=== PATIENT | female | born 1970 | race Hispanic/Latino ===

== ENCOUNTER 2017-11-18 16:20 | Emergency (ER) | payer MEDICAID ==
[2017-11-18 16:51] LABS: APPEARANCE,URINE Cloudy (CLEAR); BILIRUBIN,URINE Negative (NEGATIVE); COLOR,URINE Yellow (YELLOW); GLUCOSE, URINE (UA) Negative (NEGATIVE); HCG,QUAL RESULT NEGATIVE (NEGATIVE); KETONES,URINE Negative (NEGATIVE); LEUKOCYTE ESTERASE ,URINE Negative (NEGATIVE); NITRATE,URINE Negative (NEGATIVE); OCCULT BLOOD,URINE Negative (NEGATIVE); PH,URINE 6.5 (5.0-8.0); PROTEIN,URINE Negative (NEGATIVE)
[2017-11-18] MEDS ORDERED: METOCLOPRAMIDE 10 MG TABLET ONE (16:51)
[2017-11-18] MEDS ORDERED: SODIUM CHLORIDE 0.9% 1000ML 1,000 ML IV ONE (16:51)
[2017-11-18] MEDS ORDERED: KETOROLAC TROMETHAMINE 30MG/ML ONE (16:52)
[2017-11-18 17:02] LABS: BACTERIA,URINE Few /HPF (None Seen); RBC,URINE None Seen /HPF (0-1); SQUAMOUS EPITHELIAL CELL,UR 50-100 /HPF (0-2); WBC,URINE None Seen /HPF (0-1)
== END 2017-11-18 18:59 | disposition home or self-care (01) ==
LOC: EDH 16:20
DX: G43.909 Migraine, unspecified, not intractable, without status migrainosus (principal); J45.909 Unspecified asthma, uncomplicated; K21.9 Gastro-esophageal reflux disease without esophagitis; Z88.0 Allergy status to penicillin; Z88.6 Allergy status to analgesic agent; Z86.73 Personal history of transient ischemic attack (TIA), and cerebral infarction without residual deficits
CPT/HCPCS: 81001; 81025; 96361; 96374; 99284; J1885; J7030

== ENCOUNTER 2021-05-02 15:24 | Emergency (ER) | payer MEDICAID ==
[~2021-05-02] VITALS: Ht 170.2 cm; Wt 97.1 kg
[2021-05-02 15:45] VITALS: BP 133/83
[2021-05-02] MEDS ORDERED: GUAIFENESIN/DEXTROMETHORPHAN 1 EACH TAB.SR.12H PO ONE ×2 (16:00→18:00)
[2021-05-02 16:21] LABS: EOSINOPHILS % (AUTO) 2.7 % (0.0-8.0); LYMPHOCYTES % (AUTO) 33.1 % (21.0-51.0); MEAN CORPUSCULAR HEMOGLOBIN 29.7 pg (27.0-33.0); MEAN CORPUSCULAR HGB CONC 34.4 g/dL (32.0-36.0); MEAN CORPUSCULAR VOLUME 86.3 fL (79-99); MONOCYTES % (AUTO) 7.5 % (3.0-13.0); NEUTROPHILS % (AUTO) 55.4 % (40.0-77.0); PLATELET COUNT (AUTO) 150 K/uL (130-400); RED BLOOD CELL COUNT(AUTO) 4.75 MIL/uL (4.00-5.50); RED CELL DISTRIBUTION WIDTH 12.4 % (11.0-15.5); WHITE BLOOD COUNT (AUTO) 5.9 K/uL (4.8-10.8)
[2021-05-02] MEDS ORDERED: DEXAMETHASONE SOD PHOSPHATE 4 MG/ML 1ML VIAL IM SCH (18:00)
[2021-05-02] MEDS ORDERED: AZIT500T PO (18:51)
== END 2021-05-02 19:06 | disposition home or self-care (01) ==
LOC: EDH 15:24
DX: J45.901 Unspecified asthma with (acute) exacerbation (principal); J32.9 Chronic sinusitis, unspecified; Z20.822 Contact with and (suspected) exposure to COVID-19; I10 Essential (primary) hypertension; K21.9 Gastro-esophageal reflux disease without esophagitis; Z79.52 Long term (current) use of systemic steroids; Z88.0 Allergy status to penicillin; Z88.1 Allergy status to other antibiotic agents; Z88.2 Allergy status to sulfonamides; Z88.5 Allergy status to narcotic agent
CPT/HCPCS: 36415; 71045; 85025; 87635; 87804 ×2; 87880; 99284; C9803; J1100

== ENCOUNTER → 2022-12-29 | Outpatient (CLI) | payer MEDICAID ==
[~2022-12-29] MED LIST: AZIT500T PO
[2022-12-29 12:10] LABS: HEMOGLOBIN A1C 5.1 % (4.0-6.0)
[2022-12-29 12:15] LABS: ALBUMIN 3.5 g/dL (3.5-5.0); CREATININE 0.9 mg/dL (0.5-1.5); POTASSIUM 3.9 mmol/L (3.5-5.1); TOTAL PROTEIN, SERUM 7.1 g/dL (6.0-8.3)
== END | disposition home or self-care (01) ==
LOC: LAB 08:28
PROVIDERS: ATTEND Student in an Organized Health Care Education/Training Program
DX: I10 Essential (primary) hypertension (principal); E78.5 Hyperlipidemia, unspecified; K76.0 Fatty (change of) liver, not elsewhere classified; J45.909 Unspecified asthma, uncomplicated; Z79.899 Other long term (current) drug therapy
CPT/HCPCS: 36415; 80053; 80061; 83036

== ENCOUNTER → 2023-01-12 | Outpatient (CLI) | payer MEDICAID ==
[~2023-01-12] MED LIST changes: +IOHEXOL 350 MG/ML 100ML INFUS..BTL IV ONE; +METOPROLOL TARTRATE 1 MG/ML 5ML VIAL IV ONE; +NITROGLYCERIN 4.1 GM SPRAY TL ONE
== END | disposition home or self-care (01) ==
LOC: RAH 08:24
PROVIDERS: ATTEND Student in an Organized Health Care Education/Training Program
DX: R07.89 Other chest pain (principal)
CPT/HCPCS: 75574; J3490; Q9967

== ENCOUNTER → 2023-02-03 | Outpatient (CLI) | payer MEDICAID ==
[~2023-02-03] MED LIST changes: -IOHEXOL 350 MG/ML 100ML INFUS..BTL IV ONE; -METOPROLOL TARTRATE 1 MG/ML 5ML VIAL IV ONE; -NITROGLYCERIN 4.1 GM SPRAY TL ONE
== END | disposition home or self-care (01) ==
LOC: SHCH 07:55
PROVIDERS: ATTEND Student in an Organized Health Care Education/Training Program
DX: I11.9 Hypertensive heart disease without heart failure (principal); R07.9 Chest pain, unspecified; E78.5 Hyperlipidemia, unspecified
CPT/HCPCS: 93306

== ENCOUNTER 2025-01-10 18:32 | Observation (INO) | payer MEDICAID ==
[~2025-01-10] VITALS: Ht 172.7 cm; Wt 95.7 kg
[~2025-01-10 18:32] MED LIST changes: +ACET-66 PO; +ASPI-1197 PO; -AZIT500T PO; +ERGO500093 PO; +FAMO40TA7 PO; +ONDA-104 PO; +PANT40TA54 PO
--- NOTE | 2025-01-10 18:41 | ERN ---
General Chief Complaint: Abdominal Pain Stated Complaint: ABDOMINAL PAIN Time Seen by MD: 18:33 Source: patient History of Present Illness Initial Comments Patient is a 54-year-old female coming in to be evaluated for abdominal pain. Patient states that on the Dr. David performed a gastric bypass. She states he was discharged two days after. She states shortly after that she started having increased abdominal pain with the gassiness and states that she has not been able to defecate correctly. No fever no chills. Allergies: Coded Allergies: Penicillins (Unverified Allergy, Unknown, 05/02/21) Ifdiyzpr-0-IC2 Antimigraine Agents (Unverified Allergy, Unknown, 12/31/24) ciprofloxacin (Unverified Allergy, Unknown, 05/02/21) codeine (Unverified Allergy, Unknown, 05/02/21) metoclopramide (Unverified Allergy, Unknown, 12/31/24) nitrofurantoin (Unverified Allergy, Unknown, 12/31/24) sulfamethoxazole (Unverified Allergy, Unknown, 05/02/21) trimethoprim (Unverified Allergy, Unknown, 05/02/21) Home Meds Reported Medications Acetaminophen (Tylenol) 500 Mg Tab, 500 MG PO AD PRN for PAIN, TAB 12/31/24 Famotidine (Famotidine) 40 Mg Tablet, 40 MG PO HS, TAB 12/31/24 Ondansetron HCl (Ondansetron HCl) 4 Mg Tablet, 1 TAB PO Q6HPRN PRN for nausea/vomiting, #10 TAB 0 Refills 12/31/24 Aspirin (Aspirin) 81 Mg Tab.chew, 81 MG PO DAILY, TAB.CHEW 12/31/24 Ergocalciferol (Vitamin D2) (Vitamin D2) 1,250 Mcg (52398 Unit) Capsule, 1250 MCG PO QWEEK, CAP 12/31/24 Pantoprazole Sodium (Pantoprazole Sodium) 40 Mg Tablet.dr, 40 MG PO DAILY, TAB 12/31/24 Past Medical History Past Medical History: GERD, Hypertension, Other Medical History Other: IBS,TIA Past Surgical History: None Family History Family History: Negative Social History Social History: Negative ROS Dictation CONSTITUTIONAL: No chills, no fever, no weakness, no diaphoresis, no malaise. HEAD/FACE: No signs of trauma. EENT: No eye pain, no blurred vision, no tearing, no double vision, no ear pain, no ear discharge, no nose pain, no nasal congestion, no throat pain, no throat swelling, no mouth pain. RESPIRATORY: No cough, no orthopnea, no SOB, no stridor, no wheezing. CARDIOVASCULAR: No chest pain, no edema, no palpitations, no syncope. GASTROINTESTINAL/ABDOMINAL: abdominal pain, constipation, no diarrhea, no nausea, no vomiting. GENITOURINARY: No abnormal discharge, no dysuria, no frequent urination, no hematuria. No complaints of pain in the genitals. MUSCULOSKELETAL: No back pain, no gout, no joint pain, no joint swelling, no muscle pain, no muscle stiffness, no neck pain. INTEGUMENTARY: No change in color, no change in hair/nails, no dryness, no lesion, no lumps, no rash. NEUROLOGICAL/PSYCH: No anxiety, not depressed, no emotional problem, no headache, no numbness, no pre-existing deficit, no history of seizures, no tremors, no weakness. HEMATOLOGIC/LYMPHATIC: Not anemic, no history of blood clots, no apparent bleeding, no bruising, glands not swollen. All Systems Negative, Except as Noted. Physical Exam Physical Exam Dictation VITAL SIGNS: Reviewed. GENERAL APPEARANCE: Alert, oriented x3, no acute distress, obese. HEAD AND FACE: Non-traumatic. EYES: PERRL, pink conjunctivas, eyelid no trauma, anterior chamber clear. EARS: Pinnas intact and no signs of trauma or erythema. Ear canals clear and no discharge. TMs no erythema. NOSE: No discharge, no bleeding. OROPHARYNX: Mouth normal, teeth no caries, tongue pink. Pharynx clear, no erythema. Tonsils no exudates, no abscesses noted. Mucous membrane moist. NECK: Supple, non-tender, no thyromegaly, no masses, no JVD, no bruits. BREAST: Deferred. CHEST: No tenderness, no crepitus, no paradoxical movement, no retractions. LUNGS: Clear, well-ventilated, symmetric, no rales, no wheezing, no rhonchi, no stridor, good breath sounds bilaterally. HEART: Regular rate, regular rhythm, no murmur, no gallops. VASCULAR: No peripheral edema. ABDOMEN: Soft, positive bowel sounds, distended, no guarding, generalized abdominal tender, no rebound, no masses no hepatomegaly, no splenomegaly, no Griffin's sign, no hernias. RECTAL: Deferred. GENITAL: Deferred. NEUROLOGICAL: Normal speech, gross motor function intact, gross sensory function intact. MUSCULOSKELETAL: Neck nontender, full range of motion, back nontender, full range of motion. EXTREMITIES: Nontender, full range of motion. SKIN: Color pink, dry, no turgor, no rash, no lacerations, no abrasions, no contusions. LYMPHATICS: Deferred. Results Laboratory and Microbiology Lab and Micro Result Laboratory Tests Test 01/10/25 19:17 01/10/25 20:12 White Blood Count 5.9 K/uL (4.8-10.8) Red Blood Count 4.68 MIL/uL (4.00-5.50) Hemoglobin 13.9 g/dL (12.0-16.0) Hematocrit 39.2 % (36-48) Mean Corpuscular Volume 83.8 fL (79-99) Mean Corpuscular Hemoglobin 29.7 pg (27.0-33.0) Mean Corpuscular Hemoglobin Concent 35.5 g/dL (32.0-36.0) Red Cell Distribution Width 13.6 % (11.0-15.5) Platelet Count 205 K/uL (130-400) Mean Platelet Volume 9.4 fL (7.5-10.5) Immature Granulocyte % (Auto) 0.3 % (0-1) Neutrophils (%) (Auto) 59.9 % (40.0-77.0) Lymphocytes (%) (Auto) 27.3 % (21.0-51.0) Monocytes (%) (Auto) 8.3 % (3.0-13.0) Eosinophils (%) (Auto) 3.7 % (0.0-8.0) Basophils (%) (Auto) 0.5 % (0.0-5.0) Neutrophils # (Auto) 3.5 K/uL (1.8-7.7) Lymphocytes # (Auto) 1.6 K/uL (1.0-4.8) Monocytes # (Auto) 0.5 K/uL (0.1-1.0) Eosinophils # (Auto) 0.22 K/uL (0.00-0.70) Basophils # (Auto) 0.03 K/uL (0.00-0.20) Absolute Immature Granulocyte (auto 0.02 K/uL (0-1) Nucleated Red Blood Cells 0.0 % (0.0-0.19) Sodium Level 142 mmol/L (136-145) Potassium Level 3.4 mmol/L (3.5-5.1) L Chloride Level 102 mmol/L (101-111) Carbon Dioxide Level 25 mmol/L (21-32) Blood Urea Nitrogen 15 mg/dL (7-18) Creatinine 0.8 mg/dL (0.5-1.0) Glomerular Filtration Rate Calc 89 mL/min (>90) Random Glucose 85 mg/dL (70-105) Total Calcium 9.5 mg/dL (8.5-10.1) Total Bilirubin 0.9 mg/dL (0.2-1.0) Aspartate Amino Transf (AST/SGOT) 21 U/L (10-37) Alanine Aminotransferase (ALT/SGPT) 26 U/L (12-78) Alkaline Phosphatase 88 U/L (50-136) Total Creatine Kinase 44 U/L (21-232) Troponin I High Sensitivity 6 ng/L (4-50) Total Protein 7.7 g/dL (6.0-8.3) Albumin 3.9 g/dL (3.5-5.0) Lipase 42 U/L (16-77) Urine Color YELLOW (YELLOW) Urine Appearance CLOUDY (CLEAR) H Urine pH 6.0 (5.0-8.0) Urine Specific [place] 1.025 (1.001-1.031) Urine Protein 30 mg/dL (NEGATIVE) H Urine Glucose (UA) NEGATIVE mg/dL (NEGATIVE) Urine Ketones 150 mg/dL (NEGATIVE) H Urine Occult Blood +- (TRACE) (NEGATIVE) H Urine Nitrate 2+ (NEGATIVE) H Urine Bilirubin NEGATIVE mg/dL (NEGATIVE) Urine Urobilinogen 3 mg/dL (0.2-1.0) H Urine Leukocyte Esterase 500 Clay/uL (NEGATIVE) H Urine RBC 6-10 /HPF (0-1) H Urine WBC TNTC /HPF (0-1) H Urine WBC Clumps (Auto) FEW /HPF (0-1) Urine Squamous Epithelial Cells MOD /HPF (0-2) Urine Other Crystals (Auto) 1 /HPF (None Seen) Urine Bacteria RARE /HPF (None Seen) Labs Reviewed?: Yes MDM MDM: Differential diagnosis: Abdominal pain, constipation, bowel obstruction, Rationale: Tests considered and ordered secondary to shared decision making include: labs, ECG and radiology Previous outside records reviewed: Old ER visits. Risk of complication and/or morbidity or mortality of patient management: None Medications-Per medication reconciliation Need for hospitalization: Patient does meet criteria for hospitalization. Need for emergency major/minor surgery: No There are no social concerns with this patient. Prescription drug management Prescriptions will include symptomatic care Patient's prior external medical records from other ER visits were reviewed by me as indicated. Prior testing and results from previous visits were reviewed. Prior tests were taken into account with medical decision making and resource utilization, independent historian/historians were used to obtain complete medical history. I independently interpreted the test that were performed, results were reviewed by me and considered findings on radiology if ordered. Medical management and examination interpretation discussions were had by me with other qualified healthcare professionals as indicated for the patient's care. Discussed patient's pain and current symptoms. She says the pain comes in waves every 30 minutes. She is having trouble drinking water. She is having trouble burping gas out and she says she is only able to pass small amounts of flatus. She does feel she is dehydrated. I described to her the plan for a CT scan. Patient's CBC is normal. Patient's chemistry panel is normal. Patient's UA is strongly positive for a urinary tract infection with a cloudy appearance positive nitrite and positive esterase activity. Most likely patient got it from a Garrett catheter at some point during hospitalization although we will never know for sure. I will give the patient a dose of Rocephin. Patient's CT scan does show possible ileus with small bowel loops fecalized and dilated prior to the gastric bypass small bowel anastomosis. There are normal appearing loops of small bowel distal to the anastomosis. The radiologist thinks there maybe some dilated loops of small bowel distal to the anastomosis as well. So I do not know if the patient has a small bowel obstruction associated with the distal anastomosis or an ileus from her urinary tract infection. In either case I think she needs to be admitted to the hospital as she can not stay hydrated. I have called Dr. David to discuss the patient with him and then I will admit her to the hospitalist service. I have called the hospitalist service to admit the patient. ED Course Orders Procedure Category Date Status Time Cbc With Differential LAB 01/10/25 Complete 18:38 Comprehensive LAB 01/10/25 Complete Metabolic Panel 18:38 Troponin I High LAB 01/10/25 Complete Sensitivity 18:38 Urinalysis Profile LAB 01/10/25 Complete 18:38 12 Lead Ekg Tracing- EKG 01/10/25 Complete Technical 18:38 Lactated Ringers PHA 01/10/25 Complete 1000ml (Lactated 19:00 Ondansetron 4mg Inj PHA 01/10/25 Complete (Zofran 4mg Inj) 19:00 Pantoprazole 40mg Inj PHA 01/10/25 Complete (Protonix 40mg Inj 19:00 Creatine Kinase, Total LAB 01/10/25 Complete 18:38 Lipase LAB 01/10/25 Complete 18:38 Fentanyl Citrate Pf PHA 01/10/25 Complete 0.05 Mg/Ml (Fentanyl 19:30 Ketorolac PHA 01/10/25 Complete Tromethamine 30mg/Ml 20:00 Ketorolac PHA 01/10/25 Complete Tromethamine 30mg/Ml 20:05 Culture Urine HYUN 01/10/25 In Process 20:32 Ct Abdomen/Pelvis CT 01/10/25 Resulted W/Contrast 20:45 Iohexol (Omnipaque) PHA 01/10/25 Complete 20:59 Current Medications Medications (Trade) Dose Ordered Sig/Silvia Route PRN Reason Start Time Stop Time Status Last Admin Dose Admin Fentanyl Citrate (FENTanyl CITRate PF 50 MCG/ 1 ML 2ML VIAL) 50 mcg ONCE ONCE IVP 01/10/25 19:30 01/10/25 19:37 DC Iohexol (Omnipaque) 35,000 mg STK-MED ONCE IV 01/10/25 20:59 01/10/25 20:59 DC Ketorolac Tromethamine (toRADol) 30 mg ONCE ONCE IVP 01/10/25 20:00 01/10/25 20:05 DC 01/10/25 20:07 Ketorolac Tromethamine (toRADol) 30 mg STK-MED ONCE .ROUTE 01/10/25 20:05 01/10/25 20:05 DC Lactated Ringer's 1,000 ml @ 0 mls/hr ONCE ONCE IV 01/10/25 19:00 01/10/25 19:01 DC 01/10/25 19:28 Ondansetron HCl (zoFRAN 4MG INJ) 4 mg ONCE ONCE IVP 01/10/25 19:00 01/10/25 19:01 DC 01/10/25 19:28 Pantoprazole Sodium (PROTonix 40MG INJ) 40 mg ONCE ONCE IVP 01/10/25 19:00 01/10/25 19:01 DC 01/10/25 19:28 Vital Signs Date Time Temp Pulse Resp B/P (MAP) Pulse Ox O2 Delivery O2 Flow Rate FiO2 01/10/25 20:07 99.3 89 18 114/65 99 Room Air* 0 21 01/10/25 18:33 98.1 80 16 126/91 97 Room Air DX & DISP Disposition: Other(Comment) (Patient care transitioned to Dr. Sánchez) Departure Impression: Primary Impression: Abdominal pain Condition: Stable Referrals: PETRONA MORALES M.D. (PCP) JENNIFER KEARNEY MD January 10, 2025 18:41 NASIR SÁNCHEZ MD January 10, 2025 19:30
--- NOTE | 2025-01-10 19:09 | EKG ---
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
[2025-01-10 19:24] LABS: BASOPHILS # (AUTO) 0.03 K/uL (0.00-0.20); BASOPHILS % (AUTO) 0.5 % (0.0-5.0); EOSINOPHILS # (AUTO) 0.22 K/uL (0.00-0.70); EOSINOPHILS % (AUTO) 3.7 % (0.0-8.0); HEMATOCRIT 39.2 % (36-48); IMMATURE GRANULOCYTE ABSOLUTE 0.02 K/uL (0-1); LYMPHOCYTES # (AUTO) 1.6 K/uL (1.0-4.8); LYMPHOCYTES % (AUTO) 27.3 % (21.0-51.0); MEAN CORPUSCULAR HEMOGLOBIN 29.7 pg (27.0-33.0); MEAN CORPUSCULAR HGB CONC 35.5 g/dL (32.0-36.0); MEAN CORPUSCULAR VOLUME 83.8 fL (79-99); MONOCYTES # (AUTO) 0.5 K/uL (0.1-1.0); MONOCYTES % (AUTO) 8.3 % (3.0-13.0); NEUTROPHILS # (AUTO) 3.5 K/uL (1.8-7.7); NEUTROPHILS % (AUTO) 59.9 % (40.0-77.0); PLATELET COUNT (AUTO) 205 K/uL (130-400); RED BLOOD CELL COUNT(AUTO) 4.68 MIL/uL (4.00-5.50); RED CELL DISTRIBUTION WIDTH 13.6 % (11.0-15.5); WHITE BLOOD COUNT (AUTO) 5.9 K/uL (4.8-10.8)
[2025-01-10] MEDS: PANTOPrazole 40 MG/VIAL IVP ONE (19:28)
[2025-01-10] MEDS: ondanSETRON 4MG INJ IVP ONE (19:28)
[2025-01-10] MEDS: LACTATED RINGERS 1000ML 1,000 ML IV ONE (19:28)
[2025-01-10] MEDS: FENTanyl CITRate PF 50 MCG/1 ML 2ML VIAL IVP ONE (19:45)
[2025-01-10 19:59] LABS: CREATININE 0.8 mg/dL (0.5-1.0); POTASSIUM 3.4 mmol/L (3.5-5.1)
[2025-01-10 20:03] LABS: ALBUMIN 3.9 g/dL (3.5-5.0); BILIRUBIN,TOTAL 0.9 mg/dL (0.2-1.0); TOTAL PROTEIN, SERUM 7.7 g/dL (6.0-8.3)
[2025-01-10] MEDS: ketOROlac 30MG VIAL (30MG/ML) ONE (20:06)
[2025-01-10] MEDS: ketOROlac 30MG VIAL (30MG/ML) IVP ONE (20:07)
[2025-01-10 20:30] LABS: APPEARANCE,URINE CLOUDY (CLEAR); BILIRUBIN,URINE NEGATIVE (NEGATIVE); COLOR,URINE YELLOW (YELLOW); GLUCOSE, URINE (UA) NEGATIVE (NEGATIVE); KETONES,URINE 150 mg/dL (NEGATIVE); LEUKOCYTE ESTERASE ,URINE 500 Leu/uL (NEGATIVE); NITRATE,URINE 2+ (NEGATIVE); PROTEIN,URINE 30 mg/dL (NEGATIVE); UROBILINOGEN,URINE 3 mg/dL (0.2-1.0)
[2025-01-10 20:31] LABS: ADD UA MICROSCOPIC YES
[2025-01-10 20:33] LABS: BACTERIA,URINE RARE /HPF (None Seen); MUCUS,URINE MOD LPF (None Seen); SQUAMOUS EPITHELIAL CELL,UR MOD /HPF (0-2); UNCLASSIFIED CRYSTAL 1 /HPF (None Seen); WBC CLUMP FEW /HPF (0-1); WBC,URINE TNTC /HPF (0-1)
[2025-01-10] MEDS ORDERED: IOHEXOL 350 MG/ML 100ML INFUS..BTL IV ONE (20:59)
--- NOTE | 2025-01-10 21:16 | HMCIMG ---
CT ABDOMEN WITH CONTRAST. CT PELVIS WITH CONTRAST INDICATION: postop gastric bypass pain TECHNIQUE: Routine transaxial images using 5 mm slice thickness were obtained after the intravenous infusion of 100 mL of Omnipaque 350 without adverse effects. Oral contrast was not administered. Rectal contrast was not administered. Coronal and sagittal reformatted images acquired for interpretation. CT was performed with one or more of the following dose reduction techniques: Automated exposure control, adjustment of the mA and/or kV according to patient size, or use of iterative reconstruction technique. COMPARISON: None FINDINGS: ABDOMEN: Heart size is normal. Linear scarring at the left lung base. Gastric bypass surgery changes. The liver is normal in size and smooth in contour without lesions or biliary duct dilation. The spleen is normal in size without lesions. The gallbladder is absent. The pancreas appears normal without pancreatic duct dilation. The adrenal glands appear normal. Both kidneys appear unremarkable. Cortical nephrograms are symmetric and normal in appearance bilaterally. No evidence for intra-abdominal free air or organized fluid collection. No retrocrural, intraabdominal, or retroperitoneal lymphadenopathy identified. No aortic aneurysmal dilation or dissection identified. Residual subcutaneous periumbilical air densities perhaps related to laparoscopic entrance sites, without any evidence for hernia. PELVIS: No evidence for free air or organized pelvic fluid collection. No significant pelvic adenopathy detected. On coronal image 13 of series 4, fluid-filled dilated jejunum noted within the central upper abdomen upstream from the small bowel anastomosis, and fecalization of the small bowel contents at the same level suggests slow transit time. Nondilated, but otherwise, similar-appearing, small bowel loop on the other side of the anastomosis. Terminal ileum appears normal. The appendix appears normal. The urinary bladder appears unremarkable. Uterus is absent. Visible osseous structures are intact. IMPRESSION: Findings suggesting upper abdominal ileus as described, specifically, on both sides of the small bowel anastomosis. Follow-up CT imaging with oral contrast may be necessary in order to confirm normal transit.
[2025-01-10] MEDS ORDERED: acetaMINOPHEN 650 MG SUPPOSITORY RC PRN (23:00)
[2025-01-10] MEDS ORDERED: TEMAZepam 15 MG CAPSULE PO PRN (23:00)
[2025-01-10] MEDS ORDERED: acetaMINOPHEN 325 MG TAB PO PRN (23:00)
[2025-01-10] MEDS ORDERED: LACTULOSE 20 GM/30 ML UDCUP PO PRN (23:00)
[2025-01-10] MEDS ORDERED: ondanSETRON 4MG INJ IVP PRN (23:00)
[2025-01-10] MEDS ORDERED: LAbetaLOL 20MG SYG IV PRN (23:00)
[2025-01-10] MEDS ORDERED: doCUSate SODIUM 100 MG CAP PO PRN (23:00)
[2025-01-10] MEDS: LACTATED RINGERS 1000ML 1,000 ML IV SCH (23:01)
--- NOTE | 2025-01-10 23:03 | HP ---
[facility] H[facility] PHYS[facility] Date of Service: January 10, 2025 Time of Service: 23:01 PETRONA MORALES M.D. (PCP) Attending/supervising physicians: Dr. Jonas and Dr. Saucedo HISTORY OF PRESENT ILLNESS: Ms Valdez is a 54-year-old female coming in to be evaluated for abdominal pain. Patient stated that on the Dr. Domingo David performed a gastric bypass and was discharged two days after. She stated shortly after that she started having increased abdominal pain with the gassiness and stated that she has not been able to defecate correctly. The patient stated that her last bowel movement was on Tuesday. She states that it was watery due to the suppository that was given. The patient denied any fevers, chills, chest pain, shortness of breath, any other pain, problem or concern. CBC WNL. Remarkable labs: K3.4, GFR 89. UA: Cloudy, positive protein, ketones, occult blood, nitrites, leukocyte esterase, urobilinogen. CT abdomen and pelvis with contrast: Findings suggesting upper abdominal ileus, specifically, on both sides of the small bowel anastomosis. In ED the patient received LR 1 L bolus, Zofran 4 mg IV, Protonix 40 mg IV, fentanyl 50 mcg IV, and Toradol 30 mg IV. ED provider request patient be admitted with the diagnosis of abdominal pain. I assessed the patient in hallway B1. family member was at bedside. The patient appeared comfortable, breathing was even, unlabored, in no distress. I informed them of labs, diagnostics, and plan of care. I answered their multiple questions. They verbalized understanding and are in agreement with the plan. Plan and assessment are listed below. REVIEW OF SYSTEMS 12-point ROS reviewed with the patient. All pertinent positives mentioned above. Otherwise negative, noncontributory, non-pertinent. PAST MEDICAL HISTORY: As mentioned above PAST SURGICAL HISTORY: Gastric bypass on 01/03/2025 Cholecystectomy Hysterectomy PAST SOCIAL HISTORY: Denied alcohol, tobacco, illicit drug use FAMILY HISTORY: Noncontributory Coded Allergies: Penicillins (Unverified Allergy, Unknown, 05/02/21) [id number] Antimigraine Agents (Unverified Allergy, Unknown, 12/31/24) ciprofloxacin (Unverified Allergy, Unknown, 05/02/21) codeine (Unverified Allergy, Unknown, 05/02/21) metoclopramide (Unverified Allergy, Unknown, 12/31/24) nitrofurantoin (Unverified Allergy, Unknown, 12/31/24) sulfamethoxazole (Unverified Allergy, Unknown, 05/02/21) trimethoprim (Unverified Allergy, Unknown, 05/02/21) PHYSICAL EXAM GENERAL APPEARANCE: The patient is awake, alert, and oriented, in no acute cardiopulmonary distress. NEUROLOGICAL: Cranial nerves II-XII grossly intact. Motor is 5/5 in bilateral upper and lower extremities proximal to distal. No sensory deficits. HEENT: Face is symmetric. Pupils are equal and reactive. Extraocular movements are intact. NECK: Supple. No JVD. No thyromegaly. No submental, submandibular, pre- /postauricular, occipital or supraclavicular lymphadenopathy. CHEST: Normal chest expansion. No Telemetry. LUNGS: Absence of any rales, rhonchi or any wheezing. CARDIOVASCULAR: Regular. S1 and S2 normal. No appreciable rubs, murmurs or gallops. ABDOMEN: Obese. Soft, nontender, and nondistended. There is no rebound, volu ntary guarding, or rigidity. Bowel sounds present in all four quadrants. : Deferred. No Garrett. EXTREMITIES: Non-edematous and not cyanotic. No clubbing. Good capillary refill. SKIN: No skin breakdown. Vital Sign (Last 24 Hours) 01/10/25 22:34 Temp 99.1 Pulse 85 Resp 18 B/P (MAP) 121/60 Pulse Ox 98 O2 Delivery Room Air* O2 Flow Rate 0 FiO2 21 LABS: Laboratory: Test 01/10/25 20:12 01/10/25 19:17 Range/Units Urine Color YELLOW YELLOW Urine Appearance CLOUDY H CLEAR Urine pH 6.0 5.0-8.0 Urine Specific [place] 1.025 1.001-1.031 Urine Protein 30 H NEGATIVE mg/dL Urine Glucose (UA) NEGATIVE NEGATIVE mg/dL Urine Ketones 150 H NEGATIVE mg/dL Urine Occult Blood +- (TRACE) H NEGATIVE Urine Nitrate 2+ H NEGATIVE Urine Bilirubin NEGATIVE NEGATIVE mg/dL Urine Urobilinogen 3 H 0.2-1.0 mg/dL Urine Leukocyte Esterase 500 H NEGATIVE Clay/uL Urine RBC 6-10 H 0-1 /HPF Urine WBC TNTC H 0-1 /HPF Urine WBC Clumps (Auto) FEW 0-1 /HPF Urine Squamous Epithelial Cells MOD 0-2 /HPF Urine Other Crystals (Auto) 1 None Seen /HPF Urine Bacteria RARE None Seen /HPF White Blood Count 5.9 4.8-10.8 K/uL Red Blood Count 4.68 4.00-5.50 MIL/uL Hemoglobin 13.9 12.0-16.0 g/dL Hematocrit 39.2 36-48 % Mean Corpuscular Volume 83.8 79-99 fL Mean Corpuscular Hemoglobin 29.7 27.0-33.0 pg Mean Corpuscular Hemoglobin Concent 35.5 32.0-36.0 g/dL Red Cell Distribution Width 13.6 11.0-15.5 % Platelet Count 205 130-400 K/uL Mean Platelet Volume 9.4 7.5-10.5 fL Immature Granulocyte % (Auto) 0.3 0-1 % Neutrophils (%) (Auto) 59.9 40.0-77.0 % Lymphocytes (%) (Auto) 27.3 21.0-51.0 % Monocytes (%) (Auto) 8.3 3.0-13.0 % Eosinophils (%) (Auto) 3.7 0.0-8.0 % Basophils (%) (Auto) 0.5 0.0-5.0 % Neutrophils # (Auto) 3.5 1.8-7.7 K/uL Lymphocytes # (Auto) 1.6 1.0-4.8 K/uL Monocytes # (Auto) 0.5 0.1-1.0 K/uL Eosinophils # (Auto) 0.22 0.00-0.70 K/uL Basophils # (Auto) 0.03 0.00-0.20 K/uL Absolute Immature Granulocyte (auto 0.02 0-1 K/uL Nucleated Red Blood Cells 0.0 0.0-0.19 % Sodium Level 142 136-145 mmol/L Potassium Level 3.4 L 3.5-5.1 mmol/L Chloride Level 102 101-111 mmol/L Carbon Dioxide Level 25 21-32 mmol/L Blood Urea Nitrogen 15 7-18 mg/dL Creatinine 0.8 0.5-1.0 mg/dL Glomerular Filtration Rate Calc 89 >90 mL/min Random Glucose 85 70-105 mg/dL Total Calcium 9.5 8.5-10.1 mg/dL Total Bilirubin 0.9 0.2-1.0 mg/dL Aspartate Amino Transf (AST/SGOT) 21 10-37 U/L Alanine Aminotransferase (ALT/SGPT) 26 12-78 U/L Alkaline Phosphatase 88 50-136 U/L Total Creatine Kinase 44 21-232 U/L Troponin I High Sensitivity 6 4-50 ng/L Total Protein 7.7 6.0-8.3 g/dL Albumin 3.9 3.5-5.0 g/dL Lipase 42 16-77 U/L Current Medications Medications (Trade) Dose Ordered Sig/Silvia Route PRN Reason Start Time Stop Time Status Last Admin Dose Admin Acetaminophen (TYLenol 325MG TAB) 650 mg Q6H PRN PO FEVER/MILD PAIN LEVEL 1-3 01/10/25 23:00 02/09/25 22:59 Acetaminophen (TYLenol 650MG SUPPOSITORY) 650 mg Q6H PRN RC FEVER / MILD PAIN 1-3 IF NPO 01/10/25 23:00 02/09/25 22:59 Docusate Sodium (COLace 100MG CAP) 100 mg BID PRN PO CONSTIPATION 01/10/25 23:00 02/09/25 22:59 Labetalol HCl (TRANdate 20MG SYG) 10 mg Q2H PRN IV SBP GREATER THAN 160 01/10/25 23:00 02/09/25 22:59 Lactated Ringer's 1,000 ml @ 100 mls/hr Q10H IV 01/10/25 23:00 02/09/25 22:59 Lactulose (Constulose 20gm/ 30ml Udcup) 20 gm Q6H PRN PO CONSTIPATION 01/10/25 23:00 02/09/25 22:59 Ondansetron HCl (zoFRAN 4MG INJ) 4 mg Q6H PRN IVP NAUSEA/VOMITING 01/10/25 23:00 02/09/25 22:59 Temazepam (restORIL 15 MG CAP) 15 mg HS PRN PO INSOMNIA/SLEEP 01/10/25 23:00 02/09/25 22:59 DIAGNOSTICS / RADIOLOGY: [ ] ASSESSMENT: Acute abdominal pain, suspected upper abdominal ileus specifically on both sides of the small bowel anastomosis, per CT on 01/10/2025 Residual subcutaneous periumbilical air densities, perhaps r/t laparoscopic entrance site per CT on 01/10/2025 Acute complicated cystitis, POA Linear scarring of the left lung base, per CT on 01/10/2025 Hypokalemia Acute kidney injury, POA Acute dehydration, POA Acute on chronic kidney disease, (GFR 78 on 12/29/2022, GFR 89 on 01/03/2025) Proteinuria, ketonuria, hematuria per UA on 01/10/2025 Multiple drug allergies PLAN: Admit patient to medical floor. NPO for now. Consult Dr. Domingo David, surgeon in am for evaluation of abd pain, ileus vs obstruction s/p surgery. Follow urine cultures. Gentle IV hydration. LR IV at 100 mL an hour. Antibiotic therapy: Rocephin 2 g IV daily. (Pt has penicillin allergy, but has taken Rocephin in past w/o problems.) P.r.n. medications for: Pain management, fever, nausea, vomiting, hypertension Glucometer checks AC & HS needed with insulin regular sliding scale coverage as needed. Blood pressure checks every 4 hours and as needed. Reconcile home medications once available. Monitor renal and liver function. Monitor electrolytes and treat accordingly. GI and DVT prophylaxis: Protonix and SCDs AM labs ADVANCED CARE PLANNING 1. Which of the following were discussed? Hospice Care - No Therapeutic options - Yes Advance Directives - Yes Other discussions - 2. Discussed with who? Patient 3. Voluntary nature of this service was explained to the patient? Yes 4. Amount of time spent - __ over 35 minutes 5. Reviewed by Physician? (if this service was performed by [facility]) Yes ATTESTATION BY PHYSICIAN I have seen and examined the patient. I reviewed the documentation, medical decision making, and treatment plan as noted by the mid-level provider above. I agree with the findings and plan of care. KHRIS FRANCIS January 10, 2025 23:02
[2025-01-11] VITALS (9 sets, daily range): BP systolic 104–146; BP diastolic 61–90; PULSE 60–98; RESP 17–18; TEMP 97.5–98.2; O2SAT 98
[2025-01-11] MEDS: levoFLOXacin 750 MG/D5W 150 ML 150 ML IV SCH (00:30)
--- NOTE | 2025-01-11 00:38 | NUR ---
PATIENT REFUSED LEVOFLOXACIN IV. SHE SAID SHE PREFERS HER 'USUAL' ANITIBIOTICS THAT HAS BEEN GIVEN TO HER IN THE PAST.
--- NOTE | 2025-01-11 00:42 | NUR ---
INFORM NIKKI ORDERED CEFTRI INSTEAD
[2025-01-11] MEDS: cefTRIAXone 2GM VIAL IVPB SCH (00:50)
[2025-01-11] MEDS: cefTRIAXone 2GM VIAL ONE (00:51)
[2025-01-11] MEDS ORDERED: PoTASSium chloRIDE 20MEQ/100ML 100 ML IV PRN (01:00)
[2025-01-11] MEDS ORDERED: GLUCAGON 1MG KIT 1 MG ML IM PRN (01:00)
[2025-01-11] MEDS ORDERED: DEXTROSE 50%-WATER 50 ML DISP.SYRIN IV PRN (01:00)
[2025-01-11] MEDS ORDERED: ketOROlac 30MG VIAL (30MG/ML) IVP PRN (01:30)
[2025-01-11 04:03] LABS: HEMATOCRIT 34.5 % (36-48); MEAN CORPUSCULAR HEMOGLOBIN 29.6 pg (27.0-33.0); MEAN CORPUSCULAR HGB CONC 34.8 g/dL (32.0-36.0); MEAN CORPUSCULAR VOLUME 85.2 fL (79-99); RED BLOOD CELL COUNT(AUTO) 4.05 MIL/uL (4.00-5.50); RED CELL DISTRIBUTION WIDTH 13.5 % (11.0-15.5); WHITE BLOOD COUNT (AUTO) 5.1 K/uL (4.8-10.8)
[2025-01-11 04:29] LABS: CREATININE 0.7 mg/dL (0.5-1.0); MAGNESIUM 1.9 mg/dL (1.80-2.40); PHOSPHORUS 4.2 mg/dL (2.5-4.9); POTASSIUM 3.8 mmol/L (3.5-5.1); THYROID STIMULATING HORMONE 1.18 uIU/mL (0.36-3.74)
--- NOTE | 2025-01-11 09:07 | CONS ---
GENERAL SURGERY CONSULTATION NOTE Date/Time Patient Seen: [01/11/2025, 8:30 a.m. ] Requesting Physician: [ ] Reason for Consultation: [ Abdominal pain, possible areas] History of Present Illness: [ Patient is a 54-year-old female who was admitted from emergency department due to abdominal pain, UTI. Patient with history of robotic assisted gastric bypass one week ago. Past medical history of gastroparesis, GERD, chronic constipation. Patient states that while at home her abdominal discomfort increased. Mostly to the pelvis area and epigastrium. Patient describes feeling bloated. Also states that her p.o. intake has been diminishing. Patient worried that she is getting dehydrated not getting enough nutrition. Last bowel movement about one week ago, passing flatus. Patient denies nausea, vomiting, diarrhea. No shortness of breath, chest pain. Denies fevers or chills.] Past Medical History: [Gastroparesis, GERD, morbid obesity the associated comorbidities, chronic constipation ] Past Surgical History: [Gastric bypass when we can go home cholecystectomy ] Family History: [ Noncontributory] Social History: [ Noncontributory] Habits: [Never] smoker. [Denies] alcohol consumption. [Denies] illicit drug use Current Medications Medications (Trade) Dose Ordered Sig/Silvia Route Start Time Stop Time Status Last Admin Dose Admin Ceftriaxone Sodium (Rocephin 2gm Inj) 2 gm Q24H IVPB 01/11/25 01:00 01/21/25 00:59 01/11/25 00:50 2 GM Lactated Ringer's 1,000 ml @ 100 mls/hr Q10H IV 01/10/25 23:00 02/09/25 22:59 01/10/25 23:01 100 MLS/HR Levofloxacin/ Dextrose 150 ml @ 100 mls/hr Q24H IV 01/11/25 00:30 01/11/25 01:30 DC Review of Systems: CONST: [No fever, fatigue, or weight changes.] EYES: [No recent vision problems.] ENT: [No congestion, ear pain, or sore throat.] C/V: [No chest pain, palpitations, or edema.] RESP: [No cough, congestion, wheezing or shortness of breath.] GI: [Mild abdominal pain, no nausea, vomiting, endorses constipation, no diarrhea.] : [No incontinence or dysuria.] SKIN: [No rash.] NEURO: [No headache, focal numbness or weakness, dizziness, or seizures.] PSYCH: [No depression or anxiety.] HEME: [No abnormal bruising or bleeding.] LYMPH: [No swollen glands.] Physical Examination: GENERAL: [No acute distress.] HEAD: [Normal with no signs of head trauma.] EYES: [PERRLA, EOMI, conjunctiva and sclera normal.] ENT: [Hearing grossly intact, normal oropharynx.] NECK: [Supple without JVD. There is no tenderness, lymphadenopathy, or masses. No thyromegaly. Normal carotid upstrokes without bruits.] LUNGS: [Clear breath sounds bilaterally. There are right basilar rales one third of the way up the chest. No wheezes, or rhonchi.] HEART: [Normal rate and rhythm. Normal S1 and S2 without mumurs, gallop or rub.] VASC: [Peripheral pulses +2 bilaterally.] ABD: [Bowel sounds normal, soft, mild tenderness to palpation, however no rebound or guarding. Tenderness he is appropriate to a post of the seven laparoscopic surgery. Incisions are healing well.] : [Not examined] LYMPH: [No lymphadenopathy noted.] EXT: [No clubbing, cyanosis or edema.] SKIN: [No rashes or lesions noted.] NEURO: [Awake, alert, and oriented x3. No focal sensory or strength deficits noted.] Vital Signs (last 8hr) Date Time Temp Pulse Resp B/P (MAP) Pulse Ox O2 Delivery O2 Flow Rate FiO2 01/11/25 04:00 97.5 60 18 104/68 99 Room Air 01/11/25 02:00 98 Room Air* 0 21 01/11/25 01:50 97.7 74 18 131/81 99 Room Air Laboratory: [ ] Hematology Labs: Test 01/11/25 03:57 01/10/25 19:17 Range/Units White Blood Count 5.1 4.8-10.8 K/uL Red Blood Count 4.05 4.00-5.50 MIL/uL Hemoglobin 12.0 12.0-16.0 g/dL Hematocrit 34.5 L 36-48 % Mean Corpuscular Volume 85.2 79-99 fL Mean Corpuscular Hemoglobin 29.6 27.0-33.0 pg Mean Corpuscular Hemoglobin Concent 34.8 32.0-36.0 g/dL Red Cell Distribution Width 13.5 11.0-15.5 % Platelet Count 160 130-400 K/uL Mean Platelet Volume 9.0 7.5-10.5 fL Nucleated Red Blood Cells 0.0 0.0-0.19 % Immature Granulocyte % (Auto) 0.3 0-1 % Neutrophils (%) (Auto) 59.9 40.0-77.0 % Lymphocytes (%) (Auto) 27.3 21.0-51.0 % Monocytes (%) (Auto) 8.3 3.0-13.0 % Eosinophils (%) (Auto) 3.7 0.0-8.0 % Basophils (%) (Auto) 0.5 0.0-5.0 % Neutrophils # (Auto) 3.5 1.8-7.7 K/uL Lymphocytes # (Auto) 1.6 1.0-4.8 K/uL Monocytes # (Auto) 0.5 0.1-1.0 K/uL Eosinophils # (Auto) 0.22 0.00-0.70 K/uL Basophils # (Auto) 0.03 0.00-0.20 K/uL Absolute Immature Granulocyte (auto 0.02 0-1 K/uL Chemistry Labs: Test 01/11/25 03:57 01/10/25 19:17 Range/Units Sodium Level 144 136-145 mmol/L Potassium Level 3.8 3.5-5.1 mmol/L Chloride Level 106 101-111 mmol/L Carbon Dioxide Level 29 21-32 mmol/L Blood Urea Nitrogen 14 7-18 mg/dL Creatinine 0.7 0.5-1.0 mg/dL Glomerular Filtration Rate Calc 104 >90 mL/min Random Glucose 80 70-105 mg/dL Total Calcium 8.5 8.5-10.1 mg/dL Phosphorus Level 4.2 2.5-4.9 mg/dL Magnesium Level 1.90 1.80-2.40 mg/dL Thyroid Stimulating Hormone (TSH) 1.18 0.36-3.74 uIU/mL Total Bilirubin 0.9 0.2-1.0 mg/dL Aspartate Amino Transf (AST/SGOT) 21 10-37 U/L Alanine Aminotransferase (ALT/SGPT) 26 12-78 U/L Alkaline Phosphatase 88 50-136 U/L Total Creatine Kinase 44 21-232 U/L Troponin I High Sensitivity 6 4-50 ng/L Total Protein 7.7 6.0-8.3 g/dL Albumin 3.9 3.5-5.0 g/dL Lipase 42 16-77 U/L Diagnostics / Radiology: [CT imaging was reviewed, per my interpretation, there is no pneumoperitoneum or fluid collections in the peritoneal cavity. Changes of gastric bypass, there is mild dilation in the nichol limb. No true evidence of obstruction, Ileus possible. Fecal burden observed in the large colon.] Assessment: [ 54-year-old female with abdominal pain and UTI. Recent gastric bypass seven days ago with no concerns of ileus versus partial small-bowel obstruction. Patient with no nausea or vomiting, tolerated p.o. but not meeting hydration requirements. Hemodynamically stable, afebrile abdomen appears benign. Labs unremarkable, some hypokalemia. CT with changes concerning for ileus versus partial small- bowel obstruction.] Plan: [We will obtain upper GI with small-bowel follow-through and noted to assess bowel continuity Keep NPO for now, okay to advance to bariatric clear liquid diet after upper GI with small-bowel follow-through has been completed We will start a constipation regimen with daily Dulcolax suppository, mag citrate t.i.d. No surgical intervention planned at this time We will continue to follow] TEOFILO TORRES MD January 11, 2025 09:07
[2025-01-11] MEDS: BisaCODYL 10 MG SUPP.RECT RC SCH (09:17)
[2025-01-11] MEDS: MAGNESIUM CITRATE 296 ML SOLUTION PO SCH (09:18)
[2025-01-11] MEDS ORDERED: DIATR MEGLU/DIATRIZOATE SODIUM 30 ML BOTTLE ONE (10:42)
--- NOTE | 2025-01-11 12:03 | NUR ---
DCP: HOME Pt was previously inpatient 01/02 and DC 01/04. Pt stated that since dc she was feeling in pain and then decided to come back to hospital due to not feeling well and feeling weak. Pt currently lives with Fritz Valdez [phone]. Pt has a cane that she uses to get around at home. Pt does not have a provider or home health services. Pt is able to complete ADLs independently. PCP is Ilsa Herr and uses [facility] or [facility] for RX needs. At DC pt will return home and will assist with transportation. Addendum: 01/11/25 at 1246 by MARY CANELA SS Amended: Links added.
--- NOTE | 2025-01-11 12:25 | HMCIMG ---
UPPER GI W/SMALL BOWEL REASON: abdominal pain, gastric bypass 7 days ago, concern about obstruction at [facility]. COMPARISON: None TECHNIQUE: Gastrografin upper GI with small bowel follow-through study was performed. FINDINGS: There is no obstruction to the antegrade passage of Gastrografin from mild through colon. Contrast reached the colon in 1 hour. Normal esophageal stripping wave is seen. No evidence of hiatal hernia is seen. No evidence of gastroesophageal reflux is seen. Post gastric bypass surgical changes are seen. Stomach is poorly seen. Mucosal fold pattern of jejunum and ileum are grossly unremarkable otherwise. No leakage is seen. IMPRESSION: No leakage or obstruction is seen. No evidence of hiatal hernia or gastroesophageal reflux is seen.
--- NOTE | 2025-01-11 14:00 | PN ---
[facility] PROGRESS NOTE Date of Service: January 11, 2025 Time of Service: 13:58 SUBJECTIVE: [Patient was evaluated this morning in her room. She was getting suppository as she has not had bowel movement. Patient feels very uncomfortable initially refusing milk of magnesia. I educated the patient that she needs to try as constipation we will increase her pain. ] REVIEW OF SYSTEMS 12-point ROS reviewed with the patient. All pertinent positives mentioned above. Otherwise negative, noncontributory, non-pertinent. PHYSICAL EXAM GENERAL APPEARANCE: The patient is awake, alert, and oriented, in no acute cardiopulmonary distress. NEUROLOGICAL: Cranial nerves II-XII grossly intact. Motor is 5/5 in bilateral upper and lower extremities proximal to distal. No sensory deficits. HEENT: Face is symmetric. Pupils are equal and reactive. Extraocular movements are intact. NECK: Supple. No JVD. No thyromegaly. No submental, submandibular, pre-/postauricular, occipital or supraclavicular lymphadenopathy. CHEST: Normal chest expansion. No Telemetry. LUNGS: Absence of any rales, rhonchi or any wheezing. CARDIOVASCULAR: Regular. S1 and S2 normal. No appreciable rubs, murmurs or gallops. ABDOMEN: Obese. Soft, nontender, and nondistended. There is no rebound, voluntary guarding, or rigidity. Bowel sounds present in all four quadrants. : Deferred. No Garrett. EXTREMITIES: Non-edematous and not cyanotic. No clubbing. Good capillary refill. SKIN: No skin breakdown. Vital Signs (last 8hr) Date Time Temp Pulse Resp B/P (MAP) Pulse Ox O2 Delivery O2 Flow Rate FiO2 01/11/25 12:00 97.5 98 18 146/90 98 Room Air 01/11/25 08:00 97.5 61 17 106/70 99 Room Air LABS: Laboratory: Test 01/11/25 03:57 01/10/25 20:12 01/10/25 19:17 Range/Units White Blood Count 5.1 4.8-10.8 K/uL Red Blood Count 4.05 4.00-5.50 MIL/uL Hemoglobin 12.0 12.0-16.0 g/dL Hematocrit 34.5 L 36-48 % Mean Corpuscular Volume 85.2 79-99 fL Mean Corpuscular Hemoglobin 29.6 27.0-33.0 pg Mean Corpuscular Hemoglobin Concent 34.8 32.0-36.0 g/dL Red Cell Distribution Width 13.5 11.0-15.5 % Platelet Count 160 130-400 K/uL Mean Platelet Volume 9.0 7.5-10.5 fL Nucleated Red Blood Cells 0.0 0.0-0.19 % Sodium Level 144 136-145 mmol/L Potassium Level 3.8 3.5-5.1 mmol/L Chloride Level 106 101-111 mmol/L Carbon Dioxide Level 29 21-32 mmol/L Blood Urea Nitrogen 14 7-18 mg/dL Creatinine 0.7 0.5-1.0 mg/dL Glomerular Filtration Rate Calc 104 >90 mL/min Random Glucose 80 70-105 mg/dL Total Calcium 8.5 8.5-10.1 mg/dL Phosphorus Level 4.2 2.5-4.9 mg/dL Magnesium Level 1.90 1.80-2.40 mg/dL Thyroid Stimulating Hormone (TSH) 1.18 0.36-3.74 uIU/mL Urine Color YELLOW YELLOW Urine Appearance CLOUDY H CLEAR Urine pH 6.0 5.0-8.0 Urine Specific [place] 1.025 1.001-1.031 Urine Protein 30 H NEGATIVE mg/dL Urine Glucose (UA) NEGATIVE NEGATIVE mg/dL Urine Ketones 150 H NEGATIVE mg/dL Urine Occult Blood +- (TRACE) H NEGATIVE Urine Nitrate 2+ H NEGATIVE Urine Bilirubin NEGATIVE NEGATIVE mg/dL Urine Urobilinogen 3 H 0.2-1.0 mg/dL Urine Leukocyte Esterase 500 H NEGATIVE [place]/uL Urine RBC 6-10 H 0-1 /HPF Urine WBC TNTC H 0-1 /HPF Urine WBC Clumps (Auto) FEW 0-1 /HPF Urine Squamous Epithelial Cells MOD 0-2 /HPF Urine Other Crystals (Auto) 1 None Seen /HPF Urine Bacteria RARE None Seen /HPF Immature Granulocyte % (Auto) 0.3 0-1 % Neutrophils (%) (Auto) 59.9 40.0-77.0 % Lymphocytes (%) (Auto) 27.3 21.0-51.0 % Monocytes (%) (Auto) 8.3 3.0-13.0 % Eosinophils (%) (Auto) 3.7 0.0-8.0 % Basophils (%) (Auto) 0.5 0.0-5.0 % Neutrophils # (Auto) 3.5 1.8-7.7 K/uL Lymphocytes # (Auto) 1.6 1.0-4.8 K/uL Monocytes # (Auto) 0.5 0.1-1.0 K/uL Eosinophils # (Auto) 0.22 0.00-0.70 K/uL Basophils # (Auto) 0.03 0.00-0.20 K/uL Absolute Immature Granulocyte (auto 0.02 0-1 K/uL Total Bilirubin 0.9 0.2-1.0 mg/dL Aspartate Amino Transf (AST/SGOT) 21 10-37 U/L Alanine Aminotransferase (ALT/SGPT) 26 12-78 U/L Alkaline Phosphatase 88 50-136 U/L Total Creatine Kinase 44 21-232 U/L Troponin I High Sensitivity 6 4-50 ng/L Total Protein 7.7 6.0-8.3 g/dL Albumin 3.9 3.5-5.0 g/dL Lipase 42 16-77 U/L Current Medications Medications (Trade) Dose Ordered Sig/Silvia Route PRN Reason Start Time Stop Time Status Last Admin Dose Admin Acetaminophen (TYLenol 325MG TAB) 650 mg Q6H PRN PO FEVER/MILD PAIN LEVEL 1-3 01/10/25 23:00 02/09/25 22:59 Acetaminophen (TYLenol 650MG SUPPOSITORY) 650 mg Q6H PRN RC FEVER / MILD PAIN 1-3 IF NPO 01/10/25 23:00 02/09/25 22:59 Bisacodyl (DulcoLAX) 10 mg DAILY RC 01/11/25 09:00 02/10/25 08:59 01/11/25 09:17 10 MG Ceftriaxone Sodium (Rocephin 2gm Inj) 2 gm Q24H IVPB 01/11/25 01:00 01/21/25 00:59 01/11/25 00:50 2 GM Dextrose (D50w) 50 ml AD PRN IV HYPOGLYCEMIA PROTOCOL 01/11/25 01:00 02/10/25 00:59 Docusate Sodium (COLace 100MG CAP) 100 mg BID PRN PO CONSTIPATION 01/10/25 23:00 02/09/25 22:59 Glucagon (Glucagon 1mg Kit) 1 mg AD PRN IM HYPOGLYCEMIA PROTOCOL 01/11/25 01:00 02/10/25 00:59 Ketorolac Tromethamine (toRADol) 30 mg Q6H PRN IVP SEVERE PAIN (7-10) 01/11/25 01:30 01/16/25 01:29 Labetalol HCl (TRANdate 20MG SYG) 10 mg Q2H PRN IV SBP GREATER THAN 160 01/10/25 23:00 02/09/25 22:59 Lactated Ringer's 1,000 ml @ 100 mls/hr Q10H IV 01/10/25 23:00 02/09/25 22:59 01/11/25 09:18 100 MLS/HR Lactulose (Constulose 20gm/ 30ml Udcup) 20 gm Q6H PRN PO CONSTIPATION 01/10/25 23:00 02/09/25 22:59 Levofloxacin/ Dextrose 150 ml @ 100 mls/hr Q24H IV 01/11/25 00:30 01/11/25 01:30 DC Magnesium Citrate (Magnesium Citrate) 50 ml TID PO 01/11/25 09:00 02/10/25 08:59 01/11/25 09:18 50 ML Magnesium Sulfate 50 ml @ 0 mls/hr PROTOCOL PRN IV MAGNESIUM PROTOCOL 01/11/25 01:00 02/10/25 00:59 Ondansetron HCl (zoFRAN 4MG INJ) 4 mg Q6H PRN IVP NAUSEA/VOMITING 01/10/25 23:00 02/09/25 22:59 Potassium Chloride 100 ml @ 50 mls/hr AD PRN IV POTASSIUM PROTOCOL 01/11/25 01:00 02/10/25 00:59 Temazepam (restORIL 15 MG CAP) 15 mg HS PRN PO INSOMNIA/SLEEP 01/10/25 23:00 02/09/25 22:59 DIAGNOSTICS / RADIOLOGY: [ ] ASSESSMENT: Acute abdominal pain, suspected upper abdominal ileus specifically on both sides of the small bowel anastomosis, per CT on 01/10/2025 Residual subcutaneous periumbilical air densities, perhaps r/t laparoscopic entrance site per CT on 01/10/2025 Acute complicated cystitis, POA Linear scarring of the left lung base, per CT on 01/10/2025 Hypokalemia Acute kidney injury, POA Acute dehydration, POA Acute on chronic kidney disease, (GFR 78 on 12/29/2022, GFR 89 on 01/03/2025) Proteinuria, ketonuria, hematuria per UA on 01/10/2025 Multiple drug allergies PLAN: Admit patient to medical floor. NPO for now. Consult Dr. Domingo David, surgeon in am for evaluation of abd pain, ileus vs obstruction s/p surgery. Follow urine cultures. Gentle IV hydration. LR IV at 100 mL an hour. Antibiotic therapy: Rocephin 2 g IV daily. (Pt has penicillin allergy, but has taken Rocephin in past w/o problems.) P.r.n. medications for: Pain management, fever, nausea, vomiting, hypertension Glucometer checks AC & HS needed with insulin regular sliding scale coverage as needed. Blood pressure checks every 4 hours and as needed. Reconcile home medications once available. Monitor renal and liver function. Monitor electrolytes and treat accordingly. GI and DVT prophylaxis: Protonix and SCDs AM labs Case was discussed with Dr. Herrera, above plan was formulated ATTESTATION BY PHYSICIAN I have seen and examined the patient. I reviewed the documentation, medical decision making, and treatment plan as noted by the mid-level provider above. I agree with the findings and plan of care. DELMY HERRERA MD, [facility] January 11, 2025 14:00
[2025-01-12 04:13] LABS: HEMATOCRIT 34.7 % (36-48); MEAN CORPUSCULAR HEMOGLOBIN 29.4 pg (27.0-33.0); MEAN CORPUSCULAR VOLUME 86.5 fL (79-99); RED BLOOD CELL COUNT(AUTO) 4.01 MIL/uL (4.00-5.50); RED CELL DISTRIBUTION WIDTH 13.7 % (11.0-15.5); WHITE BLOOD COUNT (AUTO) 4.6 K/uL (4.8-10.8)
[2025-01-12 04:20] VITALS: BP 98/61; PULSE 57; RESP 18; TEMP 97.7
[2025-01-12 04:21] LABS: CREATININE 0.8 mg/dL (0.5-1.0); POTASSIUM 3.2 mmol/L (3.5-5.1)
[2025-01-12] MEDS ORDERED: PoTASSium chloRIDE 20MEQ ER 20 MEQ ERTAB PO PRN (05:30)
[2025-01-12] MEDS: MAGNESIUM 2GM PREMIX 50ML 50 ML IV PRN (06:10)
[2025-01-12] MEDS: PoTASSium chl 10% ELIXIR 20MEQ 20 MEQ/15 ML UDCUP PO PRN (06:35)
[2025-01-12 08:00] VITALS: BP 110/68; PULSE 66; RESP 17; TEMP 97.6
[2025-01-12 08:43] VITALS: O2SAT 99
--- NOTE | 2025-01-12 09:56 | PN ---
GENERAL SURGERY PROGRESS NOTE Date/Time Patient Seen: [01/12/2025 9:00 a.m. ] Problem List: [ UTI, constipation, poor p.o. intake, hypokalemia] Interval History: [ Patient with upper GI and small-bowel follow-through performed yesterday, contrast reached the colon within an hour. No obstruction, no leak. Patient with bowel movements at this time.] Current Medications Medications (Trade) Dose Ordered Sig/Silvia Route Start Time Stop Time Status Last Admin Dose Admin Bisacodyl (DulcoLAX) 10 mg DAILY RC 01/11/25 09:00 02/10/25 08:59 01/11/25 09:17 10 MG Ceftriaxone Sodium (Rocephin 2gm Inj) 2 gm Q24H IVPB 01/11/25 01:00 01/21/25 00:59 01/11/25 23:39 2 GM Lactated Ringer's 1,000 ml @ 100 mls/hr Q10H IV 01/10/25 23:00 02/09/25 22:59 01/12/25 05:36 100 MLS/HR Levofloxacin/ Dextrose 150 ml @ 100 mls/hr Q24H IV 01/11/25 00:30 01/11/25 01:30 DC Magnesium Citrate (Magnesium Citrate) 50 ml TID PO 01/11/25 09:00 02/10/25 08:59 01/11/25 09:18 50 ML Physical Examination: GENERAL: [No acute distress.] HEAD: [Normal with no signs of head trauma.] EYES: [PERRLA, EOMI, conjunctiva and sclera normal.] ENT: [Hearing grossly intact, normal oropharynx.] NECK: [Supple without JVD. There is no tenderness, lymphadenopathy, or masses. No thyromegaly. Normal carotid upstrokes without bruits.] LUNGS: [Clear breath sounds bilaterally. There are right basilar rales one third of the way up the chest. No wheezes, or rhonchi.] HEART: [Normal rate and rhythm. Normal S1 and S2 without mumurs, gallop or rub.] VASC: [Peripheral pulses +2 bilaterally.] ABD: [Bowel sounds normal, soft, nontender, no masses, no organomegaly. Incisions are healing well.] : [Not examined] LYMPH: [No lymphadenopathy noted.] EXT: [No clubbing, cyanosis or edema.] SKIN: [No rashes or lesions noted.] NEURO: [Awake, alert, and oriented x3. No focal sensory or strength deficits noted.] Vital Signs (last 8hr) Date Time Temp Pulse Resp B/P (MAP) Pulse Ox O2 Delivery O2 Flow Rate FiO2 01/12/25 08:43 99 Room Air* 0 21 01/12/25 08:00 97.5 66 17 110/68 99 Room Air 01/12/25 04:20 97.7 57 18 98/61 95 Room Air Laboratory: [ ] Hematology Labs: Test 01/12/25 03:44 01/10/25 19:17 Range/Units White Blood Count 4.6 L 4.8-10.8 K/uL Red Blood Count 4.01 4.00-5.50 MIL/uL Hemoglobin 11.8 L 12.0-16.0 g/dL Hematocrit 34.7 L 36-48 % Mean Corpuscular Volume 86.5 79-99 fL Mean Corpuscular Hemoglobin 29.4 27.0-33.0 pg Mean Corpuscular Hemoglobin Concent 34.0 32.0-36.0 g/dL Red Cell Distribution Width 13.7 11.0-15.5 % Platelet Count 173 130-400 K/uL Mean Platelet Volume 9.8 7.5-10.5 fL Nucleated Red Blood Cells 0.0 0.0-0.19 % Immature Granulocyte % (Auto) 0.3 0-1 % Neutrophils (%) (Auto) 59.9 40.0-77.0 % Lymphocytes (%) (Auto) 27.3 21.0-51.0 % Monocytes (%) (Auto) 8.3 3.0-13.0 % Eosinophils (%) (Auto) 3.7 0.0-8.0 % Basophils (%) (Auto) 0.5 0.0-5.0 % Neutrophils # (Auto) 3.5 1.8-7.7 K/uL Lymphocytes # (Auto) 1.6 1.0-4.8 K/uL Monocytes # (Auto) 0.5 0.1-1.0 K/uL Eosinophils # (Auto) 0.22 0.00-0.70 K/uL Basophils # (Auto) 0.03 0.00-0.20 K/uL Absolute Immature Granulocyte (auto 0.02 0-1 K/uL Chemistry Labs: Test 01/12/25 03:44 01/11/25 03:57 01/10/25 19:17 Range/Units Sodium Level 147 H 136-145 mmol/L Potassium Level 3.2 L 3.5-5.1 mmol/L Chloride Level 107 101-111 mmol/L Carbon Dioxide Level 28 21-32 mmol/L Blood Urea Nitrogen 13 7-18 mg/dL Creatinine 0.8 0.5-1.0 mg/dL Glomerular Filtration Rate Calc 89 >90 mL/min Random Glucose 79 70-105 mg/dL Total Calcium 8.6 8.5-10.1 mg/dL Phosphorus Level 4.2 2.5-4.9 mg/dL Magnesium Level 1.90 1.80-2.40 mg/dL Thyroid Stimulating Hormone (TSH) 1.18 0.36-3.74 uIU/mL Total Bilirubin 0.9 0.2-1.0 mg/dL Aspartate Amino Transf (AST/SGOT) 21 10-37 U/L Alanine Aminotransferase (ALT/SGPT) 26 12-78 U/L Alkaline Phosphatase 88 50-136 U/L Total Creatine Kinase 44 21-232 U/L Troponin I High Sensitivity 6 4-50 ng/L Total Protein 7.7 6.0-8.3 g/dL Albumin 3.9 3.5-5.0 g/dL Lipase 42 16-77 U/L Diagnostics / Radiology: [Upper GI with small-bowel follow-through performed yesterday, per my interpretation contrast reaching the colon within 1 hour, no obstructions or evidence of leakage.] Impression and Plan: [ The patient is a 54-year-old female who was admitted with UTI abdominal discomfort, found to have constipation. History of gastric bypass about eight days ago. Patient had a few bowel movements overnight. Tolerating clear liquid diet. No nausea or vomiting. Remains hemodynamically stable, afebrile. Abdomen is benign incisions healing well. Hypokalemia and labs. Upper GI with no concerning findings contrast reaching the colon within an hour, no obstruction or leakage. Plan Keep patient on bariatric full liquid diet until discharge, until she is evaluated in clinic a week after her discharge Continue bowel regimen with daily Dulcolax suppository and milk of magnesia Rest of care per primary team No further surgical recommendations at this time. Okay to discharge from the surgical standpoint] TEOFILO TORRES MD January 12, 2025 09:56
[2025-01-12] MEDS ORDERED: BISA10SU11 PR (09:58)
[2025-01-12] MEDS ORDERED: MAGN-157 PO (09:59)
[2025-01-12 12:00] VITALS: BP 107/68; PULSE 67; RESP 18; TEMP 97.8
[2025-01-12] MEDS ORDERED: CEFD300C3 PO (14:05)
--- NOTE | 2025-01-12 14:21 | DS ---
Discharge Summary Hospital Course Summary: Patient Name: Olaf Romero Date of : 1970 Admission Date: 01/10/2025 Discharge Date: 01/12/2025 Olaf Romero is a 54-year-old female who presented to the emergency department with complaints of abdominal pain. The patient underwent a robotic-assisted gastric bypass performed by Dr. Teofilo David on January 03, 2025, and was discharged two days post-operatively. Shortly after discharge, she began experiencing increased abdominal pain accompanied by gassiness and difficulty with bowel movements. Her last bowel movement was watery, induced by a suppository, and occurred on the Tuesday prior to admission. The patient denied experiencing fevers, chills, chest pain, shortness of breath, or any other significant pain or concerns. Her past medical history includes gastroparesis, gastroesophageal reflux disease (GERD), and chronic constipation. She reported increased abdominal discomfort, particularly in the pelvic and epigastric regions, and described a sensation of bloating. Her oral intake had diminished, raising concerns about dehydration and inadequate nutrition. Despite passing flatus, she had not had a substantial bowel movement in approximately one week. She denied nausea, vomiting, and diarrhea. Laboratory evaluations in the emergency department revealed a potassium level of 3.4 and a glomerular filtration rate (GFR) of 89. Urinalysis was notable for cloudy urine with positive protein, ketones, occult blood, nitrites, leukocyte esterase, and urobilinogen, indicating a urinary tract infection (UTI). A CT scan of the abdomen and pelvis with contrast suggested an upper abdominal ileus, particularly around the small bowel anastomosis, but no pneumoperitoneum or fluid collection was observed. Mild dilatation of the Alicia limb was noted, with no definitive evidence of obstruction, although ileus was considered possible. A fecal burden was observed in the large colon. In the emergency department, Ms. Romero received a 1-liter bolus of lactated Ringer's solution, Zofran 4 mg IV, Protonix 40 mg IV, fentanyl 50 mcg IV, and Toradol 30 mg IV. She was admitted with a diagnosis of abdominal pain and UTI. Dr. David, her general surgeon, assessed that there were no concerns for ileus versus partial small-bowel obstruction. The plan included advancing to a bariatric clear liquid diet following an upper GI series with small-bowel follow-through, which showed no leakage or obstruction. No surgical intervention was deemed necessary. During her hospital stay, Ms. Romero's potassium level was repleted per protocol, and her magnesium level, initially at 1.9, was monitored and supplemented as needed. She was hemodynamically stable and cleared from a surgical standpoint. Her UTI, caused by Gram-positive cocci, will be treated with cefdinir 300 mg orally twice daily for five days, considering her multiple medication allergies. Ms. Romero was advised to follow up with her primary care physician in 2-3 days and with her general surgeon in one week. She was discharged once electrolyte replacement was completed and she was stable. Parts Department Supervisor(s): Dr. Teofilo David- General Surgeon Procedure(s): [facility] [address] [place] [id number] IMAGING REPORT Signed PATIENT: OLAF ROMERO MR#: [id number] : 1970 SEX: F AGE: 54 LOCATION: [facility] ORDER 0849 STATUS: ADM IN REPORT#: [id number] SERVICE 0848 REASON: abdominal pain, gastric bypass 7 days ago, concern about obstruction at JJ ORDERING PHYSICIAN: TEOFILO DAVID MD PROCEDURE: UGISBFT - UPPER GI W/SMALL BOWEL UPPER GI W/SMALL BOWEL REASON: abdominal pain, gastric bypass 7 days ago, concern about obstruction at [facility]. COMPARISON: None TECHNIQUE: Gastrografin upper GI with small bowel follow-through study was performed. FINDINGS: There is no obstruction to the antegrade passage of Gastrografin from mild through colon. Contrast reached the colon in 1 hour. Normal esophageal stripping wave is seen. No evidence of hiatal hernia is seen. No evidence of gastroesophageal reflux is seen. Post gastric bypass surgical changes are seen. Stomach is poorly seen. Mucosal fold pattern of jejunum and ileum are grossly unremarkable otherwise. No leakage is seen. IMPRESSION: No leakage or obstruction is seen. No evidence of hiatal hernia or gastroesophageal reflux is seen. DICTATED BY: CAROL FLORES MD DATE: 01/11/251219 ELECTRONICALLY SIGNED BY: CAROL FLORES MD DATE: 01/11/[address] [address] IMAGING REPORT Signed PATIENT: OLAF ROMERO MR#: [id number] : 1970 SEX: F AGE: 54 LOCATION: [facility] ORDER 45 STATUS: [facility] REPORT#: [id number] SERVICE 44 REASON: post-op pain ORDERING PHYSICIAN: NASIR SÁNCHEZ MD PROCEDURE: ABD PEL W - CT ABDOMEN/PELVIS W/CONTRAST CT ABDOMEN WITH CONTRAST. CT PELVIS WITH CONTRAST INDICATION: postop gastric bypass pain TECHNIQUE: Routine transaxial images using 5 mm slice thickness were obtained after the intravenous infusion of 100 mL of Omnipaque 350 without adverse effects. Oral contrast was not administered. Rectal contrast was not administered. Coronal and sagittal reformatted images acquired for interpretation. CT was performed with one or more of the following dose reduction techniques: Automated exposure control, adjustment of the mA and/or kV according to patient size, or use of iterative reconstruction technique. COMPARISON: None FINDINGS: ABDOMEN: Heart size is normal. Linear scarring at the left lung base. Gastric bypass surgery changes. The liver is normal in size and smooth in contour without lesions or biliary duct dilation. The spleen is normal in size without lesions. The gallbladder is absent. The pancreas appears normal without pancreatic duct dilation. The adrenal glands appear normal. Both kidneys appear unremarkable. Cortical nephrograms are symmetric and normal in appearance bilaterally. No evidence for intra-abdominal free air or organized fluid collection. No retrocrural, intraabdominal, or retroperitoneal lymphadenopathy identified. No aortic aneurysmal dilation or dissection identified. Residual subcutaneous periumbilical air densities perhaps related to laparoscopic entrance sites, without any evidence for hernia. PELVIS: No evidence for free air or organized pelvic fluid collection. No significant pelvic adenopathy detected. On coronal image 13 of series 4, fluid-filled dilated jejunum noted within the central upper abdomen upstream from the small bowel anastomosis, and fecalization of the small bowel contents at the same level suggests slow transit time. Nondilated, but otherwise, similar-appearing, small bowel loop on the other side of the anastomosis. Terminal ileum appears normal. The appendix appears normal. The urinary bladder appears unremarkable. Uterus is absent. Visible osseous structures are intact. IMPRESSION: Findings suggesting upper abdominal ileus as described, specifically, on both sides of the small bowel anastomosis. Follow-up CT imaging with oral contrast may be necessary in order to confirm normal transit. DICTATED BY: YUAN GRANADO MD DATE: 01/10/252106 ELECTRONICALLY SIGNED BY: YUAN GRANADO MD DATE: 01/10/252115 Assessment/Plan: Admitting diagnosis Acute abdominal pain, suspected upper abdominal ileus specifically on both sides of the small bowel anastomosis, per CT on 01/10/2025 Residual subcutaneous periumbilical air densities, perhaps r/t laparoscopic entrance site per CT on 01/10/2025 Acute complicated cystitis, POA Linear scarring of the left lung base, per CT on 01/10/2025 Hypokalemia Acute kidney injury, POA Acute dehydration, POA Acute on chronic kidney disease, (GFR 78 on 12/29/2022, GFR 89 on 01/03/2025) Proteinuria, ketonuria, hematuria per UA on 01/10/2025 Multiple drug allergies Discharge diagnosis Acute abdominal pain, suspected upper abdominal ileus specifically on both sides of the small bowel anastomosis, per CT on 01/10/2025 Residual subcutaneous periumbilical air densities, perhaps r/t laparoscopic entrance site per CT on 01/10/2025 Acute complicated cystitis, POA, Gram-positive cocci on susceptibility, patient will be discharged with cefdinir 300 mg p.o. b.i.d. x5 days Linear scarring of the left lung base, per CT on 01/10/2025 Hypokalemia-covered per protocol Hypomagnesemia-covered per protocol Acute kidney injury, POA Acute dehydration, POA Acute on chronic kidney disease, (GFR 78 on 12/29/2022, GFR 89 on 01/03/2025) Proteinuria, ketonuria, hematuria per UA on 01/10/2025 Multiple drug allergies Discharge Instructions: Discharged home with instructions to continue with post bariatric/bypass surgery orders from surgeon Follow up with surgery in one week Follow up with your PCP in 2-3 days Please see medication recommendations/new prescriptions Home Medications: Reported Medications Acetaminophen (Tylenol) 500 Mg Tab, 500 MG PO AD PRN for PAIN, TAB 12/31/24 Famotidine (Famotidine) 40 Mg Tablet, 40 MG PO HS, TAB 12/31/24 Ondansetron HCl (Ondansetron HCl) 4 Mg Tablet, 1 TAB PO Q6HPRN PRN for nausea/vomiting, #10 TAB 0 Refills 12/31/24 Aspirin (Aspirin) 81 Mg Tab.chew, 81 MG PO DAILY, TAB.CHEW 12/31/24 Ergocalciferol (Vitamin D2) (Vitamin D2) 1,250 Mcg (11358 Unit) Capsule, 1250 MCG PO QWEEK, CAP 12/31/24 Pantoprazole Sodium (Pantoprazole Sodium) 40 Mg Tablet.dr, 40 MG PO DAILY, TAB 12/31/24 New Medications: Bisacodyl (Bisacodyl) 10 Mg Supp.rect 1 SUPP LA DAILY for constipation for 10 Days, #10 SUPP 0 Refills Cefdinir (Cefdinir) 300 Mg Capsule 1 CAP PO BID for 5 Days, #10 CAP 0 Refills Magnesium Hydroxide (Milk of Magnesia) 400 Mg/5 Ml Oral.susp 5 ML PO BID for constipation for 30 Days, #300 ML 0 Refills Continued Medications: Acetaminophen (Tylenol) 500 Mg Tab 500 MG PO AD PRN for PAIN, TAB Aspirin (Aspirin) 81 Mg Tab.chew 81 MG PO DAILY, TAB.CHEW Ergocalciferol (Vitamin D2) (Vitamin D2) 1,250 Mcg (69069 Unit) Capsule 1250 MCG PO QWEEK, CAP Famotidine (Famotidine) 40 Mg Tablet 40 MG PO HS, TAB Ondansetron HCl (Ondansetron HCl) 4 Mg Tablet 1 TAB PO Q6HPRN PRN for nausea/vomiting, #10 TAB 0 Refills Pantoprazole Sodium (Pantoprazole Sodium) 40 Mg Tablet.dr 40 MG PO DAILY, TAB Time spent arranging discharge: 31-60 minutes ATTESTATION BY PHYSICIAN I have seen and examined the patient. I reviewed the documentation, medical decision making, and treatment plan as noted by the mid-level provider above. I agree with the findings and plan of care. DELMY HERRERA MD, [facility] January 12, 2025 14:21
[2025-01-12] MEDS ORDERED: MAGNESIUM 2GM PREMIX 50ML 50 ML IV SCH (14:30)
[2025-01-12 14:53] LABS: MAGNESIUM 2.2 mg/dL (1.80-2.40); POTASSIUM 3.3 mmol/L (3.5-5.1)
[2025-01-12 16:00] VITALS: BP 102/64; PULSE 67; RESP 17; TEMP 97.7
--- NOTE | 2025-01-12 18:05 | NUR ---
DISCHARGE Pt was educated on discharge instructions & medication compliance. Pt verbalized understanding & denied needing further assistance. IV was removed & pt was transported to the front entrance via W/C by BUSINESS BANKING SALES ASSISTANT. no s/s of distress noted.
== END 2025-01-12 18:05 | disposition home or self-care (01) ==
LOC: EDH 18:32 → EDHIP 18:33 → INTOOBSV 18:33 → 4BH 01-11 00:16
PROVIDERS: ADMIT Internal Medicine; ATTEND Internal Medicine
DX: N30.00 Acute cystitis without hematuria (principal); J98.4 Other disorders of lung; N17.9 Acute kidney failure, unspecified; E86.0 Dehydration; J18.9 Pneumonia, unspecified organism; E87.6 Hypokalemia; I12.9 Hypertensive chronic kidney disease with stage 1 through stage 4 chronic kidney disease, or unspecified chronic kidney disease; N18.9 Chronic kidney disease, unspecified; K21.9 Gastro-esophageal reflux disease without esophagitis; K31.84 Gastroparesis; F19.90 Other psychoactive substance use, unspecified, uncomplicated; R31.9 Hematuria, unspecified; R80.9 Proteinuria, unspecified; Z98.84 Bariatric surgery status; Z88.0 Allergy status to penicillin; Z90.710 Acquired absence of both cervix and uterus; Z86.73 Personal history of transient ischemic attack (TIA), and cerebral infarction without residual deficits; Z88.5 Allergy status to narcotic agent; Z88.8 Allergy status to other drugs, medicaments and biological substances; Z88.2 Allergy status to sulfonamides; Z90.49 Acquired absence of other specified parts of digestive tract
CPT/HCPCS: 96361 ×5; 96375 ×3; 99285; 82550; 84484; 80053; 83690; 85025; 87086 ×2; 87186; 81001; 36415 ×3; 74177; 93005; 96365; 96366; 84443; 83735 ×2; 84100; 80048 ×2; 85027 ×2; 74240; 84132; G0378 ×29; J7120 ×2; J3010; J2405; J1885; J2470; Q9967; Q9963; J1956; J0696 ×2; J3475; 96374

== ENCOUNTER 2025-02-08 18:34 | Emergency (ER) | payer MEDICAID ==
[~2025-02-08] VITALS: Ht 172.7 cm; Wt 89.8 kg
[~2025-02-08 18:34] MED LIST changes: +BISA10SU11 PR; +CEFD300C3 PO; +MAGN-157 PO
[2025-02-08 19:07] LABS: APPEARANCE,URINE CLOUDY (CLEAR); BILIRUBIN,URINE 1 mg/dL (NEGATIVE); COLOR,URINE YELLOW (YELLOW); GLUCOSE, URINE (UA) NEGATIVE (NEGATIVE); KETONES,URINE 150 mg/dL (NEGATIVE); LEUKOCYTE ESTERASE ,URINE 75 Leu/uL (NEGATIVE); NITRATE,URINE NEGATIVE (NEGATIVE); OCCULT BLOOD,URINE NEGATIVE (NEGATIVE); PH,URINE 6.5 (5.0-8.0); PROTEIN,URINE 50 mg/dL (NEGATIVE); UROBILINOGEN,URINE 12 mg/dL (0.2-1.0)
[2025-02-08 19:08] LABS: ADD UA MICROSCOPIC YES
[2025-02-08 19:09] LABS: MUCUS,URINE MANY LPF (None Seen); OTHER CASTS, URINE 1 /LPF (None Seen); SQUAMOUS EPITHELIAL CELL,UR MOD /HPF (0-2); WBC,URINE 26-50 /HPF (0-1)
[2025-02-08 19:13] LABS: BASOPHILS # (AUTO) 0.05 K/uL (0.00-0.20); BASOPHILS % (AUTO) 0.8 % (0.0-5.0); EOSINOPHILS # (AUTO) 0.13 K/uL (0.00-0.70); EOSINOPHILS % (AUTO) 2.1 % (0.0-8.0); HEMATOCRIT 42.8 % (36-48); IMMATURE GRANULOCYTE ABSOLUTE 0.02 K/uL (0-1); LYMPHOCYTES # (AUTO) 1.6 K/uL (1.0-4.8); LYMPHOCYTES % (AUTO) 24.8 % (21.0-51.0); MEAN CORPUSCULAR HEMOGLOBIN 30.1 pg (27.0-33.0); MEAN CORPUSCULAR HGB CONC 34.3 g/dL (32.0-36.0); MEAN CORPUSCULAR VOLUME 87.5 fL (79-99); MONOCYTES # (AUTO) 0.6 K/uL (0.1-1.0); MONOCYTES % (AUTO) 8.9 % (3.0-13.0); NEUTROPHILS % (AUTO) 63.1 % (40.0-77.0); PLATELET COUNT (AUTO) 141 K/uL (130-400); RED BLOOD CELL COUNT(AUTO) 4.89 MIL/uL (4.00-5.50); RED CELL DISTRIBUTION WIDTH 14.6 % (11.0-15.5); WHITE BLOOD COUNT (AUTO) 6.3 K/uL (4.8-10.8)
[2025-02-08 19:17] LABS: CREATININE 0.8 mg/dL (0.5-1.0); POTASSIUM 3.2 mmol/L (3.5-5.1)
[2025-02-08 19:21] LABS: BILIRUBIN,DIRECT 0.4 mg/dL (0.0-0.3); BILIRUBIN,TOTAL 1.5 mg/dL (0.2-1.0); MAGNESIUM 1.9 mg/dL (1.80-2.40); TOTAL PROTEIN, SERUM 7.6 g/dL (6.0-8.3)
[2025-02-08] MEDS: 0.9%NACL 1000ML 1,000 ML IV STA (19:29)
[2025-02-08] MEDS ORDERED: IOHEXOL-350 75 ML VIAL IV ONE (20:27)
[2025-02-08] MEDS: PoTASSium BIcarbonate/CIT AC 25 MEQ TABLET.EFF PO STA (20:33)
--- NOTE | 2025-02-08 21:06 | HMCIMG ---
CT ABDOMEN WITH CONTRAST. CT PELVIS WITH CONTRAST INDICATION: Left upper abdominal pain; history of gastric bypass TECHNIQUE: Routine transaxial images using 5 mm slice thickness were obtained after the intravenous infusion of 100 mL of Omnipaque 350 without adverse effects. Oral contrast was not administered. Rectal contrast was not administered. Coronal and sagittal reformatted images acquired for interpretation. CT was performed with one or more of the following dose reduction techniques: Automated exposure control, adjustment of the mA and/or kV according to patient size, or use of iterative reconstruction technique. COMPARISON: None FINDINGS: ABDOMEN: Heart size is normal. Visible lung bases are clear. Gastric bypass surgery changes. The liver is normal in size and smooth in contour without lesions or biliary duct dilation. The spleen is normal in size without lesions. The gallbladder is absent. The pancreas appears normal without pancreatic duct dilation. The adrenal glands appear normal. Both kidneys appear unremarkable. Cortical nephrograms are symmetric and normal in appearance bilaterally. No evidence for intra-abdominal free air or organized fluid collection. No retrocrural, intraabdominal, or retroperitoneal lymphadenopathy identified. No aortic aneurysmal dilation or dissection identified. PELVIS: No evidence for free air or organized pelvic fluid collection. No significant pelvic adenopathy detected. Visualized small and large bowel loops appear unremarkable. Terminal ileum appears normal. The appendix appears normal. The urinary bladder appears unremarkable. Visible osseous structures are intact. IMPRESSION: No evidence for any acute intra-abdominal or pelvic process.
[2025-02-08] MEDS ORDERED: ONDA-104 PO (21:38)
--- NOTE | 2025-02-08 21:44 | EKG ---
[facility] Test Date: 2025-02-08 Test Time: 21:41:34 Pat Name: OLAF ROMERO Department: ED Room: Gender: F [employer] Contact Printer: [id number] : 1970 Requested By: CHANDRAKANT AYALA Order Number: [id number] Reading MD: Charo Frias Measurements Intervals [place] Rate: 59 P: 55 TN: 142 QRS: 1 QRSD: 104 T: 41 QT: 434 QTc: 429 Interpretive Statements Sinus bradycardia Compared to ECG 01/10/2025 19:06:39 Sinus rhythm no longer present Electronically Signed On 02-09-2025 13:22:59 CDT by Charo Frias Please click the below link to view image of tracing.
--- NOTE | 2025-02-08 21:59 | ERN ---
ED Note History of Present Illness Stated Complaint: ABD CRAMPS, GBW, DIZZINESS Chief Complaint: Abdominal Pain Time Seen by MD: 18:38 Time Seen by Midlevel: 18:42 Dictation: [age] year old female with a history of gastroparesis, cholesterol, hyper tension, IBS. Coming in complaining of generalized body weakness, muscle cramps, and pain to the abdomen. Patient states this pain has been going on for one month. Patient states the pain began after her gastric bypass where she had here done last month. Patient states this flare-up began yesterday after eating a strawberry smoothie. Patient states she has been trouble maintaining her hydration as she gets full quickly in wants to throw up. Also states she has not had a bowel movement in three weeks, states this is more less than normal for her as she suffers from chronic constipation and has a use suppositories. Allergies: Coded Allergies: Penicillins (Unverified Allergy, Unknown, 05/02/21) [id number] Antimigraine Agents (Unverified Allergy, Unknown, 12/31/24) ciprofloxacin (Unverified Allergy, Unknown, 05/02/21) codeine (Unverified Allergy, Unknown, 05/02/21) metoclopramide (Unverified Allergy, Unknown, 12/31/24) nitrofurantoin (Unverified Allergy, Unknown, 12/31/24) sulfamethoxazole (Unverified Allergy, Unknown, 05/02/21) trimethoprim (Unverified Allergy, Unknown, 05/02/21) Home Meds Active Scripts Cefdinir (Cefdinir) 300 Mg Capsule, 1 CAP PO BID for 5 Days, #10 CAP 0 Refills Prov:FITO SHORT AGPCDIGNA 01/12/25 Magnesium Hydroxide (Milk of Magnesia) 400 Mg/5 Ml Oral.susp, 5 ML PO BID for constipation for 30 Days, #300 ML 0 Refills Prov:TEOFILO TORRES MD 01/12/25 Bisacodyl (Bisacodyl) 10 Mg Supp.rect, 1 SUPP FL DAILY for constipation for 10 Days, #10 SUPP 0 Refills Prov:TEOFILO TORRES MD 01/12/25 Reported Medications Acetaminophen (Tylenol) 500 Mg Tab, 500 MG PO AD PRN for PAIN, TAB 12/31/24 Famotidine (Famotidine) 40 Mg Tablet, 40 MG PO HS, TAB 12/31/24 Ondansetron HCl (Ondansetron HCl) 4 Mg Tablet, 1 TAB PO Q6HPRN PRN for nausea/vomiting, #10 TAB 0 Refills 12/31/24 Aspirin (Aspirin) 81 Mg Tab.chew, 81 MG PO DAILY, TAB.CHEW 12/31/24 Ergocalciferol (Vitamin D2) (Vitamin D2) 1,250 Mcg (19157 Unit) Capsule, 1250 MCG PO QWEEK, CAP 12/31/24 Pantoprazole Sodium (Pantoprazole Sodium) 40 Mg Tablet.dr, 40 MG PO DAILY, TAB 12/31/24 Past Medical History Past Medical History: Asthma, CVA, GERD, Hypertension, IBS, UTI Additional Past Medical Hx: ibs Surgical History: Hysterectomy, Tonsillectomy, Cholecystectomy, Other Surgical History Other: GASTRIC BYPASS, RT EYE SX Family History: Negative Social History: Negative Review of System Dictation Constitutional: Negative for fever,chills, and weight loss Eyes: Negative for injury, pain,redness, and discharge ENT: Negative for injury,pain or swelling Cardiovascular: Negative for chest pain, palpitations, and edema Respiratory: Negative for shortness of breath, cough, and wheezing, Abdomen/GI: Abdominal pain with nausea Back: Negative for injury and pain : Negative for injury, bleeding and discharge MS/Extremity: Negative for injury and deformity Skin: Negative for rash, and discoloration Neuro: Negative for headache, weakness, numbness, tingling, and seizure Psych: Negative for suicide ideation, homicidal ideation, and hallucinations Review of Systems: was completed Initial Vital Sign VS Vital Signs Date Time Temp Pulse Resp B/P (MAP) Pulse Ox O2 Delivery O2 Flow Rate FiO2 02/08/25 18:37 98.8 76 18 113/73 98 Room Air 0 02/08/25 18:56 21 Physical Exam Dictation General: awake, alert, NAD Head/Face: Normocephalic, atraumatic Eyes: PERRL, EOMI, vision at baseline ENT: oral cavity clear, TMs clear, no signs of infection Neck: Trachea midline, supple, no nuchal rigidity Cardiovascular: RRR, normal S1/S2, No MRGs, no JVD Respiratory: CTAB, no respiratory distress, No rales or wheezes Abdomen: Soft, non-tender, non-distended, normal bowel sounds, no guarding or rebound. Skin: Warm, dry, normal turgor, no rash MS/Extremity: Pulses equal, no cyanosis, neurovascular intact, FROM Neuro: COAx4, GCS 15, strength 5/5, CN 2-12 intact, normal cerebellar exam, normal gait, Psych: Normal behavior, mood, and affect normal Results (Laboratory/Radiology) Laboratory/Radiology Laboratory Tests Test 02/08/25 18:55 White Blood Count 6.3 K/uL (4.8-10.8) Red Blood Count 4.89 MIL/uL (4.00-5.50) Hemoglobin 14.7 g/dL (12.0-16.0) Hematocrit 42.8 % (36-48) Mean Corpuscular Volume 87.5 fL (79-99) Mean Corpuscular Hemoglobin 30.1 pg (27.0-33.0) Mean Corpuscular Hemoglobin Concent 34.3 g/dL (32.0-36.0) Red Cell Distribution Width 14.6 % (11.0-15.5) Platelet Count 141 K/uL (130-400) Mean Platelet Volume 10.7 fL (7.5-10.5) H Immature Granulocyte % (Auto) 0.3 % (0-1) Neutrophils (%) (Auto) 63.1 % (40.0-77.0) Lymphocytes (%) (Auto) 24.8 % (21.0-51.0) Monocytes (%) (Auto) 8.9 % (3.0-13.0) Eosinophils (%) (Auto) 2.1 % (0.0-8.0) Basophils (%) (Auto) 0.8 % (0.0-5.0) Neutrophils # (Auto) 4.0 K/uL (1.8-7.7) Lymphocytes # (Auto) 1.6 K/uL (1.0-4.8) Monocytes # (Auto) 0.6 K/uL (0.1-1.0) Eosinophils # (Auto) 0.13 K/uL (0.00-0.70) Basophils # (Auto) 0.05 K/uL (0.00-0.20) Absolute Immature Granulocyte (auto 0.02 K/uL (0-1) Nucleated Red Blood Cells 0.0 % (0.0-0.19) Urine Color YELLOW (YELLOW) Urine Appearance CLOUDY (CLEAR) H Urine pH 6.5 (5.0-8.0) Urine Specific [place] 1.032 (1.001-1.031) Urine Protein 50 mg/dL (NEGATIVE) H Urine Glucose (UA) NEGATIVE mg/dL (NEGATIVE) Urine Ketones 150 mg/dL (NEGATIVE) H Urine Occult Blood NEGATIVE (NEGATIVE) Urine Nitrate NEGATIVE (NEGATIVE) Urine Bilirubin 1 mg/dL (NEGATIVE) H Urine Urobilinogen 12 mg/dL (0.2-1.0) H Urine Leukocyte Esterase 75 [place]/uL (NEGATIVE) H Urine RBC 2-5 /HPF (0-1) H Urine WBC 26-50 /HPF (0-1) H Urine Squamous Epithelial Cells MOD /HPF (0-2) Urine Bacteria None /HPF (None Seen) Urine Hyaline Casts 2-5 /LPF (0-1 /LPF) H Urine Other Casts 1 /LPF (None Seen) Sodium Level 144 mmol/L (136-145) Potassium Level 3.2 mmol/L (3.5-5.1) L Chloride Level 103 mmol/L (101-111) Carbon Dioxide Level 31 mmol/L (21-32) Blood Urea Nitrogen 14 mg/dL (7-18) Creatinine 0.8 mg/dL (0.5-1.0) Glomerular Filtration Rate Calc 89 mL/min (>90) Random Glucose 98 mg/dL (70-105) Total Calcium 9.3 mg/dL (8.5-10.1) Magnesium Level 1.90 mg/dL (1.80-2.40) Total Bilirubin 1.5 mg/dL (0.2-1.0) H Direct Bilirubin 0.4 mg/dL (0.0-0.3) H Aspartate Amino Transf (AST/SGOT) 20 U/L (10-37) Alanine Aminotransferase (ALT/SGPT) 23 U/L (12-78) Alkaline Phosphatase 68 U/L (50-136) Total Protein 7.6 g/dL (6.0-8.3) Albumin 4.0 g/dL (3.5-5.0) Lipase 30 U/L (16-77) Labs Reviewed?: Yes EKG Comment: EKGs done at 9:41 p.m. 58 beats per minute sinus Surinder, otherwise normal EKG. No STEMI interpreted by ER MD CT Scan Comment: [facility] [address] [place] [address] IMAGING REPORT Signed PATIENT: OLAF ROMERO MR#: [id number] : 1970 SEX: F AGE: 54 LOCATION: [facility] ORDER 58 STATUS: REG ER REPORT#: [id number] SERVICE 56 REASON: luq pain , no bm in 3 weeks, hx of gastric bypass 1 month ago ORDERING PHYSICIAN: CHANDRAKANT AYALA NP PROCEDURE: ABD PEL W - CT ABDOMEN/PELVIS W/CONTRAST CT ABDOMEN WITH CONTRAST. CT PELVIS WITH CONTRAST INDICATION: Left upper abdominal pain; history of gastric bypass TECHNIQUE: Routine transaxial images using 5 mm slice thickness were obtained after the intravenous infusion of 100 mL of Omnipaque 350 without adverse effects. Oral contrast was not administered. Rectal contrast was not administered. Coronal and sagittal reformatted images acquired for interpretation. CT was performed with one or more of the following dose reduction techniques: Automated exposure control, adjustment of the mA and/or kV according to patient size, or use of iterative reconstruction technique. COMPARISON: None FINDINGS: ABDOMEN: Heart size is normal. Visible lung bases are clear. Gastric bypass surgery changes. The liver is normal in size and smooth in contour without lesions or biliary duct dilation. The spleen is normal in size without lesions. The gallbladder is absent. The pancreas appears normal without pancreatic duct dilation. The adrenal glands appear normal. Both kidneys appear unremarkable. Cortical nephrograms are symmetric and normal in appearance bilaterally. No evidence for intra-abdominal free air or organized fluid collection. No retrocrural, intraabdominal, or retroperitoneal lymphadenopathy identified. No aortic aneurysmal dilation or dissection identified. PELVIS: No evidence for free air or organized pelvic fluid collection. No significant pelvic adenopathy detected. Visualized small and large bowel loops appear unremarkable. Terminal ileum appears normal. The appendix appears normal. The urinary bladder appears unremarkable. Visible osseous structures are intact. IMPRESSION: No evidence for any acute intra-abdominal or pelvic process. ED Course ED Course Orders Procedure Category Date Status Time Cbc With Differential LAB 02/08/25 Complete 18:57 Basic Metabolic Panel LAB 02/08/25 Complete 18:57 Lipase LAB 02/08/25 Complete 18:57 Hepatic Function Panel LAB 02/08/25 Complete 18:57 Magnesium LAB 02/08/25 Complete 18:57 Urinalysis Profile LAB 02/08/25 Complete 18:57 Ct Abdomen/Pelvis CT 02/08/25 Resulted W/Contrast 18:57 0.9%Nacl 1000ml (Ns PHA 02/08/25 In Process 1000ml) 18:57 Culture Urine HYUN 02/08/25 In Process 19:08 Potassium Bicarb/Cit PHA 02/08/25 Complete Ac 25meq (K-Lyte Ta 19:55 Iohexol (Omnipaque) PHA 02/08/25 Complete 20:27 Current Medications Medications (Trade) Dose Ordered Sig/Silvia Route PRN Reason Start Time Stop Time Status Last Admin Dose Admin Iohexol (Omnipaque) 75 ml STK-MED ONCE IV 02/08/25 20:27 02/08/25 20:27 DC Potassium Bicarbonate (K-Lyte Tablet Eff 25 Meq Tablet.eff) 25 meq ONCE STAT PO 02/08/25 19:55 02/08/25 19:59 DC 02/08/25 20:33 Sodium Chloride 1,000 ml @ 100 mls/hr Q10H STAT IV 02/08/25 18:57 02/09/25 04:56 02/08/25 19:29 Vital Signs Date Time Temp Pulse Resp B/P (MAP) Pulse Ox O2 Delivery O2 Flow Rate FiO2 02/08/25 19:50 98.6 67 17 120/84 98 Room Air* 0 21 02/08/25 18:56 98.4 70 19 121/84 98 Room Air* 0 21 02/08/25 18:37 98.8 76 18 113/73 98 Room Air 0 Medical Decision Making MDM MDM: [age] year old female with a history of gastroparesis, cholesterol, hypertension, IBS. Coming in complaining of generalized body weakness, muscle cramps, and pain to the abdomen. Patient states this pain has been going on for one month. Patient states the pain began after her gastric bypass where she had here done last month. Patient states this flare-up began yesterday after eating a strawberry smoothie. Patient states she has been trouble maintaining her hydration as she gets full quickly in wants to throw up. Also states she has not had a bowel movement in three weeks, states this is more less than normal for her as she suffers from chronic constipation and has a use suppositories. Blood work is unremarkable. CT scan shows no acute abnormality. After fluids and Zofran patient states she feels better. Discussed findings with the patient, educated patient she might benefit from seeing a veterinary assistant technician to see if they can manage how she can get hydration plus the electrolytes and vitamins that she needs. Patient states she has a number for the veterinary assistant technician that she saw here in the hospital and we will contact her on Tuesday. Discussed with the patient red flag symptoms on when to return back to the emergency room. Patient verbalized understanding. Also educated patient she needs to take her suppositories for her constipation that she does not want to develop an SBO. Patient verbalized understanding, answered all questions. Differential diagnosis: Dehydration, electrolyte abnormality, SBO, constipation Rationale: Tests considered and ordered secondary to shared decision making include: Previous outside records reviewed: Old ER visits. Risk of complication and/or morbidity or mortality of patient management: None Medications-Per medication reconciliation Need for hospitalization: Patient does not meet criteria for hospitalization. Need for emergency major/minor surgery: No There are no social concerns with this patient. Prescription drug management Prescriptions will include symptomatic care Patient's prior external medical records from other ER visits were reviewed by me as indicated. Prior testing and results from previous visits were reviewed. Prior tests were taken into account with medical decision making and resource utilization, independent historian/historians were used to obtain complete medical history. I independently interpreted the test that were performed, results were reviewed by me and considered findings on radiology if ordered. Medical management and examination interpretation discussions were had by me with other qualified healthcare professionals as indicated for the patient's care. DX & DISP Disposition: Discharge Departure Impression: Primary Impression: Abdominal pain Condition: Stable Scripts Ondansetron HCl (Ondansetron HCl) 4 Mg Tablet 1 TAB PO Q6HPRN PRN for nausea/vomiting for 3 Days, #12 TAB 0 Refills Prov: CHANDRAKANT AYALA PHOTO COLORER 02/08/25 Additional Instructions: Please take your suppositories as you do not want to develop any complications like small bowel obstructions due to no bowel movement. Also follow up with your primary doctor and surgeon. Return to the hospital if you develop any fevers, intractable nausea or vomiting. Blood in stool. Referrals: PETRONA MORALES M.D. (PCP) Time of Disposition: 21:58 I have reviewed the case, and I agree with, Diagnosis and Plan CHANDRAKANT AYALA NP Feb 08, 2025 21:59
[2025-02-08 22:01] VITALS: BP 119/75; PULSE 66; RESP 17; TEMP 98.5; O2SAT 99
== END 2025-02-08 22:12 | disposition home or self-care (01) ==
LOC: EDH 18:34
DX: R10.9 Unspecified abdominal pain (principal); Z79.899 Other long term (current) drug therapy
CPT/HCPCS: 99285; 74177; 80076; 83735; 80048; 83690; 85025; 87086; 81001; 36415; 93005; J7030; Q9967

== ENCOUNTER 2025-02-16 18:22 | Emergency (ER) | payer MEDICAID ==
[~2025-02-16] VITALS: Ht 172.7 cm; Wt 87.7 kg
[2025-02-16 18:31] VITALS: BP 125/85; PULSE 78; RESP 16; TEMP 98.1; O2SAT 97
--- NOTE | 2025-02-16 19:05 | HMCIMG ---
EXAM: CT Head Without IV contrast. CLINICAL HISTORY: FALL TECHNIQUE: Axial computed tomography images of the head/brain without intravenous contrast. COMPARISON: None provided. FINDINGS: BRAIN: No evidence of acute hemorrhage. No mass lesion. No CT evidence for acute territorial infarct. No midline shift or extra-axial collections. VENTRICLES: No hydrocephalus. ORBITS: The orbits are unremarkable. SINUSES AND MASTOIDS: The paranasal sinuses and mastoid air cells are clear. BONES: No fracture. SOFT TISSUES: Unremarkable. IMPRESSION: No acute intracranial abnormality. /[place]
--- NOTE | 2025-02-16 19:18 | ERN ---
ED Note History of Present Illness Stated Complaint: FALL Chief Complaint: Mechanical Fall Time Seen by MD: 18:24 Time Seen by Midlevel: 18:24 Dictation: The patient is a 54-year-old female with a history of gastric sleeve, asthma, GERD who presents to the emergency department after a accidental fall. Patient reports that she was trying to get on top of her bed and missed the step causing her fall backwards and hitting the back of her head. Patient unknown if she lost consciousness. Reports some nausea but reports that she has constant nausea due to her gastric surgery. Patient denies any use of blood thinners. Denies any vomiting. Denies any other injuries. Allergies: Coded Allergies: Penicillins (Unverified Allergy, Unknown, 05/02/21) [id number] Antimigraine Agents (Unverified Allergy, Unknown, 12/31/24) ciprofloxacin (Unverified Allergy, Unknown, 05/02/21) codeine (Unverified Allergy, Unknown, 05/02/21) metoclopramide (Unverified Allergy, Unknown, 12/31/24) nitrofurantoin (Unverified Allergy, Unknown, 12/31/24) sulfamethoxazole (Unverified Allergy, Unknown, 05/02/21) trimethoprim (Unverified Allergy, Unknown, 05/02/21) Home Meds Active Scripts Ondansetron HCl (Ondansetron HCl) 4 Mg Tablet, 1 TAB PO Q6HPRN PRN for nausea/vomiting for 3 Days, #12 TAB 0 Refills Prov:CHANDRAKANT AYALA NOVELTY TWISTER TENDER 02/08/25 Cefdinir (Cefdinir) 300 Mg Capsule, 1 CAP PO BID for 5 Days, #10 CAP 0 Refills Prov:FITO SHORT AGPCNP 01/12/25 Magnesium Hydroxide (Milk of Magnesia) 400 Mg/5 Ml Oral.susp, 5 ML PO BID for constipation for 30 Days, #300 ML 0 Refills Prov:TEOFILO TORRES MD 01/12/25 Bisacodyl (Bisacodyl) 10 Mg Supp.rect, 1 SUPP [place] DAILY for constipation for 10 Days, #10 SUPP 0 Refills Prov:TEOFILO TORRES MD 01/12/25 Reported Medications Acetaminophen (Tylenol) 500 Mg Tab, 500 MG PO AD PRN for PAIN, TAB 12/31/24 Famotidine (Famotidine) 40 Mg Tablet, 40 MG PO HS, TAB 12/31/24 Ondansetron HCl (Ondansetron HCl) 4 Mg Tablet, 1 TAB PO Q6HPRN PRN for nausea/vomiting, #10 TAB 0 Refills 12/31/24 Aspirin (Aspirin) 81 Mg Tab.chew, 81 MG PO DAILY, TAB.CHEW 12/31/24 Ergocalciferol (Vitamin D2) (Vitamin D2) 1,250 Mcg (49578 Unit) Capsule, 1250 MCG PO QWEEK, CAP 12/31/24 Pantoprazole Sodium (Pantoprazole Sodium) 40 Mg Tablet.dr, 40 MG PO DAILY, TAB 12/31/24 Past Medical History Past Medical History: Asthma, CVA, GERD, IBS Additional Past Medical Hx: ibs Surgical History: Hysterectomy, Tonsillectomy, Cholecystectomy, Other, Bariatric Surgery Surgical History Other: hernia sx Family History: Negative Social History: Negative RN Note Reviewed/Agreed w/PFSH: Yes Review of System Dictation Constitutional: Negative for fever,chills, and weight loss Eyes: Negative for injury, pain,redness, and discharge ENT: Negative for injury,pain or swelling Cardiovascular: Negative for chest pain, palpitations, and edema Respiratory: Negative for shortness of breath, cough, and wheezing, Abdomen/GI: Negative for abdominal pain, nausea, vomiting, diarrhea, and constipation Back: Negative for injury and pain : Negative for injury, bleeding and discharge MS/Extremity: Negative for injury and deformity Skin: Negative for rash, and discoloration Neuro: Negative for weakness, numbness, tingling, and seizure positive for head aches Psych: Negative for suicide ideation, homicidal ideation, and hallucinations Initial Vital Sign VS Vital Signs Date Time Temp Pulse Resp B/P (MAP) Pulse Ox O2 Delivery O2 Flow Rate FiO2 02/16/25 18:24 98.1 78 16 125/85 97 0 02/16/25 18:31 Room Air* 21 Physical Exam Dictation Vital Signs reviewed General Appearance: Alert, oriented x 3, no acute distress, well developed, nourished. Head and Face: non-traumatic. Eyes: PERRL, pink conjunctivas, eyelid no trauma, anterior chamber with arcus senilis. Ears: Pinnas intact and no signs of trauma or erythema ear canals clear and no discharge TM no erythema Nose: No discharge, no bleeding. Oropharynx: Mouth normal, tongue pink. pharynx clear,no erythema, tonsils no exudates, no abscesses noted, mucous membrane moist Neck: Supple, non-tender, no thyromegaly, no masses, no JVD, no bruits Breast:Deferred Chest:No tenderness, no crepitus, no paradoxical movement, no retractions Lungs:Clear, well-ventilated, symmetric, no rales, no wheezing, no rhonchi, no stridor, good breath sounds bilaterally Heart: Regular rate, regular rhythm, no murmur, no gallops Vascular: no peripheral edema, Abdomen: Soft, positive bowel sounds, nondistended, no guarding, nontender, no rebound, no masses no hepatomegaly, no splenomegaly, no Griffin's sign, no hernias. Rectal: Deferred Genital: Deferred Neurological: Normal speech, motor function intact, sensory function intact Musculoskeletal: Neck nontender, full range of motion, back nontender, full range of motion, Extremities: nontender, full range of motion Skin: Color pink, dry, no turgor, no rash, no lacerations, no abrasions, no contusions. Lymphatic: Deferred Results (Laboratory/Radiology) Laboratory/Radiology REASON: FALL ORDERING PHYSICIAN: JENNIFER KEARNEY MD PROCEDURE: HEAD WO - CT HEAD/BRAIN W/O CONTRAST EXAM: CT Head Without IV contrast. CLINICAL HISTORY: FALL TECHNIQUE: Axial computed tomography images of the head/brain without intravenous contrast. COMPARISON: None provided. FINDINGS: BRAIN: No evidence of acute hemorrhage. No mass lesion. No CT evidence for acute territorial infarct. No midline shift or extra-axial collections. VENTRICLES: No hydrocephalus. ORBITS: The orbits are unremarkable. SINUSES AND MASTOIDS: The paranasal sinuses and mastoid air cells are clear. BONES: No fracture. SOFT TISSUES: Unremarkable. IMPRESSION: No acute intracranial abnormality. /Jean Labs Reviewed?: Yes ED Course ED Course Orders Procedure Category Date Status Time Ct Head/Brain W/O CT 02/16/25 Resulted Contrast 18:29 Vital Signs Date Time Temp Pulse Resp B/P (MAP) Pulse Ox O2 Delivery O2 Flow Rate FiO2 02/16/25 18:31 98.1 78 16 125/85 97 Room Air* 0 21 02/16/25 18:24 98.1 78 16 125/85 97 0 Medical Decision Making MDM The patient is a 54-year-old female with a history of gastric sleeve, asthma, GERD who presents to the emergency department after a accidental fall. Patient reports that she was trying to get on top of her bed and missed the step causing her fall backwards and hitting the back of her head. Patient unknown if she lost consciousness. Reports some nausea but reports that she has constant nausea due to her gastric surgery. Patient denies any use of blood thinners. Denies any vomiting. Denies any other injuries. CT head showed no acute pathology. On physical exam patient is neurologically intact. No hematomas or open wounds noted to the back of the head. No raccoon eyes or mcguire sign. Patient in no acute distress. Will be discharged with concussion education. Differential diagnosis: Concussion, subdural hematoma, epidural hematoma Need for hospitalization: Patient does not meet criteria for hospitalization. There are no social concerns with this patient. DX & DISP Disposition: Discharge Departure Impression: Primary Impression: Fall Additional Impression: Concussion Condition: Stable Additional Instructions: A concussion is the medical term for a mild brain injury. Concussion can cause memory loss and headache. Concussion usually happens after head injury but can be caused by a violent shaking. Other causes include car accidents, falling down, injuries while playing sports. Treatment for concussions include preventing further injury while you are healing. Avoid any activities that can lead to another head injury like sports. Rest your body and get plenty of sleep. Avoid heavy exercise or too much physical activity if it makes you feel worse. Avoid activities that need concentration or lot of attention if it makes you feel worse. Avoid use of video games, prolonged screen time. Avoid any alcohol or drugs. You can treat your headaches with Tylenol. FOLLOW-UP WITH PRIMARY CARE PROVIDER IN 1 TO 2 DAYS. TAKE MEDICATIONS DIRECTED HERE IN THE EMERGENCY ROOM. OKAY TO CONTINUE HOME MEDICATIONS UNLESS OTHERWISE DISCUSSED DURING YOUR VISIT IN THE EMERGENCY ROOM TODAY. RETURN TO YOUR NEAREST EMERGENCY ROOM IF SYMPTOMS WORSEN OR IF THERE IS NO IMPROVEMENT. CALL 911 IF YOU NEED IMMEDIATE ASSISTANCE. TAKE TYLENOL [id number] NEEDED AND IF NO CONTRAINDICATIONS ARE PRESENT. INCREASE ORAL HYDRATION. A WOUND CULTURE OR URINE CULTURE WAS ORDERED HERE IN THE EMERGENCY ROOM DEPARTMENT PLEASE FOLLOW-UP WITH PRIMARY CARE PROVIDER AND ADVISE THEM TO GET REPEAT PORTS FROM OUR FACILITY. IF YOU HAD ANY TOM WRAP/SPLINTS THAT WERE APPLIED HERE, PLEASE DO NOT REMOVE THEM UNTIL YOU SEE YOUR PRIMARY CARE OR SPECIALTY. Referrals: PETRONA MORALES M.D. (PCP) Time of Disposition: 19:17 I have examined patient, & reviewed all documents, & agreed W/ the Diagnosis, and Plan [facility] Feb 16, 2025 19:18
== END 2025-02-16 19:25 | disposition home or self-care (01) ==
LOC: EDH 18:22
DX: S06.0X0A Concussion without loss of consciousness, initial encounter (principal); J45.909 Unspecified asthma, uncomplicated; K21.9 Gastro-esophageal reflux disease without esophagitis; Z79.82 Long term (current) use of aspirin; Z79.899 Other long term (current) drug therapy; Z86.73 Personal history of transient ischemic attack (TIA), and cerebral infarction without residual deficits; Z88.0 Allergy status to penicillin; Z88.1 Allergy status to other antibiotic agents; Z88.2 Allergy status to sulfonamides; Z88.5 Allergy status to narcotic agent; Z90.49 Acquired absence of other specified parts of digestive tract; Z90.710 Acquired absence of both cervix and uterus; W18.39XA Other fall on same level, initial encounter; Y93.89 Activity, other specified; Y92.89 Other specified places as the place of occurrence of the external cause; Y99.8 Other external cause status
CPT/HCPCS: 70450; 99284

== ENCOUNTER 2025-02-24 10:53 | Emergency (ER) | payer MEDICAID ==
[~2025-02-24] VITALS: Ht 172.7 cm; Wt 86.6 kg
[2025-02-24 11:25] LABS: SARS-CoV-2, RNA, NAAT NEGATIVE SARS CoV-2 (NEGATIVE)
--- NOTE | 2025-02-24 11:27 | ERN ---
ED Note History of Present Illness Stated Complaint: THROAT PAIN/ NAUSEA Chief Complaint: Sore Throat Time Seen by MD: 10:58 Time Seen by Midlevel: 11:00 Dictation: 54-year-old female coming in with complaints of sore throat for the last couple of days and . Denies having in his fever, cough or congestion. Also patient is requesting IV fluids. Allergies: Coded Allergies: Penicillins (Unverified Allergy, Unknown, 05/02/21) [id number] Antimigraine Agents (Unverified Allergy, Unknown, 12/31/24) ciprofloxacin (Unverified Allergy, Unknown, 05/02/21) codeine (Unverified Allergy, Unknown, 05/02/21) metoclopramide (Unverified Allergy, Unknown, 12/31/24) nitrofurantoin (Unverified Allergy, Unknown, 12/31/24) sulfamethoxazole (Unverified Allergy, Unknown, 05/02/21) trimethoprim (Unverified Allergy, Unknown, 05/02/21) Home Meds Active Scripts Ondansetron HCl (Ondansetron HCl) 4 Mg Tablet, 1 TAB PO Q6HPRN PRN for nausea/vomiting for 3 Days, #12 TAB 0 Refills Prov:CHANDRAKANT AYALA NP 02/08/25 Cefdinir (Cefdinir) 300 Mg Capsule, 1 CAP PO BID for 5 Days, #10 CAP 0 Refills Prov:FITO SHORT AGPCNP 01/12/25 Magnesium Hydroxide (Milk of Magnesia) 400 Mg/5 Ml Oral.susp, 5 ML PO BID for constipation for 30 Days, #300 ML 0 Refills Prov:TEOFILO TORRES MD 01/12/25 Bisacodyl (Bisacodyl) 10 Mg Supp.rect, 1 SUPP TX DAILY for constipation for 10 Days, #10 SUPP 0 Refills Prov:TEOFILO TORRES MD 01/12/25 Reported Medications Acetaminophen (Tylenol) 500 Mg Tab, 500 MG PO AD PRN for PAIN, TAB 12/31/24 Famotidine (Famotidine) 40 Mg Tablet, 40 MG PO HS, TAB 12/31/24 Ondansetron HCl (Ondansetron HCl) 4 Mg Tablet, 1 TAB PO Q6HPRN PRN for nausea/vomiting, #10 TAB 0 Refills 12/31/24 Aspirin (Aspirin) 81 Mg Tab.chew, 81 MG PO DAILY, TAB.CHEW 12/31/24 Ergocalciferol (Vitamin D2) (Vitamin D2) 1,250 Mcg (76252 Unit) Capsule, 1250 MCG PO QWEEK, CAP 12/31/24 Pantoprazole Sodium (Pantoprazole Sodium) 40 Mg Tablet.dr, 40 MG PO DAILY, TAB 12/31/24 Past Medical History Past Medical History: Asthma, GERD, High Cholesterol, IBS, TIA Additional Past Medical Hx: GASTROPARESIS Surgical History: Other, Bariatric Surgery Surgical History Other: GASTRIC BYPASS Family History: Negative Social History: Negative Review of System Dictation Constitutional: Negative for fever,chills, and weight loss Eyes: Negative for injury, pain,redness, and discharge ENT: Complaining of throat pain Cardiovascular: Negative for chest pain, palpitations, and edema Respiratory: Negative for shortness of breath, cough, and wheezing, Abdomen/GI: Negative for abdominal pain, nausea, vomiting, diarrhea, and constipation Back: Negative for injury and pain : Negative for injury, bleeding and discharge MS/Extremity: Negative for injury and deformity Skin: Negative for rash, and discoloration Neuro: Negative for headache, weakness, numbness, tingling, and seizure Psych: Negative for suicide ideation, homicidal ideation, and hallucinations Review of Systems: was completed Initial Vital Sign VS Vital Signs Date Time Temp Pulse Resp B/P (MAP) Pulse Ox O2 Delivery O2 Flow Rate FiO2 02/24/25 10:54 98.1 71 16 124/81 98 0 02/24/25 11:16 Room Air* 21 Physical Exam Dictation General: awake, alert, NAD Head/Face: Normocephalic, atraumatic Eyes: PERRL, EOMI, vision at baseline ENT: oral cavity clear, TMs clear, mild erythema, no drainage, no effacement Neck: Trachea midline, supple, no nuchal rigidity Cardiovascular: RRR, normal S1/S2, No MRGs, no JVD Respiratory: CTAB, no respiratory distress, No rales or wheezes Abdomen: Soft, non-tender, non-distended, normal bowel sounds, no guarding or rebound. Skin: Warm, dry, normal turgor, no rash MS/Extremity: Pulses equal, no cyanosis, neurovascular intact, FROM Neuro: COAx4, GCS 15, strength 5/5, CN 2-12 intact, normal cerebellar exam, normal gait, Psych: Normal behavior, mood, and affect normal Results (Laboratory/Radiology) Laboratory/Radiology Laboratory Tests Test 02/24/25 11:01 Influenza Type A Antigen Negative For Type A Influenza Type B Antigen Negative For Type B SARS-CoV-2, RNA, NAAT NEGATIVE SARS CoV-2 Labs Reviewed?: Yes ED Course ED Course Orders Procedure Category Date Status Time Group B Strep Pcr HYUN 02/24/25 Logged 10:56 Covid Rna Naat LAB 02/24/25 Complete 10:56 Influenza Type A & B, LAB 02/24/25 Complete Rapid 10:56 0.9%Nacl 1000ml (Ns PHA 02/24/25 In Process 1000ml) 10:56 Current Medications Medications (Trade) Dose Ordered Sig/Silvia Route PRN Reason Start Time Stop Time Status Last Admin Dose Admin Sodium Chloride 1,000 ml @ 1,000 mls/hr Q1H STAT IV 02/24/25 10:56 02/24/25 11:55 Vital Signs Date Time Temp Pulse Resp B/P (MAP) Pulse Ox O2 Delivery O2 Flow Rate FiO2 02/24/25 11:16 98.1 71 16 124/61 98 Room Air* 0 21 02/24/25 10:54 98.1 71 16 124/81 98 0 Medical Decision Making MDM MDM: 54-year-old female coming in with complaints of sore throat for the last couple of days and . Denies having in his fever, cough or congestion. Also patient is requesting IV fluids. Swabs are negative. Discussed findings with the patient. Educated patient that been like this is due to a viral infection not require any antibiotics. Educated to follow up with her PCP if just the hospital as needed. Patient verbalized understanding, answered all questions. Differential diagnosis: Strep throat, viral pharyngitis, dehydration Rationale: Tests considered and ordered secondary to shared decision making include: Previous outside records reviewed: Old ER visits. Risk of complication and/or morbidity or mortality of patient management: None Medications-Per medication reconciliation Need for hospitalization: Patient does not meet criteria for hospitalization. Need for emergency major/minor surgery: No There are no social concerns with this patient. Prescription drug management Prescriptions will include symptomatic care Patient's prior external medical records from other ER visits were reviewed by me as indicated. Prior testing and results from previous visits were reviewed. Prior tests were taken into account with medical decision making and resource utilization, independent historian/historians were used to obtain complete medical history. I independently interpreted the test that were performed, results were reviewed by me and considered findings on radiology if ordered. Medical management and examination interpretation discussions were had by me with other qualified healthcare professionals as indicated for the patient's care. DX & DISP Disposition: Discharge Departure Impression: Primary Impression: Viral pharyngitis Condition: Stable Additional Instructions: Your swabs are negative. Stay hydrated. Take [id number] medications for symptomatic control like Tylenol or ibuprofen. You can do honey and lemon warm water, lozenges or hard candy. Warm saltwater gargles. Follow up with your primary doctor. Referrals: PETRONA MORALES M.D. (PCP) Time of Disposition: 11:34 I have reviewed the case, and I agree with, Diagnosis and Plan CHANDRAKANT AYALA NP Feb 24, 2025 11:27
[2025-02-24 11:30] LABS: INFLUENZA TYPE A Negative For Type A (NEGATIVE); INFLUENZA TYPE B Negative For Type B (NEGATIVE)
[2025-02-24] MEDS: 0.9%NACL 1000ML 1,000 ML IV STA (11:33)
--- NOTE | 2025-02-24 11:42 | NUR ---
PER VANESSA AYALA, HOLD D/C UNTIL FLUIDS FINISH
[2025-02-24 12:24] VITALS: BP 127/59; PULSE 73; RESP 16; TEMP 98.1; O2SAT 98
== END 2025-02-24 12:25 | disposition home or self-care (01) ==
LOC: EDH 10:53
DX: J02.0 Streptococcal pharyngitis (principal); E78.00 Pure hypercholesterolemia, unspecified; J45.909 Unspecified asthma, uncomplicated; K31.84 Gastroparesis; B97.89 Other viral agents as the cause of diseases classified elsewhere; Z79.82 Long term (current) use of aspirin; Z79.899 Other long term (current) drug therapy; Z86.73 Personal history of transient ischemic attack (TIA), and cerebral infarction without residual deficits; Z88.0 Allergy status to penicillin; Z88.1 Allergy status to other antibiotic agents; Z88.2 Allergy status to sulfonamides; Z88.5 Allergy status to narcotic agent; Z98.84 Bariatric surgery status; Z20.822 Contact with and (suspected) exposure to COVID-19
CPT/HCPCS: 99283; 87635; 87804 ×2; J7030

== ENCOUNTER 2025-03-16 17:04 | Inpatient (IN) | payer MEDICAID ==
[~2025-03-16] VITALS: Ht 172.7 cm; Wt 81.2 kg
[~2025-03-16 17:04] MED LIST changes: +SODI133E14 RC; +TAMS-55 PO
--- NOTE | 2025-03-16 17:19 | ERN ---
General Chief Complaint: Nausea,Vomiting,Diarrhea Stated Complaint: VOMITING Time Seen by MD: 17:05 Source: patient History of Present Illness Initial Comments Patient is a 54-year-old female coming in complaining of epigastric pain. Patient states that she has been out of her Protonix and has been having problems refilling it. States that she does has a extensive history of gastritis secondary to gastric bypass and hiatal hernia repair. Allergies: Coded Allergies: Penicillins (Unverified Allergy, Unknown, 05/02/21) [id number] Antimigraine Agents (Unverified Allergy, Unknown, 12/31/24) ciprofloxacin (Unverified Allergy, Unknown, 05/02/21) codeine (Unverified Allergy, Unknown, 05/02/21) metoclopramide (Unverified Allergy, Unknown, 12/31/24) nitrofurantoin (Unverified Allergy, Unknown, 12/31/24) sulfamethoxazole (Unverified Allergy, Unknown, 05/02/21) trimethoprim (Unverified Allergy, Unknown, 05/02/21) Home Meds Active Scripts Tamsulosin HCl (Flomax) 0.4 Mg Cap.er.24h, 1 CAP PO DAILY for 30 Days, #30 CAP 0 Refills Prov:CHANDRAKANT AYALA PELLETIZER TENDER 03/06/25 Na Phos,M-B/Na Phos,Di-Ba (Enema Ready To Use) 19 Gram-7 Gram/118 Ml Enema, 133 ML RC ONCE, #1 ENEMA Prov:BRAVO LUIS PA 03/01/25 Ondansetron HCl (Ondansetron HCl) 4 Mg Tablet, 1 TAB PO Q6HPRN PRN for na usea/vomiting for 3 Days, #12 TAB 0 Refills Prov:CHANDRAKANT AYALA PELLETIZER TENDER 02/08/25 Cefdinir (Cefdinir) 300 Mg Capsule, 1 CAP PO BID for 5 Days, #10 CAP 0 Refills Prov:FITO SHORT AGPCNP 01/12/25 Magnesium Hydroxide (Milk of Magnesia) 400 Mg/5 Ml Oral.susp, 5 ML PO BID for constipation for 30 Days, #300 ML 0 Refills Prov:TEOFILO TORRES MD 01/12/25 Bisacodyl (Bisacodyl) 10 Mg Supp.rect, 1 SUPP UT DAILY for constipation for 10 Days, #10 SUPP 0 Refills Prov:TEOFILO TORRES MD 01/12/25 Reported Medications Acetaminophen (Tylenol) 500 Mg Tab, 500 MG PO AD PRN for PAIN, TAB 12/31/24 Famotidine (Famotidine) 40 Mg Tablet, 40 MG PO HS, TAB 12/31/24 Ondansetron HCl (Ondansetron HCl) 4 Mg Tablet, 1 TAB PO Q6HPRN PRN for nausea/vomiting, #10 TAB 0 Refills 12/31/24 Aspirin (Aspirin) 81 Mg Tab.chew, 81 MG PO DAILY, TAB.CHEW 12/31/24 Ergocalciferol (Vitamin D2) (Vitamin D2) 1,250 Mcg (15304 Unit) Capsule, 1250 MCG PO QWEEK, CAP 12/31/24 Pantoprazole Sodium (Pantoprazole Sodium) 40 Mg Tablet.dr, 40 MG PO DAILY, TAB 12/31/24 Past Medical History Past Medical History: CVA, GERD, Hypertension, IBS Medical History Other: HX OF KIDNEY STONE Past Surgical History: Bariatric Surgery Surgical History Other: GASTRIC BYPASS Family History Family History: Negative Social History Social History: Negative ROS Dictation CONSTITUTIONAL: No chills, no fever, no weakness, no diaphoresis, no malaise. HEAD/FACE: No signs of trauma. EENT: No eye pain, no blurred vision, no tearing, no double vision, no ear pain, no ear discharge, no nose pain, no nasal congestion, no throat pain, no throat swelling, no mouth pain. RESPIRATORY: No cough, no orthopnea, no SOB, no stridor, no wheezing. CARDIOVASCULAR: No chest pain, no edema, no palpitations, no syncope. GASTROINTESTINAL/ABDOMINAL: No abdominal pain, no constipation, no diarrhea, no nausea, no vomiting. GENITOURINARY: No abnormal discharge, no dysuria, no frequent urination, no hematuria. No complaints of pain in the genitals. MUSCULOSKELETAL: No back pain, no gout, no joint pain, no joint swelling, no muscle pain, no muscle stiffness, no neck pain. INTEGUMENTARY: No change in color, no change in hair/nails, no dryness, no lesion, no lumps, no rash. NEUROLOGICAL/PSYCH: No anxiety, not depressed, no emotional problem, no headache, no numbness, no pre-existing deficit, no history of seizures, no tremors, no weakness. HEMATOLOGIC/LYMPHATIC: Not anemic, no history of blood clots, no apparent bleeding, no bruising, glands not swollen. All Systems Negative, Except as Noted. Physical Exam Physical Exam Dictation VITAL SIGNS: Reviewed. GENERAL APPEARANCE: Alert, oriented x3, no acute distress, obese. HEAD AND FACE: Non-traumatic. EYES: PERRL, pink conjunctivas, eyelid no trauma, anterior chamber clear. EARS: Pinnas intact and no signs of trauma or erythema. Ear canals clear and no discharge. TMs no erythema. NOSE: No discharge, no bleeding. OROPHARYNX: Mouth normal, teeth no caries, tongue pink. Pharynx clear, no erythema. Tonsils no exudates, no abscesses noted. Mucous membrane moist. NECK: Supple, non-tender, no thyromegaly, no masses, no JVD, no bruits. BREAST: Deferred. CHEST: No tenderness, no crepitus, no paradoxical movement, no retractions. LUNGS: Clear, well-ventilated, symmetric, no rales, no wheezing, no rhonchi, no stridor, good breath sounds bilaterally. HEART: Regular rate, regular rhythm, no murmur, no gallops. VASCULAR: No peripheral edema. ABDOMEN: Soft, positive bowel sounds, nondistended, no guarding, nontender, no rebound, no masses no hepatomegaly, no splenomegaly, no Griffin's sign, no hernias. RECTAL: Deferred. GENITAL: Deferred. NEUROLOGICAL: Normal speech, gross motor function intact, gross sensory function intact. MUSCULOSKELETAL: Neck nontender, full range of motion, back nontender, full range of motion. EXTREMITIES: Nontender, full range of motion. SKIN: Color pink, dry, no turgor, no rash, no lacerations, no abrasions, no contusions. LYMPHATICS: Deferred. Results Laboratory and Microbiology Lab and Micro Result Laboratory Tests Test 03/16/25 17:41 White Blood Count 5.7 K/uL (4.8-10.8) Red Blood Count 4.96 MIL/uL (4.00-5.50) Hemoglobin 14.9 g/dL (12.0-16.0) Hematocrit 43.7 % (36-48) Mean Corpuscular Volume 88.1 fL (79-99) Mean Corpuscular Hemoglobin 30.0 pg (27.0-33.0) Mean Corpuscular Hemoglobin Concent 34.1 g/dL (32.0-36.0) Red Cell Distribution Width 14.0 % (11.0-15.5) Platelet Count 165 K/uL (130-400) Mean Platelet Volume 10.0 fL (7.5-10.5) Immature Granulocyte % (Auto) 0.4 % (0-1) Neutrophils (%) (Auto) 69.0 % (40.0-77.0) Lymphocytes (%) (Auto) 22.0 % (21.0-51.0) Monocytes (%) (Auto) 7.6 % (3.0-13.0) Eosinophils (%) (Auto) 0.5 % (0.0-8.0) Basophils (%) (Auto) 0.5 % (0.0-5.0) Neutrophils # (Auto) 3.9 K/uL (1.8-7.7) Lymphocytes # (Auto) 1.3 K/uL (1.0-4.8) Monocytes # (Auto) 0.4 K/uL (0.1-1.0) Eosinophils # (Auto) 0.03 K/uL (0.00-0.70) Basophils # (Auto) 0.03 K/uL (0.00-0.20) Absolute Immature Granulocyte (auto 0.02 K/uL (0-1) Nucleated Red Blood Cells 0.0 % (0.0-0.19) Urine Color DARK-YELLOW (YELLOW) Urine Appearance TURBID (CLEAR) Urine pH 6.5 (5.0-8.0) Urine Specific [place] 1.031 (1.001-1.031) Urine Protein 100 mg/dL (NEGATIVE) H Urine Glucose (UA) NEGATIVE mg/dL (NEGATIVE) Urine Ketones 150 mg/dL (NEGATIVE) H Urine Occult Blood NEGATIVE (NEGATIVE) Urine Nitrate NEGATIVE (NEGATIVE) Urine Bilirubin 2 mg/dL (NEGATIVE) H Urine Urobilinogen 12 mg/dL (0.2-1.0) H Urine Leukocyte Esterase 250 [place]/uL (NEGATIVE) H Urine RBC 6-10 /HPF (0-1) H Urine WBC 11-25 /HPF (0-1) H Urine Squamous Epithelial Cells FEW /HPF (0-2) Urine Non-Squamous Epithelial Cells 1 /HPF (0-2) Urine Other Crystals (Auto) 23 /HPF (None Seen) Urine Bacteria RARE /HPF (None Seen) Urine Hyaline Casts 2-5 /LPF (0-1 /LPF) H Sodium Level 145 mmol/L (136-145) Potassium Level 2.7 mmol/L (3.5-5.1) *L Chloride Level 102 mmol/L (101-111) Carbon Dioxide Level 25 mmol/L (21-32) Blood Urea Nitrogen 16 mg/dL (7-18) Creatinine 1.2 mg/dL (0.5-1.0) H Glomerular Filtration Rate Calc 54 mL/min (>90) Random Glucose 92 mg/dL (70-105) Total Calcium 9.6 mg/dL (8.5-10.1) Total Bilirubin 1.5 mg/dL (0.2-1.0) H Aspartate Amino Transf (AST/SGOT) 20 U/L (10-37) Alanine Aminotransferase (ALT/SGPT) 14 U/L (12-78) Alkaline Phosphatase 65 U/L (50-136) Troponin I High Sensitivity 8 ng/L (4-50) Total Protein 8.0 g/dL (6.0-8.3) Albumin 4.1 g/dL (3.5-5.0) Lipase 21 U/L (16-77) Labs Reviewed?: Yes EKG/XRAY/US/CT/MRI EKG Comment 03/16/2025 time 6:11 p.m. Ventricular rate 62 Sinus rhythm [place] [address] wave elevation or depression MDM MDM: Differential diagnosis: Gastritis, gastroenteritis, nausea and vomiting, UTI, Rationale: Tests considered and ordered secondary to shared decision making include: labs, ECG and radiology Previous outside records reviewed: Old ER visits. Risk of complication and/or morbidity or mortality of patient management: None Medications-Per medication reconciliation Need for hospitalization: Patient does meet criteria for hospitalization. Need for emergency major/minor surgery: No There are no social concerns with this patient. Prescription drug management Prescriptions will include symptomatic care Patient's prior external medical records from other ER visits were reviewed by me as indicated. Prior testing and results from previous visits were reviewed. Prior tests were taken into account with medical decision making and resource utilization, independent historian/historians were used to obtain complete medical history. I independently interpreted the test that were performed, results were reviewed by me and considered findings on radiology if ordered. Medical management and examination interpretation discussions were had by me with other qualified healthcare professionals as indicated for the patient's care. ED Course Orders Procedure Category Date Status Time Cbc With Differential LAB 03/16/25 Complete 17:16 Comprehensive LAB 03/16/25 Complete Metabolic Panel 17:16 Troponin I High LAB 03/16/25 Complete Sensitivity 17:16 Urinalysis Profile LAB 03/16/25 Complete 17:16 12 Lead Ekg Tracing- EKG 03/16/25 Logged Technical 17:16 0.9%Nacl 1000ml (Ns PHA 03/16/25 In Process 1000ml) 17:30 Pantoprazole 40mg Inj PHA 03/16/25 In Process (Protonix 40mg Inj 17:30 Lipase LAB 03/16/25 Complete 17:16 Culture Urine HYUN 03/16/25 In Process 17:58 Current Medications Medications (Trade) Dose Ordered Sig/Silvia Route PRN Reason Start Time Stop Time Status Last Admin Dose Admin Pantoprazole Sodium (PROTonix 40MG INJ) 40 mg ONCE IVP 03/16/25 17:30 03/16/25 21:30 03/16/25 17:56 Sodium Chloride 1,000 ml @ 0 mls/hr ONCE IV 03/16/25 17:30 03/17/25 17:29 03/16/25 17:56 Vital Signs Date Time Temp Pulse Resp B/P (MAP) Pulse Ox O2 Delivery O2 Flow Rate FiO2 03/16/25 18:00 67 18 139/76 98 Room Air* 0 03/16/25 17:10 98.4 94 18 154/90 98 Room Air* 0 03/16/25 17:06 98.4 94 18 154/90 98 Room Air 0 DX & DISP Disposition: Inpatient Decision to Admit Time: 18:33 Departure Impression: Primary Impression: Abdominal pain Additional Impressions: Gastroenteritis, UTI (urinary tract infection), Hypokalemia Condition: Stable Referrals: PETRONA MORALES M.D. (PCP) JENNIFER KEARNEY MD Mar 16, 2025 17:19
[2025-03-16 17:48] LABS: IMMATURE GRANULOCYTE ABSOLUTE 0.02 K/uL (0-1); NUCLEATED RED BLOOD CELLS 0.0 % (0.0-0.19); PLATELET COUNT (AUTO) 165 K/uL (130-400); RED BLOOD CELL COUNT(AUTO) 4.96 MIL/uL (4.00-5.50); RED CELL DISTRIBUTION WIDTH 14.0 % (11.0-15.5); WHITE BLOOD COUNT (AUTO) 5.7 K/uL (4.8-10.8)
[2025-03-16 17:56] LABS: APPEARANCE,URINE TURBID (CLEAR); GLUCOSE, URINE (UA) NEGATIVE (NEGATIVE); LEUKOCYTE ESTERASE ,URINE 250 Leu/uL (NEGATIVE); NITRATE,URINE NEGATIVE (NEGATIVE); OCCULT BLOOD,URINE NEGATIVE (NEGATIVE)
[2025-03-16] MEDS: 0.9%NACL 1000ML 1,000 ML IV SCH (17:56)
[2025-03-16 17:58] LABS: ADD UA MICROSCOPIC YES
[2025-03-16 18:01] LABS: NON-SQUAMOUS EPITHELIAL CELL 1 /HPF (0-2); SQUAMOUS EPITHELIAL CELL,UR FEW /HPF (0-2); UNCLASSIFIED CRYSTAL 23 /HPF (None Seen)
[2025-03-16 18:05] LABS: ASPARTATE AMINOTRANSFERASE 20.0 U/L (10-37); CREATININE 1.2 mg/dL (0.5-1.0); GLOMERULAR FILTR. RATE CALC 54.0 mL/min (>90); GLUCOSE,RANDOM 92.0 mg/dL (70-105); SODIUM SERUM 145.0 mmol/L (136-145); TOTAL PROTEIN, SERUM 8.0 g/dL (6.0-8.3); UREA NITROGEN, BLOOD 16.0 mg/dL (7-18)
--- NOTE | 2025-03-16 18:49 | HP ---
History of Present Illness History of Present Illness Ms. Valdez is a 54-year-old female that was seen and examined today on 03/16/2025. Patient is a good historian of personal health Patient states that she came to the emergency department with a chief complaint of abdominal pain. Onset was two weeks ago. Location is epigastric. Duration is on and off. Character is described as burning. Symptoms are aggravated with eating. There was no alleviating factors. Patient reports associated nausea and vomiting. Patient reports that she ran out of her Protonix two weeks ago. Today in the emergency department CBC unremarkable, potassium 2.7, urinalysis positive for leukocyte esterase and WBCs 11-25 per high-powered microscopy field. Emergency room physician recommended patient be admitted with a diagnosis of hypokalemia and urinary tract infection. Past Medical History Patient History: CIRRHOSIS MOTHER, Cardiovascular disease MOTHER, FATHER, Diabetes mellitus MOTHER, FATHER, Hypertension MOTHER, FATHER, ADDITIONAL PAST MEDICAL HISTORY: [CVA, GERD, hypertension, IBS] SOCIAL HISTORY: [Negative for smoking, alcohol use, drug use. Patient lives with her has been Fritz Valdez. Patient is typically independent of all her ADLs. Patient denies difficulty paying her bills. SURGICAL HISTORY: [Gastric bypass, cholecystectomy, hysterectomy, hiatal hernia repair, tonsillectomy, right eye surgery] Review of Systems General: No Fever, No Chills, No Night Sweats, No Fatigue, No Malaise, No Appetite, No Other HEENT: No Head Aches, No Visual Changes, No Eye Pain, No Ear Pain, No Dysphasia, No Sinus Congestion, No Post Nasal Drip, No Sore Throat, No Other Pulmonary: No Dyspnea, No Cough, No Pleuritic Chest Pain, No Other Cardiovascular: No: Chest Pain, Palpitations, Orthopnea, Paroxysmal Noc. Dyspnea, Edema, Lt Headedness, Other Gastrointestinal: Nausea, Vomiting, Abdominal Pain; No: Diarrhea, Constipation, Melena, Hematochezia, Other Genitourinary: No Dysuria, No Frequency, No Incontinence, No Hematuria, No Retention, No Other Musculoskeletal: No: other, neck pain, shoulder pain, arm pain, back pain, hand pain, leg pain, foot pain Skin: No Urticaria, No Rash, No Other Neurological: No: Weakness, Numbness, Incoordination, Change in speech, Confu maday, Seizures, Other Allergies: Coded Allergies: Penicillins (Unverified Allergy, Unknown, 05/02/21) Bxrgnhee-5-AM2 Antimigraine Agents (Unverified Allergy, Unknown, 12/31/24) ciprofloxacin (Unverified Allergy, Unknown, 05/02/21) codeine (Unverified Allergy, Unknown, 05/02/21) metoclopramide (Unverified Allergy, Unknown, 12/31/24) nitrofurantoin (Unverified Allergy, Unknown, 12/31/24) sulfamethoxazole (Unverified Allergy, Unknown, 05/02/21) trimethoprim (Unverified Allergy, Unknown, 05/02/21) Scheduled Aspirin (Aspirin), 81 MG PO DAILY, (Reported) Ergocalciferol (Vitamin D2) (Vitamin D2), 1,250 MCG PO QWEEK, (Reported) Famotidine (Famotidine), 40 MG PO HS, (Reported) Pantoprazole Sodium (Pantoprazole Sodium), 40 MG PO DAILY, (Reported) [Multivitamin Patch], ID DAILY, (Reported) Scheduled PRN Acetaminophen (Tylenol), 500 MG PO AD PRN for PAIN, (Reported) Ondansetron HCl (Ondansetron HCl), 1 TAB PO Q6HPRN PRN for nausea/vomiting Discontinued Medications Bisacodyl (Bisacodyl), 1 SUPP NV DAILY Cefdinir (Cefdinir), 1 CAP PO BID Magnesium Hydroxide (Milk of Magnesia), 5 ML PO BID Na Phos,M-B/Na Phos,Di-Ba (Enema Ready To Use), 133 ML RC ONCE Tamsulosin HCl (Flomax), 1 CAP PO DAILY Exam Vital Signs Vital Signs Date Time Temp Pulse Resp B/P (MAP) Pulse Ox O2 Delivery O2 Flow Rate FiO2 03/16/25 18:00 67 18 139/76 98 Room Air* 0 21 03/16/25 17:10 98.4 General Appearance: Alert, Oriented X3, Cooperative, mild distress HEENT: Atraumatic, PERRLA, EOMI Respiratory: Clear to auscultation, Normal air movement, NL respiratory effort Cardiovascular: Regular rate, Regular rhythm, Normal S1, Normal S2 Abdominal: Normal bowel sounds, Soft, No tenderness Extremities: No edema Skin: No significant lesion Neuro: Normal speech, Strength at 5/5 X4 ext, Cranial nerves 3-12 NL Psych/Mental Status: Mental status NL, Mood NL, Thoughts/Content NL Assessment/Plan ASSESSMENT: [ Hypokalemia, POA Urinary tract infection, POA Abdominal pain, POA Nausea, vomiting, POA] PLAN: [ Admit patient to medical floor as inpatient status. Place patient on telemetry monitoring. Hypokalemia: Replace potassium per hospital protocol. Monitor patient's labs. Repeat potassium at 10:00 p.m. Urinary tract infection: Patient has a documented allergy to penicillin, ciprofloxacin, nitrofurantoin, sulfamethoxazole, trimethoprim. Start empiric antibiotic therapy with aztreonam 2 g IV Q 8 hours. Check urine culture, follow up with the results. Abdominal pain, nausea, vomiting: LR at 100ml/hr Patient has a documented allergy to codeine. As needed analgesia with Dilaudid. Keep patient NPO for GI rest. Consider advancing diet to clear liquid diet tomorrow if patient's nausea, vomiting abdominal pain resolved. Consider CT of abdomen and pelvis if no improvement in symptoms. As-needed antiemetic, Zofran. Hypertension: Consider resuming home medications once they have been reconciled and patient is no longer NPO. At time of admission home medications have not been reconciled. For now: Hydralazine 10 mg IV every 4 hours for systolic blood pressure greater than 160 mmHg GI prophylaxis, famotidine DVT prophylaxis, Lovenox ADVANCED CARE PLANNING 1. Which of the following were discussed? Hospice Care - Yes Therapeutic options - yes Advance Directives - Yes - patient states she does not have any advance directives in place. Patient states her has been can make decisions for her if she becomes unable. Other discussions - patient wishes to remain a full code at this time 2. Discussed with who? Patient 3. Voluntary nature of this service was explained to the patient? Yes 4. Amount of time spent - ___16 minutes____ 5. Reviewed by Physician? (if this service was performed by NPP) Yes This document was generated in part using voice recognition software, occasional wrong word or sound alike substitutions may have occurred due to the inherent limitations of voice recognition software. Read the chart carefully and recognize using context, where the substitutions have occurred. Although every effort was made to edit the content, foot caster and typing errors may occur ATTESTATION BY PHYSICIAN I have seen and examined the patient. I reviewed the documentation, medical deci maday making, and treatment plan as noted by the mid-level provider above. I agree with the findings and plan of care. ] ELISABETH TORRES [facility] Mar 16, 2025 18:49
[2025-03-16] MEDS: LACTATED RINGERS 1000ML 1,000 ML IV SCH (18:57)
--- NOTE | 2025-03-16 19:02 | NUR ---
REFUSED MED, AGUILERA IN THROAT
[2025-03-16] MEDS: AZTREONAM 2 GM VIAL IVPB SCH (21:26)
--- NOTE | 2025-03-16 21:35 | NUR ---
REPORT GIVEN TO NURSE ROCHA, ALL QUESTIONS ANSWERED AT THIS TIME. NURSE EXPECTING PT ARRIVAL TO THE UNIT
[2025-03-16 22:06] VITALS: BP 137/80; PULSE 61; RESP 18; TEMP 98.6
[2025-03-16] MEDS ORDERED: MULTIVITAMIN PATCH ID (22:22)
[2025-03-17 03:51] VITALS: BP 105/67; PULSE 53; RESP 16; TEMP 98.4
[2025-03-17 05:03] LABS: IMMATURE GRANULOCYTE ABSOLUTE 0.03 K/uL (0-1); NUCLEATED RED BLOOD CELLS 0.0 % (0.0-0.19); PLATELET COUNT (AUTO) 142 K/uL (130-400); RED BLOOD CELL COUNT(AUTO) 4.14 MIL/uL (4.00-5.50); RED CELL DISTRIBUTION WIDTH 14.1 % (11.0-15.5); WHITE BLOOD COUNT (AUTO) 4.6 K/uL (4.8-10.8)
[2025-03-17 05:20] LABS: CREATININE 0.7 mg/dL (0.5-1.0); GLOMERULAR FILTR. RATE CALC 104.0 mL/min (>90); GLUCOSE,RANDOM 86.0 mg/dL (70-105); PHOSPHORUS 3.6 mg/dL (2.5-4.9); SODIUM SERUM 145.0 mmol/L (136-145); UREA NITROGEN, BLOOD 12.0 mg/dL (7-18)
[2025-03-17] MEDS ORDERED: PoTASSium chloRIDE 20MEQ ER 20 MEQ ERTAB PO ONE (07:00)
[2025-03-17 08:00] VITALS: BP 120/76; PULSE 51; RESP 19; TEMP 97.6
--- NOTE | 2025-03-17 08:20 | EKG ---
[facility] Test Date: 2025-03-16 Test Time: 18:11:57 Pat Name: OLAF ROMERO Department: [facility] Room: 311 1 Gender: F Cad Engineer: [id number] : 1970 Requested By: JENNIFER KEARNEY Order Number: [id number] Reading MD: James Cardona Measurements Intervals [place] Rate: 62 P: 38 DC: 133 QRS: -12 QRSD: 108 T: 40 QT: 425 QTc: 434 Interpretive Statements Sinus rhythm Compared to ECG 02/08/2025 21:41:34 Sinus bradycardia no longer present Electronically Signed On 03-18-2025 00:06:12 CDT by James Cardona Please click the below link to view image of tracing.
[2025-03-17] MEDS: ENOXAPARIN SODIUM 40 MG/0.4 ML SYRINGE SQ SCH (08:42)
[2025-03-17] MEDS: FAMOTIDINE 20MG VIAL IV SCH (08:43)
--- NOTE | 2025-03-17 09:47 | PN ---
[facility] PROGRESS NOTE Date of Service: Mar 17, 2025 Time of Service: 09:35 Attending doctor Sheryl SUBJECTIVE: [03/16 Ms. Valdez is a 54-year-old female that was seen and examined today on 03/16/2025. Patient is a good historian of personal health Patient states that she came to the emergency department with a chief complaint of abdominal pain. Onset was two weeks ago. Location is epigastric. Duration is on and off. Character is described as burning. Symptoms are aggravated with eating. There was no alleviating factors. Patient reports associated nausea and vomiting. Patient reports that she ran out of her Protonix two weeks ago. Today in the emergency department CBC unremarkable, potassium 2.7, urinalysis positive for leukocyte esterase and WBCs 11-25 per high-powered microscopy field. Emergency room physician recommended patient be admitted with a diagnosis of hypokalemia and urinary tract infection. 03/17 patient was seen by nurse practitioner and physician during rounding in the room 311. Patient continues to complain of abdominal pain with nausea and vomiting. Patient stated that just this year in January 02 patient underwent gastric bypass with a Dr. David. We will consult above-stated doctor for further evaluation. We will also order CT abdomen/pelvis. Potassium to be replaced per protocol. We will continue to monitor the patient meantime. A.m. labs ] REVIEW OF SYSTEMS CONSTITUTIONAL: Denies fevers, chills, or night sweats. No unintentional weight loss reported. NEUROLOGICAL: Denies headache, amaurosis fugax, motor weakness, sensory deficit, vertigo/spinning sensation, gait abnormalities, or tremors. ENT: No hearing loss, otalgia, otorrhea, rhinitis, rhinorrhea, hoarseness, or sore throat. CARDIOVASCULAR: Denies any exertional angina, dyspnea on exertion, orthopnea, paroxysmal nocturnal dyspnea, palpitations, life-threatening arrhythmias, claudication. PULMONARY: Denies any shortness of breath, cough, phlegm/sputum, hemoptysis, pleuritic chest pain. SLEEP: Denies morning headaches, daytime somnolence or napping. Denies difficulty falling asleep, staying asleep, waking from sleep. Denies knowledge of snoring. GASTROINTESTINAL: Denies any type of dysphagia to either liquids or solids. Denies nausea, vomiting, pyrosis, early satiety, diarrhea, constipation, or changes in stool consistency or caliber. Denies coffee-ground emesis, hematemesis, hematochezia, or melanotic stools. Complains of abdominal pain GENITOURINARY: Denies frequency, urgency, nocturia, hematuria or incontinence (Storage/Irritative symptoms.) Low urinary stream, straining to void, urinary intermittency or hesitancy, splitting of the voiding stream, terminal dribbling. ENDOCRINOLOGIC: Denies polyuria, polydipsia, polyphagia or heat/cold intol erances. HEMATOLOGIC: Denies thrombophilia/previous clots, or coagulopathy/bleeding disorders. ONCOLOGIC: Denies personal history of malignancy. DERMATOLOGIC: Denies rashes or pruritus. PSYCHIATRIC: Denies any suicidal or homicidal ideation. Denies hallucinations. PHYSICAL EXAM GENERAL APPEARANCE: The patient is awake, alert, and oriented, in no acute cardiopulmonary distress. NEUROLOGICAL: Cranial nerves II-XII grossly intact. Motor is 5/5 in bilateral upper and lower extremities proximal to distal. No sensory deficits. HEENT: Face is symmetric. Pupils are equal and reactive. Extraocular movements are intact. NECK: Supple. No JVD. No thyromegaly. No submental, submandibular, pre- /postauricular, occipital or supraclavicular lymphadenopathy. CHEST: Normal chest expansion. No Telemetry. LUNGS: Absence of any rales, rhonchi or any wheezing. CARDIOVASCULAR: Regular. S1 and S2 normal. No appreciable rubs, murmurs or gallops. ABDOMEN: Soft, nontender, and nondistended. There is no rebound, voluntary guarding, or rigidity. : Deferred. No Garrett. EXTREMITIES: Non-edematous and not cyanotic. No clubbing. Good capillary refill. SKIN: No skin breakdown. Vital Signs (last 8hr) Date Time Temp Pulse Resp B/P (MAP) Pulse Ox O2 Delivery O2 Flow Rate FiO2 03/17/25 08:00 97.5 51 19 120/76 91 Room Air 03/17/25 03:51 98.4 53 16 105/67 97 Room Air LABS: Laboratory: Test 03/17/25 05:44 03/17/25 04:53 03/16/25 17:41 Range/Units Whole Blood Glucose 79 70-110 MG/DL White Blood Count 4.6 L 4.8-10.8 K/uL Red Blood Count 4.14 4.00-5.50 MIL/uL Hemoglobin 12.4 12.0-16.0 g/dL Hematocrit 37.3 36-48 % Mean Corpuscular Volume 90.1 79-99 fL Mean Corpuscular Hemoglobin 30.0 27.0-33.0 pg Mean Corpuscular Hemoglobin Concent 33.2 32.0-36.0 g/dL Red Cell Distribution Width 14.1 11.0-15.5 % Platelet Count 142 130-400 K/uL Mean Platelet Volume 10.0 7.5-10.5 fL Immature Granulocyte % (Auto) 0.6 0-1 % Neutrophils (%) (Auto) 63.8 40.0-77.0 % Lymphocytes (%) (Auto) 24.8 21.0-51.0 % Monocytes (%) (Auto) 9.1 3.0-13.0 % Eosinophils (%) (Auto) 1.3 0.0-8.0 % Basophils (%) (Auto) 0.4 0.0-5.0 % Neutrophils # (Auto) 3.0 1.8-7.7 K/uL Lymphocytes # (Auto) 1.2 1.0-4.8 K/uL Monocytes # (Auto) 0.4 0.1-1.0 K/uL Eosinophils # (Auto) 0.06 0.00-0.70 K/uL Basophils # (Auto) 0.02 0.00-0.20 K/uL Absolute Immature Granulocyte (auto 0.03 0-1 K/uL Nucleated Red Blood Cells 0.0 0.0-0.19 % Sodium Level 145 136-145 mmol/L Potassium Level 3.5 3.5-5.1 mmol/L Chloride Level 107 101-111 mmol/L Carbon Dioxide Level 26 21-32 mmol/L Blood Urea Nitrogen 12 7-18 mg/dL Creatinine 0.7 0.5-1.0 mg/dL Glomerular Filtration Rate Calc 104 >90 mL/min Random Glucose 86 70-105 mg/dL Total Calcium 8.3 L 8.5-10.1 mg/dL Phosphorus Level 3.6 2.5-4.9 mg/dL Magnesium Level 1.70 L 1.80-2.40 mg/dL Urine Color DARK-YELLOW YELLOW Urine Appearance TURBID CLEAR Urine pH 6.5 5.0-8.0 Urine Specific [place] 1.031 1.001-1.031 Urine Protein 100 H NEGATIVE mg/dL Urine Glucose (UA) NEGATIVE NEGATIVE mg/dL Urine Ketones 150 H NEGATIVE mg/dL Urine Occult Blood NEGATIVE NEGATIVE Urine Nitrate NEGATIVE NEGATIVE Urine Bilirubin 2 H NEGATIVE mg/dL Urine Urobilinogen 12 H 0.2-1.0 mg/dL Urine Leukocyte Esterase 250 H NEGATIVE [place]/uL Urine RBC 6-10 H 0-1 /HPF Urine WBC 11-25 H 0-1 /HPF Urine Squamous Epithelial Cells FEW 0-2 /HPF Urine Non-Squamous Epithelial Cells 1 0-2 /HPF Urine Other Crystals (Auto) 23 None Seen /HPF Urine Bacteria RARE None Seen /HPF Urine Hyaline Casts 2-5 H 0-1 /LPF /LPF Total Bilirubin 1.5 H 0.2-1.0 mg/dL Aspartate Amino Transf (AST/SGOT) 20 10-37 U/L Alanine Aminotransferase (ALT/SGPT) 14 12-78 U/L Alkaline Phosphatase 65 50-136 U/L Troponin I High Sensitivity 8 4-50 ng/L Total Protein 8.0 6.0-8.3 g/dL Albumin 4.1 3.5-5.0 g/dL Lipase 21 16-77 U/L Current Medications Medications (Trade) Dose Ordered Sig/Silvia Route PRN Reason Start Time Stop Time Status Last Admin Dose Admin Acetaminophen (TYLenol 325MG TAB) 650 mg Q6H PRN PO TEMPERATURE GREATER THAN 101.5 03/16/25 19:00 04/15/25 18:59 Aztreonam (Azactam) 2 gm Q8H IVPB 03/16/25 19:00 03/26/25 18:59 03/17/25 03:54 2 GM Enoxaparin Sodium (Lovenox) 40 mg DAILY SQ 03/17/25 09:00 04/16/25 08:59 03/17/25 08:42 40 MG Famotidine (Pepcid 20mg Vial) 20 mg DAILY IV 03/17/25 09:00 04/16/25 08:59 03/17/25 08:43 20 MG Hydralazine HCl (APRESOLine 20MG INJ) 10 mg Q6H PRN IV For:SBP above 160;DBP above 90 03/16/25 19:00 04/15/25 18:59 Hydromorphone HCl (DiLAUDid 0.5MG INJ) 0.5 mg Q4H PRN IVP SEVERE PAIN (7-10) 03/16/25 19:00 03/21/25 18:59 Lactated Ringer's 1,000 ml @ 100 mls/hr Q10H IV 03/16/25 19:00 04/15/25 18:59 03/16/25 18:57 100 MLS/HR Magnesium Sulfate 50 ml @ 0 mls/hr PROTOCOL IV 03/17/25 07:00 04/16/25 06:59 Ondansetron HCl (zoFRAN 4MG INJ) 4 mg Q6H PRN IV NAUSEA/VOMITING 03/16/25 19:00 04/15/25 18:59 Pantoprazole Sodium (PROTonix 40MG INJ) 40 mg ONCE IVP 03/16/25 17:30 03/16/25 21:30 DC 03/16/25 17:56 40 MG Potassium Chloride 100 ml @ 50 mls/hr AD PRN IV POTASSIUM PROTOCOL 03/16/25 19:00 04/15/25 18:59 03/17/25 06:19 50 MLS/HR Sodium Chloride 1,000 ml @ 0 mls/hr ONCE IV 03/16/25 17:30 03/17/25 17:29 03/16/25 17:56 999 MLS/HR DIAGNOSTICS / RADIOLOGY: [ ] ASSESSMENT: [ Hypokalemia, POA Urinary tract infection, POA Severe Abdominal pain, POA Intractable Nausea, vomiting, POA History of stroke GERD Uncontrolled hypertension POA Irritable bowel syndrome POA History of gastric bypass January 02, 2025] PLAN: [ Continue in medical floor as inpatient status. Continue telemetry monitoring. Hypokalemia: Replace potassium per hospital protocol. Monitor patient's labs. Repeat potassium at 10:00 p.m. Urinary tract infection: Patient has a documented allergy to penicillin, ciprofloxacin, nitrofurantoin, sulfamethoxazole, trimethoprim. Continue aztreonam 2 g IV Q 8 hours. Check urine culture, follow up with the results. Abdominal pain, nausea, vomiting: CT abdomen/pelvis ordered LR at 100ml/hr Patient has a documented allergy to codeine. As needed analgesia with Dilaudid. Keep patient NPO for GI rest. Consider advancing diet to clear liquid diet tomorrow if patient's nausea, vomiting abdominal pain resolved. Consider CT of abdomen and pelvis if no improvement in symptoms. As-needed antiemetic, Zofran. Hypertension: Home medication reconciled by APPLICATION TESTER 03/17/2025 At time of admission home medications have not been reconciled. For now: Hydralazine 10 mg IV every 4 hours for systolic blood pressure greater than 160 mmHg GI prophylaxis, famotidine DVT prophylaxis, Lovenox ATTESTATION BY PHYSICIAN I have seen and examined the patient. I reviewed the documentation, medical decision making, and treatment plan as noted by the mid-level provider above. I agree with the findings and plan of care. DELIA Vega MD BUILDING SERVICES ENGINEER Mar 17, 2025 09:47
[2025-03-17 12:00] VITALS: BP 115/78; PULSE 56; RESP 19; TEMP 98.1
--- NOTE | 2025-03-17 14:56 | NUR ---
DCP-Home Pt awake, alert, oriented X3 lives with spouse Fritz Valdez [phone]. PCP is Ilsa Herr MD preferred pharmacy is [facility] in [place] or [facility]. Pt states she has a cane she uses to ambulate and recently had gastric bypass surgery in December [address] David. Pt verbalizes has not been to SNF, rehab, or home health services. Anticipates discharge is for home with Spouse.
[2025-03-17 16:00] VITALS: BP_SYST 112; BP_SYST 136; BP_DIAS 65; BP_DIAS 73; PULSE 54; PULSE 89; RESP 19; TEMP 97.7; TEMP 97.9
[2025-03-17] MEDS: SUCRALFATE 1 GM/10 ML PO SCH (18:38)
[2025-03-17 20:00] VITALS: O2SAT 100
[2025-03-17 20:51] VITALS: BP 116/70; PULSE 53; RESP 18; TEMP 98.1
[2025-03-17] MEDS ORDERED: NON-FORMULARY MEDICATION 1 EACH (Famotidine 40 MG) PO SCH (21:00)
[2025-03-18] VITALS (8 sets, daily range): BP systolic 95–115; BP diastolic 62–73; PULSE 50–62; RESP 16–19; TEMP 97.3–98.1; O2SAT 97–100
[2025-03-18 06:04] LABS: IMMATURE GRANULOCYTE ABSOLUTE 0.02 K/uL (0-1); NUCLEATED RED BLOOD CELLS 0.0 % (0.0-0.19); PLATELET COUNT (AUTO) 119 K/uL (130-400); RED BLOOD CELL COUNT(AUTO) 4.05 MIL/uL (4.00-5.50); RED CELL DISTRIBUTION WIDTH 13.8 % (11.0-15.5); WHITE BLOOD COUNT (AUTO) 3.6 K/uL (4.8-10.8)
[2025-03-18 06:22] LABS: ASPARTATE AMINOTRANSFERASE 14.0 U/L (10-37); CREATININE 0.5 mg/dL (0.5-1.0); GLOMERULAR FILTR. RATE CALC 113.0 mL/min (>90); GLUCOSE,RANDOM 71.0 mg/dL (70-105); SODIUM SERUM 142.0 mmol/L (136-145); TOTAL PROTEIN, SERUM 5.6 g/dL (6.0-8.3); UREA NITROGEN, BLOOD 8.0 mg/dL (7-18)
[2025-03-18] MEDS: MAGNESIUM 2GM PREMIX 50ML 50 ML IV SCH (07:53)
--- NOTE | 2025-03-18 08:40 | HMCIMG ---
EXAM: CT Abdomen and Pelvis without IV contrast CLINICAL HISTORY: Severe abdomen pain. TECHNIQUE: Thin collimated axial CT images of the abdomen and pelvis were obtained with sagittal and coronal reformatted images also submitted. CT scan is done according to ALARA (As Low As Reasonably Achievable). CONTRAST: None. COMPARISON: CT abdomen and pelvis dated 03/06/2025. FINDINGS: Unremarkable visualized lung parenchyma. No focal abnormality within the liver, pancreas, spleen, adrenals. 1 mm nonobstructive calculus in the upper pole of the right kidney. No additional urinary calculi. No hydronephrosis. Status post cholecystectomy. Status post gastric bypass. There is no obvious bowel wall thickening. Bowel loops are normal in caliber without evidence of obstruction or ileus. The appendix is normal. There is no abnormality within the urinary bladder. Status post hysterectomy. 1.8 cm right ovarian cyst. Unremarkable left ovary. No aortic aneurysm. No lymphadenopathy. No free fluid. There is no acute osseous abnormality. 2.2 x 1.2 cm uncomplicated fat-containing umbilical hernia. IMPRESSIONS: 1 mm calculus in the upper pole of the right kidney. No additional urinary calculi. no hydronephrosis. No bowel obstruction or inflammation. Normal appendix. Small uncomplicated fat-containing umbilical hernia. No acute interval changes. /Jp
[2025-03-18] MEDS: ASPIRIN 81MG CHEW TAB PO SCH (09:00)
--- NOTE | 2025-03-18 10:53 | NUR ---
DCP: HOME Pt currently lives with sps Fritz Valdez [phone]. Pt receives $230 a month in [employer] benefits. Pt does use a cane at home to ambulate. Pt does not have DME, home health, or provider services. PCP is Dr Ilsa Herr and uses [facility] or [facility] for any RX needs. At [place] pt will want to go home and sps can assist with transportation. Addendum: 03/18/25 at 1056 by MARY CANELA SS Amended: Links added.
--- NOTE | 2025-03-18 10:55 | PN ---
[facility] PROGRESS NOTE Date of Service: Mar 18, 2025 Time of Service: 10:52 SUBJECTIVE: [03/16 Ms. Valdez is a 54-year-old female that was seen and examined today on 03/16/2025. Patient is a good historian of personal health Patient states that she came to the emergency department with a chief complaint of abdominal pain. Onset was two weeks ago. Location is epigastric. Duration is on and off. Character is described as burning. Symptoms are aggravated with eating. There was no alleviating factors. Patient reports associated nausea and vomiting. Patient reports that she ran out of her Protonix two weeks ago. Today in the emergency department CBC unremarkable, potassium 2.7, urinalysis positive for leukocyte esterase and WBCs 11-25 per high-powered microscopy field. Emergency room physician recommended patient be admitted with a diagnosis of hypokalemia and urinary tract infection. 03/17 patient was seen by nurse practitioner and physician during rounding in the room 311. Patient continues to complain of abdominal pain with nausea and vomiting. Patient stated that just this year in January 02 patient underwent gastric bypass with a Dr. David. We will consult above-stated doctor for further evaluation. We will also order CT abdomen/pelvis. Potassium to be replaced per protocol. We will continue to monitor the patient meantime. A.m. labs ] 03/18 patient remains admitted to the medical floor, BP 112/69, heart rate of 55, afebrile, saturating normal on room air. CBC with a hemoglobin 12.2, hematocrit 35.4, platelet count of 119. Sodium 142, potassium 3.3, magnesium 1.7. UA leukocyte esterase 250, 11-25 WBC per high-power field. Urine culture preliminary report no growth 18-[address] of the abdomen and pelvis shows a 1 mm calculus in the upper pole of the right kidney, no additional urinary calculi, no hydronephrosis, no bowel obstruction or inflammation, normal appendix, small uncomplicated fat containing umbilical hernia, no acute interval changes. At the time of my Visit patient comfortably in bed, alert oriented x3, admits epigastric discomfort, burning type, mild nausea but not actively vomiting. She also feels hungry. Getting IV fluids. Case discussed with the RN, no acute events overnight. REVIEW OF SYSTEMS CONSTITUTIONAL: Denies fevers, chills, or night sweats. No unintentional weight loss reported. NEUROLOGICAL: Denies headache, amaurosis fugax, motor weakness, sensory deficit, vertigo/spinning sensation, gait abnormalities, or tremors. ENT: No hearing loss, otalgia, otorrhea, rhinitis, rhinorrhea, hoarseness, or sore throat. CARDIOVASCULAR: Denies any exertional angina, dyspnea on exertion, orthopnea, paroxysmal nocturnal dyspnea, palpitations, life-threatening arrhythmias, claudication. PULMONARY: Denies any shortness of breath, cough, phlegm/sputum, hemoptysis, pleuritic chest pain. SLEEP: Denies morning headaches, daytime somnolence or napping. Denies difficulty falling asleep, staying asleep, waking from sleep. Denies knowledge of snoring. GASTROINTESTINAL: Denies any type of dysphagia to either liquids or solids. De nies nausea, vomiting, pyrosis, early satiety, diarrhea, constipation, or changes in stool consistency or caliber. Denies coffee-ground emesis, hematemesis, hematochezia, or melanotic stools. Complains of abdominal pain GENITOURINARY: Denies frequency, urgency, nocturia, hematuria or incontinence (Storage/Irritative symptoms.) Low urinary stream, straining to void, urinary intermittency or hesitancy, splitting of the voiding stream, terminal dribbling. ENDOCRINOLOGIC: Denies polyuria, polydipsia, polyphagia or heat/cold intolerances. HEMATOLOGIC: Denies thrombophilia/previous clots, or coagulopathy/bleeding disorders. ONCOLOGIC: Denies personal history of malignancy. DERMATOLOGIC: Denies rashes or pruritus. PSYCHIATRIC: Denies any suicidal or homicidal ideation. Denies hallucinations. PHYSICAL EXAM GENERAL APPEARANCE: The patient is awake, alert, and oriented, in no acute cardiopulmonary distress. NEUROLOGICAL: Cranial nerves II-XII grossly intact. Motor is 5/5 in bilateral upper and lower extremities proximal to distal. No sensory deficits. HEENT: Face is symmetric. Pupils are equal and reactive. Extraocular movements are intact. NECK: Supple. No JVD. No thyromegaly. No submental, submandibular, pre- /postauricular, occipital or supraclavicular lymphadenopathy. CHEST: Normal chest expansion. No Telemetry. LUNGS: Absence of any rales, rhonchi or any wheezing. CARDIOVASCULAR: Regular. S1 and S2 normal. No appreciable rubs, murmurs or gallops. ABDOMEN: Soft, nontender, and nondistended. There is no rebound, voluntary guarding, or rigidity. : Deferred. No Garrett. EXTREMITIES: Non-edematous and not cyanotic. No clubbing. Good capillary refill. SKIN: No skin breakdown. Vital Signs (last 8hr) Date Time Temp Pulse Resp B/P (MAP) Pulse Ox O2 Delivery O2 Flow Rate FiO2 03/18/25 08:00 97.5 55 19 112/69 98 Room Air 21 03/18/25 05:02 98.1 51 18 95/64 99 Room Air LABS: Laboratory: Test 03/18/25 05:38 03/18/25 05:20 03/17/25 04:53 03/16/25 17:41 Range/Units White Blood Count 3.6 L 4.8-10.8 K/uL Red Blood Count 4.05 4.00-5.50 MIL/uL Hemoglobin 12.2 12.0-16.0 g/dL Hematocrit 35.4 L 36-48 % Mean Corpuscular Volume 87.4 79-99 fL Mean Corpuscular Hemoglobin 30.1 27.0-33.0 pg Mean Corpuscular Hemoglobin Concent 34.5 32.0-36.0 g/dL Red Cell Distribution Width 13.8 11.0-15.5 % Platelet Count 119 L 130-400 K/uL Mean Platelet Volume 10.2 7.5-10.5 fL Immature Granulocyte % (Auto) 0.5 0-1 % Neutrophils (%) (Auto) 62.7 40.0-77.0 % Lymphocytes (%) (Auto) 25.3 21.0-51.0 % Monocytes (%) (Auto) 8.8 3.0-13.0 % Eosinophils (%) (Auto) 1.9 0.0-8.0 % Basophils (%) (Auto) 0.8 0.0-5.0 % Neutrophils # (Auto) 2.3 1.8-7.7 K/uL Lymphocytes # (Auto) 0.9 L 1.0-4.8 K/uL Monocytes # (Auto) 0.3 0.1-1.0 K/uL Eosinophils # (Auto) 0.07 0.00-0.70 K/uL Basophils # (Auto) 0.03 0.00-0.20 K/uL Absolute Immature Granulocyte (auto 0.02 0-1 K/uL Nucleated Red Blood Cells 0.0 0.0-0.19 % Sodium Level 142 136-145 mmol/L Potassium Level 3.3 L 3.5-5.1 mmol/L Chloride Level 106 101-111 mmol/L Carbon Dioxide Level 24 21-32 mmol/L Blood Urea Nitrogen 8 7-18 mg/dL Creatinine 0.5 0.5-1.0 mg/dL Glomerular Filtration Rate Calc 113 >90 mL/min Random Glucose 71 70-105 mg/dL Total Calcium 8.4 L 8.5-10.1 mg/dL Magnesium Level 1.70 L 1.80-2.40 mg/dL Total Bilirubin 0.8 0.2-1.0 mg/dL Aspartate Amino Transf (AST/SGOT) 14 10-37 U/L Alanine Aminotransferase (ALT/SGPT) 7 L 12-78 U/L Alkaline Phosphatase 42 L 50-136 U/L Total Protein 5.6 L 6.0-8.3 g/dL Albumin 2.7 L 3.5-5.0 g/dL Whole Blood Glucose 70 70-110 MG/DL Phosphorus Level 3.6 2.5-4.9 mg/dL Urine Color DARK-YELLOW YELLOW Urine Appearance TURBID CLEAR Urine pH 6.5 5.0-8.0 Urine Specific [place] 1.031 1.001-1.031 Urine Protein 100 H NEGATIVE mg/dL Urine Glucose (UA) NEGATIVE NEGATIVE mg/dL Urine Ketones 150 H NEGATIVE mg/dL Urine Occult Blood NEGATIVE NEGATIVE Urine Nitrate NEGATIVE NEGATIVE Urine Bilirubin 2 H NEGATIVE mg/dL Urine Urobilinogen 12 H 0.2-1.0 mg/dL Urine Leukocyte Esterase 250 H NEGATIVE Clay/uL Urine RBC 6-10 H 0-1 /HPF Urine WBC 11-25 H 0-1 /HPF Urine Squamous Epithelial Cells FEW 0-2 /HPF Urine Non-Squamous Epithelial Cells 1 0-2 /HPF Urine Other Crystals (Auto) 23 None Seen /HPF Urine Bacteria RARE None Seen /HPF Urine Hyaline Casts 2-5 H 0-1 /LPF /LPF Troponin I High Sensitivity 8 4-50 ng/L Lipase 21 16-77 U/L Current Medications Medications (Trade) Dose Ordered Sig/Silvia Route PRN Reason Start Time Stop Time Status Last Admin Dose Admin Acetaminophen (TYLenol 325MG TAB) 650 mg Q6H PRN PO TEMPERATURE GREATER THAN 101.5 03/16/25 19:00 04/15/25 18:59 Acetaminophen (TYLenol 500MG TAB) 500 mg AD PRN PO PAIN 03/17/25 10:00 03/17/25 09:50 DC Aspirin (Aspirin 81mg Chew Tab) 81 mg DAILY PO 03/18/25 09:00 04/17/25 08:59 Aztreonam (Azactam) 2 gm Q8H IVPB 03/16/25 19:00 03/26/25 18:59 03/18/25 10:10 2 GM Enoxaparin Sodium (Lovenox) 40 mg DAILY SQ 03/17/25 09:00 04/16/25 08:59 03/18/25 10:12 40 MG Ergocalciferol (Drisdol) 50,000 unit QWEEK PO 03/24/25 09:00 04/23/25 08:59 Famotidine (Pepcid 20mg Vial) 20 mg DAILY IV 03/17/25 09:00 03/17/25 09:51 DC 03/17/25 08:43 20 MG Hydralazine HCl (APRESOLine 20MG INJ) 10 mg Q6H PRN IV For:SBP above 160;DBP above 90 03/16/25 19:00 04/15/25 18:59 Hydromorphone HCl (DiLAUDid 0.5MG INJ) 0.5 mg Q4H PRN IVP SEVERE PAIN (7-10) 03/16/25 19:00 03/21/25 18:59 Lactated Ringer's 1,000 ml @ 100 mls/hr Q10H IV 03/16/25 19:00 04/15/25 18:59 03/18/25 10:09 100 MLS/HR Magnesium Sulfate 50 ml @ 0 mls/hr PROTOCOL IV 03/17/25 07:00 04/16/25 06:59 03/18/25 07:53 20 MLS/HR Miscellaneous Medication (Famotidine ) 40 mg HS PO 03/17/25 21:00 03/17/25 09:50 DC Ondansetron HCl (zoFRAN 4MG TABLET) 4 mg Q4H PRN PO nausea/vomiting 03/17/25 10:00 04/16/25 09:59 03/18/25 07:52 4 MG Ondansetron HCl (zoFRAN 4MG INJ) 4 mg Q6H PRN IV NAUSEA/VOMITING 03/16/25 19:00 03/17/25 09:51 DC Ondansetron HCl (zoFRAN 4MG INJ) 4 mg Q6H PRN IVP NAUSEA/VOMITING 03/18/25 10:30 04/17/25 10:29 Pantoprazole Sodium (PROTonix 40MG INJ) 40 mg BID IVP 03/17/25 21:00 03/18/25 07:32 DC 03/17/25 20:28 40 MG Pantoprazole Sodium (PROTonix 40MG INJ) 40 mg ONCE IVP 03/16/25 17:30 03/16/25 21:30 DC 03/16/25 17:56 40 MG Pantoprazole Sodium (PROTonix 40MG TAB) 40 mg DAILY PO 03/18/25 09:00 04/17/25 08:59 Potassium Chloride 100 ml @ 50 mls/hr AD PRN IV POTASSIUM PROTOCOL 03/16/25 19:00 04/15/25 18:59 03/17/25 06:19 50 MLS/HR Potassium Chloride 100 ml @ 50 mls/hr ONCE IV 03/17/25 21:00 03/17/25 23:59 DC 03/18/25 00:09 50 MLS/HR Sodium Chloride 1,000 ml @ 0 mls/hr ONCE IV 03/16/25 17:30 03/17/25 17:29 DC 03/16/25 17:56 999 MLS/HR Sucralfate (Carafate) 1 gm ACHS PO 03/17/25 17:11 04/16/25 17:10 03/17/25 18:38 1 GM DIAGNOSTICS / RADIOLOGY: [ ] ASSESSMENT: [ Hypokalemia, POA Urinary tract infection, POA Severe Abdominal pain, POA Intractable Nausea, vomiting, POA History of stroke GERD Uncontrolled hypertension POA Irritable bowel syndrome POA History of gastric bypass January 02, 2025] PLAN: Continue in medical floor as inpatient status. Continue telemetry monitoring. Hypokalemia: Replace potassium per hospital protocol. Monitor patient's labs. Repeat potassium at 10:00 p.m. Urinary tract infection: Patient has a documented allergy to penicillin, ciprofloxacin, nitrofurantoin, sulfamethoxazole, trimethoprim. Continue aztreonam 2 g IV Q 8 hours. Check urine culture, follow up with the results. Abdominal pain, nausea, vomiting: CT abdomen/pelvis ordered LR at 100ml/hr Patient has a documented allergy to codeine. As needed analgesia with Dilaudid. Keep patient NPO for GI rest. Consider advancing diet to clear liquid diet tomorrow if patient's nausea, vomiting abdominal pain resolved. Consider CT of abdomen and pelvis if no improvement in symptoms. As-needed antiemetic, Zofran. Hypertension: Home medication reconciled by GRAPHIC DESIGN MANAGER 03/17/2025 At time of admission home medications have not been reconciled. For now: Hydralazine 10 mg IV every 4 hours for systolic blood pressure greater than 160 mmHg GI prophylaxis, famotidine DVT prophylaxis, Lovenox DELMY HERRERA MD Mar 18, 2025 10:54
[2025-03-18] MEDS: DEXTROSE 50%-WATER 50 ML DISP.SYRIN IV ONE (11:15)
--- NOTE | 2025-03-18 15:04 | CONS ---
GASTROENTEROLOGY CONSULTATION NOTE Date of Consultation: Mar 18, 2025 Time of Consultation: 15:01 History of Present Illness: [ 54 yo with past medical history of gastritis, hx of Alicia-N-Y bypass with hiatal hernia repair on 01/02/25 who presented to ER with c/o of epigastric pain, nausea and vomiting for the past 2 weeks. Patient reports she ran out fo protonix 2 weeks ago. She reports having epigastric pain with nausea and vomiting. Patient states she is only tolerating small amounts of clear fluids. She states she was recently treated for UTI and renal stone and epigastric pain presented when she began antibiotic treatment. CT abdomen shows 1mm calculus in pole of right kidney, small umbilical hernia. CBC wbc 5.7, HGB 12.2, with platelets of 119. CMP significant for low albumin at 27. LFTs normal. On exam, patient is resting in HF in no acute distress. Respirations are unlabored. VSS. BBS clear. Abdomen soft but tender to epigastric region. No distention. Active BS. She reports last bm 1 week ago. She denies having any hematochezia. Poc disc ussed and recommendations for EGD in am. All her questions were answered and she agreed to proceed. ] Review of Systems: CONSTITUTIONAL: No malaise or change in sensation of wellbeing. ENMT: No rhinorrhea, otorrhea, sinus pain, ear ache. CARDIOVASCULAR: No angina, palpitations, orthopnea or paroxysmal dyspnea. RESPIRATORY: No SOB. GASTROINTESTINAL: No abdominal pain, nausea, vomiting, diarrhea, hematemesis, melena or change in the patient's habitual bowel movements consistency/number. GENITOURINARY: No dysuria, hematuria or change in bladder continence. MUSCULOSKELETAL: No new muscle pain or decrease in muscular strength. No new joint swelling, redness or tenderness. SKIN: No new rash. Past Medical History: Patient History: CIRRHOSIS MOTHER, Cardiovascular disease MOTHER, FATHER, Diabetes mellitus MOTHER, FATHER, Hypertension MOTHER, FATHER, ADDITIONAL PAST MEDICAL HISTORY: [CVA, GERD, hypertension, IBS] SOCIAL HISTORY: [Negative for smoking, alcohol use, drug use. Patient lives with her Fritz Valdez. Patient is typically independent of all her ADLs. Patient denies difficulty paying her bills. SURGICAL HISTORY: [Gastric bypass, cholecystectomy, hysterectomy, hiatal hernia repair, tonsillectomy, right eye surgery Coded Allergies: Penicillins (Unverified Allergy, Unknown, 05/02/21) [id number] Antimigraine Agents (Unverified Allergy, Unknown, 12/31/24) ciprofloxacin (Unverified Allergy, Unknown, 05/02/21) codeine (Unverified Allergy, Unknown, 05/02/21) metoclopramide (Unverified Allergy, Unknown, 12/31/24) nitrofurantoin (Unverified Allergy, Unknown, 12/31/24) sulfamethoxazole (Unverified Allergy, Unknown, 05/02/21) trimethoprim (Unverified Allergy, Unknown, 05/02/21) Physical Exam: GEN: Awake, alert, oriented in person, time and place, and in no acute distress. HEENT: No rhinorrhea. Oral pharyngeal mucosa is pink, moist and within normal limits. CHEST: Inspection, palpation of the chest were unremarkable. Lung auscultation revealed normal breath sounds bilaterally. CARDIAC: PMI is within normal limits. Heart sounds are regular. ABD: Soft, mildly tender to epigastric region, and not distended. No peritoneal signs on palpation. No organomegaly. Normal bowel sounds. EXT: No cyanosis or clubbing. No edema. SKIN: Intact. No rashes. JOINTS: No evidence of synovitis or acute arthritis. NEURO: Alert and oriented to name, place and person. Cranial nerve examination is unremarkable. No focal motor deficits. Normal speech. Strength is normal. Vital Sign (Last 24 Hours) 03/18/25 03/18/25 11:50 12:16 Temp 97.9 Pulse 54 Resp 19 B/P (MAP) 114/70 Pulse Ox 100 O2 Delivery Room Air* O2 Flow Rate 0 FiO2 21 Intake & Output (last 24hrs) 03/17/25 03/17/25 03/18/25 15:00 23:00 07:00 Intake Total 0 ml 600.0 ml Balance 0 ml 600.0 ml Laboratory: [ ] Laboratory: Test 03/18/25 11:02 03/18/25 05:38 03/17/25 04:53 03/16/25 17:41 Range/Units Whole Blood Glucose 52 L 70-110 MG/DL Bedside Glucose Comment Notified Nurse White Blood Count 3.6 L 4.8-10.8 K/uL Red Blood Count 4.05 4.00-5.50 MIL/uL Hemoglobin 12.2 12.0-16.0 g/dL Hematocrit 35.4 L 36-48 % Mean Corpuscular Volume 87.4 79-99 fL Mean Corpuscular Hemoglobin 30.1 27.0-33.0 pg Mean Corpuscular Hemoglobin Concent 34.5 32.0-36.0 g/dL Red Cell Distribution Width 13.8 11.0-15.5 % Platelet Count 119 L 130-400 K/uL Mean Platelet Volume 10.2 7.5-10.5 fL Immature Granulocyte % (Auto) 0.5 0-1 % Neutrophils (%) (Auto) 62.7 40.0-77.0 % Lymphocytes (%) (Auto) 25.3 21.0-51.0 % Monocytes (%) (Auto) 8.8 3.0-13.0 % Eosinophils (%) (Auto) 1.9 0.0-8.0 % Basophils (%) (Auto) 0.8 0.0-5.0 % Neutrophils # (Auto) 2.3 1.8-7.7 K/uL Lymphocytes # (Auto) 0.9 L 1.0-4.8 K/uL Monocytes # (Auto) 0.3 0.1-1.0 K/uL Eosinophils # (Auto) 0.07 0.00-0.70 K/uL Basophils # (Auto) 0.03 0.00-0.20 K/uL Absolute Immature Granulocyte (auto 0.02 0-1 K/uL Nucleated Red Blood Cells 0.0 0.0-0.19 % Sodium Level 142 136-145 mmol/L Potassium Level 3.3 L 3.5-5.1 mmol/L Chloride Level 106 101-111 mmol/L Carbon Dioxide Level 24 21-32 mmol/L Blood Urea Nitrogen 8 7-18 mg/dL Creatinine 0.5 0.5-1.0 mg/dL Glomerular Filtration Rate Calc 113 >90 mL/min Random Glucose 71 70-105 mg/dL Total Calcium 8.4 L 8.5-10.1 mg/dL Magnesium Level 1.70 L 1.80-2.40 mg/dL Total Bilirubin 0.8 0.2-1.0 mg/dL Aspartate Amino Transf (AST/SGOT) 14 10-37 U/L Alanine Aminotransferase (ALT/SGPT) 7 L 12-78 U/L Alkaline Phosphatase 42 L 50-136 U/L Total Protein 5.6 L 6.0-8.3 g/dL Albumin 2.7 L 3.5-5.0 g/dL Phosphorus Level 3.6 2.5-4.9 mg/dL Urine Color DARK-YELLOW YELLOW Urine Appearance TURBID CLEAR Urine pH 6.5 5.0-8.0 Urine Specific [place] 1.031 1.001-1.031 Urine Protein 100 H NEGATIVE mg/dL Urine Glucose (UA) NEGATIVE NEGATIVE mg/dL Urine Ketones 150 H NEGATIVE mg/dL Urine Occult Blood NEGATIVE NEGATIVE Urine Nitrate NEGATIVE NEGATIVE Urine Bilirubin 2 H NEGATIVE mg/dL Urine Urobilinogen 12 H 0.2-1.0 mg/dL Urine Leukocyte Esterase 250 H NEGATIVE [place]/uL Urine RBC 6-10 H 0-1 /HPF Urine WBC 11-25 H 0-1 /HPF Urine Squamous Epithelial Cells FEW 0-2 /HPF Urine Non-Squamous Epithelial Cells 1 0-2 /HPF Urine Other Crystals (Auto) 23 None Seen /HPF Urine Bacteria RARE None Seen /HPF Urine Hyaline Casts 2-5 H 0-1 /LPF /LPF Troponin I High Sensitivity 8 4-50 ng/L Lipase 21 16-77 U/L Current Medications Medications (Trade) Dose Ordered Sig/Silvia Route PRN Reason Start Time Stop Time Status Last Admin Dose Admin Acetaminophen (TYLenol 325MG TAB) 650 mg Q6H PRN PO TEMPERATURE GREATER THAN 101.5 03/16/25 19:00 04/15/25 18:59 Acetaminophen (TYLenol 500MG TAB) 500 mg AD PRN PO PAIN 03/17/25 10:00 03/17/25 09:50 DC Aspirin (Aspirin 81mg Chew Tab) 81 mg DAILY PO 03/18/25 09:00 04/17/25 08:59 Aztreonam (Azactam) 2 gm Q8H IVPB 03/16/25 19:00 03/26/25 18:59 03/18/25 10:10 2 GM Enoxaparin Sodium (Lovenox) 40 mg DAILY SQ 03/17/25 09:00 04/16/25 08:59 03/18/25 10:12 40 MG Ergocalciferol (Drisdol) 50,000 unit QWEEK PO 03/24/25 09:00 9/2/25 08:59 Famotidine (Pepcid 20mg Vial) 20 mg DAILY IV 03/17/25 09:00 03/17/25 09:51 DC 03/17/25 08:43 20 MG Hydralazine HCl (APRESOLine 20MG INJ) 10 mg Q6H PRN IV For:SBP above 160;DBP above 90 03/16/25 19:00 04/15/25 18:59 Hydromorphone HCl (DiLAUDid 0.5MG INJ) 0.5 mg Q4H PRN IVP SEVERE PAIN (7-10) 03/16/25 19:00 03/21/25 18:59 Lactated Ringer's 1,000 ml @ 100 mls/hr Q10H IV 03/16/25 19:00 04/15/25 18:59 03/18/25 10:09 100 MLS/HR Magnesium Sulfate 50 ml @ 0 mls/hr PROTOCOL IV 03/17/25 07:00 04/16/25 06:59 03/18/25 07:53 20 MLS/HR Miscellaneous Medication (Famotidine ) 40 mg HS PO 03/17/25 21:00 03/17/25 09:50 DC Ondansetron HCl (zoFRAN 4MG TABLET) 4 mg Q4H PRN PO nausea/vomiting 03/17/25 10:00 04/16/25 09:59 03/18/25 07:52 4 MG Ondansetron HCl (zoFRAN 4MG INJ) 4 mg Q6H PRN IV NAUSEA/VOMITING 03/16/25 19:00 03/17/25 09:51 DC Ondansetron HCl (zoFRAN 4MG INJ) 4 mg Q6H PRN IVP NAUSEA/VOMITING 03/18/25 10:30 04/17/25 10:29 03/18/25 10:52 4 MG Pantoprazole Sodium (PROTonix 40MG INJ) 40 mg BID IVP 03/17/25 21:00 03/18/25 07:32 DC 03/17/25 20:28 40 MG Pantoprazole Sodium (PROTonix 40MG INJ) 40 mg ONCE IVP 03/16/25 17:30 03/16/25 21:30 DC 03/16/25 17:56 40 MG Pantoprazole Sodium (PROTonix 40MG TAB) 40 mg DAILY PO 03/18/25 09:00 04/17/25 08:59 Potassium Chloride 100 ml @ 50 mls/hr AD PRN IV POTASSIUM PROTOCOL 03/16/25 19:00 04/15/25 18:59 03/18/25 13:47 50 MLS/HR Potassium Chloride 100 ml @ 50 mls/hr ONCE IV 03/17/25 21:00 03/17/25 23:59 DC 03/18/25 00:09 50 MLS/HR Sodium Chloride 1,000 ml @ 0 mls/hr ONCE IV 03/16/25 17:30 03/17/25 17:29 DC 03/16/25 17:56 999 MLS/HR Sucralfate (Carafate) 1 gm ACHS PO 03/17/25 17:11 04/16/25 17:10 03/17/25 18:38 1 GM Diagnostics / Radiology: [COPY/PASTE HERE IF NO REPORTS PLEASE DELETE SECTION] Assessment: [ Epigastric pain Nausea and vomiting Hx of bariatric surgery ] Plan: [ Clear fluids today NPO after midnight EGD in am-- Please call with questions, concerns, and change in clinical status Thank you for this consult. ] JOSHUA MILIAN [employer] SPECIALIST Mar 18, 2025 15:04
[2025-03-19] VITALS (21 sets, daily range): BP systolic 103–133; BP diastolic 59–87; PULSE 57–85; RESP 15–20; TEMP 97.6–98.1; O2SAT 99
[2025-03-19 05:13] LABS: NUCLEATED RED BLOOD CELLS 0.0 % (0.0-0.19); PLATELET COUNT (AUTO) 110.0 K/uL (130-400); RED BLOOD CELL COUNT(AUTO) 4.12 MIL/uL (4.00-5.50); RED CELL DISTRIBUTION WIDTH 13.8 % (11.0-15.5); WHITE BLOOD COUNT (AUTO) 3.6 K/uL (4.8-10.8)
[2025-03-19 05:29] LABS: ASPARTATE AMINOTRANSFERASE 16.0 U/L (10-37); CREATININE 0.5 mg/dL (0.5-1.0); GLOMERULAR FILTR. RATE CALC 113.0 mL/min (>90); GLUCOSE,RANDOM 67.0 mg/dL (70-105); SODIUM SERUM 143.0 mmol/L (136-145); TOTAL PROTEIN, SERUM 5.4 g/dL (6.0-8.3); UREA NITROGEN, BLOOD 5.0 mg/dL (7-18)
--- NOTE | 2025-03-19 06:35 | NUR ---
IV POTASSIUM PATIENT POTASSIUM 3.4, ATTEMPTED TO ADMINISTER POTASSIUM IV PER PROTOCOL PATIENT REFUSED STATES, "I DON'T WANT IT RIGHT NOW I'LL HAVE IT LATER."
[2025-03-19] MEDS ORDERED: LIDOCAINE PF 100MG/5ML (2%) SYRINGE 5ML ONE (09:31)
--- NOTE | 2025-03-19 10:48 | PN ---
[facility] PROGRESS NOTE Date of Service: Mar 19, 2025 Time of Service: 10:46 SUBJECTIVE: [03/16 Ms. Valdez is a 54-year-old female that was seen and examined today on 03/16/2025. Patient is a good historian of personal health Patient states that she came to the emergency department with a chief complaint of abdominal pain. Onset was two weeks ago. Location is epigastric. Duration is on and off. Character is described as burning. Symptoms are aggravated with eating. There was no alleviating factors. Patient reports associated nausea and vomiting. Patient reports that she ran out of her Protonix two weeks ago. Today in the emergency department CBC unremarkable, potassium 2.7, urinalysis positive for leukocyte esterase and WBCs 11-25 per high-powered microscopy field. Emergency room physician recommended patient be admitted with a diagnosis of hypokalemia and urinary tract infection. 03/17 patient was seen by nurse practitioner and physician during rounding in the room 311. Patient continues to complain of abdominal pain with nausea and vomiting. Patient stated that just this year in January 02 patient underwent gastric bypass with a Dr. David. We will consult above-stated doctor for further evaluation. We will also order CT abdomen/pelvis. Potassium to be replaced per protocol. We will continue to monitor the patient meantime. A.m. labs ] 03/18 patient remains admitted to the medical floor, BP 112/69, heart rate of 55, afebrile, saturating normal on room air. CBC with a hemoglobin 12.2, hematocrit 35.4, platelet count of 119. Sodium 142, potassium 3.3, magnesium 1.7. UA leukocyte esterase 250, 11-25 WBC per high-power field. Urine culture preliminary report no growth 18-[address] of the abdomen and pelvis shows a 1 mm calculus in the upper pole of the right kidney, no additional urinary calculi, no hydronephrosis, no bowel obstruction or inflammation, normal appendix, small uncomplicated fat containing umbilical hernia, no acute interval changes. At the time of my Visit patient comfortably in bed, alert oriented x3, admits epigastric discomfort, burning type, mild nausea but not actively vomiting. She also feels hungry. Getting IV fluids. Case discussed with the RN, no acute events overnight. 03/19 patient remains admitted to the medical floor, blood pressure 126/75, afebrile, saturating normal on room air. CBC stable, potassium 3.4, magnesium 2.0. Results of urine culture positive for [id number] asia (likely contaminant). Patient remains afebrile, no leukocytosis, results of urine culture likely contaminant from normal skin tristan, we will monitor off antibiotics. Patient is scheduled for EGD today. Continue replacing potassium IV per protocol. Follow electrolytes in a.m.. Advanced diet as tolerated and anticipate discharge home in the next 24 hours. At The time of my visit patient comfortable, scheduled for EGD, awake, following commands, case discussed with the RN, no acute events overnight. REVIEW OF SYSTEMS CONSTITUTIONAL: Denies fevers, chills, or night sweats. No unintentional weight loss reported. NEUROLOGICAL: Denies headache, amaurosis fugax, motor weakness, sensory deficit, vertigo/spinning sensation, gait abnormalities, or tremors. ENT: No hearing loss, otalgia, otorrhea, rhinitis, rhinorrhea, hoarseness, or sore throat. CARDIOVASCULAR: Denies any exertional angina, dyspnea on exertion, orthopnea, paroxysmal nocturnal dyspnea, palpitations, life-threatening arrhythmias, claudication. PULMONARY: Denies any shortness of breath, cough, phlegm/sputum, hemoptysis, pleuritic chest pain. SLEEP: Denies morning headaches, daytime somnolence or napping. Denies difficulty falling asleep, staying asleep, waking from sleep. Denies knowledge of snoring. GASTROINTESTINAL: Denies any type of dysphagia to either liquids or solids. Denies nausea, vomiting, pyrosis, early satiety, diarrhea, constipation, or changes in stool consistency or caliber. Denies coffee-ground emesis, hematemesis, hematochezia, or melanotic stools. Complains of abdominal pain GENITOURINARY: Denies frequency, urgency, nocturia, hematuria or incontinence (Storage/Irritative symptoms.) Low urinary stream, straining to void, urinary intermittency or hesitancy, splitting of the voiding stream, terminal dribbling. ENDOCRINOLOGIC: Denies polyuria, polydipsia, polyphagia or heat/cold intolerances. HEMATOLOGIC: Denies thrombophilia/previous clots, or coagulopathy/bleeding disorders. ONCOLOGIC: Denies personal history of malignancy. DERMATOLOGIC: Denies rashes or pruritus. PSYCHIATRIC: Denies any suicidal or homicidal ideation. Denies hallucinations. PHYSICAL EXAM GENERAL APPEARANCE: The patient is awake, alert, and oriented, in no acute cardiopulmonary distress. NEUROLOGICAL: Cranial nerves II-XII grossly intact. Motor is 5/5 in bilateral upper and lower extremities proximal to distal. No sensory deficits. HEENT: Face is symmetric. Pupils are equal and reactive. Extraocular movements are intact. NECK: Supple. No JVD. No thyromegaly. No submental, submandibular, pre- /postauricular, occipital or supraclavicular lymphadenopathy. CHEST: Normal chest expansion. No Telemetry. LUNGS: Absence of any rales, rhonchi or any wheezing. CARDIOVASCULAR: Regular. S1 and S2 normal. No appreciable rubs, murmurs or gallops. ABDOMEN: Soft, nontender, and nondistended. There is no rebound, voluntary guarding, or rigidity. : Deferred. No Garrett. EXTREMITIES: Non-edematous and not cyanotic. No clubbing. Good capillary refill. SKIN: No skin breakdown. Vital Signs (last 8hr) Date Time Temp Pulse Resp B/P (MAP) Pulse Ox O2 Delivery O2 Flow Rate FiO2 03/19/25 10:30 75 17 126/75 98 Room Air 21 03/19/25 10:25 82 17 128/77 99 Room Air 21 03/19/25 10:20 79 16 126/78 100 Nonrebreathing Mask 10.0 100 03/19/25 10:15 85 18 130/79 100 Nonrebreathing Mask 10.0 100 03/19/25 10:10 80 18 117/74 100 Nonrebreathing Mask 10.0 100 03/19/25 10:05 97.5 82 15 122/74 100 Nonrebreathing Mask 10.0 100 03/19/25 08:00 97.5 62 19 114/72 99 Room Air 21 03/19/25 04:00 98.1 57 16 109/59 96 Room Air 21 LABS: Laboratory: Test 03/19/25 05:06 03/19/25 04:54 03/18/25 15:44 03/18/25 05:38 Range/Units Whole Blood Glucose 75 70-110 MG/DL White Blood Count 3.6 L 4.8-10.8 K/uL Red Blood Count 4.12 4.00-5.50 MIL/uL Hemoglobin 12.4 12.0-16.0 g/dL Hematocrit 36.2 36-48 % Mean Corpuscular Volume 87.9 79-99 fL Mean Corpuscular Hemoglobin 30.1 27.0-33.0 pg Mean Corpuscular Hemoglobin Concent 34.3 32.0-36.0 g/dL Red Cell Distribution Width 13.8 11.0-15.5 % Platelet Count 110 L 130-400 K/uL Mean Platelet Volume 9.8 7.5-10.5 fL Nucleated Red Blood Cells 0.0 0.0-0.19 % Sodium Level 143 136-145 mmol/L Potassium Level 3.4 L 3.5-5.1 mmol/L Chloride Level 107 101-111 mmol/L Carbon Dioxide Level 26 21-32 mmol/L Blood Urea Nitrogen 5 L 7-18 mg/dL Creatinine 0.5 0.5-1.0 mg/dL Glomerular Filtration Rate Calc 113 >90 mL/min Random Glucose 67 L 70-105 mg/dL Total Calcium 7.8 L 8.5-10.1 mg/dL Magnesium Level 2.00 1.80-2.40 mg/dL Total Bilirubin 0.8 0.2-1.0 mg/dL Aspartate Amino Transf (AST/SGOT) 16 10-37 U/L Alanine Aminotransferase (ALT/SGPT) 12 # 12-78 U/L Alkaline Phosphatase 47 L 50-136 U/L Total Protein 5.4 L 6.0-8.3 g/dL Albumin 2.7 L 3.5-5.0 g/dL Bedside Glucose Comment Notified Nurse Immature Granulocyte % (Auto) 0.5 0-1 % Neutrophils (%) (Auto) 62.7 40.0-77.0 % Lymphocytes (%) (Auto) 25.3 21.0-51.0 % Monocytes (%) (Auto) 8.8 3.0-13.0 % Eosinophils (%) (Auto) 1.9 0.0-8.0 % Basophils (%) (Auto) 0.8 0.0-5.0 % Neutrophils # (Auto) 2.3 1.8-7.7 K/uL Lymphocytes # (Auto) 0.9 L 1.0-4.8 K/uL Monocytes # (Auto) 0.3 0.1-1.0 K/uL Eosinophils # (Auto) 0.07 0.00-0.70 K/uL Basophils # (Auto) 0.03 0.00-0.20 K/uL Absolute Immature Granulocyte (auto 0.02 0-1 K/uL Current Medications Medications (Trade) Dose Ordered Sig/Silvia Route PRN Reason Start Time Stop Time Status Last Admin Dose Admin Acetaminophen (TYLenol 325MG TAB) 650 mg Q6H PRN PO TEMPERATURE GREATER THAN 101.5 03/16/25 19:00 04/15/25 18:59 Acetaminophen (TYLenol 500MG TAB) 500 mg AD PRN PO PAIN 03/17/25 10:00 03/17/25 09:50 DC Aspirin (Aspirin 81mg Chew Tab) 81 mg DAILY PO 03/18/25 09:00 04/17/25 08:59 Aztreonam (Azactam) 2 gm Q8H IVPB 03/16/25 19:00 03/26/25 18:59 03/19/25 02:44 2 GM Enoxaparin Sodium (Lovenox) 40 mg DAILY SQ 03/17/25 09:00 04/16/25 08:59 03/18/25 10:12 40 MG Ergocalciferol (Drisdol) 50,000 unit QWEEK PO 03/24/25 09:00 04/23/25 08:59 Famotidine (Pepcid 20mg Vial) 20 mg DAILY IV 03/17/25 09:00 03/17/25 09:51 DC 03/17/25 08:43 20 MG Hydralazine HCl (APRESOLine 20MG INJ) 10 mg Q6H PRN IV For:SBP above 160;DBP above 90 03/16/25 19:00 04/15/25 18:59 Hydromorphone HCl (DiLAUDid 0.5MG INJ) 0.5 mg Q4H PRN IVP SEVERE PAIN (7-10) 03/16/25 19:00 03/21/25 18:59 Lactated Ringer's 1,000 ml @ 100 mls/hr Q10H IV 03/16/25 19:00 04/15/25 18:59 03/18/25 21:04 100 MLS/HR Magnesium Sulfate 50 ml @ 0 mls/hr PROTOCOL IV 03/17/25 07:00 04/16/25 06:59 03/18/25 07:53 20 MLS/HR Miscellaneous Medication (Famotidine ) 40 mg HS PO 03/17/25 21:00 03/17/25 09:50 DC Ondansetron HCl (zoFRAN 4MG TABLET) 4 mg Q4H PRN PO nausea/vomiting 03/17/25 10:00 03/19/25 06:56 DC 03/18/25 07:52 4 MG Ondansetron HCl (zoFRAN 4MG INJ) 4 mg Q6H PRN IV NAUSEA/VOMITING 03/16/25 19:00 03/17/25 09:51 DC Ondansetron HCl (zoFRAN 4MG INJ) 4 mg Q6H PRN IVP NAUSEA/VOMITING 03/18/25 10:30 04/17/25 10:29 03/18/25 17:25 4 MG Pantoprazole Sodium (PROTonix 40MG INJ) 40 mg BID IVP 03/17/25 21:00 03/18/25 07:32 DC 03/17/25 20:28 40 MG Pantoprazole Sodium (PROTonix 40MG INJ) 40 mg ONCE IVP 03/16/25 17:30 03/16/25 21:30 DC 03/16/25 17:56 40 MG Pantoprazole Sodium (PROTonix 40MG TAB) 40 mg DAILY PO 03/18/25 09:00 04/17/25 08:59 Potassium Chloride 100 ml @ 50 mls/hr AD PRN IV POTASSIUM PROTOCOL 03/16/25 19:00 04/15/25 18:59 03/18/25 21:05 50 MLS/HR Potassium Chloride 100 ml @ 50 mls/hr ONCE IV 03/17/25 21:00 03/17/25 23:59 DC 03/18/25 00:09 50 MLS/HR Sodium Chloride 1,000 ml @ 0 mls/hr ONCE IV 03/16/25 17:30 03/17/25 17:29 DC 03/16/25 17:56 999 MLS/HR Sucralfate (Carafate) 1 gm ACHS PO 03/17/25 17:11 04/16/25 17:10 03/17/25 18:38 1 GM DIAGNOSTICS / RADIOLOGY: [ ] ASSESSMENT: Hypokalemia, POA Urinary tract infection, secondary to diphtheroids POA Severe Abdominal pain, POA Intractable Nausea, vomiting, POA History of stroke GERD Uncontrolled hypertension POA Irritable bowel syndrome POA History of gastric bypass January 02, 2025] PLAN: Continue the patient on broad-spectrum IV antibiotics with Rocephin 1 g IV daily, follow results of urine cultures and adjust antibiotics based on identification and sensitivity. Patient is scheduled for EGD today. Continue replacing potassium IV per protocol. Follow electrolytes in a.m.. Advanced diet as tolerated and anticipate discharge home in the next 24 hours. Hypokalemia: Replace potassium per hospital protocol. Monitor patient's labs. Repeat potassium at 10:00 p.m. Urinary tract infection: Patient has a documented allergy to penicillin, ciprofloxacin, nitrofurantoin, sulfamethoxazole, trimethoprim. Continue aztreonam 2 g IV Q 8 hours. Check urine culture, follow up with the results. Abdominal pain, nausea, vomiting: CT abdomen/pelvis ordered LR at 100ml/hr Patient has a documented allergy to codeine. As needed analgesia with Dilaudid. Keep patient NPO for GI rest. Consider advancing diet to clear liquid diet tomorrow if patient's nausea, vomiting abdominal pain resolved. Consider CT of abdomen and pelvis if no improvement in symptoms. As-needed antiemetic, Zofran. Hypertension: Home medication reconciled by [facility] [facility]ER 03/17/2025 At time of admission home medications have not been reconciled. For now: Hydralazine 10 mg IV every 4 hours for systolic blood pressure greater than 160 mmHg GI prophylaxis, famotidine DVT prophylaxis, Lovenox DELMY HERRERA MD Mar 19, 2025 10:48
--- NOTE | 2025-03-19 10:50 | NUR ---
patient arrived from recovery alert and oriented x4, vitals stable, on room air, family at bedside, keeping patient NPO per provider
[2025-03-19] MEDS: DEXTROSE 50%-WATER 50 ML DISP.SYRIN IV ONE ×2 (11:49→19:14)
--- NOTE | 2025-03-19 13:51 | NUR ---
Nutrition consult per TPN consult Reviewed labs, notes, and medications. Pt with hx of gastric bypass, abd. pain poa, EGD today, NPO status, IV fluid, K 3.4(L), BG 163(H), Ca 7.8(L) per chart review. Wt via standing scale, last BM 03/09/25, no edema, well nourished per nursing. Pt reported NKFA, denied N/V, does MVI patches due to not being able to tolerate MVI chewables, walking qd for 30min at home, last BM 03/09/25, had RD visits prior to procedure does not know how many and has educations, had bypass December, unable to tolerate protein drinks even if they are clear, gets nausea with all jellos, had prescription for zofran, does not like the taste of electrolyte packets, was eating regular snow cones, feels for after drinking water for >30 mins, has not advanced to solid foods, UBW of 250 lbs in December, does not add salt to water due to having high blood pressure. RD informed Pt what TPN is, Pt verbalized understanding. Communicated with nursing. During visit, Pt would rebuttal. RD made nurse aware of Pt's attitude. RD reviewed educational material for post-op diet recommendations. Pt was informed of importance of lifelong vitamin/mineral supplementation, choosing protein first during meals (pt was educated on higher protein requirements), choosing low calorie, sugar free, carbonated free and caffeine beverages. RD also informed pt on lifelong commitment to exercise and dietary recommendations for optimal success post surgery. RD encouraged getting blood work every 3 to 6 months, including B-vitamins, Pt verbalized understanding. RD informed Pt on moving around after procedure to prevent DVT, Pt verbalized understanding. Pt was encouraged to contact RD as questions arise and to attend support groups. POOR compliance suspected. Pt will benefit from outpatient bariatric dietitian. Pt to follow up with PCP for labs. Recommendations: -When medically feasible and cleared, Consider Clinimix 5/15 via PICC line @ 83.3 ml/hr (GIR of 2.57 mg/kg/min) Provides: 2000 ml, 100 gm pro, 300 gm CHO, 1420 kcals per day -Include 10 ml adult MVI and 3 ml trace elements -Supplement thiamin 100 mg/day for 5-7 days due to severe PCM -Provide 3x weekly lipid emulsion to prevent essential fatty acid deficiency -Monitor BM -Monitor electrolytes -Replenish electrolytes per protocol -Monitor wts -Reweigh as able -Order Vit D, vit b-12, vit b1, iron, vit b6 labs to rule out deficiencies (Pt w/ hx of gastric bypass) -Advance diet when medically feasible -Texture per TRANSPLANT IMMUNOLOGIST recs -Recommend Pt to follow up with PCP -Monitor goals of care RD to follow + available for consult per protocol Addendum: 03/19/25 at [address] Amended: Links added.
[2025-03-19] MEDS: DEXTROSE 5%-WATER 1,000 ML IV SCH (20:58)
[2025-03-20] VITALS: BP 117/71; PULSE 60; RESP 16; TEMP 98.3
[2025-03-20 04:00] VITALS: BP 99/59; PULSE 61; RESP 12; TEMP 97.7
[2025-03-20 05:33] LABS: NUCLEATED RED BLOOD CELLS 0.0 % (0.0-0.19); PLATELET COUNT (AUTO) 115.0 K/uL (130-400); RED BLOOD CELL COUNT(AUTO) 3.99 MIL/uL (4.00-5.50); RED CELL DISTRIBUTION WIDTH 14.0 % (11.0-15.5); WHITE BLOOD COUNT (AUTO) 3.3 K/uL (4.8-10.8)
[2025-03-20 05:48] LABS: ASPARTATE AMINOTRANSFERASE 23.0 U/L (10-37); CREATININE 0.6 mg/dL (0.5-1.0); GLOMERULAR FILTR. RATE CALC 108.0 mL/min (>90); GLUCOSE,RANDOM 93.0 mg/dL (70-105); SODIUM SERUM 140.0 mmol/L (136-145); TOTAL PROTEIN, SERUM 5.3 g/dL (6.0-8.3); UREA NITROGEN, BLOOD 4.0 mg/dL (7-18)
[2025-03-20 08:00] VITALS: BP 117/70; PULSE 59; RESP 18; TEMP 97.5; O2SAT 99
[2025-03-20 11:43] VITALS: BP 128/80; PULSE 65; RESP 18; TEMP 98.3
--- NOTE | 2025-03-20 13:20 | PN ---
[facility] PROGRESS NOTE Date of Service: Mar 20, 2025 Time of Service: 13:17 SUBJECTIVE: [03/16 Ms. Valdez is a 54-year-old female that was seen and examined today on 03/16/2025. Patient is a good historian of personal health Patient states that she came to the emergency department with a chief complaint of abdominal pain. Onset was two weeks ago. Location is epigastric. Duration is on and off. Character is described as burning. Symptoms are aggravated with eating. There was no alleviating factors. Patient reports associated nausea and vomiting. Patient reports that she ran out of her Protonix two weeks ago. Today in the emergency department CBC unremarkable, potassium 2.7, urinalysis positive for leukocyte esterase and WBCs 11-25 per high-powered microscopy field. Emergency room physician recommended patient be admitted with a diagnosis of hypokalemia and urinary tract infection. 03/17 patient was seen by nurse practitioner and physician during rounding in the room 311. Patient continues to complain of abdominal pain with nausea and vomiting. Patient stated that just this year in January 02 patient underwent gastric bypass with a Dr. David. We will consult above-stated doctor for further evaluation. We will also order CT abdomen/pelvis. Potassium to be replaced per protocol. We will continue to monitor the patient meantime. A.m. labs ] 03/18 patient remains admitted to the medical floor, BP 112/69, heart rate of 55, afebrile, saturating normal on room air. CBC with a hemoglobin 12.2, hematocrit 35.4, platelet count of 119. Sodium 142, potassium 3.3, magnesium 1.7. UA leukocyte esterase 250, 11-25 WBC per high-power field. Urine culture preliminary report no growth 18-[address] of the abdomen and pelvis shows a 1 mm calculus in the upper pole of the right kidney, no additional urinary calculi, no hydronephrosis, no bowel obstruction or inflammation, normal appendix, small uncomplicated fat containing umbilical hernia, no acute interval changes. At the time of my Visit patient comfortably in bed, alert oriented x3, admits epigastric discomfort, burning type, mild nausea but not actively vomiting. She also feels hungry. Getting IV fluids. Case discussed with the RN, no acute events overnight. 03/19 patient remains admitted to the medical floor, blood pressure 126/75, afebrile, saturating normal on room air. CBC stable, potassium 3.4, magnesium 2.0. Results of urine culture positive for [id number] asia (likely contaminant). Patient remains afebrile, no leukocytosis, results of urine culture likely contaminant from normal skin tristan, we will monitor off antibiotics. Patient is scheduled for EGD today. Continue replacing potassium IV per protocol. Follow electrolytes in a.m.. Advanced diet as tolerated and anticipate discharge home in the next 24 hours. At The time of my visit patient comfortable, scheduled for EGD, awake, following commands, case discussed with the RN, no acute events overnight. 03/20 patient remains admitted to the medical floor, hemodynamically stable, afebrile, saturating normal on room air. Patient is status post EGD 03/19/2025, with the finding of gastric bypass with normal size pouch. 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 Status post dilatation. Patient in agreement for PICC line and TPN. Per gastroenterology recommended NPO, to consult Dr David for evaluation for surgical revision. At the time of my visit the patient comfortably in bed, alert oriented x3, case discussed with the RN, no acute events overnight, patient in agreement for PICC line and TPN. REVIEW OF SYSTEMS CONSTITUTIONAL: Denies fevers, chills, or night sweats. No unintentional weight loss reported. NEUROLOGICAL: Denies headache, amaurosis fugax, motor weakness, sensory deficit, vertigo/spinning sensation, gait abnormalities, or tremors. ENT: No hearing loss, otalgia, otorrhea, rhinitis, rhinorrhea, hoarseness, or sore throat. CARDIOVASCULAR: Denies any exertional angina, dyspnea on exertion, orthopnea, paroxysmal nocturnal dyspnea, palpitations, life-threatening arrhythmias, claudication. PULMONARY: Denies any shortness of breath, cough, phlegm/sputum, hemoptysis, pleuritic chest pain. SLEEP: Denies morning headaches, daytime somnolence or napping. Denies difficulty falling asleep, staying asleep, waking from sleep. Denies knowledge of snoring. GASTROINTESTINAL: Denies any type of dysphagia to either liquids or solids. Denies nausea, vomiting, pyrosis, early satiety, diarrhea, constipation, or changes in stool consistency or caliber. Denies coffee-ground emesis, hematemesis, hematochezia, or melanotic stools. Complains of abdominal pain GENITOURINARY: Denies frequency, urgency, nocturia, hematuria or incontinence (Storage/Irritative symptoms.) Low urinary stream, straining to void, urinary intermittency or hesitancy, splitting of the voiding stream, terminal dribbling. ENDOCRINOLOGIC: Denies polyuria, polydipsia, polyphagia or heat/cold intolerances. HEMATOLOGIC: Denies thrombophilia/previous clots, or coagulopathy/bleeding disorders. ONCOLOGIC: Denies personal history of malignancy. DERMATOLOGIC: Denies rashes or pruritus. PSYCHIATRIC: Denies any suicidal or homicidal ideation. Denies hallucinations. PHYSICAL EXAM GENERAL APPEARANCE: The patient is awake, alert, and oriented, in no acute cardiopulmonary distress. NEUROLOGICAL: Cranial nerves II-XII grossly intact. Motor is 5/5 in bilateral upper and lower extremities proximal to distal. No sensory deficits. HEENT: Face is symmetric. Pupils are equal and reactive. Extraocular movements are intact. NECK: Supple. No JVD. No thyromegaly. No submental, submandibular, pre- /postauricular, occipital or supraclavicular lymphadenopathy. CHEST: Normal chest expansion. No Telemetry. LUNGS: Absence of any rales, rhonchi or any wheezing. CARDIOVASCULAR: Regular. S1 and S2 normal. No appreciable rubs, murmurs or gallops. ABDOMEN: Soft, nontender, and nondistended. There is no rebound, voluntary guarding, or rigidity. : Deferred. No Garrett. EXTREMITIES: Non-edematous and not cyanotic. No clubbing. Good capillary refill. SKIN: No skin breakdown. Vital Signs (last 8hr) Date Time Temp Pulse Resp B/P (MAP) Pulse Ox O2 Delivery O2 Flow Rate FiO2 03/20/25 11:43 98.2 65 18 128/80 98 Room Air 03/20/25 08:00 97.5 59 18 117/70 99 LABS: Laboratory: Test 03/20/25 10:42 03/20/25 05:11 03/19/25 15:45 03/19/25 04:54 Range/Units Whole Blood Glucose 77 70-110 MG/DL White Blood Count 3.3 L 4.8-10.8 K/uL Red Blood Count 3.99 L 4.00-5.50 MIL/uL Hemoglobin 12.1 12.0-16.0 g/dL Hematocrit 34.6 L 36-48 % Mean Corpuscular Volume 86.7 79-99 fL Mean Corpuscular Hemoglobin 30.3 27.0-33.0 pg Mean Corpuscular Hemoglobin Concent 35.0 32.0-36.0 g/dL Red Cell Distribution Width 14.0 11.0-15.5 % Platelet Count 115 L 130-400 K/uL Mean Platelet Volume 10.1 7.5-10.5 fL Nucleated Red Blood Cells 0.0 0.0-0.19 % Sodium Level 140 136-145 mmol/L Potassium Level 3.0 *L 3.5-5.1 mmol/L Chloride Level 105 101-111 mmol/L Carbon Dioxide Level 27 21-32 mmol/L Blood Urea Nitrogen 4 L 7-18 mg/dL Creatinine 0.6 0.5-1.0 mg/dL Glomerular Filtration Rate Calc 108 >90 mL/min Random Glucose 93 70-105 mg/dL Total Calcium 8.3 L 8.5-10.1 mg/dL Magnesium Level 1.80 1.80-2.40 mg/dL Total Bilirubin 0.7 0.2-1.0 mg/dL Aspartate Amino Transf (AST/SGOT) 23 10-37 U/L Alanine Aminotransferase (ALT/SGPT) 11 L 12-78 U/L Alkaline Phosphatase 45 L 50-136 U/L Total Protein 5.3 L 6.0-8.3 g/dL Albumin 2.5 L 3.5-5.0 g/dL Bedside Glucose Comment Notified Nurse Vitamin B12 Level 371 193-986 pg/mL Vitamin D 25-Hydroxy 45.3 30.0-100.0 ng/mL Current Medications Medications (Trade) Dose Ordered Sig/Silvia Route PRN Reason Start Time Stop Time Status Last Admin Dose Admin Acetaminophen (TYLenol 325MG TAB) 650 mg Q6H PRN PO TEMPERATURE GREATER THAN 101.5 03/16/25 19:00 04/15/25 18:59 Acetaminophen (TYLenol 500MG TAB) 500 mg AD PRN PO PAIN 03/17/25 10:00 03/17/25 09:50 DC Aspirin (Aspirin 81mg Chew Tab) 81 mg DAILY PO 03/18/25 09:00 03/19/25 14:19 DC Aztreonam (Azactam) 2 gm Q8H IVPB 03/16/25 19:00 03/26/25 18:59 03/20/25 10:51 2 GM Dextrose 1,000 ml @ 50 mls/hr Q20H IV 03/19/25 20:00 04/18/25 19:59 03/19/25 20:58 50 MLS/HR Enoxaparin Sodium (Lovenox) 40 mg DAILY SQ 03/17/25 09:00 04/16/25 08:59 03/18/25 10:12 40 MG Ergocalciferol (Drisdol) 50,000 unit QWEEK PO 03/24/25 09:00 04/23/25 08:59 Famotidine (Pepcid 20mg Vial) 20 mg DAILY IV 03/17/25 09:00 03/17/25 09:51 DC 03/17/25 08:43 20 MG Hydralazine HCl (APRESOLine 20MG INJ) 5 mg Q6H PRN IV For:SBP above 160;DBP above 90 03/19/25 19:00 04/18/25 18:59 Hydralazine HCl (APRESOLine 20MG INJ) 10 mg Q6H PRN IV For:SBP above 160;DBP above 90 03/16/25 19:00 03/19/25 14:19 DC Hydromorphone HCl (DiLAUDid 0.5MG INJ) 0.5 mg Q4H PRN IVP SEVERE PAIN (7-10) 03/16/25 19:00 03/21/25 18:59 Lactated Ringer's 1,000 ml @ 100 mls/hr Q10H IV 03/16/25 19:00 04/15/25 18:59 03/19/25 17:19 100 MLS/HR Magnesium Sulfate 50 ml @ 0 mls/hr PROTOCOL IV 03/17/25 07:00 04/16/25 06:59 03/18/25 07:53 20 MLS/HR Miscellaneous Medication (Famotidine ) 40 mg HS PO 03/17/25 21:00 03/17/25 09:50 DC Ondansetron HCl (zoFRAN 4MG TABLET) 4 mg Q4H PRN PO nausea/vomiting 03/17/25 10:00 03/19/25 06:56 DC 03/18/25 07:52 4 MG Ondansetron HCl (zoFRAN 4MG INJ) 4 mg Q6H PRN IV NAUSEA/VOMITING 03/16/25 19:00 03/17/25 09:51 DC Ondansetron HCl (zoFRAN 4MG INJ) 4 mg Q6H PRN IVP NAUSEA/VOMITING 03/18/25 10:30 04/17/25 10:29 03/19/25 10:48 4 MG Pantoprazole Sodium (PROTonix 40MG INJ) 40 mg BID IVP 03/17/25 21:00 03/18/25 07:32 DC 03/17/25 20:28 40 MG Pantoprazole Sodium (PROTonix 40MG INJ) 40 mg BID IVP 03/19/25 21:00 04/18/25 20:59 03/20/25 10:50 40 MG Pantoprazole Sodium (PROTonix 40MG INJ) 40 mg ONCE IVP 03/16/25 17:30 03/16/25 21:30 DC 03/16/25 17:56 40 MG Pantoprazole Sodium (PROTonix 40MG TAB) 40 mg DAILY PO 03/18/25 09:00 03/19/25 14:19 DC Potassium Chloride 100 ml @ 50 mls/hr AD PRN IV POTASSIUM PROTOCOL 03/16/25 19:00 04/15/25 18:59 03/20/25 06:08 50 MLS/HR Potassium Chloride 100 ml @ 50 mls/hr ONCE IV 03/17/25 21:00 03/17/25 23:59 DC 03/18/25 00:09 50 MLS/HR Sodium Chloride 1,000 ml @ 0 mls/hr ONCE IV 03/16/25 17:30 03/17/25 17:29 DC 03/16/25 17:56 999 MLS/HR Sucralfate (Carafate) 1 gm ACHS PO 03/17/25 17:11 04/16/25 17:10 03/17/25 18:38 1 GM DIAGNOSTICS / RADIOLOGY: [ ] ASSESSMENT: Severe GERD secondary to severe stenosis gastrojejunal anastomosis, POA Hypokalemia, POA Urinary tract infection, secondary to diphtheroids, contaminant POA Severe Abdominal pain, POA Intractable Nausea, vomiting, POA History of stroke GERD Uncontrolled hypertension POA Irritable bowel syndrome POA History of gastric bypass January 02, 2025] PLAN: Patient is status post EGD 03/19/2025, with the finding of gastric bypass with normal size pouch. 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 Status post dilatation. Patient in agreement for PICC line and TPN. Hypokalemia: Replace potassium per hospital protocol. Monitor patient's labs. Repeat potassium at 10:00 p.m. Urinary tract infection: Patient has a documented allergy to penicillin, ciprofloxacin, nitrofurantoin, sulfamethoxazole, trimethoprim. Continue aztreonam 2 g IV Q 8 hours. Check urine culture, follow up with the results. Abdominal pain, nausea, vomiting: CT abdomen/pelvis ordered LR at 100ml/hr Patient has a documented allergy to codeine. As needed analgesia with Dilaudid. Keep patient NPO for GI rest. Consider advancing diet to clear liquid diet tomorrow if patient's nausea, vomiting abdominal pain resolved. Consider CT of abdomen and pelvis if no improvement in symptoms. As-needed antiemetic, Zofran. Hypertension: Home medication reconciled by PROFESSOR OF CHEMISTRY 03/17/2025 At time of admission home medications have not been reconciled. For now: Hydralazine 10 mg IV every 4 hours for systolic blood pressure greater than 160 mmHg GI prophylaxis, famotidine DVT prophylaxis, LoveDELMY Squires MD Mar 20, 2025 13:20
--- NOTE | 2025-03-20 14:05 | NUR ---
CM NOTE/[facility] SUPERIOR CM received contact information for [facility] superior discharge CM. Funmilayo Springer RN [phone] or ext [phone].
[2025-03-20 14:18] LABS: INR 1.08 (0.85-1.15)
[2025-03-20 16:00] VITALS: BP 116/71; PULSE 65; RESP 18; TEMP 98.2
--- NOTE | 2025-03-20 16:55 | PN ---
GASTROENTEROLOGY PROGRESS NOTE Date of Visit: Mar 20, 2025 Time of Visit: 16:47 Events / Notes: [ EGD significant for evidence of gastric bypass with normal size gastric pouch. 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 No acute events overnight. VSS. Patient has tolerated small amount of liquid diet. NO n/v rep orted. EGD results explained to patient. Will consult bariatric team. Patient and spouse agreed. ] Review of Systems: CONSTITUTIONAL: No malaise or change in sensation of wellbeing. ENMT: No rhinorrhea, otorrhea, sinus pain, ear ache. CARDIOVASCULAR: No angina, palpitations, orthopnea or paroxysmal dyspnea. RESPIRATORY: No SOB. GASTROINTESTINAL: No abdominal pain, nausea, vomiting, diarrhea, hematemesis, melena or change in the patient's habitual bowel movements consistency/number. GENITOURINARY: No dysuria, hematuria or change in bladder continence. MUSCULOSKELETAL: No new muscle pain or decrease in muscular strength. No new joint swelling, redness or tenderness. SKIN: No new rash. Physical Exam: GEN: Awake, alert, oriented in person, time and place, and in no acute distress. HEENT: No rhinorrhea. Oral pharyngeal mucosa is pink, moist and within normal limits. CHEST: Inspection, palpation of the chest were unremarkable. Lung auscultation revealed normal breath sounds bilaterally. CARDIAC: PMI is within normal limits. Heart sounds are regular. ABD: Soft, mildly tender to epigastric region, and not distended. No peritoneal signs on palpation. No organomegaly. Normal bowel sounds. EXT: No cyanosis or clubbing. No edema. SKIN: Intact. No rashes. JOINTS: No evidence of synovitis or acute arthritis. NEURO: Alert and oriented to name, place and person. Cranial nerve examination is unremarkable. No focal motor deficits. Normal speech. Strength is normal. Vital Signs (last 8hr) Date Time Temp Pulse Resp B/P (MAP) Pulse Ox O2 Delivery O2 Flow Rate FiO2 03/20/25 16:00 98.2 65 18 116/71 96 Room Air 03/20/25 11:43 98.2 65 18 128/80 98 Room Air Laboratory: [ ] Laboratory: Test 03/20/25 15:43 03/20/25 14:02 03/20/25 05:11 03/19/25 15:45 Range/Units Whole Blood Glucose 68 L 70-110 MG/DL Prothrombin Time 11.4 9.6-11.6 SEC Prothromb Time International Ratio 1.08 0.85-1.15 White Blood Count 3.3 L 4.8-10.8 K/uL Red Blood Count 3.99 L 4.00-5.50 MIL/uL Hemoglobin 12.1 12.0-16.0 g/dL Hematocrit 34.6 L 36-48 % Mean Corpuscular Volume 86.7 79-99 fL Mean Corpuscular Hemoglobin 30.3 27.0-33.0 pg Mean Corpuscular Hemoglobin Concent 35.0 32.0-36.0 g/dL Red Cell Distribution Width 14.0 11.0-15.5 % Platelet Count 115 L 130-400 K/uL Mean Platelet Volume 10.1 7.5-10.5 fL Nucleated Red Blood Cells 0.0 0.0-0.19 % Sodium Level 140 136-145 mmol/L Potassium Level 3.0 *L 3.5-5.1 mmol/L Chloride Level 105 101-111 mmol/L Carbon Dioxide Level 27 21-32 mmol/L Blood Urea Nitrogen 4 L 7-18 mg/dL Creatinine 0.6 0.5-1.0 mg/dL Glomerular Filtration Rate Calc 108 >90 mL/min Random Glucose 93 70-105 mg/dL Total Calcium 8.3 L 8.5-10.1 mg/dL Magnesium Level 1.80 1.80-2.40 mg/dL Total Bilirubin 0.7 0.2-1.0 mg/dL Aspartate Amino Transf (AST/SGOT) 23 10-37 U/L Alanine Aminotransferase (ALT/SGPT) 11 L 12-78 U/L Alkaline Phosphatase 45 L 50-136 U/L Total Protein 5.3 L 6.0-8.3 g/dL Albumin 2.5 L 3.5-5.0 g/dL Bedside Glucose Comment Notified Nurse Test 03/19/25 04:54 Range/Units Vitamin B12 Level 371 193-986 pg/mL Vitamin D 25-Hydroxy 45.3 30.0-100.0 ng/mL Current Medications Medications (Trade) Dose Ordered Sig/Silvia Route PRN Reason Start Time Stop Time Status Last Admin Dose Admin Acetaminophen (TYLenol 325MG TAB) 650 mg Q6H PRN PO TEMPERATURE GREATER THAN 101.5 03/16/25 19:00 04/15/25 18:59 Acetaminophen (TYLenol 500MG TAB) 500 mg AD PRN PO PAIN 03/17/25 10:00 03/17/25 09:50 DC Aspirin (Aspirin 81mg Chew Tab) 81 mg DAILY PO 03/18/25 09:00 03/19/25 14:19 DC Aztreonam (Azactam) 2 gm Q8H IVPB 03/16/25 19:00 03/26/25 18:59 03/20/25 10:51 2 GM Dextrose 1,000 ml @ 50 mls/hr Q20H IV 03/19/25 20:00 04/18/25 19:59 03/19/25 20:58 50 MLS/HR Enoxaparin Sodium (Lovenox) 40 mg DAILY SQ 03/17/25 09:00 04/16/25 08:59 03/18/25 10:12 40 MG Ergocalciferol (Drisdol) 50,000 unit QWEEK PO 03/24/25 09:00 04/23/25 08:59 Famotidine (Pepcid 20mg Vial) 20 mg DAILY IV 03/17/25 09:00 03/17/25 09:51 DC 03/17/25 08:43 20 MG Hydralazine HCl (APRESOLine 20MG INJ) 5 mg Q6H PRN IV For:SBP above 160;DBP above 90 03/19/25 19:00 04/18/25 18:59 Hydralazine HCl (APRESOLine 20MG INJ) 10 mg Q6H PRN IV For:SBP above 160;DBP above 90 03/16/25 19:00 03/19/25 14:19 DC Hydromorphone HCl (DiLAUDid 0.5MG INJ) 0.5 mg Q4H PRN IVP SEVERE PAIN (7-10) 03/16/25 19:00 03/21/25 18:59 Lactated Ringer's 1,000 ml @ 100 mls/hr Q10H IV 03/16/25 19:00 04/15/25 18:59 03/19/25 17:19 100 MLS/HR Magnesium Sulfate 50 ml @ 0 mls/hr PROTOCOL IV 03/17/25 07:00 04/16/25 06:59 03/18/25 07:53 20 MLS/HR Miscellaneous Medication (Famotidine ) 40 mg HS PO 03/17/25 21:00 03/17/25 09:50 DC Ondansetron HCl (zoFRAN 4MG TABLET) 4 mg Q4H PRN PO nausea/vomiting 03/17/25 10:00 03/19/25 06:56 DC 03/18/25 07:52 4 MG Ondansetron HCl (zoFRAN 4MG INJ) 4 mg Q6H PRN IV NAUSEA/VOMITING 03/16/25 19:00 03/17/25 09:51 DC Ondansetron HCl (zoFRAN 4MG INJ) 4 mg Q6H PRN IVP NAUSEA/VOMITING 03/18/25 10:30 04/17/25 10:29 03/19/25 10:48 4 MG Pantoprazole Sodium (PROTonix 40MG INJ) 40 mg BID IVP 03/17/25 21:00 03/18/25 07:32 DC 03/17/25 20:28 40 MG Pantoprazole Sodium (PROTonix 40MG INJ) 40 mg BID IVP 03/19/25 21:00 04/18/25 20:59 03/20/25 10:50 40 MG Pantoprazole Sodium (PROTonix 40MG INJ) 40 mg ONCE IVP 03/16/25 17:30 03/16/25 21:30 DC 03/16/25 17:56 40 MG Pantoprazole Sodium (PROTonix 40MG TAB) 40 mg DAILY PO 03/18/25 09:00 03/19/25 14:19 DC Potassium Chloride 100 ml @ 50 mls/hr AD PRN IV POTASSIUM PROTOCOL 03/16/25 19:00 04/15/25 18:59 03/20/25 06:08 50 MLS/HR Potassium Chloride 100 ml @ 50 mls/hr ONCE IV 03/17/25 21:00 03/17/25 23:59 DC 03/18/25 00:09 50 MLS/HR Sodium Chloride 1,000 ml @ 0 mls/hr ONCE IV 03/16/25 17:30 03/17/25 17:29 DC 03/16/25 17:56 999 MLS/HR Sucralfate (Carafate) 1 gm ACHS PO 03/17/25 17:11 04/16/25 17:10 03/17/25 18:38 1 GM Diagnostics / Radiology: [COPY/PASTE HERE IF NO REPORTS PLEASE DELETE SECTION] Assessment: [ Epigastric pain Nausea and vomiting Gastrojejunal anastomosis with sever stenosis Hx of bariatric surgery ] Plan: Continue with clear liquid diet Consult Bariatric TEam --Dr. David Continue Gi prophylaxis Please call with questions, concerns, and change in clinical status Thank you for this consult. ] JOSHUA MILIAN DIRECTOR [employer] Mar 20, 2025 16:55
[2025-03-20 20:00] VITALS: BP 101/63; PULSE 60; RESP 20; TEMP 98; O2SAT 95
--- NOTE | 2025-03-20 20:11 | NUR ---
SUCRAFATE PATIENT REFUSED THE MEDICATION STATING THAT IT MAKES HER NAUSEATED Addendum: 03/21/25 at 0506 by KEN ROSAS LVN LVN SUCRALFATE*
[2025-03-21] VITALS (8 sets, daily range): BP systolic 102–152; BP diastolic 63–81; PULSE 57–79; RESP 12–20; TEMP 97.6–98.4; O2SAT 97–98
[2025-03-21] MEDS: MAGNESIUM 2GM PREMIX 50ML 50 ML IV PRN (04:44)
[2025-03-21 06:04] LABS: NUCLEATED RED BLOOD CELLS 0.0 % (0.0-0.19); PLATELET COUNT (AUTO) 109.0 K/uL (130-400); RED BLOOD CELL COUNT(AUTO) 4.08 MIL/uL (4.00-5.50); RED CELL DISTRIBUTION WIDTH 14.0 % (11.0-15.5); WHITE BLOOD COUNT (AUTO) 3.4 K/uL (4.8-10.8)
[2025-03-21 06:16] LABS: ASPARTATE AMINOTRANSFERASE 35.0 U/L (10-37); CREATININE 0.6 mg/dL (0.5-1.0); GLOMERULAR FILTR. RATE CALC 108.0 mL/min (>90); GLUCOSE,RANDOM 80.0 mg/dL (70-105); SODIUM SERUM 142.0 mmol/L (136-145); TOTAL PROTEIN, SERUM 5.5 g/dL (6.0-8.3); UREA NITROGEN, BLOOD 4.0 mg/dL (7-18)
--- NOTE | 2025-03-21 07:22 | NUR ---
DR TORRES AT BEDSIDE NEW ORDERS OBTAINED FOR A CLEAR LIQUID DIET
--- NOTE | 2025-03-21 07:29 | CONS ---
GENERAL SURGERY CONSULTATION NOTE Date/Time Patient Seen: [03/21/25 715am ] Requesting Physician: [ ] Reason for Consultation: [ abdominal pain] History of Present Illness: [ Patient is a 54yo female with hx of gastric bypass for gastroparesis about 2 months ago admitted with N/V. 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 Pt started clears, doing minimal amounts right now. Some nausea no vomiting. Some reflux. Minimal abdominal discomfort. No fevers, chill, SOB, chest pain] Past Medical History: [Gastroparesis ] Past Surgical History: [ Alicia-en-Y gastric bypass] Family History: [ ] Social History: [ ] Habits: [Never] smoker. [Denies] alcohol consumption. [Denies] illicit drug use Current Medications Medications (Trade) Dose Ordered Sig/Silvia Route Start Time Stop Time Status Last Admin Dose Admin Aspirin (Aspirin 81mg Chew Tab) 81 mg DAILY PO 03/18/25 09:00 03/19/25 14:19 DC Aztreonam (Azactam) 2 gm Q8H IVPB 03/16/25 19:00 03/26/25 18:59 03/21/25 03:28 2 GM Dextrose 1,000 ml @ 50 mls/hr Q20H IV 03/19/25 20:00 04/18/25 19:59 03/21/25 00:42 50 MLS/HR Enoxaparin Sodium (Lovenox) 40 mg DAILY SQ 03/17/25 09:00 04/16/25 08:59 03/18/25 10:12 40 MG Ergocalciferol (Drisdol) 50,000 unit QWEEK PO 03/24/25 09:00 04/23/25 08:59 Famotidine (Pepcid 20mg Vial) 20 mg DAILY IV 03/17/25 09:00 03/17/25 09:51 DC 03/17/25 08:43 20 MG Lactated Ringer's 1,000 ml @ 100 mls/hr Q10H IV 03/16/25 19:00 04/15/25 18:59 03/19/25 17:19 100 MLS/HR Magnesium Sulfate 50 ml @ 0 mls/hr PROTOCOL IV 03/17/25 07:00 03/21/25 00:10 DC 03/18/25 07:53 20 MLS/HR Miscellaneous Medication (Famotidine ) 40 mg HS PO 03/17/25 21:00 03/17/25 09:50 DC Pantoprazole Sodium (PROTonix 40MG INJ) 40 mg BID IVP 03/17/25 21:00 03/18/25 07:32 DC 03/17/25 20:28 40 MG Pantoprazole Sodium (PROTonix 40MG INJ) 40 mg BID IVP 03/19/25 21:00 04/18/25 20:59 03/20/25 20:08 40 MG Pantoprazole Sodium (PROTonix 40MG INJ) 40 mg ONCE IVP 03/16/25 17:30 03/16/25 21:30 DC 03/16/25 17:56 40 MG Pantoprazole Sodium (PROTonix 40MG TAB) 40 mg DAILY PO 03/18/25 09:00 03/19/25 14:19 DC Potassium Chloride 100 ml @ 50 mls/hr ONCE IV 03/17/25 21:00 03/17/25 23:59 DC 03/18/25 00:09 50 MLS/HR Sodium Chloride 1,000 ml @ 0 mls/hr ONCE IV 03/16/25 17:30 03/17/25 17:29 DC 03/16/25 17:56 999 MLS/HR Sucralfate (Carafate) 1 gm ACHS PO 03/17/25 17:11 04/16/25 17:10 03/17/25 18:38 1 GM Review of Systems: CONST: [No fever, fatigue, or weight changes.] EYES: [No recent vision problems.] ENT: [No congestion, ear pain, or sore throat.] C/V: [No chest pain, palpitations, or edema.] RESP: [No cough, congestion, wheezing or shortness of breath.] GI: [Some nausea, no vomiting some abdominal discomfort] : [No incontinence or dysuria.] SKIN: [No rash.] NEURO: [No headache, focal numbness or weakness, dizziness, or seizures.] PSYCH: [No depression or anxiety.] HEME: [No abnormal bruising or bleeding.] LYMPH: [No swollen glands.] Physical Examination: GENERAL: [No acute distress.] HEAD: [Normal with no signs of head trauma.] EYES: [PERRLA, EOMI, conjunctiva and sclera normal.] ENT: [Hearing grossly intact, normal oropharynx.] NECK: [Supple without JVD. There is no tenderness, lymphadenopathy, or masses. No thyromegaly. Normal carotid upstrokes without bruits.] LUNGS: [Clear breath sounds bilaterally. There are right basilar rales one third of the way up the chest. No wheezes, or rhonchi.] HEART: [Normal rate and rhythm. Normal S1 and S2 without mumurs, gallop or rub.] VASC: [Peripheral pulses +2 bilaterally.] ABD: [Bowel sounds normal, soft, nontender, no masses, no organomegaly. No audible bruits.] : [Not examined] LYMPH: [No lymphadenopathy noted.] EXT: [No clubbing, cyanosis or edema.] SKIN: [No rashes or lesions noted.] NEURO: [Awake, alert, and oriented x3. No focal sensory or strength deficits noted.] Vital Signs (last 8hr) Date Time Temp Pulse Resp B/P (MAP) Pulse Ox O2 Delivery O2 Flow Rate FiO2 03/21/25 04:42 97.9 20 152/81 99 Nasal Cannula 03/21/25 04:00 97.5 69 20 104/65 99 Room Air 03/21/25 00:00 98.1 57 20 105/63 98 Room Air Laboratory: [ ] Hematology Labs: Test 03/21/25 05:51 Range/Units White Blood Count 3.4 L 4.8-10.8 K/uL Red Blood Count 4.08 4.00-5.50 MIL/uL Hemoglobin 12.4 12.0-16.0 g/dL Hematocrit 35.6 L 36-48 % Mean Corpuscular Volume 87.3 79-99 fL Mean Corpuscular Hemoglobin 30.4 27.0-33.0 pg Mean Corpuscular Hemoglobin Concent 34.8 32.0-36.0 g/dL Red Cell Distribution Width 14.0 11.0-15.5 % Platelet Count 109 L 130-400 K/uL Mean Platelet Volume 10.4 7.5-10.5 fL Nucleated Red Blood Cells 0.0 0.0-0.19 % Chemistry Labs: Test 03/21/25 05:51 03/20/25 20:33 03/19/25 15:45 Range/Units Sodium Level 142 136-145 mmol/L Potassium Level 2.9 *L 3.5-5.1 mmol/L Chloride Level 105 101-111 mmol/L Carbon Dioxide Level 30 21-32 mmol/L Blood Urea Nitrogen 4 L 7-18 mg/dL Creatinine 0.6 0.5-1.0 mg/dL Glomerular Filtration Rate Calc 108 >90 mL/min Random Glucose 80 70-105 mg/dL Total Calcium 8.5 8.5-10.1 mg/dL Magnesium Level 1.80 1.80-2.40 mg/dL Total Bilirubin 0.8 0.2-1.0 mg/dL Aspartate Amino Transf (AST/SGOT) 35 10-37 U/L Alanine Aminotransferase (ALT/SGPT) 18 12-78 U/L Alkaline Phosphatase 50 50-136 U/L Total Protein 5.5 L 6.0-8.3 g/dL Albumin 2.6 L 3.5-5.0 g/dL Whole Blood Glucose 90 70-110 MG/DL Bedside Glucose Comment Notified Nurse Coagulation Labs: Test 03/20/25 14:02 Range/Units Prothrombin Time 11.4 9.6-11.6 SEC Prothromb Time International Ratio 1.08 0.85-1.15 Diagnostics / Radiology: [CT reviewed no acute issues or findings. 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 Status post dilation] Plan: [ Continue clear liquid diet, goal is for patient to have an intake of 3-4 oz per hour in order to make sure patient can stay hydrated. The patient is able to meet that goal, she can go home. She will require serial dilations in the future. We will make sure to arrange those. The patient is unable to consistently during 3-4 oz of liquid, patient to be NPO after midnight and we will arrange for EGD with dilation on March 22.] TEOFILO TORRES MD Mar 21, 2025 07:29
--- NOTE | 2025-03-21 07:40 | PN ---
GASTROENTEROLOGY PROGRESS NOTE Date of Visit: Mar 21, 2025 Time of Visit: 07:40 Events / Notes: [ EGD significant for evidence of gastric bypass with normal size gastric pouch. 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 No acute events overnight. VSS. Patient has tolerated small amount of liquid diet. NO n/v rep orted. EGD results explained to patient. Will consult bariatric team. Patient and spouse agreed. ] Review of Systems: CONSTITUTIONAL: No malaise or change in sensation of wellbeing. ENMT: No rhinorrhea, otorrhea, sinus pain, ear ache. CARDIOVASCULAR: No angina, palpitations, orthopnea or paroxysmal dyspnea. RESPIRATORY: No SOB. GASTROINTESTINAL: No abdominal pain, nausea, vomiting, diarrhea, hematemesis, melena or change in the patient's habitual bowel movements consistency/number. GENITOURINARY: No dysuria, hematuria or change in bladder continence. MUSCULOSKELETAL: No new muscle pain or decrease in muscular strength. No new joint swelling, redness or tenderness. SKIN: No new rash. Physical Exam: GEN: Awake, alert, oriented in person, time and place, and in no acute distress. HEENT: No rhinorrhea. Oral pharyngeal mucosa is pink, moist and within normal limits. CHEST: Inspection, palpation of the chest were unremarkable. Lung auscultation revealed normal breath sounds bilaterally. CARDIAC: PMI is within normal limits. Heart sounds are regular. ABD: Soft, mildly tender to epigastric region, and not distended. No peritoneal signs on palpation. No organomegaly. Normal bowel sounds. EXT: No cyanosis or clubbing. No edema. SKIN: Intact. No rashes. JOINTS: No evidence of synovitis or acute arthritis. NEURO: Alert and oriented to name, place and person. Cranial nerve examination is unremarkable. No focal motor deficits. Normal speech. Strength is normal. Vital Signs (last 8hr) Date Time Temp Pulse Resp B/P (MAP) Pulse Ox O2 Delivery O2 Flow Rate FiO2 03/21/25 04:42 97.9 20 152/81 99 Nasal Cannula 03/21/25 04:00 97.5 69 20 104/65 99 Room Air 03/21/25 00:00 98.1 57 20 105/63 98 Room Air Laboratory: [ ] Laboratory: Test 03/21/25 05:51 03/20/25 20:33 03/20/25 14:02 03/19/25 15:45 Range/Units White Blood Count 3.4 L 4.8-10.8 K/uL Red Blood Count 4.08 4.00-5.50 MIL/uL Hemoglobin 12.4 12.0-16.0 g/dL Hematocrit 35.6 L 36-48 % Mean Corpuscular Volume 87.3 79-99 fL Mean Corpuscular Hemoglobin 30.4 27.0-33.0 pg Mean Corpuscular Hemoglobin Concent 34.8 32.0-36.0 g/dL Red Cell Distribution Width 14.0 11.0-15.5 % Platelet Count 109 L 130-400 K/uL Mean Platelet Volume 10.4 7.5-10.5 fL Nucleated Red Blood Cells 0.0 0.0-0.19 % Sodium Level 142 136-145 mmol/L Potassium Level 2.9 *L 3.5-5.1 mmol/L Chloride Level 105 101-111 mmol/L Carbon Dioxide Level 30 21-32 mmol/L Blood Urea Nitrogen 4 L 7-18 mg/dL Creatinine 0.6 0.5-1.0 mg/dL Glomerular Filtration Rate Calc 108 >90 mL/min Random Glucose 80 70-105 mg/dL Total Calcium 8.5 8.5-10.1 mg/dL Magnesium Level 1.80 1.80-2.40 mg/dL Total Bilirubin 0.8 0.2-1.0 mg/dL Aspartate Amino Transf (AST/SGOT) 35 10-37 U/L Alanine Aminotransferase (ALT/SGPT) 18 12-78 U/L Alkaline Phosphatase 50 50-136 U/L Total Protein 5.5 L 6.0-8.3 g/dL Albumin 2.6 L 3.5-5.0 g/dL Whole Blood Glucose 90 70-110 MG/DL Prothrombin Time 11.4 9.6-11.6 SEC Prothromb Time International Ratio 1.08 0.85-1.15 Bedside Glucose Comment Notified Nurse Current Medications Medications (Trade) Dose Ordered Sig/Silvia Route PRN Reason Start Time Stop Time Status Last Admin Dose Admin Acetaminophen (TYLenol 325MG TAB) 650 mg Q6H PRN PO TEMPERATURE GREATER THAN 101.5 03/16/25 19:00 04/15/25 18:59 Acetaminophen (TYLenol 500MG TAB) 500 mg AD PRN PO PAIN 03/17/25 10:00 03/17/25 09:50 DC Aspirin (Aspirin 81mg Chew Tab) 81 mg DAILY PO 03/18/25 09:00 03/19/25 14:19 DC Aztreonam (Azactam) 2 gm Q8H IVPB 03/16/25 19:00 03/26/25 18:59 03/21/25 03:28 2 GM Dextrose 1,000 ml @ 50 mls/hr Q20H IV 03/19/25 20:00 04/18/25 19:59 03/21/25 00:42 50 MLS/HR Enoxaparin Sodium (Lovenox) 40 mg DAILY SQ 03/17/25 09:00 04/16/25 08:59 03/18/25 10:12 40 MG Ergocalciferol (Drisdol) 50,000 unit QWEEK PO 03/24/25 09:00 04/23/25 08:59 Famotidine (Pepcid 20mg Vial) 20 mg DAILY IV 03/17/25 09:00 03/17/25 09:51 DC 03/17/25 08:43 20 MG Hydralazine HCl (APRESOLine 20MG INJ) 5 mg Q6H PRN IV For:SBP above 160;DBP above 90 03/19/25 19:00 04/18/25 18:59 Hydralazine HCl (APRESOLine 20MG INJ) 10 mg Q6H PRN IV For:SBP above 160;DBP above 90 03/16/25 19:00 03/19/25 14:19 DC Hydromorphone HCl (DiLAUDid 0.5MG INJ) 0.5 mg Q4H PRN IVP SEVERE PAIN (7-10) 03/16/25 19:00 03/21/25 18:59 Lactated Ringer's 1,000 ml @ 100 mls/hr Q10H IV 03/16/25 19:00 04/15/25 18:59 03/19/25 17:19 100 MLS/HR Magnesium Sulfate 50 ml @ 0 mls/hr PROTOCOL IV 03/17/25 07:00 03/21/25 00:10 DC 03/18/25 07:53 20 MLS/HR Magnesium Sulfate 50 ml @ 0 mls/hr PROTOCOL PRN IV MAGNESIUM PROTOCOL 03/21/25 00:30 04/20/25 00:29 03/21/25 04:44 25 MLS/HR Miscellaneous Medication (Famotidine ) 40 mg HS PO 03/17/25 21:00 03/17/25 09:50 DC Ondansetron HCl (zoFRAN 4MG TABLET) 4 mg Q4H PRN PO nausea/vomiting 03/17/25 10:00 03/19/25 06:56 DC 03/18/25 07:52 4 MG Ondansetron HCl (zoFRAN 4MG INJ) 4 mg Q6H PRN IV NAUSEA/VOMITING 03/16/25 19:00 03/17/25 09:51 DC Ondansetron HCl (zoFRAN 4MG INJ) 4 mg Q6H PRN IVP NAUSEA/VOMITING 03/18/25 10:30 04/17/25 10:29 03/21/25 03:37 4 MG Pantoprazole Sodium (PROTonix 40MG INJ) 40 mg BID IVP 03/17/25 21:00 03/18/25 07:32 DC 03/17/25 20:28 40 MG Pantoprazole Sodium (PROTonix 40MG INJ) 40 mg BID IVP 03/19/25 21:00 04/18/25 20:59 03/20/25 20:08 40 MG Pantoprazole Sodium (PROTonix 40MG INJ) 40 mg ONCE IVP 03/16/25 17:30 03/16/25 21:30 DC 03/16/25 17:56 40 MG Pantoprazole Sodium (PROTonix 40MG TAB) 40 mg DAILY PO 03/18/25 09:00 03/19/25 14:19 DC Potassium Chloride 100 ml @ 50 mls/hr AD PRN IV POTASSIUM PROTOCOL 03/16/25 19:00 04/15/25 18:59 03/20/25 06:08 50 MLS/HR Potassium Chloride 100 ml @ 50 mls/hr ONCE IV 03/17/25 21:00 03/17/25 23:59 DC 03/18/25 00:09 50 MLS/HR Sodium Chloride 1,000 ml @ 0 mls/hr ONCE IV 03/16/25 17:30 03/17/25 17:29 DC 03/16/25 17:56 999 MLS/HR Sucralfate (Carafate) 1 gm ACHS PO 03/17/25 17:11 04/16/25 17:10 03/17/25 18:38 1 GM Diagnostics / Radiology: [COPY/PASTE HERE IF NO REPORTS PLEASE DELETE SECTION] Assessment: [ Epigastric pain Nausea and vomiting Gastrojejunal anastomosis with sever stenosis Hx of bariatric surgery ] Plan: Continue with clear liquid diet Consult Bariatric TEam --Dr. David Continue Gi prophylaxis Please call with questions, concerns, and change in clinical status Thank you for this consult. ] JOSHUA MILIAN [employer] Mar 21, 2025 07:40
[2025-03-21] MEDS: PoTASSium chloRIDE 20MEQ ER 20 MEQ ERTAB PO ONE (10:50)
--- NOTE | 2025-03-21 11:36 | PN ---
[facility] PROGRESS NOTE Date of Service: Mar 21, 2025 Time of Service: 11:34 SUBJECTIVE: [03/16 Ms. Valdez is a 54-year-old female that was seen and examined today on 03/16/2025. Patient is a good historian of personal health Patient states that she came to the emergency department with a chief complaint of abdominal pain. Onset was two weeks ago. Location is epigastric. Duration is on and off. Character is described as burning. Symptoms are aggravated with eating. There was no alleviating factors. Patient reports associated nausea and vomiting. Patient reports that she ran out of her Protonix two weeks ago. Today in the emergency department CBC unremarkable, potassium 2.7, urinalysis positive for leukocyte esterase and WBCs 11-25 per high-powered microscopy field. Emergency room physician recommended patient be admitted with a diagnosis of hypokalemia and urinary tract infection. 03/17 patient was seen by nurse practitioner and physician during rounding in the room 311. Patient continues to complain of abdominal pain with nausea and vomiting. Patient stated that just this year in January 02 patient underwent gastric bypass with a Dr. David. We will consult above-stated doctor for further evaluation. We will also order CT abdomen/pelvis. Potassium to be replaced per protocol. We will continue to monitor the patient meantime. A.m. labs ] 03/18 patient remains admitted to the medical floor, BP 112/69, heart rate of 55, afebrile, saturating normal on room air. CBC with a hemoglobin 12.2, hematocrit 35.4, platelet count of 119. Sodium 142, potassium 3.3, magnesium 1.7. UA leukocyte esterase 250, 11-25 WBC per high-power field. Urine culture preliminary report no growth 18-[address] of the abdomen and pelvis shows a 1 mm calculus in the upper pole of the right kidney, no additional urinary calculi, no hydronephrosis, no bowel obstruction or inflammation, normal appendix, small uncomplicated fat containing umbilical hernia, no acute interval changes. At the time of my Visit patient comfortably in bed, alert oriented x3, admits epigastric discomfort, burning type, mild nausea but not actively vomiting. She also feels hungry. Getting IV fluids. Case discussed with the RN, no acute events overnight. 03/19 patient remains admitted to the medical floor, blood pressure 126/75, afebrile, saturating normal on room air. CBC stable, potassium 3.4, magnesium 2.0. Results of urine culture positive for [id number] asia (likely contaminant). Patient remains afebrile, no leukocytosis, results of urine culture likely contaminant from normal skin tristan, we will monitor off antibiotics. Patient is scheduled for EGD today. Continue replacing potassium IV per protocol. Follow electrolytes in a.m.. Advanced diet as tolerated and anticipate discharge home in the next 24 hours. At The time of my visit patient comfortable, scheduled for EGD, awake, following commands, case discussed with the RN, no acute events overnight. 03/20 patient remains admitted to the medical floor, hemodynamically stable, afebrile, saturating normal on room air. Patient is status post EGD 03/19/2025, with the finding of gastric bypass with normal size pouch. 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 Status post dilatation. Patient in agreement for PICC line and TPN. Per gastroenterology recommended NPO, to consult Dr David for evaluation for surgical revision. At the time of my visit the patient comfortably in bed, alert oriented x3, case discussed with the RN, no acute events overnight, patient in agreement for PICC line and TPN. 03/21 Patient is a 54-year-old female, underwent gastric bypass with a Dr. David. January 02, 2025, came complaining of abdominal discomfort. Patient is status post EGD 03/19/2025, with the finding of gastric bypass with normal size pouch. 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 Status post dilatation. Patient is started on clear liquid diet by General surgery, continue to follow recommendations. REVIEW OF SYSTEMS CONSTITUTIONAL: Denies fevers, chills, or night sweats. No unintentional weight loss reported. NEUROLOGICAL: Denies headache, amaurosis fugax, motor weakness, sensory deficit, vertigo/spinning sensation, gait abnormalities, or tremors. ENT: No hearing loss, otalgia, otorrhea, rhinitis, rhinorrhea, hoarseness, or sore throat. CARDIOVASCULAR: Denies any exertional angina, dyspnea on exertion, orthopnea, paroxysmal nocturnal dyspnea, palpitations, life-threatening arrhythmias, claudication. PULMONARY: Denies any shortness of breath, cough, phlegm/sputum, hemoptysis, pleuritic chest pain. SLEEP: Denies morning headaches, daytime somnolence or napping. Denies difficulty falling asleep, staying asleep, waking from sleep. Denies knowledge of snoring. GASTROINTESTINAL: Denies any type of dysphagia to either liquids or solids. Denies nausea, vomiting, pyrosis, early satiety, diarrhea, constipation, or changes in stool consistency or caliber. Denies coffee-ground emesis, hematemesis, hematochezia, or melanotic stools. Complains of abdominal pain GENITOURINARY: Denies frequency, urgency, nocturia, hematuria or incontinence (Storage/Irritative symptoms.) Low urinary stream, straining to void, urinary intermittency or hesitancy, splitting of the voiding stream, terminal dribbling. ENDOCRINOLOGIC: Denies polyuria, polydipsia, polyphagia or heat/cold intolerances. HEMATOLOGIC: Denies thrombophilia/previous clots, or coagulopathy/bleeding disorders. ONCOLOGIC: Denies personal history of malignancy. DERMATOLOGIC: Denies rashes or pruritus. PSYCHIATRIC: Denies any suicidal or homicidal ideation. Denies hallucinations. PHYSICAL EXAM GENERAL APPEARANCE: The patient is awake, alert, and oriented, in no acute card iopulmonary distress. NEUROLOGICAL: Cranial nerves II-XII grossly intact. Motor is 5/5 in bilateral upper and lower extremities proximal to distal. No sensory deficits. HEENT: Face is symmetric. Pupils are equal and reactive. Extraocular movements are intact. NECK: Supple. No JVD. No thyromegaly. No submental, submandibular, pre- /postauricular, occipital or supraclavicular lymphadenopathy. CHEST: Normal chest expansion. No Telemetry. LUNGS: Absence of any rales, rhonchi or any wheezing. CARDIOVASCULAR: Regular. S1 and S2 normal. No appreciable rubs, murmurs or gallops. ABDOMEN: Soft, nontender, and nondistended. There is no rebound, voluntary guarding, or rigidity. : Deferred. No Garrett. EXTREMITIES: Non-edematous and not cyanotic. No clubbing. Good capillary refill. SKIN: No skin breakdown. Vital Signs (last 8hr) Date Time Temp Pulse Resp B/P (MAP) Pulse Ox O2 Delivery O2 Flow Rate FiO2 03/21/25 08:00 98.1 71 18 117/74 98 Room Air 03/21/25 04:42 97.9 20 152/81 99 Nasal Cannula 03/21/25 04:00 97.5 69 20 104/65 99 Room Air LABS: Laboratory: Test 03/21/25 05:51 03/20/25 20:33 03/20/25 14:02 03/19/25 15:45 Range/Units White Blood Count 3.4 L 4.8-10.8 K/uL Red Blood Count 4.08 4.00-5.50 MIL/uL Hemoglobin 12.4 12.0-16.0 g/dL Hematocrit 35.6 L 36-48 % Mean Corpuscular Volume 87.3 79-99 fL Mean Corpuscular Hemoglobin 30.4 27.0-33.0 pg Mean Corpuscular Hemoglobin Concent 34.8 32.0-36.0 g/dL Red Cell Distribution Width 14.0 11.0-15.5 % Platelet Count 109 L 130-400 K/uL Mean Platelet Volume 10.4 7.5-10.5 fL Nucleated Red Blood Cells 0.0 0.0-0.19 % Sodium Level 142 136-145 mmol/L Potassium Level 2.9 *L 3.5-5.1 mmol/L Chloride Level 105 101-111 mmol/L Carbon Dioxide Level 30 21-32 mmol/L Blood Urea Nitrogen 4 L 7-18 mg/dL Creatinine 0.6 0.5-1.0 mg/dL Glomerular Filtration Rate Calc 108 >90 mL/min Random Glucose 80 70-105 mg/dL Total Calcium 8.5 8.5-10.1 mg/dL Magnesium Level 1.80 1.80-2.40 mg/dL Total Bilirubin 0.8 0.2-1.0 mg/dL Aspartate Amino Transf (AST/SGOT) 35 10-37 U/L Alanine Aminotransferase (ALT/SGPT) 18 12-78 U/L Alkaline Phosphatase 50 50-136 U/L Total Protein 5.5 L 6.0-8.3 g/dL Albumin 2.6 L 3.5-5.0 g/dL Whole Blood Glucose 90 70-110 MG/DL Prothrombin Time 11.4 9.6-11.6 SEC Prothromb Time International Ratio 1.08 0.85-1.15 Bedside Glucose Comment Notified Nurse Current Medications Medications (Trade) Dose Ordered Sig/Silvia Route PRN Reason Start Time Stop Time Status Last Admin Dose Admin Acetaminophen (TYLenol 325MG TAB) 650 mg Q6H PRN PO TEMPERATURE GREATER THAN 101.5 03/16/25 19:00 04/15/25 18:59 Acetaminophen (TYLenol 500MG TAB) 500 mg AD PRN PO PAIN 03/17/25 10:00 03/17/25 09:50 DC Aspirin (Aspirin 81mg Chew Tab) 81 mg DAILY PO 03/18/25 09:00 03/19/25 14:19 DC Aztreonam (Azactam) 2 gm Q8H IVPB 03/16/25 19:00 03/26/25 18:59 03/21/25 03:28 2 GM Dextrose 1,000 ml @ 50 mls/hr Q20H IV 03/19/25 20:00 04/18/25 19:59 03/21/25 00:42 50 MLS/HR Enoxaparin Sodium (Lovenox) 40 mg DAILY SQ 03/17/25 09:00 04/16/25 08:59 03/21/25 09:23 40 MG Ergocalciferol (Drisdol) 50,000 unit QWEEK PO 03/24/25 09:00 04/23/25 08:59 Famotidine (Pepcid 20mg Vial) 20 mg DAILY IV 03/17/25 09:00 03/17/25 09:51 DC 03/17/25 08:43 20 MG Hydralazine HCl (APRESOLine 20MG INJ) 5 mg Q6H PRN IV For:SBP above 160;DBP above 90 03/19/25 19:00 04/18/25 18:59 Hydralazine HCl (APRESOLine 20MG INJ) 10 mg Q6H PRN IV For:SBP above 160;DBP above 90 03/16/25 19:00 03/19/25 14:19 DC Hydromorphone HCl (DiLAUDid 0.5MG INJ) 0.5 mg Q4H PRN IVP SEVERE PAIN (7-10) 03/16/25 19:00 03/21/25 18:59 Lactated Ringer's 1,000 ml @ 100 mls/hr Q10H IV 03/16/25 19:00 04/15/25 18:59 03/21/25 09:19 100 MLS/HR Magnesium Sulfate 50 ml @ 0 mls/hr PROTOCOL IV 03/17/25 07:00 03/21/25 00:10 DC 03/18/25 07:53 20 MLS/HR Magnesium Sulfate 50 ml @ 0 mls/hr PROTOCOL PRN IV MAGNESIUM PROTOCOL 03/21/25 00:30 04/20/25 00:29 03/21/25 04:44 25 MLS/HR Miscellaneous Medication (Famotidine ) 40 mg HS PO 03/17/25 21:00 03/17/25 09:50 DC Ondansetron HCl (zoFRAN 4MG TABLET) 4 mg Q4H PRN PO nausea/vomiting 03/17/25 10:00 03/19/25 06:56 DC 03/18/25 07:52 4 MG Ondansetron HCl (zoFRAN 4MG INJ) 4 mg Q6H PRN IV NAUSEA/VOMITING 03/16/25 19:00 03/17/25 09:51 DC Ondansetron HCl (zoFRAN 4MG INJ) 4 mg Q6H PRN IVP NAUSEA/VOMITING 03/18/25 10:30 04/17/25 10:29 03/21/25 03:37 4 MG Pantoprazole Sodium (PROTonix 40MG INJ) 40 mg BID IVP 03/17/25 21:00 03/18/25 07:32 DC 03/17/25 20:28 40 MG Pantoprazole Sodium (PROTonix 40MG INJ) 40 mg BID IVP 03/19/25 21:00 04/18/25 20:59 03/21/25 09:23 40 MG Pantoprazole Sodium (PROTonix 40MG INJ) 40 mg ONCE IVP 03/16/25 17:30 03/16/25 21:30 DC 03/16/25 17:56 40 MG Pantoprazole Sodium (PROTonix 40MG TAB) 40 mg DAILY PO 03/18/25 09:00 03/19/25 14:19 DC Potassium Chloride 100 ml @ 50 mls/hr AD PRN IV POTASSIUM PROTOCOL 03/16/25 19:00 04/15/25 18:59 03/21/25 07:43 50 MLS/HR Potassium Chloride 100 ml @ 50 mls/hr ONCE IV 03/17/25 21:00 03/17/25 23:59 DC 03/18/25 00:09 50 MLS/HR Sodium Chloride 1,000 ml @ 0 mls/hr ONCE IV 03/16/25 17:30 03/17/25 17:29 DC 03/16/25 17:56 999 MLS/HR Sucralfate (Carafate) 1 gm ACHS PO 03/17/25 17:11 04/16/25 17:10 03/17/25 18:38 1 GM DIAGNOSTICS / RADIOLOGY: [ ] ASSESSMENT: Severe GERD secondary to severe stenosis gastrojejunal anastomosis, POA Patient is status post EGD 03/19/2025, with the finding of gastric bypass with normal size pouch. 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 Status post dilatation. Hypokalemia, POA Urinary tract infection, secondary to diphtheroids, contaminant POA Severe Abdominal pain, POA Intractable Nausea, vomiting, POA History of stroke GERD Uncontrolled hypertension POA Irritable bowel syndrome POA History of gastric bypass January 02, 2025] PLAN: Patient is a 54-year-old female, underwent gastric bypass with a Dr. David. January 02, 2025, came complaining of abdominal discomfort. Patient is status post EGD 03/19/2025, with the finding of gastric bypass with normal size pouch. 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 Status post dilatation. Patient is started on clear liquid diet by General surgery, continue to follow recommendations. Hypokalemia: Replace potassium per hospital protocol. Monitor patient's labs. Repeat potassium at 10:00 p.m. Urinary tract infection: Patient has a documented allergy to penicillin, ciprofloxacin, nitrofurantoin, sulfamethoxazole, trimethoprim. Continue aztreonam 2 g IV Q 8 hours. Check urine culture, follow up with the results. Abdominal pain, nausea, vomiting: CT abdomen/pelvis ordered LR at 100ml/hr Patient has a documented allergy to codeine. As needed analgesia with Dilaudid. Keep patient NPO for GI rest. Consider advancing diet to clear liquid diet tomorrow if patient's nausea, vomiting abdominal pain resolved. Consider CT of abdomen and pelvis if no improvement in symptoms. As-needed antiemetic, Zofran. Hypertension: Home medication reconciled by [facility] 03/17/2025 At time of admission home medications have not been reconciled. For now: Hydralazine 10 mg IV every 4 hours for systolic blood pressure greater than 160 mmHg GI prophylaxis, famotidine DVT prophylaxis, Lovenox DELMY HERRERA MD Mar 21, 2025 11:36
[2025-03-21 12:05] LABS: INR 1.07 (0.85-1.15)
[2025-03-21 12:10] LABS: ASPARTATE AMINOTRANSFERASE 38.0 U/L (10-37); CREATININE 0.6 mg/dL (0.5-1.0); GLOMERULAR FILTR. RATE CALC 108.0 mL/min (>90); GLUCOSE,RANDOM 97.0 mg/dL (70-105); SODIUM SERUM 142.0 mmol/L (136-145); TOTAL PROTEIN, SERUM 5.9 g/dL (6.0-8.3); UREA NITROGEN, BLOOD 7.0 mg/dL (7-18)
--- NOTE | 2025-03-21 14:31 | NUR ---
Nutrition f/u Reviewed labs, notes, and medications. K 3.2(L), Ca 8.4(L), b12 371, vit. D 45.3, severe stenosis, s/p dilatation 03/20/25, D5W 50ml/hr Q20H, on bariatric phase I per chart review. Communicated with nursing. Nurse reported Dr. David does not want TPN, wants to see diet tolerance with phase I. Pt reported <50%PO intake, does not like acidic drinks, has been tolerating CLD, has not had her MVI patches, has been trying her best to sip every30 mins, no BM since 03/09/25. D5W @ 50 ml/hr Q20H provides 170 kcals, 50 gm cho per day. Strongly consider banana bag with thiamine 100 mg/day for 5-7 days per Pt with severe wt loss and poor PO intake. Pt was NPO for 4 days, CLD does not provide adequate calories. Recommendations: -Provide phase I for 1 week -Monitor diet tolerance -Encourage PO intake as able -Monitor BM -Monitor electrolytes -Replenish electrolytes per protocol -Monitor wts -Reweigh as able -Order vit b1, iron, vit b6 labs to rule out deficiencies (Pt w/ hx of gastric bypass) -Advance diet when medically feasible -Recommend Pt to follow up with PCP -Monitor goals of care RD to follow + available for consult per protocol Addendum: 03/21/25 at [address] Amended: Links added.
--- NOTE | 2025-03-21 23:30 | NUR ---
GI CONSULT:EGD DR. TORRES SPOKE WITH PRIMARY NURSE REGARDING ORDERED EGD FOR AM. DR. TORRES INFORMED PT DOES NOT WANT TO CONSENT FOR EGD 03/22/25, WILL HAVE EGD AT LATER TIME. PT WAS ABLE TO EAT ALL OF BROTH AND SOME JELLO WITH SMALL SIPS OF WATER. DR. TORRES RECOMMENDS: TO DISCHARGE ON A FULL LIQUID DIET AND FOLLOW UP WITH GI IN 7-10 DAYS FOR FOLLOW UP APPT FOR EGD OUTPATIENT. PATIENT MADE AWARE OF RECOMMENDATIONS BY GI AND VERBALIZES UNDERSTANDING. ORDERS FOR EGD IN AM CANCELLED AT THIS TIME.
[2025-03-22 04:00] VITALS: BP 97/57; PULSE 60; RESP 16; TEMP 97.9
[2025-03-22 05:47] LABS: ASPARTATE AMINOTRANSFERASE 39.0 U/L (10-37); CREATININE 0.6 mg/dL (0.5-1.0); GLOMERULAR FILTR. RATE CALC 108.0 mL/min (>90); GLUCOSE,RANDOM 87.0 mg/dL (70-105); SODIUM SERUM 142.0 mmol/L (136-145); TOTAL PROTEIN, SERUM 5.9 g/dL (6.0-8.3); UREA NITROGEN, BLOOD 9.0 mg/dL (7-18)
[2025-03-22 07:55] VITALS: BP 116/70; PULSE 70; RESP 18; TEMP 98.1
--- NOTE | 2025-03-22 09:42 | PN ---
GASTROENTEROLOGY PROGRESS NOTE Date of Visit: Mar 22, 2025 Time of Visit: 09:37 Events / Notes: [ EGD significant for evidence of gastric bypass with normal size gastric pouch. 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 No acute events overnight. VSS. Patient has tolerated small amount of liquid diet. No vomiting but nausea reported. EGD results explained to patient. Will consult bariatric team. Patient and spouse agreed. 03/22/25: Patient declined EGD this am. Dr. David consulted. recommended patient f/u as outpatient and EGD will be scheduled at that time. Information given to patient and instructed to continue on clear liquid diet until f/u appt. She verbalized understanding. ] Review of Systems: CONSTITUTIONAL: No malaise or change in sensation of wellbeing. ENMT: No rhinorrhea, otorrhea, sinus pain, ear ache. CARDIOVASCULAR: No angina, palpitations, orthopnea or paroxysmal dyspnea. RESPIRATORY: No SOB. GASTROINTESTINAL: No abdominal pain, nausea, vomiting, diarrhea, hematemesis, melena or change in the patient's habitual bowel movements consistency/number. GENITOURINARY: No dysuria, hematuria or change in bladder continence. MUSCULOSKELETAL: No new muscle pain or decrease in muscular strength. No new joint swelling, redness or tenderness. SKIN: No new rash. Physical Exam: GEN: Awake, alert, oriented in person, time and place, and in no acute distress. HEENT: No rhinorrhea. Oral pharyngeal mucosa is pink, moist and within normal limits. CHEST: Inspection, palpation of the chest were unremarkable. Lung auscultation revealed normal breath sounds bilaterally. CARDIAC: PMI is within normal limits. Heart sounds are regular. ABD: Soft, mildly tender to epigastric region, and not distended. No peritoneal signs on palpation. No organomegaly. Normal bowel sounds. EXT: No cyanosis or clubbing. No edema. SKIN: Intact. No rashes. JOINTS: No evidence of synovitis or acute arthritis. NEURO: Alert and oriented to name, place and person. Cranial nerve examination is unremarkable. No focal motor deficits. Normal speech. Strength is normal. Vital Signs (last 8hr) Date Time Temp Pulse Resp B/P (MAP) Pulse Ox O2 Delivery O2 Flow Rate FiO2 03/22/25 07:55 98.1 70 18 116/70 96 Room Air 8/1/25 04:00 97.9 60 16 97/57 100 Room Air Laboratory: [ ] Laboratory: Test 03/22/25 05:27 03/22/25 05:00 03/21/25 11:35 03/21/25 05:51 Range/Units Whole Blood Glucose 90 70-110 MG/DL Sodium Level 142 136-145 mmol/L Potassium Level 3.3 L 3.5-5.1 mmol/L Chloride Level 105 101-111 mmol/L Carbon Dioxide Level 29 21-32 mmol/L Blood Urea Nitrogen 9 7-18 mg/dL Creatinine 0.6 0.5-1.0 mg/dL Glomerular Filtration Rate Calc 108 >90 mL/min Random Glucose 87 70-105 mg/dL Total Calcium 8.5 8.5-10.1 mg/dL Magnesium Level 2.40 1.80-2.40 mg/dL Total Bilirubin 0.9 0.2-1.0 mg/dL Aspartate Amino Transf (AST/SGOT) 39 H 10-37 U/L Alanine Aminotransferase (ALT/SGPT) 19 12-78 U/L Alkaline Phosphatase 63 50-136 U/L Total Protein 5.9 L 6.0-8.3 g/dL Albumin 2.8 L 3.5-5.0 g/dL Prothrombin Time 11.3 9.6-11.6 SEC Prothromb Time International Ratio 1.07 0.85-1.15 White Blood Count 3.4 L 4.8-10.8 K/uL Red Blood Count 4.08 4.00-5.50 MIL/uL Hemoglobin 12.4 12.0-16.0 g/dL Hematocrit 35.6 L 36-48 % Mean Corpuscular Volume 87.3 79-99 fL Mean Corpuscular Hemoglobin 30.4 27.0-33.0 pg Mean Corpuscular Hemoglobin Concent 34.8 32.0-36.0 g/dL Red Cell Distribution Width 14.0 11.0-15.5 % Platelet Count 109 L 130-400 K/uL Mean Platelet Volume 10.4 7.5-10.5 fL Nucleated Red Blood Cells 0.0 0.0-0.19 % Current Medications Medications (Trade) Dose Ordered Sig/Silvia Route PRN Reason Start Time Stop Time Status Last Admin Dose Admin Acetaminophen (TYLenol 325MG TAB) 650 mg Q6H PRN PO TEMPERATURE GREATER THAN 101.5 03/16/25 19:00 04/15/25 18:59 Acetaminophen (TYLenol 500MG TAB) 500 mg AD PRN PO PAIN 03/17/25 10:00 03/17/25 09:50 DC Aspirin (Aspirin 81mg Chew Tab) 81 mg DAILY PO 03/18/25 09:00 03/19/25 14:19 DC Aztreonam (Azactam) 2 gm Q8H IVPB 03/16/25 19:00 03/26/25 18:59 03/22/25 03:27 2 GM Dextrose 1,000 ml @ 50 mls/hr Q20H IV 03/19/25 20:00 04/18/25 19:59 03/21/25 00:42 50 MLS/HR Enoxaparin Sodium (Lovenox) 40 mg DAILY SQ 03/17/25 09:00 04/16/25 08:59 03/22/25 08:05 40 MG Ergocalciferol (Drisdol) 50,000 unit QWEEK PO 03/24/25 09:00 04/23/25 08:59 Famotidine (Pepcid 20mg Vial) 20 mg DAILY IV 03/17/25 09:00 03/17/25 09:51 DC 03/17/25 08:43 20 MG Hydralazine HCl (APRESOLine 20MG INJ) 5 mg Q6H PRN IV For:SBP above 160;DBP above 90 03/19/25 19:00 04/18/25 18:59 Hydralazine HCl (APRESOLine 20MG INJ) 10 mg Q6H PRN IV For:SBP above 160;DBP above 90 03/16/25 19:00 03/19/25 14:19 DC Hydromorphone HCl (DiLAUDid 0.5MG INJ) 0.5 mg Q4H PRN IVP SEVERE PAIN (7-10) 03/16/25 19:00 03/21/25 18:59 DC Lactated Ringer's 1,000 ml @ 100 mls/hr Q10H IV 03/16/25 19:00 04/15/25 18:59 03/22/25 03:27 100 MLS/HR Magnesium Sulfate 50 ml @ 0 mls/hr PROTOCOL IV 03/17/25 07:00 03/21/25 00:10 DC 03/18/25 07:53 20 MLS/HR Magnesium Sulfate 50 ml @ 0 mls/hr PROTOCOL PRN IV MAGNESIUM PROTOCOL 03/21/25 00:30 04/20/25 00:29 03/21/25 20:34 25 MLS/HR Miscellaneous Medication (Famotidine ) 40 mg HS PO 03/17/25 21:00 03/17/25 09:50 DC Ondansetron HCl (zoFRAN 4MG TABLET) 4 mg Q4H PRN PO nausea/vomiting 03/17/25 10:00 03/19/25 06:56 DC 03/18/25 07:52 4 MG Ondansetron HCl (zoFRAN 4MG INJ) 4 mg Q6H PRN IV NAUSEA/VOMITING 03/16/25 19:00 03/17/25 09:51 DC Ondansetron HCl (zoFRAN 4MG INJ) 4 mg Q6H PRN IVP NAUSEA/VOMITING 03/18/25 10:30 04/17/25 10:29 03/22/25 08:12 4 MG Pantoprazole Sodium (PROTonix 40MG INJ) 40 mg BID IVP 03/17/25 21:00 03/18/25 07:32 DC 03/17/25 20:28 40 MG Pantoprazole Sodium (PROTonix 40MG INJ) 40 mg BID IVP 03/19/25 21:00 04/18/25 20:59 03/22/25 08:02 40 MG Pantoprazole Sodium (PROTonix 40MG INJ) 40 mg ONCE IVP 03/16/25 17:30 03/16/25 21:30 DC 03/16/25 17:56 40 MG Pantoprazole Sodium (PROTonix 40MG TAB) 40 mg DAILY PO 03/18/25 09:00 03/19/25 14:19 DC Potassium Chloride 100 ml @ 50 mls/hr AD PRN IV POTASSIUM PROTOCOL 03/16/25 19:00 04/15/25 18:59 03/22/25 06:13 50 MLS/HR Potassium Chloride 100 ml @ 50 mls/hr ONCE IV 03/17/25 21:00 03/17/25 23:59 DC 03/18/25 00:09 50 MLS/HR Sodium Chloride 1,000 ml @ 0 mls/hr ONCE IV 03/16/25 17:30 03/17/25 17:29 DC 03/16/25 17:56 999 MLS/HR Sucralfate (Carafate) 1 gm ACHS PO 03/17/25 17:11 04/16/25 17:10 03/17/25 18:38 1 GM Diagnostics / Radiology: [COPY/PASTE HERE IF NO REPORTS PLEASE DELETE SECTION] Assessment: [ Epigastric pain Nausea and vomiting Gastrojejunal anastomosis with sever stenosis Hx of bariatric surgery ] Plan: Continue with clear liquid diet Continue Gi prophylaxis No further GI intervention at this time Patient is to f/u at [facility] on 03/29/25 at 2:00pm Please call with questions, concerns, and change in clinical status Thank you for this consult. ] JOSHUA MILIAN NP Mar 22, 2025 09:42
[2025-03-22 11:47] VITALS: BP 116/77; PULSE 80; RESP 18; TEMP 98
--- NOTE | 2025-03-22 13:22 | NUR ---
Nutrition f/u Reviewed labs, notes, and medications. Pt reported <50%PO intake, tolerating CLD, will have a family member bring MVI patches, to follow up with with . Communicated with nursing in providing Pt with a banana bag due to hx, Nurse communicated with MD. Strongly consider banana bag with thiamine 100 mg/day for 5-7 days per Pt with severe wt loss and poor PO intake. Pt was NPO for 4 days, CLD does not provide adequate calories. Recommendations: -Provide phase I for 1 week -Monitor diet tolerance -Encourage PO intake as able -Monitor BM -Monitor electrolytes -Replenish electrolytes per protocol -Monitor wts -Reweigh as able -Order vit b1, iron, vit b6 labs to rule out deficiencies (Pt w/ hx of gastric bypass) -Advance diet when medically feasible -Recommend Pt to follow up with PCP -Monitor goals of care RD to follow + available for consult per protocol Addendum: 03/22/25 at [address] Amended: Links added.
[2025-03-22] MEDS: M.V.I. IV [ADULT] 10 ML, FOLic ACID 5 MG/ML VIAL 1 MG, THIAMINE HCL 100 MG in 0.9%NACL ... IV SCH (14:29)
[2025-03-22 15:52] VITALS: BP 119/72; PULSE 68; RESP 18; TEMP 98
--- NOTE | 2025-03-22 19:42 | PN ---
[facility] PROGRESS NOTE Date of Service: Mar 22, 2025 Time of Service: 19:21 SUBJECTIVE: [03/16 Ms. Valdez is a 54-year-old female that was seen and examined today on 03/16/2025. Patient is a good historian of personal health Patient states that she came to the emergency department with a chief complaint of abdominal pain. Onset was two weeks ago. Location is epigastric. Duration is on and off. Character is described as burning. Symptoms are aggravated with eating. There was no alleviating factors. Patient reports associated nausea and vomiting. Patient reports that she ran out of her Protonix two weeks ago. Today in the emergency department CBC unremarkable, potassium 2.7, urinalysis positive for leukocyte esterase and WBCs 11-25 per high-powered microscopy field. Emergency room physician recommended patient be admitted with a diagnosis of hypokalemia and urinary tract infection. 03/17 patient was seen by nurse practitioner and physician during rounding in the room 311. Patient continues to complain of abdominal pain with nausea and vomiting. Patient stated that just this year in January 02 patient underwent g astric bypass with a Dr. David. We will consult above-stated doctor for further evaluation. We will also order CT abdomen/pelvis. Potassium to be replaced per protocol. We will continue to monitor the patient meantime. A.m. labs ] 03/18 patient remains admitted to the medical floor, BP 112/69, heart rate of 55, afebrile, saturating normal on room air. CBC with a hemoglobin 12.2, hematocrit 35.4, platelet count of 119. Sodium 142, potassium 3.3, magnesium 1.7. UA leukocyte esterase 250, 11-25 WBC per high-power field. Urine culture preliminary report no growth 18-[address] of the abdomen and pelvis shows a 1 mm calculus in the upper pole of the right kidney, no additional urinary calculi, no hydronephrosis, no bowel obstruction or inflammation, normal appendix, small uncomplicated fat containing umbilical hernia, no acute interval changes. At the time of my Visit patient comfortably in bed, alert oriented x3, admits epigastric discomfort, burning type, mild nausea but not actively vomiting. She also feels hungry. Getting IV fluids. Case discussed with the RN, no acute events overnight. 03/19 patient remains admitted to the medical floor, blood pressure 126/75, afebrile, saturating normal on room air. CBC stable, potassium 3.4, magnesium 2.0. Results of urine culture positive for [id number] [place] (likely contaminant). Patient remains afebrile, no leukocytosis, results of urine culture likely contaminant from normal skin tristan, we will monitor off antibiotics. Patient is scheduled for EGD today. Continue replacing potassium IV per protocol. Follow electrolytes in a.m.. Advanced diet as tolerated and anticipate discharge home in the next 24 hours. At The time of my visit patient comfortable, scheduled for EGD, awake, following commands, case discussed with the RN, no acute events overnight. 03/20 patient remains admitted to the medical floor, hemodynamically stable, afebrile, saturating normal on room air. Patient is status post EGD 03/19/2025, with the finding of gastric bypass with normal size pouch. 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 Status post dilatation. Patient in agreement for PICC line and TPN. Per gastroenterology recommended NPO, to consult Dr David for evaluation for surgical revision. At the time of my visit the patient comfortably in bed, alert oriented x3, case discussed with the RN, no acute events overnight, patient in agreement for PICC line and TPN. 03/21 Patient is a 54-year-old female, underwent gastric bypass with a Dr. David. January 02, 2025, came complaining of abdominal discomfort. Patient is status post EGD 03/19/2025, with the finding of gastric bypass with normal size pouch. 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 Status post dilatation. Patient is started on clear liquid diet by General surgery, continue to follow recommendations. 04/21/25: Patient evaluated in her room. Patient appeared stable. Patient has low potassium levels so she is getting IV potassium infusions. Patient denied EGD to be performed today. Patient is started on clear liquids but she is not able to handle all of it. Patient had a abdominal x-ray performed waiting on report. Had a long discussion multiple times with the patient regarding her EGD. Patient is still has not decided whether she wants to go ahead with the EGD at the hospital or wants to be discharged and go home and get the EGD done outpatient. We will reassess the situation again tomorrow with the patient to see if she has decided on any particular treatment options. REVIEW OF SYSTEMS CONSTITUTIONAL: Denies fevers, chills, or night sweats. No unintentional weight loss reported. NEUROLOGICAL: Denies headache, amaurosis fugax, motor weakness, sensory deficit, vertigo/spinning sensation, gait abnormalities, or tremors. ENT: No hearing loss, otalgia, otorrhea, rhinitis, rhinorrhea, hoarseness, or sore throat. CARDIOVASCULAR: Denies any exertional angina, dyspnea on exertion, orthopnea, paroxysmal nocturnal dyspnea, palpitations, life-threatening arrhythmias, claudication. PULMONARY: Denies any shortness of breath, cough, phlegm/sputum, hemoptysis, pleuritic chest pain. SLEEP: Denies morning headaches, daytime somnolence or napping. Denies difficulty falling asleep, staying asleep, waking from sleep. Denies knowledge of snoring. GASTROINTESTINAL: Denies any type of dysphagia to either liquids or solids. Denies nausea, vomiting, pyrosis, early satiety, diarrhea, constipation, or changes in stool consistency or caliber. Denies coffee-ground emesis, hematemesis, hematochezia, or melanotic stools. Complains of abdominal pain GENITOURINARY: Denies frequency, urgency, nocturia, hematuria or incontinence (Storage/Irritative symptoms.) Low urinary stream, straining to void, urinary intermittency or hesitancy, splitting of the voiding stream, terminal dribbling. ENDOCRINOLOGIC: Denies polyuria, polydipsia, polyphagia or heat/cold intolerances. HEMATOLOGIC: Denies thrombophilia/previous clots, or coagulopathy/bleeding disorders. ONCOLOGIC: Denies personal history of malignancy. DERMATOLOGIC: Denies rashes or pruritus. PSYCHIATRIC: Denies any suicidal or homicidal ideation. Denies hallucinations. PHYSICAL EXAM GENERAL APPEARANCE: The patient is awake, alert, and oriented, in no acute cardiopulmonary distress. NEUROLOGICAL: Cranial nerves II-XII grossly intact. Motor is 5/5 in bilateral upper and lower extremities proximal to distal. No sensory deficits. HEENT: Face is symmetric. Pupils are equal and reactive. Extraocular movements are intact. NECK: Supple. No JVD. No thyromegaly. No submental, submandibular, pre- /postauricular, occipital or supraclavicular lymphadenopathy. CHEST: Normal chest expansion. No Telemetry. LUNGS: Absence of any rales, rhonchi or any wheezing. CARDIOVASCULAR: Regular. S1 and S2 normal. No appreciable rubs, murmurs or gallops. ABDOMEN: Soft, nontender, and nondistended. There is no rebound, voluntary guarding, or rigidity. : Deferred. No Garrett. EXTREMITIES: Non-edematous and not cyanotic. No clubbing. Good capillary refill. SKIN: No skin breakdown. Vital Signs (last 8hr) Date Time Temp Pulse Resp B/P (MAP) Pulse Ox O2 Delivery O2 Flow Rate FiO2 03/22/25 15:52 98.1 68 18 119/72 96 Room Air 03/22/25 11:47 98.1 80 18 116/77 94 Room Air LABS: Laboratory: Test 03/22/25 15:14 03/22/25 05:00 03/21/25 11:35 03/21/25 05:51 Range/Units Whole Blood Glucose 61 L 70-110 MG/DL Sodium Level 142 136-145 mmol/L Potassium Level 3.3 L 3.5-5.1 mmol/L Chloride Level 105 101-111 mmol/L Carbon Dioxide Level 29 21-32 mmol/L Blood Urea Nitrogen 9 7-18 mg/dL Creatinine 0.6 0.5-1.0 mg/dL Glomerular Filtration Rate Calc 108 >90 mL/min Random Glucose 87 70-105 mg/dL Total Calcium 8.5 8.5-10.1 mg/dL Magnesium Level 2.40 1.80-2.40 mg/dL Total Bilirubin 0.9 0.2-1.0 mg/dL Aspartate Amino Transf (AST/SGOT) 39 H 10-37 U/L Alanine Aminotransferase (ALT/SGPT) 19 12-78 U/L Alkaline Phosphatase 63 50-136 U/L Total Protein 5.9 L 6.0-8.3 g/dL Albumin 2.8 L 3.5-5.0 g/dL Prothrombin Time 11.3 9.6-11.6 SEC Prothromb Time International Ratio 1.07 0.85-1.15 White Blood Count 3.4 L 4.8-10.8 K/uL Red Blood Count 4.08 4.00-5.50 MIL/uL Hemoglobin 12.4 12.0-16.0 g/dL Hematocrit 35.6 L 36-48 % Mean Corpuscular Volume 87.3 79-99 fL Mean Corpuscular Hemoglobin 30.4 27.0-33.0 pg Mean Corpuscular Hemoglobin Concent 34.8 32.0-36.0 g/dL Red Cell Distribution Width 14.0 11.0-15.5 % Platelet Count 109 L 130-400 K/uL Mean Platelet Volume 10.4 7.5-10.5 fL Nucleated Red Blood Cells 0.0 0.0-0.19 % Current Medications Medications (Trade) Dose Ordered Sig/Silvia Route PRN Reason Start Time Stop Time Status Last Admin Dose Admin Acetaminophen (TYLenol 325MG TAB) 650 mg Q6H PRN PO TEMPERATURE GREATER THAN 101.5 03/16/25 19:00 04/15/25 18:59 Acetaminophen (TYLenol 500MG TAB) 500 mg AD PRN PO PAIN 03/17/25 10:00 03/17/25 09:50 DC Aspirin (Aspirin 81mg Chew Tab) 81 mg DAILY PO 03/18/25 09:00 03/19/25 14:19 DC Aztreonam (Azactam) 2 gm Q8H IVPB 03/16/25 19:00 03/26/25 18:59 03/22/25 12:09 2 GM Dextrose 1,000 ml @ 50 mls/hr Q20H IV 03/19/25 20:00 03/22/25 12:32 DC 03/21/25 00:42 50 MLS/HR Enoxaparin Sodium (Lovenox) 40 mg DAILY SQ 03/17/25 09:00 04/16/25 08:59 03/22/25 08:05 40 MG Ergocalciferol (Drisdol) 50,000 unit QWEEK PO 03/24/25 09:00 04/23/25 08:59 Famotidine (Pepcid 20mg Vial) 20 mg DAILY IV 03/17/25 09:00 03/17/25 09:51 DC 03/17/25 08:43 20 MG Hydralazine HCl (APRESOLine 20MG INJ) 5 mg Q6H PRN IV For:SBP above 160;DBP above 90 03/19/25 19:00 04/18/25 18:59 Hydralazine HCl (APRESOLine 20MG INJ) 10 mg Q6H PRN IV For:SBP above 160;DBP above 90 03/16/25 19:00 03/19/25 14:19 DC Hydromorphone HCl (DiLAUDid 0.5MG INJ) 0.5 mg Q4H PRN IVP SEVERE PAIN (7-10) 03/16/25 19:00 03/21/25 18:59 DC Lactated Ringer's 1,000 ml @ 100 mls/hr Q10H IV 03/16/25 19:00 03/22/25 12:32 DC 03/22/25 03:27 100 MLS/HR Magnesium Sulfate 50 ml @ 0 mls/hr PROTOCOL IV 03/17/25 07:00 03/21/25 00:10 DC 03/18/25 07:53 20 MLS/HR Magnesium Sulfate 50 ml @ 0 mls/hr PROTOCOL PRN IV MAGNESIUM PROTOCOL 03/21/25 00:30 04/20/25 00:29 03/21/25 20:34 25 MLS/HR Miscellaneous Medication (Famotidine ) 40 mg HS PO 03/17/25 21:00 03/17/25 09:50 DC Multivitamins/ Minerals 10 ml/ Folic Acid 1 mg/ Thiamine HCl 100 mg/Sodium Chloride 1,010 ml @ 75 mls/hr DAILY IV 03/22/25 12:30 03/26/25 09:00 03/22/25 14:29 75 MLS/HR Ondansetron HCl (zoFRAN 4MG TABLET) 4 mg Q4H PRN PO nausea/vomiting 03/17/25 10:00 03/19/25 06:56 DC 03/18/25 07:52 4 MG Ondansetron HCl (zoFRAN 4MG INJ) 4 mg Q6H PRN IV NAUSEA/VOMITING 03/16/25 19:00 03/17/25 09:51 DC Ondansetron HCl (zoFRAN 4MG INJ) 4 mg Q6H PRN IVP NAUSEA/VOMITING 03/18/25 10:30 04/17/25 10:29 03/22/25 14:45 4 MG Pantoprazole Sodium (PROTonix 40MG INJ) 40 mg BID IVP 03/17/25 21:00 03/18/25 07:32 DC 03/17/25 20:28 40 MG Pantoprazole Sodium (PROTonix 40MG INJ) 40 mg BID IVP 03/19/25 21:00 04/18/25 20:59 03/22/25 08:02 40 MG Pantoprazole Sodium (PROTonix 40MG INJ) 40 mg ONCE IVP 03/16/25 17:30 03/16/25 21:30 DC 03/16/25 17:56 40 MG Pantoprazole Sodium (PROTonix 40MG TAB) 40 mg DAILY PO 03/18/25 09:00 03/19/25 14:19 DC Potassium Chloride 100 ml @ 50 mls/hr AD PRN IV POTASSIUM PROTOCOL 03/16/25 19:00 04/15/25 18:59 03/22/25 14:31 50 MLS/HR Potassium Chloride 100 ml @ 50 mls/hr ONCE IV 03/17/25 21:00 03/17/25 23:59 DC 03/18/25 00:09 50 MLS/HR Sodium Chloride 1,000 ml @ 0 mls/hr ONCE IV 03/16/25 17:30 03/17/25 17:29 DC 03/16/25 17:56 999 MLS/HR Sucralfate (Carafate) 1 gm ACHS PO 03/17/25 17:11 04/16/25 17:10 03/17/25 18:38 1 GM DIAGNOSTICS / RADIOLOGY: [ ] ASSESSMENT: Severe GERD secondary to severe stenosis gastrojejunal anastomosis, POA Patient is status post EGD 03/19/2025, with the finding of gastric bypass with normal size pouch. 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 Status post dilatation. Hypokalemia, POA Urinary tract infection, secondary to diphtheroids, contaminant POA Severe Abdominal pain, POA Intractable Nausea, vomiting, POA History of stroke GERD Uncontrolled hypertension POA Irritable bowel syndrome POA History of gastric bypass January 02, 2025] PLAN: Patient is a 54-year-old female, underwent gastric bypass with a Dr. David. January 02, 2025, came complaining of abdominal discomfort. 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 Hypokalemia: * Replace potassium per hospital protocol. * Monitor patient's labs. * Repeat potassium tomorrow morning Urinary tract infection: * Patient has a documented allergy to penicillin, ciprofloxacin, nitrofurantoin, sulfamethoxazole, trimethoprim. * Continue aztreonam 2 g IV Q 8 hours. * Urine culture came back positive for Gram-positive rods resembling diphtheroids Abdominal pain, nausea, vomiting: CT abdomen/pelvis ordered LR at 100ml/hr Patient has a documented allergy to codeine. As needed analgesia with Dilaudid. Keep patient NPO for GI rest. Consider advancing diet to clear liquid diet tomorrow if patient's nausea, vo miting abdominal pain resolved. Consider CT of abdomen and pelvis if no improvement in symptoms. As-needed antiemetic, Zofran. Hypertension: Home medication reconciled by [employer]NAGER 03/17/2025 At time of admission home medications have not been reconciled. For now: Hydralazine 10 mg IV every 4 hours for systolic blood pressure greater than 160 mmHg GI prophylaxis, famotidine DVT prophylaxis, Lovenox ATTESTATION BY PHYSICIAN I have seen and examined the patient. I reviewed the documentation, medical decision making, and treatment plan as noted by the resident provider above. I agree with the findings and plan of care. Juan Saucedo MD, ABHINAV MD Mar 22, 2025 19:42
[2025-03-22 20:00] VITALS: BP 94/59; PULSE 75; RESP 16; TEMP 98; O2SAT 96
[2025-03-22 23:34] VITALS: BP 95/60; PULSE 66; RESP 16; TEMP 98
[2025-03-23] VITALS (7 sets, daily range): BP systolic 99–120; BP diastolic 58–72; PULSE 66–74; RESP 16–22; TEMP 97.5–98.3; O2SAT 99
--- NOTE | 2025-03-23 05:19 | HMCIMG ---
EXAM: CR Abdomen, 2 views. CLINICAL HISTORY: Pain. COMPARISON: CT abdomen and pelvis dated 03/17/2025. FINDINGS: Nonobstructed nonspecific bowel gas pattern. A component of mild constipation is present in the colon. No free air is evident. No abnormal calcification. No aggressive appearing osseous lesion. There are surgical clips in the abdomen and pelvis. IMPRESSION: No acute process. A component of mild constipation is present in the colon. No gross interval changes. /[place]
[2025-03-23] MEDS ORDERED: COMPOUND IV MISC 1 EACH IVSOLN MISC PRN (05:30)
[2025-03-23 06:10] LABS: NUCLEATED RED BLOOD CELLS 0.0 % (0.0-0.19); PLATELET COUNT (AUTO) 98.0 K/uL (130-400); RED BLOOD CELL COUNT(AUTO) 3.87 MIL/uL (4.00-5.50); RED CELL DISTRIBUTION WIDTH 14.3 % (11.0-15.5); WHITE BLOOD COUNT (AUTO) 3.1 K/uL (4.8-10.8)
[2025-03-23 06:21] LABS: CREATININE 0.7 mg/dL (0.5-1.0); GLOMERULAR FILTR. RATE CALC 104.0 mL/min (>90); GLUCOSE,RANDOM 67.0 mg/dL (70-105); PHOSPHORUS 3.8 mg/dL (2.5-4.9); SODIUM SERUM 141.0 mmol/L (136-145); UREA NITROGEN, BLOOD 9.0 mg/dL (7-18)
[2025-03-23] MEDS ORDERED: COMPOUND IV REFRIGERATED 1 EACH IVSOLN MISC PRN (08:00)
--- NOTE | 2025-03-23 13:06 | PN ---
[facility] PROGRESS NOTE Date of Service: Mar 23, 2025 Time of Service: 13:03 SUBJECTIVE: [03/16 Ms. Valdez is a 54-year-old female that was seen and examined today on 03/16/2025. Patient is a good historian of personal health Patient states that she came to the emergency department with a chief complaint of abdominal pain. Onset was two weeks ago. Location is epigastric. Duration is on and off. Character is described as burning. Symptoms are aggravated with eating. There was no alleviating factors. Patient reports associated nausea and vomiting. Patient reports that she ran out of her Protonix two weeks ago. Today in the emergency department CBC unremarkable, potassium 2.7, urinalysis positive for leukocyte esterase and WBCs 11-25 per high-powered microscopy field. Emergency room physician recommended patient be admitted with a diagnosis of hypokalemia and urinary tract infection. 03/17 patient was seen by nurse practitioner and physician during rounding in the room 311. Patient continues to complain of abdominal pain with nausea and vomiting. Patient stated that just this year in January 02 patient underwent g astric bypass with a Dr. David. We will consult above-stated doctor for further evaluation. We will also order CT abdomen/pelvis. Potassium to be replaced per protocol. We will continue to monitor the patient meantime. A.m. labs ] 03/18 patient remains admitted to the medical floor, BP 112/69, heart rate of 55, afebrile, saturating normal on room air. CBC with a hemoglobin 12.2, hematocrit 35.4, platelet count of 119. Sodium 142, potassium 3.3, magnesium 1.7. UA leukocyte esterase 250, 11-25 WBC per high-power field. Urine culture preliminary report no growth 18-[address] of the abdomen and pelvis shows a 1 mm calculus in the upper pole of the right kidney, no additional urinary calculi, no hydronephrosis, no bowel obstruction or inflammation, normal appendix, small uncomplicated fat containing umbilical hernia, no acute interval changes. At the time of my Visit patient comfortably in bed, alert oriented x3, admits epigastric discomfort, burning type, mild nausea but not actively vomiting. She also feels hungry. Getting IV fluids. Case discussed with the RN, no acute events overnight. 03/19 patient remains admitted to the medical floor, blood pressure 126/75, afebrile, saturating normal on room air. CBC stable, potassium 3.4, magnesium 2.0. Results of urine culture positive for [id number] asia (likely contaminant). Patient remains afebrile, no leukocytosis, results of urine culture likely contaminant from normal skin tristan, we will monitor off antibiotics. Patient is scheduled for EGD today. Continue replacing potassium IV per protocol. Follow electrolytes in a.m.. Advanced diet as tolerated and anticipate discharge home in the next 24 hours. At The time of my visit patient comfortable, scheduled for EGD, awake, following commands, case discussed with the RN, no acute events overnight. 03/20 patient remains admitted to the medical floor, hemodynamically stable, afebrile, saturating normal on room air. Patient is status post EGD 03/19/2025, with the finding of gastric bypass with normal size pouch. 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 Status post dilatation. Patient in agreement for PICC line and TPN. Per gastroenterology recommended NPO, to consult Dr David for evaluation for surgical revision. At the time of my visit the patient comfortably in bed, alert oriented x3, case discussed with the RN, no acute events overnight, patient in agreement for PICC line and TPN. 03/21 Patient is a 54-year-old female, underwent gastric bypass with a Dr. David. January 02, 2025, came complaining of abdominal discomfort. Patient is status post EGD 03/19/2025, with the finding of gastric bypass with normal size pouch. 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 Status post dilatation. Patient is started on clear liquid diet by General surgery, continue to follow recommendations. 03/22/25: Patient evaluated in her room. Patient appeared stable. Patient has low potassium levels so she is getting IV potassium infusions. Patient denied EGD to be performed today. Patient is started on clear liquids but she is not able to handle all of it. Patient had a abdominal x-ray performed waiting on report. Had a long discussion multiple times with the patient regarding her EGD. Patient is still has not decided whether she wants to go ahead with the EGD at the hospital or wants to be discharged and go home and get the EGD done outpatient. We will reassess the situation again tomorrow with the patient to see if she has decided on any particular treatment options. 03/23/25 The patient was evaluated in the room and continues to experience nausea. She is currently on a clear liquid diet. EGD was performed on 03/21/2025 with post-dilation. The plan is to repeat the EGD; however, the patient declined the procedure yesterday and is considering proceeding on Tuesday. We will continue to monitor the patients pain and comfort and will follow gastroenterology recommendations. REVIEW OF SYSTEMS CONSTITUTIONAL: Denies fevers, chills, or night sweats. No unintentional weight loss reported. NEUROLOGICAL: Denies headache, amaurosis fugax, motor weakness, sensory deficit, vertigo/spinning sensation, gait abnormalities, or tremors. ENT: No hearing loss, otalgia, otorrhea, rhinitis, rhinorrhea, hoarseness, or sore throat. CARDIOVASCULAR: Denies any exertional angina, dyspnea on exertion, orthopnea, paroxysmal nocturnal dyspnea, palpitations, life-threatening arrhythmias, claudication. PULMONARY: Denies any shortness of breath, cough, phlegm/sputum, hemoptysis, pleuritic chest pain. SLEEP: Denies morning headaches, daytime somnolence or napping. Denies difficulty falling asleep, staying asleep, waking from sleep. Denies knowledge of snoring. GASTROINTESTINAL: Denies any type of dysphagia to either liquids or solids. Denies nausea, vomiting, pyrosis, early satiety, diarrhea, constipation, or changes in stool consistency or caliber. Denies coffee-ground emesis, hematemesis, hematochezia, or melanotic stools. Complains of abdominal pain GENITOURINARY: Denies frequency, urgency, nocturia, hematuria or incontinence (Storage/Irritative symptoms.) Low urinary stream, straining to void, urinary intermittency or hesitancy, splitting of the voiding stream, terminal dribbling. ENDOCRINOLOGIC: Denies polyuria, polydipsia, polyphagia or heat/cold intolerances. HEMATOLOGIC: Denies thrombophilia/previous clots, or coagulopathy/bleeding disorders. ONCOLOGIC: Denies personal history of malignancy. DERMATOLOGIC: Denies rashes or pruritus. PSYCHIATRIC: Denies any suicidal or homicidal ideation. Denies hallucinations. PHYSICAL EXAM GENERAL APPEARANCE: The patient is awake, alert, and oriented, in no acute cardiopulmonary distress. NEUROLOGICAL: Cranial nerves II-XII grossly intact. Motor is 5/5 in bilateral upper and lower extremities proximal to distal. No sensory deficits. HEENT: Face is symmetric. Pupils are equal and reactive. Extraocular movements are intact. NECK: Supple. No JVD. No thyromegaly. No submental, submandibular, pre- /postauricular, occipital or supraclavicular lymphadenopathy. CHEST: Normal chest expansion. No Telemetry. LUNGS: Absence of any rales, rhonchi or any wheezing. CARDIOVASCULAR: Regular. S1 and S2 normal. No appreciable rubs, murmurs or gallops. ABDOMEN: Soft, nontender, and nondistended. There is no rebound, voluntary guarding, or rigidity. : Deferred. No Garrett. EXTREMITIES: Non-edematous and not cyanotic. No clubbing. Good capillary refill. SKIN: No skin breakdown. Vital Signs (last 8hr) Date Time Temp Pulse Resp B/P (MAP) Pulse Ox O2 Delivery O2 Flow Rate FiO2 03/23/25 08:00 Room Air* 0 21 03/23/25 08:00 97.5 74 19 115/72 93 Room Air LABS: Laboratory: Test 03/23/25 11:05 03/23/25 05:48 03/22/25 05:00 Range/Units Whole Blood Glucose 68 L 70-110 MG/DL White Blood Count 3.1 L 4.8-10.8 K/uL Red Blood Count 3.87 L 4.00-5.50 MIL/uL Hemoglobin 11.6 L 12.0-16.0 g/dL Hematocrit 35.0 L 36-48 % Mean Corpuscular Volume 90.4 79-99 fL Mean Corpuscular Hemoglobin 30.0 27.0-33.0 pg Mean Corpuscular Hemoglobin Concent 33.1 32.0-36.0 g/dL Red Cell Distribution Width 14.3 11.0-15.5 % Platelet Count 98 L 130-400 K/uL Mean Platelet Volume 10.4 7.5-10.5 fL Nucleated Red Blood Cells 0.0 0.0-0.19 % Sodium Level 141 136-145 mmol/L Potassium Level 3.9 3.5-5.1 mmol/L Chloride Level 105 101-111 mmol/L Carbon Dioxide Level 28 21-32 mmol/L Blood Urea Nitrogen 9 7-18 mg/dL Creatinine 0.7 0.5-1.0 mg/dL Glomerular Filtration Rate Calc 104 >90 mL/min Random Glucose 67 L 70-105 mg/dL Total Calcium 8.3 L 8.5-10.1 mg/dL Phosphorus Level 3.8 2.5-4.9 mg/dL Magnesium Level 1.90 1.80-2.40 mg/dL Total Bilirubin 0.9 0.2-1.0 mg/dL Aspartate Amino Transf (AST/SGOT) 39 H 10-37 U/L Alanine Aminotransferase (ALT/SGPT) 19 12-78 U/L Alkaline Phosphatase 63 50-136 U/L Total Protein 5.9 L 6.0-8.3 g/dL Albumin 2.8 L 3.5-5.0 g/dL Current Medications Medications (Trade) Dose Ordered Sig/Silvia Route PRN Reason Start Time Stop Time Status Last Admin Dose Admin Acetaminophen (TYLenol 325MG TAB) 650 mg Q6H PRN PO TEMPERATURE GREATER THAN 101.5 03/16/25 19:00 04/15/25 18:59 Acetaminophen (TYLenol 500MG TAB) 500 mg AD PRN PO PAIN 03/17/25 10:00 03/17/25 09:50 DC Aspirin (Aspirin 81mg Chew Tab) 81 mg DAILY PO 03/18/25 09:00 03/19/25 14:19 DC Aztreonam (Azactam) 2 gm Q8H IVPB 03/16/25 19:00 03/23/25 07:34 DC 03/23/25 05:26 2 GM Aztreonam 2 gm/ Sodium Chloride 100 ml @ 100 mls/hr Q8H IVPB 03/23/25 11:00 03/26/25 18:59 Dextrose 1,000 ml @ 50 mls/hr Q20H IV 03/19/25 20:00 03/22/25 12:32 DC 03/21/25 00:42 50 MLS/HR Enoxaparin Sodium (Lovenox) 40 mg DAILY SQ 03/17/25 09:00 04/16/25 08:59 03/23/25 08:00 40 MG Ergocalciferol (Drisdol) 50,000 unit QWEEK PO 03/24/25 09:00 04/23/25 08:59 Famotidine (Pepcid 20mg Vial) 20 mg DAILY IV 03/17/25 09:00 03/17/25 09:51 DC 03/17/25 08:43 20 MG Hydralazine HCl (APRESOLine 20MG INJ) 5 mg Q6H PRN IV For:SBP above 160;DBP above 90 03/19/25 19:00 04/18/25 18:59 Hydralazine HCl (APRESOLine 20MG INJ) 10 mg Q6H PRN IV For:SBP above 160;DBP above 90 03/16/25 19:00 03/19/25 14:19 DC Hydromorphone HCl (DiLAUDid 0.5MG INJ) 0.5 mg Q4H PRN IVP SEVERE PAIN (7-10) 03/16/25 19:00 03/21/25 18:59 DC Lactated Ringer's 1,000 ml @ 100 mls/hr Q10H IV 03/16/25 19:00 03/22/25 12:32 DC 03/22/25 03:27 100 MLS/HR Magnesium Sulfate 50 ml @ 0 mls/hr PROTOCOL IV 03/17/25 07:00 03/21/25 00:10 DC 03/18/25 07:53 20 MLS/HR Magnesium Sulfate 50 ml @ 0 mls/hr PROTOCOL PRN IV MAGNESIUM PROTOCOL 03/21/25 00:30 04/20/25 00:29 03/21/25 20:34 25 MLS/HR Miscellaneous Medication (Famotidine ) 40 mg HS PO 03/17/25 21:00 03/17/25 09:50 DC Multivitamins/ Minerals 10 ml/ Folic Acid 1 mg/ Thiamine HCl 100 mg/Sodium Chloride 1,010 ml @ 75 mls/hr DAILY IV 03/22/25 12:30 03/24/25 16:00 03/22/25 14:29 75 MLS/HR Ondansetron HCl (zoFRAN 4MG TABLET) 4 mg Q4H PRN PO nausea/vomiting 03/17/25 10:00 03/19/25 06:56 DC 03/18/25 07:52 4 MG Ondansetron HCl (zoFRAN 4MG INJ) 4 mg Q6H PRN IV NAUSEA/VOMITING 03/16/25 19:00 03/17/25 09:51 DC Ondansetron HCl (zoFRAN 4MG INJ) 4 mg Q6H PRN IVP NAUSEA/VOMITING 03/18/25 10:30 04/17/25 10:29 03/23/25 08:00 4 MG Pantoprazole Sodium (PROTonix 40MG INJ) 40 mg BID IVP 03/17/25 21:00 03/18/25 07:32 DC 03/17/25 20:28 40 MG Pantoprazole Sodium (PROTonix 40MG INJ) 40 mg BID IVP 03/19/25 21:00 04/18/25 20:59 03/23/25 08:00 40 MG Pantoprazole Sodium (PROTonix 40MG INJ) 40 mg ONCE IVP 03/16/25 17:30 03/16/25 21:30 DC 03/16/25 17:56 40 MG Pantoprazole Sodium (PROTonix 40MG TAB) 40 mg DAILY PO 03/18/25 09:00 03/19/25 14:19 DC Potassium Chloride 100 ml @ 50 mls/hr AD PRN IV POTASSIUM PROTOCOL 03/16/25 19:00 04/15/25 18:59 03/22/25 14:31 50 MLS/HR Potassium Chloride 100 ml @ 50 mls/hr ONCE IV 03/17/25 21:00 03/17/25 23:59 DC 03/18/25 00:09 50 MLS/HR Sodium Chloride 1,000 ml @ 0 mls/hr ONCE IV 03/16/25 17:30 03/17/25 17:29 DC 03/16/25 17:56 999 MLS/HR Sucralfate (Carafate) 1 gm ACHS PO 03/17/25 17:11 04/16/25 17:10 03/17/25 18:38 1 GM DIAGNOSTICS / RADIOLOGY: [ ] ASSESSMENT: Severe GERD secondary to severe stenosis gastrojejunal anastomosis, POA Patient is status post EGD 03/19/2025, with the finding of gastric bypass with normal size pouch. 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 Status post dilatation. Hypokalemia, POA Urinary tract infection, secondary to diphtheroids, contaminant POA Severe Abdominal pain, POA Intractable Nausea, vomiting, POA History of stroke GERD Uncontrolled hypertension POA Irritable bowel syndrome POA History of gastric bypass January 02, 2025] PLAN: Patient is a 54-year-old female, underwent gastric bypass with a Dr. David. January 02, 2025, came complaining of abdominal discomfort. 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 Hypokalemia: * Replace potassium per hospital protocol. * Monitor patient's labs. * Repeat potassium tomorrow morning Urinary tract infection: * Patient has a documented allergy to penicillin, ciprofloxacin, nitrofurantoin, sulfamethoxazole, trimethoprim. * Continue aztreonam 2 g IV Q 8 hours. * Urine culture came back positive for Gram-positive rods resembling diphtheroids Abdominal pain, nausea, vomiting: LR at 100ml/hr Patient has a documented allergy to codeine. As needed analgesia with Dilaudid. Continue with current diet Consider CT of abdomen and pelvis if no improvement in symptoms. As-needed antiemetic, Zofran. Hypertension: Home medication reconciled by DIRECTOR OPERATIONS BROADCAST 03/17/2025 At time of admission home medications have not been reconciled. For now: Hydralazine 10 mg IV every 4 hours for systolic blood pressure greater than 160 mmHg GI prophylaxis, famotidine DVT prophylaxis, Lovenox We will repeat labs tomorrow Case discussed with Dr. Barrett, above plan was formulated ATTESTATION BY PHYSICIAN I have seen and examined the patient. I reviewed the documentation, medical decision making, and treatment plan as noted by the mid-level provider above. I agree with the findings and plan of care. Jessica Schuler MD, JANICE B [facility] Mar 23, 2025 13:06
[2025-03-23] MEDS: [UNRECOGNIZED DRUG - OTHER] IVPB SCH (13:34)
[2025-03-23] MEDS: AZTREONAM IVPB SCH (13:34)
[2025-03-23] MEDS ORDERED: GLUCAGON 1MG KIT 1 MG ML IM PRN (20:30)
[2025-03-24] VITALS (8 sets, daily range): BP systolic 103–132; BP diastolic 64–79; PULSE 58–69; RESP 18–20; TEMP 97.5–98.3; O2SAT 99
[2025-03-24 04:49] LABS: NUCLEATED RED BLOOD CELLS 0.0 % (0.0-0.19); PLATELET COUNT (AUTO) 95.0 K/uL (130-400); RED BLOOD CELL COUNT(AUTO) 3.88 MIL/uL (4.00-5.50); RED CELL DISTRIBUTION WIDTH 14.3 % (11.0-15.5); WHITE BLOOD COUNT (AUTO) 3.3 K/uL (4.8-10.8)
[2025-03-24 05:00] LABS: CREATININE 0.7 mg/dL (0.5-1.0); GLOMERULAR FILTR. RATE CALC 104.0 mL/min (>90); GLUCOSE,RANDOM 66.0 mg/dL (70-105); SODIUM SERUM 143.0 mmol/L (136-145); UREA NITROGEN, BLOOD 7.0 mg/dL (7-18)
--- NOTE | 2025-03-24 07:48 | NUR ---
A.M. DOSE OF LOVENOX HELD DUE TO MOST RECENT PLATELET LEVEL OF 95. WILL HOLD ANTICOAGULANT UNTIL CLARIFIED WITH .
[2025-03-24] MEDS: ERGOCALCIFEROL (VITAMIN D2) 50,000 UNIT CAPSULE PO SCH (08:18)
--- NOTE | 2025-03-24 11:54 | PN ---
[facility] PROGRESS NOTE Date of Service: Mar 24, 2025 Time of Service: 11:53 SUBJECTIVE: [03/16 Ms. Valdez is a 54-year-old female that was seen and examined today on 03/16/2025. Patient is a good historian of personal health Patient states that she came to the emergency department with a chief complaint of abdominal pain. Onset was two weeks ago. Location is epigastric. Duration is on and off. Character is described as burning. Symptoms are aggravated with eating. There was no alleviating factors. Patient reports associated nausea and vomiting. Patient reports that she ran out of her Protonix two weeks ago. Today in the emergency department CBC unremarkable, potassium 2.7, urinalysis positive for leukocyte esterase and WBCs 11-25 per high-powered microscopy field. Emergency room physician recommended patient be admitted with a diagnosis of hypokalemia and urinary tract infection. 03/17 patient was seen by nurse practitioner and physician during rounding in the room 311. Patient continues to complain of abdominal pain with nausea and vomiting. Patient stated that just this year in January 02 patient underwent g astric bypass with a Dr. David. We will consult above-stated doctor for further evaluation. We will also order CT abdomen/pelvis. Potassium to be replaced per protocol. We will continue to monitor the patient meantime. A.m. labs ] 03/18 patient remains admitted to the medical floor, BP 112/69, heart rate of 55, afebrile, saturating normal on room air. CBC with a hemoglobin 12.2, hematocrit 35.4, platelet count of 119. Sodium 142, potassium 3.3, magnesium 1.7. UA leukocyte esterase 250, 11-25 WBC per high-power field. Urine culture preliminary report no growth 18-[address] of the abdomen and pelvis shows a 1 mm calculus in the upper pole of the right kidney, no additional urinary calculi, no hydronephrosis, no bowel obstruction or inflammation, normal appendix, small uncomplicated fat containing umbilical hernia, no acute interval changes. At the time of my Visit patient comfortably in bed, alert oriented x3, admits epigastric discomfort, burning type, mild nausea but not actively vomiting. She also feels hungry. Getting IV fluids. Case discussed with the RN, no acute events overnight. 03/19 patient remains admitted to the medical floor, blood pressure 126/75, afebrile, saturating normal on room air. CBC stable, potassium 3.4, magnesium 2.0. Results of urine culture positive for [id number] asia (likely contaminant). Patient remains afebrile, no leukocytosis, results of urine culture likely contaminant from normal skin tristan, we will monitor off antibiotics. Patient is scheduled for EGD today. Continue replacing potassium IV per protocol. Follow electrolytes in a.m.. Advanced diet as tolerated and anticipate discharge home in the next 24 hours. At The time of my visit patient comfortable, scheduled for EGD, awake, following commands, case discussed with the RN, no acute events overnight. 03/20 patient remains admitted to the medical floor, hemodynamically stable, afebrile, saturating normal on room air. Patient is status post EGD 03/19/2025, with the finding of gastric bypass with normal size pouch. 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 Status post dilatation. Patient in agreement for PICC line and TPN. Per gastroenterology recommended NPO, to consult Dr David for evaluation for surgical revision. At the time of my visit the patient comfortably in bed, alert oriented x3, case discussed with the RN, no acute events overnight, patient in agreement for PICC line and TPN. 03/21 Patient is a 54-year-old female, underwent gastric bypass with a Dr. David. January 02, 2025, came complaining of abdominal discomfort. Patient is status post EGD 03/19/2025, with the finding of gastric bypass with normal size pouch. 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 Status post dilatation. Patient is started on clear liquid diet by General surgery, continue to follow recommendations. 03/22/25: Patient evaluated in her room. Patient appeared stable. Patient has low potassium levels so she is getting IV potassium infusions. Patient denied EGD to be performed today. Patient is started on clear liquids but she is not able to handle all of it. Patient had a abdominal x-ray performed waiting on report. Had a long discussion multiple times with the patient regarding her EGD. Patient is still has not decided whether she wants to go ahead with the EGD at the hospital or wants to be discharged and go home and get the EGD done outpatient. We will reassess the situation again tomorrow with the patient to see if she has decided on any particular treatment options. 03/23/25 The patient was evaluated in the room and continues to experience nausea. She is currently on a clear liquid diet. EGD was performed on 03/21/2025 with post-dilation. The plan is to repeat the EGD; however, the patient declined the procedure yesterday and is considering proceeding on Tuesday. We will continue to monitor the patients pain and comfort and will follow gastroenterology recommendations. 03/24/25 Patient evaluated in the room with family at bedside. The patient continues to report a sensation of fullness, even while on a clear liquid diet. The patient and family are in agreement with proceeding with the EGD scheduled for tomorrow morning. The GI team will be contacted to confirm the EGD timing. The patient will remain NPO after midnight in preparation for the procedure. REVIEW OF SYSTEMS CONSTITUTIONAL: Denies fevers, chills, or night sweats. No unintentional weight loss reported. NEUROLOGICAL: Denies headache, amaurosis fugax, motor weakness, sensory deficit, vertigo/spinning sensation, gait abnormalities, or tremors. ENT: No hearing loss, otalgia, otorrhea, rhinitis, rhinorrhea, hoarseness, or sore throat. CARDIOVASCULAR: Denies any exertional angina, dyspnea on exertion, orthopnea, paroxysmal nocturnal dyspnea, palpitations, life-threatening arrhythmias, claudication. PULMONARY: Denies any shortness of breath, cough, phlegm/sputum, hemoptysis, pleuritic chest pain. SLEEP: Denies morning headaches, daytime somnolence or napping. Denies difficulty falling asleep, staying asleep, waking from sleep. Denies knowledge of snoring. GASTROINTESTINAL: Denies any type of dysphagia to either liquids or solids. Denies nausea, vomiting, pyrosis, early satiety, diarrhea, constipation, or changes in stool consistency or caliber. Denies coffee-ground emesis, hematemesis, hematochezia, or melanotic stools. Complains of abdominal pain GENITOURINARY: Denies frequency, urgency, nocturia, hematuria or incontinence (Storage/Irritative symptoms.) Low urinary stream, straining to void, urinary intermittency or hesitancy, splitting of the voiding stream, terminal dribbling. ENDOCRINOLOGIC: Denies polyuria, polydipsia, polyphagia or heat/cold intolerances. HEMATOLOGIC: Denies thrombophilia/previous clots, or coagulopathy/bleeding disorders. ONCOLOGIC: Denies personal history of malignancy. DERMATOLOGIC: Denies rashes or pruritus. PSYCHIATRIC: Denies any suicidal or homicidal ideation. Denies hallucinations. PHYSICAL EXAM GENERAL APPEARANCE: The patient is awake, alert, and oriented, in no acute cardiopulmonary distress. NEUROLOGICAL: Cranial nerves II-XII grossly intact. Motor is 5/5 in bilateral upper and lower extremities proximal to distal. No sensory deficits. HEENT: Face is symmetric. Pupils are equal and reactive. Extraocular movements are intact. NECK: Supple. No JVD. No thyromegaly. No submental, submandibular, pre- /postauricular, occipital or supraclavicular lymphadenopathy. CHEST: Normal chest expansion. No Telemetry. LUNGS: Absence of any rales, rhonchi or any wheezing. CARDIOVASCULAR: Regular. S1 and S2 normal. No appreciable rubs, murmurs or gallops. ABDOMEN: Soft, nontender, and nondistended. There is no rebound, voluntary guarding, or rigidity. : Deferred. No Garrett. EXTREMITIES: Non-edematous and not cyanotic. No clubbing. Good capillary refill. SKIN: No skin breakdown. Vital Signs (last 8hr) Date Time Temp Pulse Resp B/P (MAP) Pulse Ox O2 Delivery O2 Flow Rate FiO2 03/24/25 08:18 99 Room Air* 0 21 03/24/25 08:00 98.2 64 18 112/68 99 Room Air 21 LABS: Laboratory: Test 03/24/25 11:46 03/24/25 04:32 03/23/25 05:48 Range/Units Whole Blood Glucose 72 70-110 MG/DL White Blood Count 3.3 L 4.8-10.8 K/uL Red Blood Count 3.88 L 4.00-5.50 MIL/uL Hemoglobin 11.6 L 12.0-16.0 g/dL Hematocrit 34.9 L 36-48 % Mean Corpuscular Volume 89.9 79-99 fL Mean Corpuscular Hemoglobin 29.9 27.0-33.0 pg Mean Corpuscular Hemoglobin Concent 33.2 32.0-36.0 g/dL Red Cell Distribution Width 14.3 11.0-15.5 % Platelet Count 95 L 130-400 K/uL Mean Platelet Volume 9.6 7.5-10.5 fL Nucleated Red Blood Cells 0.0 0.0-0.19 % Sodium Level 143 136-145 mmol/L Potassium Level 3.9 3.5-5.1 mmol/L Chloride Level 107 101-111 mmol/L Carbon Dioxide Level 26 21-32 mmol/L Blood Urea Nitrogen 7 7-18 mg/dL Creatinine 0.7 0.5-1.0 mg/dL Glomerular Filtration Rate Calc 104 >90 mL/min Random Glucose 66 L 70-105 mg/dL Total Calcium 8.1 L 8.5-10.1 mg/dL Phosphorus Level 3.8 2.5-4.9 mg/dL Magnesium Level 1.90 1.80-2.40 mg/dL Current Medications Medications (Trade) Dose Ordered Sig/Silvia Route PRN Reason Start Time Stop Time Status Last Admin Dose Admin Acetaminophen (TYLenol 325MG TAB) 650 mg Q6H PRN PO TEMPERATURE GREATER THAN 101.5 03/16/25 19:00 04/15/25 18:59 Acetaminophen (TYLenol 500MG TAB) 500 mg AD PRN PO PAIN 03/17/25 10:00 03/17/25 09:50 DC Aspirin (Aspirin 81mg Chew Tab) 81 mg DAILY PO 03/18/25 09:00 03/19/25 14:19 DC Aztreonam (Azactam) 2 gm Q8H IVPB 03/16/25 19:00 03/23/25 07:34 DC 03/23/25 05:26 2 GM Aztreonam 2 gm/ Sodium Chloride 100 ml @ 100 mls/hr Q8H IVPB 03/23/25 11:00 03/26/25 18:59 03/24/25 03:26 100 MLS/HR Dextrose 1,000 ml @ 50 mls/hr Q20H IV 03/19/25 20:00 03/22/25 12:32 DC 03/21/25 00:42 50 MLS/HR Enoxaparin Sodium (Lovenox) 40 mg DAILY SQ 03/17/25 09:00 04/16/25 08:59 03/23/25 08:00 40 MG Ergocalciferol (Drisdol) 50,000 unit QWEEK PO 03/24/25 09:00 04/23/25 08:59 03/24/25 08:18 50,000 UNIT Famotidine (Pepcid 20mg Vial) 20 mg DAILY IV 03/17/25 09:00 03/17/25 09:51 DC 03/17/25 08:43 20 MG Glucagon (Glucagon 1mg Kit) 1 mg AD PRN IM PROTOCOL 03/23/25 20:30 04/22/25 20:29 Hydralazine HCl (APRESOLine 20MG INJ) 5 mg Q6H PRN IV For:SBP above 160;DBP above 90 03/19/25 19:00 04/18/25 18:59 Hydralazine HCl (APRESOLine 20MG INJ) 10 mg Q6H PRN IV For:SBP above 160;DBP above 90 03/16/25 19:00 03/19/25 14:19 DC Hydromorphone HCl (DiLAUDid 0.5MG INJ) 0.5 mg Q4H PRN IVP SEVERE PAIN (7-10) 03/16/25 19:00 03/21/25 18:59 DC Lactated Ringer's 1,000 ml @ 100 mls/hr Q10H IV 03/16/25 19:00 03/22/25 12:32 DC 03/22/25 03:27 100 MLS/HR Magnesium Sulfate 50 ml @ 0 mls/hr PROTOCOL IV 03/17/25 07:00 03/21/25 00:10 DC 03/18/25 07:53 20 MLS/HR Magnesium Sulfate 50 ml @ 0 mls/hr PROTOCOL PRN IV MAGNESIUM PROTOCOL 03/21/25 00:30 04/20/25 00:29 03/21/25 20:34 25 MLS/HR Miscellaneous Medication (Famotidine ) 40 mg HS PO 03/17/25 21:00 03/17/25 09:50 DC Multivitamins/ Minerals 10 ml/ Folic Acid 1 mg/ Thiamine HCl 100 mg/Sodium Chloride 1,010 ml @ 75 mls/hr DAILY IV 03/22/25 12:30 03/24/25 16:00 03/24/25 08:18 75 MLS/HR Ondansetron HCl (zoFRAN 4MG TABLET) 4 mg Q4H PRN PO nausea/vomiting 03/17/25 10:00 03/19/25 06:56 DC 03/18/25 07:52 4 MG Ondansetron HCl (zoFRAN 4MG INJ) 4 mg Q6H PRN IV NAUSEA/VOMITING 03/16/25 19:00 03/17/25 09:51 DC Ondansetron HCl (zoFRAN 4MG INJ) 4 mg Q6H PRN IVP NAUSEA/VOMITING 03/18/25 10:30 04/17/25 10:29 03/23/25 21:14 4 MG Pantoprazole Sodium (PROTonix 40MG INJ) 40 mg BID IVP 03/17/25 21:00 03/18/25 07:32 DC 03/17/25 20:28 40 MG Pantoprazole Sodium (PROTonix 40MG INJ) 40 mg BID IVP 03/19/25 21:00 04/18/25 20:59 03/24/25 08:18 40 MG Pantoprazole Sodium (PROTonix 40MG INJ) 40 mg ONCE IVP 03/16/25 17:30 03/16/25 21:30 DC 03/16/25 17:56 40 MG Pantoprazole Sodium (PROTonix 40MG TAB) 40 mg DAILY PO 03/18/25 09:00 03/19/25 14:19 DC Potassium Chloride 100 ml @ 50 mls/hr AD PRN IV POTASSIUM PROTOCOL 03/16/25 19:00 04/15/25 18:59 03/22/25 14:31 50 MLS/HR Potassium Chloride 100 ml @ 50 mls/hr ONCE IV 03/17/25 21:00 03/17/25 23:59 DC 03/18/25 00:09 50 MLS/HR Sodium Chloride 1,000 ml @ 0 mls/hr ONCE IV 03/16/25 17:30 03/17/25 17:29 DC 03/16/25 17:56 999 MLS/HR Sucralfate (Carafate) 1 gm ACHS PO 03/17/25 17:11 04/16/25 17:10 03/17/25 18:38 1 GM DIAGNOSTICS / RADIOLOGY: [ ] ASSESSMENT: Severe GERD secondary to severe stenosis gastrojejunal anastomosis, POA Patient is status post EGD 03/19/2025, with the finding of gastric bypass with normal size pouch. 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 Status post dilatation. Hypokalemia, POA Urinary tract infection, secondary to diphtheroids, contaminant POA Severe Abdominal pain, POA Intractable Nausea, vomiting, POA History of stroke GERD Uncontrolled hypertension POA Irritable bowel syndrome POA History of gastric bypass January 02, 2025] PLAN: Patient is a 54-year-old female, underwent gastric bypass with a Dr. David. January 02, 2025, came complaining of abdominal discomfort. Proceed with EGD as scheduled in the morning. Maintain NPO status after midnight. Continue to monitor for any changes in symptoms. Update family as needed. 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 Hypokalemia: * Replace potassium per hospital protocol. * Monitor patient's labs. * Repeat potassium tomorrow morning Urinary tract infection: * Patient has a documented allergy to penicillin, ciprofloxacin, nitrofurantoin, sulfamethoxazole, trimethoprim. * Continue aztreonam 2 g IV Q 8 hours. * Urine culture came back positive for Gram-positive rods resembling diphtheroids Abdominal pain, nausea, vomiting: LR at 100ml/hr Patient has a documented allergy to codeine. As needed analgesia with Dilaudid. Continue with current diet Consider CT of abdomen and pelvis if no improvement in symptoms. As-needed antiemetic, Zofran. Hypertension: Home medication reconciled by [facility] 03/17/2025 At time of admission home medications have not been reconciled. For now: Hydralazine 10 mg IV every 4 hours for systolic blood pressure greater than 160 mmHg GI prophylaxis, famotidine DVT prophylaxis, Lovenox We will repeat labs tomorrow Case discussed with Dr. Barrett, above plan was formulated ATTESTATION BY PHYSICIAN I have seen and examined the patient. I reviewed the documentation, medical decision making, and treatment plan as noted by the mid-level provider above. I agree with the findings and plan of care. Jessica Schuler MD, [facility] Mar 24, 2025 11:54
--- NOTE | 2025-03-24 20:30 | NUR ---
PATIENT REFUSING GLUCAGON FOR BLOOD SUGAR OF 64. PATIENT SHOWING NO SYMPTOMS OF HYPOGLYCEMIA AT THIS TIME. GIVEN APPLE JUICE, PENDING TO RECONNECT [facility] WHEN NEW ACCESS IS PLACED.
[2025-03-24] MEDS ORDERED: AZTREONAM IVPB SCH (23:00)
[2025-03-24] MEDS ORDERED: [UNRECOGNIZED DRUG - OTHER] IVPB SCH (23:00)
[2025-03-25 03:18] VITALS: BP 96/53; PULSE 64; RESP 20; TEMP 97.5
[2025-03-25 05:15] LABS: NUCLEATED RED BLOOD CELLS 0.0 % (0.0-0.19); PLATELET COUNT (AUTO) 102.0 K/uL (130-400); RED BLOOD CELL COUNT(AUTO) 3.93 MIL/uL (4.00-5.50); RED CELL DISTRIBUTION WIDTH 14.2 % (11.0-15.5); WHITE BLOOD COUNT (AUTO) 3.2 K/uL (4.8-10.8)
[2025-03-25 05:35] LABS: ASPARTATE AMINOTRANSFERASE 23.0 U/L (10-37); CREATININE 0.6 mg/dL (0.5-1.0); GLOMERULAR FILTR. RATE CALC 108.0 mL/min (>90); GLUCOSE,RANDOM 67.0 mg/dL (70-105); SODIUM SERUM 146.0 mmol/L (136-145); TOTAL PROTEIN, SERUM 5.3 g/dL (6.0-8.3); UREA NITROGEN, BLOOD 5.0 mg/dL (7-18)
[2025-03-25] MEDS: [UNRECOGNIZED DRUG - OTHER] IVPB SCH (07:11)
[2025-03-25] MEDS: AZTREONAM IVPB SCH (07:11)
[2025-03-25 07:50] VITALS: BP 127/83; PULSE 63; RESP 18; TEMP 97.6
--- NOTE | 2025-03-25 09:26 | PN ---
[facility] PROGRESS NOTE Date of Service: Mar 25, 2025 Time of Service: 09:23 SUBJECTIVE: [03/16 Ms. Valdez is a 54-year-old female that was seen and examined today on 03/16/2025. Patient is a good historian of personal health Patient states that she came to the emergency department with a chief complaint of abdominal pain. Onset was two weeks ago. Location is epigastric. Duration is on and off. Character is described as burning. Symptoms are aggravated with eating. There was no alleviating factors. Patient reports associated nausea and vomiting. Patient reports that she ran out of her Protonix two weeks ago. Today in the emergency department CBC unremarkable, potassium 2.7, urinalysis positive for leukocyte esterase and WBCs 11-25 per high-powered microscopy field. Emergency room physician recommended patient be admitted with a diagnosis of hypokalemia and urinary tract infection. 03/17 patient was seen by nurse practitioner and physician during rounding in the room 311. Patient continues to complain of abdominal pain with nausea and vomiting. Patient stated that just this year in January 02 patient underwent g astric bypass with a Dr. David. We will consult above-stated doctor for further evaluation. We will also order CT abdomen/pelvis. Potassium to be replaced per protocol. We will continue to monitor the patient meantime. A.m. labs ] 03/18 patient remains admitted to the medical floor, BP 112/69, heart rate of 55, afebrile, saturating normal on room air. CBC with a hemoglobin 12.2, hematocrit 35.4, platelet count of 119. Sodium 142, potassium 3.3, magnesium 1.7. UA leukocyte esterase 250, 11-25 WBC per high-power field. Urine culture preliminary report no growth 18-[address] of the abdomen and pelvis shows a 1 mm calculus in the upper pole of the right kidney, no additional urinary calculi, no hydronephrosis, no bowel obstruction or inflammation, normal appendix, small uncomplicated fat containing umbilical hernia, no acute interval changes. At the time of my Visit patient comfortably in bed, alert oriented x3, admits epigastric discomfort, burning type, mild nausea but not actively vomiting. She also feels hungry. Getting IV fluids. Case discussed with the RN, no acute events overnight. 03/19 patient remains admitted to the medical floor, blood pressure 126/75, afebrile, saturating normal on room air. CBC stable, potassium 3.4, magnesium 2.0. Results of urine culture positive for [id number] asia (likely contaminant). Patient remains afebrile, no leukocytosis, results of urine culture likely contaminant from normal skin tristan, we will monitor off antibiotics. Patient is scheduled for EGD today. Continue replacing potassium IV per protocol. Follow electrolytes in a.m.. Advanced diet as tolerated and anticipate discharge home in the next 24 hours. At The time of my visit patient comfortable, scheduled for EGD, awake, following commands, case discussed with the RN, no acute events overnight. 03/20 patient remains admitted to the medical floor, hemodynamically stable, afebrile, saturating normal on room air. Patient is status post EGD 03/19/2025, with the finding of gastric bypass with normal size pouch. 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 Status post dilatation. Patient in agreement for PICC line and TPN. Per gastroenterology recommended NPO, to consult Dr David for evaluation for surgical revision. At the time of my visit the patient comfortably in bed, alert oriented x3, case discussed with the RN, no acute events overnight, patient in agreement for PICC line and TPN. 03/21 Patient is a 54-year-old female, underwent gastric bypass with a Dr. David. January 02, 2025, came complaining of abdominal discomfort. Patient is status post EGD 03/19/2025, with the finding of gastric bypass with normal size pouch. 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 Status post dilatation. Patient is started on clear liquid diet by General surgery, continue to follow recommendations. 03/22/25: Patient evaluated in her room. Patient appeared stable. Patient has low potassium levels so she is getting IV potassium infusions. Patient denied EGD to be performed today. Patient is started on clear liquids but she is not able to handle all of it. Patient had a abdominal x-ray performed waiting on report. Had a long discussion multiple times with the patient regarding her EGD. Patient is still has not decided whether she wants to go ahead with the EGD at the hospital or wants to be discharged and go home and get the EGD done outpatient. We will reassess the situation again tomorrow with the patient to see if she has decided on any particular treatment options. 03/23/25 The patient was evaluated in the room and continues to experience nausea. She is currently on a clear liquid diet. EGD was performed on 03/21/2025 with post-dilation. The plan is to repeat the EGD; however, the patient declined the procedure yesterday and is considering proceeding on Tuesday. We will continue to monitor the patients pain and comfort and will follow gastroenterology recommendations. 03/24/25 Patient evaluated in the room with family at bedside. The patient continues to report a sensation of fullness, even while on a clear liquid diet. The patient and family are in agreement with proceeding with the EGD scheduled for tomorrow morning. The GI team will be contacted to confirm the EGD timing. The patient will remain NPO after midnight in preparation for the procedure. 03/25/25 patient is seen and examined patient is lying in bed encouraged patient out of bed to chair as tolerated. EGD is scheduled for tomorrow. She continues with TPN for nutritional support and continue with clears diet. REVIEW OF SYSTEMS CONSTITUTIONAL: Denies fevers, chills, or night sweats. No unintentional weight loss reported. NEUROLOGICAL: Denies headache, amaurosis fugax, motor weakness, sensory deficit, vertigo/spinning sensation, gait abnormalities, or tremors. ENT: No hearing loss, otalgia, otorrhea, rhinitis, rhinorrhea, hoarseness, or sore throat. CARDIOVASCULAR: Denies any exertional angina, dyspnea on exertion, orthopnea, paroxysmal nocturnal dyspnea, palpitations, life-threatening arrhythmias, claudication. PULMONARY: Denies any shortness of breath, cough, phlegm/sputum, hemoptysis, pleuritic chest pain. SLEEP: Denies morning headaches, daytime somnolence or napping. Denies difficulty falling asleep, staying asleep, waking from sleep. Denies knowledge of snoring. GASTROINTESTINAL: Denies any type of dysphagia to either liquids or solids. Denies nausea, vomiting, pyrosis, early satiety, diarrhea, constipation, or changes in stool consistency or caliber. Denies coffee-ground emesis, hematemesis, hematochezia, or melanotic stools. Complains of abdominal pain GENITOURINARY: Denies frequency, urgency, nocturia, hematuria or incontinence (Storage/Irritative symptoms.) Low urinary stream, straining to void, urinary intermittency or hesitancy, splitting of the voiding stream, terminal dribbling. ENDOCRINOLOGIC: Denies polyuria, polydipsia, polyphagia or heat/cold intolerances. HEMATOLOGIC: Denies thrombophilia/previous clots, or coagulopathy/bleeding disorders. ONCOLOGIC: Denies personal history of malignancy. DERMATOLOGIC: Denies rashes or pruritus. PSYCHIATRIC: Denies any suicidal or homicidal ideation. Denies hallucinations. PHYSICAL EXAM GENERAL APPEARANCE: The patient is awake, alert, and oriented, in no acute cardiopulmonary distress. NEUROLOGICAL: Cranial nerves II-XII grossly intact. Motor is 5/5 in bilateral upper and lower extremities proximal to distal. No sensory deficits. HEENT: Face is symmetric. Pupils are equal and reactive. Extraocular movements are intact. NECK: Supple. No JVD. No thyromegaly. No submental, submandibular, pre- /postauricular, occipital or supraclavicular lymphadenopathy. CHEST: Normal chest expansion. No Telemetry. LUNGS: Absence of any rales, rhonchi or any wheezing. CARDIOVASCULAR: Regular. S1 and S2 normal. No appreciable rubs, murmurs or gallops. ABDOMEN: Soft, nontender, and nondistended. There is no rebound, voluntary guarding, or rigidity. : Deferred. No Garrett. EXTREMITIES: Non-edematous and not cyanotic. No clubbing. Good capillary refill. SKIN: No skin breakdown. Vital Signs (last 8hr) Date Time Temp Pulse Resp B/P (MAP) Pulse Ox O2 Delivery O2 Flow Rate FiO2 03/25/25 07:50 97.5 63 18 127/83 99 Room Air 03/25/25 03:18 97.5 64 20 96/53 98 Room Air LABS: Laboratory: Test 03/25/25 04:55 03/25/25 04:53 Range/Units White Blood Count 3.2 L 4.8-10.8 K/uL Red Blood Count 3.93 L 4.00-5.50 MIL/uL Hemoglobin 11.8 L 12.0-16.0 g/dL Hematocrit 34.9 L 36-48 % Mean Corpuscular Volume 88.8 79-99 fL Mean Corpuscular Hemoglobin 30.0 27.0-33.0 pg Mean Corpuscular Hemoglobin Concent 33.8 32.0-36.0 g/dL Red Cell Distribution Width 14.2 11.0-15.5 % Platelet Count 102 L 130-400 K/uL Mean Platelet Volume 9.8 7.5-10.5 fL Nucleated Red Blood Cells 0.0 0.0-0.19 % Sodium Level 146 H 136-145 mmol/L Potassium Level 3.5 3.5-5.1 mmol/L Chloride Level 108 101-111 mmol/L Carbon Dioxide Level 27 21-32 mmol/L Blood Urea Nitrogen 5 L 7-18 mg/dL Creatinine 0.6 0.5-1.0 mg/dL Glomerular Filtration Rate Calc 108 >90 mL/min Random Glucose 67 L 70-105 mg/dL Total Calcium 8.1 L 8.5-10.1 mg/dL Total Bilirubin 0.6 0.2-1.0 mg/dL Aspartate Amino Transf (AST/SGOT) 23 10-37 U/L Alanine Aminotransferase (ALT/SGPT) 16 12-78 U/L Alkaline Phosphatase 52 50-136 U/L Total Protein 5.3 L 6.0-8.3 g/dL Albumin 2.4 L 3.5-5.0 g/dL Whole Blood Glucose 69 L 70-110 MG/DL Current Medications Medications (Trade) Dose Ordered Sig/Silvia Route PRN Reason Start Time Stop Time Status Last Admin Dose Admin Acetaminophen (TYLenol 325MG TAB) 650 mg Q6H PRN PO TEMPERATURE GREATER THAN 101.5 03/16/25 19:00 04/15/25 18:59 Acetaminophen (TYLenol 500MG TAB) 500 mg AD PRN PO PAIN 03/17/25 10:00 03/17/25 09:50 DC Aspirin (Aspirin 81mg Chew Tab) 81 mg DAILY PO 03/18/25 09:00 03/19/25 14:19 DC Aztreonam (Azactam) 2 gm Q8H IVPB 03/16/25 19:00 03/23/25 07:34 DC 03/23/25 05:26 2 GM Aztreonam 2 gm/ Sodium Chloride 100 ml @ 100 mls/hr Q8H IVPB 03/23/25 11:00 03/24/25 22:36 DC 03/24/25 22:35 100 MLS/HR Aztreonam 2 gm/ Sodium Chloride 100 ml @ 100 mls/hr Q8H IVPB 03/24/25 23:00 03/24/25 22:37 DC Aztreonam 2 gm/ Sodium Chloride 100 ml @ 100 mls/hr Q8H IVPB 03/25/25 07:00 03/26/25 06:59 03/25/25 07:11 100 MLS/HR Dextrose 1,000 ml @ 50 mls/hr Q20H IV 03/19/25 20:00 03/22/25 12:32 DC 03/21/25 00:42 50 MLS/HR Enoxaparin Sodium (Lovenox) 40 mg DAILY SQ 03/17/25 09:00 04/16/25 08:59 03/23/25 08:00 40 MG Ergocalciferol (Drisdol) 50,000 unit QWEEK PO 03/24/25 09:00 04/23/25 08:59 03/24/25 08:18 50,000 UNIT Famotidine (Pepcid 20mg Vial) 20 mg DAILY IV 03/17/25 09:00 03/17/25 09:51 DC 03/17/25 08:43 20 MG Glucagon (Glucagon 1mg Kit) 1 mg AD PRN IM PROTOCOL 03/23/25 20:30 04/22/25 20:29 Hydralazine HCl (APRESOLine 20MG INJ) 5 mg Q6H PRN IV For:SBP above 160;DBP above 90 03/19/25 19:00 04/18/25 18:59 Hydralazine HCl (APRESOLine 20MG INJ) 10 mg Q6H PRN IV For:SBP above 160;DBP above 90 03/16/25 19:00 03/19/25 14:19 DC Hydromorphone HCl (DiLAUDid 0.5MG INJ) 0.5 mg Q4H PRN IVP SEVERE PAIN (7-10) 03/16/25 19:00 03/21/25 18:59 DC Lactated Ringer's 1,000 ml @ 100 mls/hr Q10H IV 03/16/25 19:00 03/22/25 12:32 DC 03/22/25 03:27 100 MLS/HR Magnesium Sulfate 50 ml @ 0 mls/hr PROTOCOL IV 03/17/25 07:00 03/21/25 00:10 DC 03/18/25 07:53 20 MLS/HR Magnesium Sulfate 50 ml @ 0 mls/hr PROTOCOL PRN IV MAGNESIUM PROTOCOL 03/21/25 00:30 04/20/25 00:29 03/21/25 20:34 25 MLS/HR Miscellaneous Medication (Famotidine ) 40 mg HS PO 03/17/25 21:00 03/17/25 09:50 DC Multivitamins/ Minerals 10 ml/ Folic Acid 1 mg/ Thiamine HCl 100 mg/Sodium Chloride 1,010 ml @ 75 mls/hr DAILY IV 03/22/25 12:30 03/24/25 16:00 DC 03/24/25 08:18 75 MLS/HR Ondansetron HCl (zoFRAN 4MG TABLET) 4 mg Q4H PRN PO nausea/vomiting 03/17/25 10:00 03/19/25 06:56 DC 03/18/25 07:52 4 MG Ondansetron HCl (zoFRAN 4MG INJ) 4 mg Q6H PRN IV NAUSEA/VOMITING 03/16/25 19:00 03/17/25 09:51 DC Ondansetron HCl (zoFRAN 4MG INJ) 4 mg Q6H PRN IVP NAUSEA/VOMITING 03/18/25 10:30 04/17/25 10:29 03/24/25 21:10 4 MG Pantoprazole Sodium (PROTonix 40MG INJ) 40 mg BID IVP 03/17/25 21:00 03/18/25 07:32 DC 03/17/25 20:28 40 MG Pantoprazole Sodium (PROTonix 40MG INJ) 40 mg BID IVP 03/19/25 21:00 04/18/25 20:59 03/25/25 07:51 40 MG Pantoprazole Sodium (PROTonix 40MG INJ) 40 mg ONCE IVP 03/16/25 17:30 03/16/25 21:30 DC 03/16/25 17:56 40 MG Pantoprazole Sodium (PROTonix 40MG TAB) 40 mg DAILY PO 03/18/25 09:00 03/19/25 14:19 DC Potassium Chloride 100 ml @ 50 mls/hr AD PRN IV POTASSIUM PROTOCOL 03/16/25 19:00 04/15/25 18:59 03/22/25 14:31 50 MLS/HR Potassium Chloride 100 ml @ 50 mls/hr ONCE IV 03/17/25 21:00 03/17/25 23:59 DC 03/18/25 00:09 50 MLS/HR Sodium Chloride 1,000 ml @ 0 mls/hr ONCE IV 03/16/25 17:30 03/17/25 17:29 DC 03/16/25 17:56 999 MLS/HR Sucralfate (Carafate) 1 gm ACHS PO 03/17/25 17:11 04/16/25 17:10 03/17/25 18:38 1 GM DIAGNOSTICS / RADIOLOGY: [ ] ASSESSMENT: Severe GERD secondary to severe stenosis gastrojejunal anastomosis, POA Patient is status post EGD 03/19/2025, with the finding of gastric bypass with normal size pouch. 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 Status post dilatation. Hypokalemia, POA Urinary tract infection, secondary to diphtheroids, contaminant POA Severe Abdominal pain, POA Intractable Nausea, vomiting, POA History of stroke GERD Uncontrolled hypertension POA Irritable bowel syndrome POA History of gastric bypass January 02, 2025] PLAN: Patient is a 54-year-old female, underwent gastric bypass with a Dr. David. January 02, 2025, came complaining of abdominal discomfort. Proceed with EGD scheduled for tomorrow 03/26/2025 Diet clear liquid diet continue TPN for nutritional support. Continue to monitor for any changes in symptoms. Update family as needed. 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 Hypokalemia: * Replace potassium per hospital protocol. * Monitor patient's labs. * Repeat potassium tomorrow morning Urinary tract infection: * Patient has a documented allergy to penicillin, ciprofloxacin, nitrofurantoin, sulfamethoxazole, trimethoprim. * Continue aztreonam 2 g IV Q 8 hours. * Urine culture came back positive for Gram-positive rods resembling diphtheroids Abdominal pain, nausea, vomiting: LR at 100ml/hr Patient has a documented allergy to codeine. As needed analgesia with Dilaudid. Continue with current diet Consider CT of abdomen and pelvis if no improvement in symptoms. As-needed antiemetic, Zofran. Hypertension: Home medication reconciled by [facility]AUR[facility] ASSISTANT 03/17/2025 At time of admission home medications have not been reconciled. For now: Hydralazine 10 mg IV every 4 hours for systolic blood pressure greater than 160 mmHg GI prophylaxis, famotidine DVT prophylaxis, Lovenox We will repeat labs tomorrow Case discussed with Dr. Barrett, above plan was formulated ATTESTATION BY PHYSICIAN I have seen and examined the patient. I reviewed the documentation, medical decision making, and treatment plan as noted by the mid-level provider above. I agree with the findings and plan of care. Jessica Schuler MD, ELIZABETH NP Mar 25, 2025 09:26
--- NOTE | 2025-03-25 10:44 | NUR ---
Nutrition f/u Reviewed labs, notes, and medications. B6 3(L), B1 50(L), on CLD, BG 67(L), Ca 8.1(L), Na 146(H), EGD this AM per chart review. 75%PO intake, wt via standing scale, last BM 03/23/25, 325 ml 03/24/25 per nursing. Communicated with nursing. Pt with a banana bag this AM, to talk to primary regarding labs, and continuing banana bag for 5-7 days and to repeat labs per nursing. PT LOW ON THIAMINE B1 AND B6 pyridoxine. IF THIAMINE DEFICIENCY PRESENT IT MAY LEAD TO WERNICKE -KORSAKOFF SYNDROME. Strongly consider banana bag with thiamine 100 mg/day for 5-7 days per Pt with severe wt loss and poor PO intake. Pt received banana bag since 03/22/25. Repeat labs after Pt receiving banana bag for 7 days, B-1 and b6 labs take 1 week for results. Recommendations: -Provide phase I for 1 week -Advance to phase II FLD when medically feasible -Monitor diet tolerance -Encourage PO intake as able -Monitor BM -Monitor electrolytes -Replenish electrolytes per protocol -Monitor wts -Reweigh as able -Continue banana bag due to Pt low on thiamine and b6 labs -Recommend Pt to follow up with PCP -Monitor goals of care RD to follow + available for consult per protocol Addendum: 03/25/25 at [address] Amended: Links added.
[2025-03-25 11:30] VITALS: BP 127/73; PULSE 64; RESP 18; TEMP 97.8
[2025-03-25] MEDS ORDERED: PHARMACY COMMUNICATION MISC SCH (12:00)
--- NOTE | 2025-03-25 12:48 | PN ---
GASTROENTEROLOGY PROGRESS NOTE Date of Visit: Mar 25, 2025 Time of Visit: 12:46 Events / Notes: [ EGD significant for evidence of gastric bypass with normal size gastric pouch. 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 No acute events overnight. VSS. Patient has tolerated small amount of liquid diet. No vomiting but nausea reported. EGD results explained to patient. Will consult bariatric team. Patient and spouse agreed. 03/22/25: Patient declined EGD this am. Dr. David consulted. recommended patient f/u as outpatient and EGD will be scheduled at that time. Information given to patient and instructed to continue on clear liquid diet until f/u appt. She verbalized understanding. 03/25/25: Patient continues to c/o nausea with clear fluids. She requested to have EGD with dilation in am. Her VSS. BBS are clear. Abdomen is soft and not distended. Active BS are present. Plan for EGD with dilation discussed with patient. She agreed to proceed. ] Review of Systems: CONSTITUTIONAL: No malaise or change in sensation of wellbeing. ENMT: No rhinorrhea, otorrhea, sinus pain, ear ache. CARDIOVASCULAR: No angina, palpitations, orthopnea or paroxysmal dyspnea. RESPIRATORY: No SOB. GASTROINTESTINAL: No abdominal pain, nausea, vomiting, diarrhea, hematemesis, melena or change in the patient's habitual bowel movements consistency/number. GENITOURINARY: No dysuria, hematuria or change in bladder continence. MUSCULOSKELETAL: No new muscle pain or decrease in muscular strength. No new joint swelling, redness or tenderness. SKIN: No new rash. Physical Exam: GEN: Awake, alert, oriented in person, time and place, and in no acute distress. HEENT: No rhinorrhea. Oral pharyngeal mucosa is pink, moist and within normal l imits. CHEST: Inspection, palpation of the chest were unremarkable. Lung auscultation revealed normal breath sounds bilaterally. CARDIAC: PMI is within normal limits. Heart sounds are regular. ABD: Soft, mildly tender to epigastric region, and not distended. No peritoneal signs on palpation. No organomegaly. Normal bowel sounds. EXT: No cyanosis or clubbing. No edema. SKIN: Intact. No rashes. JOINTS: No evidence of synovitis or acute arthritis. NEURO: Alert and oriented to name, place and person. Cranial nerve examination is unremarkable. No focal motor deficits. Normal speech. Strength is normal. Vital Signs (last 8hr) Date Time Temp Pulse Resp B/P (MAP) Pulse Ox O2 Delivery O2 Flow Rate FiO2 03/25/25 11:30 97.9 64 18 127/73 100 Room Air 03/25/25 07:50 97.5 63 18 127/83 99 Room Air Laboratory: [ ] Laboratory: Test 03/25/25 10:58 03/25/25 04:55 Range/Units Whole Blood Glucose 73 70-110 MG/DL White Blood Count 3.2 L 4.8-10.8 K/uL Red Blood Count 3.93 L 4.00-5.50 MIL/uL Hemoglobin 11.8 L 12.0-16.0 g/dL Hematocrit 34.9 L 36-48 % Mean Corpuscular Volume 88.8 79-99 fL Mean Corpuscular Hemoglobin 30.0 27.0-33.0 pg Mean Corpuscular Hemoglobin Concent 33.8 32.0-36.0 g/dL Red Cell Distribution Width 14.2 11.0-15.5 % Platelet Count 102 L 130-400 K/uL Mean Platelet Volume 9.8 7.5-10.5 fL Nucleated Red Blood Cells 0.0 0.0-0.19 % Sodium Level 146 H 136-145 mmol/L Potassium Level 3.5 3.5-5.1 mmol/L Chloride Level 108 101-111 mmol/L Carbon Dioxide Level 27 21-32 mmol/L Blood Urea Nitrogen 5 L 7-18 mg/dL Creatinine 0.6 0.5-1.0 mg/dL Glomerular Filtration Rate Calc 108 >90 mL/min Random Glucose 67 L 70-105 mg/dL Total Calcium 8.1 L 8.5-10.1 mg/dL Total Bilirubin 0.6 0.2-1.0 mg/dL Aspartate Amino Transf (AST/SGOT) 23 10-37 U/L Alanine Aminotransferase (ALT/SGPT) 16 12-78 U/L Alkaline Phosphatase 52 50-136 U/L Total Protein 5.3 L 6.0-8.3 g/dL Albumin 2.4 L 3.5-5.0 g/dL Current Medications Medications (Trade) Dose Ordered Sig/Silvia Route PRN Reason Start Time Stop Time Status Last Admin Dose Admin Acetaminophen (TYLenol 325MG TAB) 650 mg Q6H PRN PO TEMPERATURE GREATER THAN 101.5 03/16/25 19:00 04/15/25 18:59 Acetaminophen (TYLenol 500MG TAB) 500 mg AD PRN PO PAIN 03/17/25 10:00 03/17/25 09:50 DC Aspirin (Aspirin 81mg Chew Tab) 81 mg DAILY PO 03/18/25 09:00 03/19/25 14:19 DC Aztreonam (Azactam) 2 gm Q8H IVPB 03/16/25 19:00 03/23/25 07:34 DC 03/23/25 05:26 2 GM Aztreonam (Azactam) 2 gm Q8H IVPB 03/25/25 15:00 04/04/25 14:59 Aztreonam 2 gm/ Sodium Chloride 100 ml @ 100 mls/hr Q8H IVPB 03/23/25 11:00 03/24/25 22:36 DC 03/24/25 22:35 100 MLS/HR Aztreonam 2 gm/ Sodium Chloride 100 ml @ 100 mls/hr Q8H IVPB 03/24/25 23:00 03/24/25 22:37 DC Aztreonam 2 gm/ Sodium Chloride 100 ml @ 100 mls/hr Q8H IVPB 03/25/25 07:00 03/25/25 10:56 DC 03/25/25 07:11 100 MLS/HR Dextrose 1,000 ml @ 50 mls/hr Q20H IV 03/19/25 20:00 03/22/25 12:32 DC 03/21/25 00:42 50 MLS/HR Enoxaparin Sodium (Lovenox) 40 mg DAILY SQ 03/17/25 09:00 04/16/25 08:59 03/25/25 09:58 40 MG Ergocalciferol (Drisdol) 50,000 unit QWEEK PO 03/24/25 09:00 04/23/25 08:59 03/24/25 08:18 50,000 UNIT Famotidine (Pepcid 20mg Vial) 20 mg DAILY IV 03/17/25 09:00 03/17/25 09:51 DC 03/17/25 08:43 20 MG Glucagon (Glucagon 1mg Kit) 1 mg AD PRN IM PROTOCOL 03/23/25 20:30 04/22/25 20:29 Hydralazine HCl (APRESOLine 20MG INJ) 5 mg Q6H PRN IV For:SBP above 160;DBP above 90 03/19/25 19:00 04/18/25 18:59 Hydralazine HCl (APRESOLine 20MG INJ) 10 mg Q6H PRN IV For:SBP above 160;DBP above 90 03/16/25 19:00 03/19/25 14:19 DC Hydromorphone HCl (DiLAUDid 0.5MG INJ) 0.5 mg Q4H PRN IVP SEVERE PAIN (7-10) 03/16/25 19:00 03/21/25 18:59 DC Lactated Ringer's 1,000 ml @ 100 mls/hr Q10H IV 03/16/25 19:00 03/22/25 12:32 DC 03/22/25 03:27 100 MLS/HR Magnesium Sulfate 50 ml @ 0 mls/hr PROTOCOL IV 03/17/25 07:00 03/21/25 00:10 DC 03/18/25 07:53 20 MLS/HR Magnesium Sulfate 50 ml @ 0 mls/hr PROTOCOL PRN IV MAGNESIUM PROTOCOL 03/21/25 00:30 04/20/25 00:29 03/21/25 20:34 25 MLS/HR Miscellaneous Medication (Famotidine ) 40 mg HS PO 03/17/25 21:00 03/17/25 09:50 DC Multivitamins/ Minerals 10 ml/ Folic Acid 1 mg/ Thiamine HCl 100 mg/Sodium Chloride 1,010 ml @ 75 mls/hr DAILY IV 03/22/25 12:30 03/24/25 16:00 DC 03/24/25 08:18 75 MLS/HR Multivitamins/ Minerals 10 ml/ Folic Acid 1 mg/ Thiamine HCl 100 mg/Sodium Chloride 1,010 ml @ 75 mls/hr Q24H IV 03/25/25 12:00 03/27/25 01:27 Ondansetron HCl (zoFRAN 4MG TABLET) 4 mg Q4H PRN PO nausea/vomiting 03/17/25 10:00 03/19/25 06:56 DC 03/18/25 07:52 4 MG Ondansetron HCl (zoFRAN 4MG INJ) 4 mg Q6H PRN IV NAUSEA/VOMITING 03/16/25 19:00 03/17/25 09:51 DC Ondansetron HCl (zoFRAN 4MG INJ) 4 mg Q6H PRN IVP NAUSEA/VOMITING 03/18/25 10:30 04/17/25 10:29 03/25/25 09:58 4 MG Pantoprazole Sodium (PROTonix 40MG INJ) 40 mg BID IVP 03/17/25 21:00 03/18/25 07:32 DC 03/17/25 20:28 40 MG Pantoprazole Sodium (PROTonix 40MG INJ) 40 mg BID IVP 03/19/25 21:00 04/18/25 20:59 03/25/25 07:51 40 MG Pantoprazole Sodium (PROTonix 40MG INJ) 40 mg ONCE IVP 03/16/25 17:30 03/16/25 21:30 DC 03/16/25 17:56 40 MG Pantoprazole Sodium (PROTonix 40MG TAB) 40 mg DAILY PO 03/18/25 09:00 03/19/25 14:19 DC Pharmacy Profile Note (Pharmacy Communication) 1 each ONCE MISC 03/25/25 12:00 03/25/25 11:43 DC Potassium Chloride 100 ml @ 50 mls/hr AD PRN IV POTASSIUM PROTOCOL 03/16/25 19:00 04/15/25 18:59 03/22/25 14:31 50 MLS/HR Potassium Chloride 100 ml @ 50 mls/hr ONCE IV 03/17/25 21:00 03/17/25 23:59 DC 03/18/25 00:09 50 MLS/HR Sodium Chloride 1,000 ml @ 0 mls/hr ONCE IV 03/16/25 17:30 03/17/25 17:29 DC 03/16/25 17:56 999 MLS/HR Sucralfate (Carafate) 1 gm ACHS PO 03/17/25 17:11 04/16/25 17:10 03/17/25 18:38 1 GM Diagnostics / Radiology: [COPY/PASTE HERE IF NO REPORTS PLEASE DELETE SECTION] Assessment: [ Epigastric pain Nausea and vomiting Gastrojejunal anastomosis with severe stenosis Hx of bariatric surgery ] Plan: Continue with clear liquid diet Continue Gi prophylaxis NPO after midnight Plan for EGD with dilation in am 03/26/25 Patient is to f/u at [facility] on 03/29/25 at 2:00pm Please call with questions, concerns, and change in clinical status Thank you for this consult. ] JOSHUA MILIAN NP Mar 25, 2025 12:48
[2025-03-25] MEDS: M.V.I. IV [ADULT] 10 ML, FOLic ACID 5 MG/ML VIAL 1 MG, THIAMINE HCL 100 MG in 0.9%NACL ... IV SCH (13:42)
--- NOTE | 2025-03-25 14:26 | NUR ---
SCHEDULING SPOKE TO [facility] WITH CENTRAL SCHEDULING. PT HAS BEEN SCHEDULED FOR EGD WITH DILATION FOR TOMORROW. ORDER HAS BEEN FAXED TO [id number]
[2025-03-25 15:46] VITALS: BP 117/70; PULSE 60; RESP 19; TEMP 97.9
[2025-03-25] MEDS: AZTREONAM 2 GM VIAL IVPB SCH (15:53)
[2025-03-25 20:00] VITALS: BP 108/66; PULSE 63; RESP 17; TEMP 98.2; O2SAT 99
[2025-03-26] VITALS (20 sets, daily range): BP systolic 97–138; BP diastolic 59–97; PULSE 61–90; RESP 16–20; TEMP 97.5–98.3; O2SAT 97
--- NOTE | 2025-03-26 05:25 | NUR ---
BLOOD SUGAR: BLOOD SUGAR-65. PT IS NPO FOR EGD WITH DILATION IN AM. Bruno FRANCIS, SILO OPERATOR NOTIFIED OF BLOOD SUGAR AND NPO STATUS. NEW ORDERS FOR D5 NS IV AT 75ML/HR. PT EXPLAINED OF NEW ORDERS FOR IV FLUIDS, VERBALIZES UNDERSTANDING.
[2025-03-26 05:29] LABS: NUCLEATED RED BLOOD CELLS 0.0 % (0.0-0.19); PLATELET COUNT (AUTO) 101 K/uL (130-400); RED BLOOD CELL COUNT(AUTO) 3.82 MIL/uL (4.00-5.50); RED CELL DISTRIBUTION WIDTH 14.4 % (11.0-15.5); WHITE BLOOD COUNT (AUTO) 2.9 K/uL (4.8-10.8)
[2025-03-26] MEDS: DEXTROSE 5 % AND 0.9 % NACL 1,000 ML IV SCH (05:31)
[2025-03-26 05:54] LABS: EOSINOPHILS % (MANUAL) 2 % (1-6); LYMPHOCYTES % (MANUAL) 40 % (22-44); MAN.DIFF COMMENT-IMPRESSION MANUAL DIFFERENTIAL; MONOCYTES % (MANUAL) 8 % (2-9); PLATELET MORPHOLOGY COMMENT SLIGHTLY DECREASED; SEGMENTED NEUTROPHILS % 50 % (40-70)
[2025-03-26 05:58] LABS: ASPARTATE AMINOTRANSFERASE 22.0 U/L (10-37); CREATININE 0.6 mg/dL (0.5-1.0); GLOMERULAR FILTR. RATE CALC 108.0 mL/min (>90); GLUCOSE,RANDOM 69.0 mg/dL (70-105); SODIUM SERUM 140.0 mmol/L (136-145); TOTAL PROTEIN, SERUM 5.3 g/dL (6.0-8.3); UREA NITROGEN, BLOOD 6.0 mg/dL (7-18)
--- NOTE | 2025-03-26 07:20 | NUR ---
PATIENT TAKEN DOWNSTAIRS TO EGD. NO SIGNS OF DISTRESS NOTED.
--- NOTE | 2025-03-26 08:32 | NUR ---
REPORT RECEIVED FROM KEL SMILEY. PATIENT TOLERATED PROCEDURE WELL. PATIENT WILL BACK UP FROM PROCEDURE IN 20 MIN.
--- NOTE | 2025-03-26 08:51 | NUR ---
PATIENT ARRIVED BACK TO THE UNIT FROM EGD. NO SIGNS OF DISTRESS NOTED. PATIENT STATES SHES NAUSEOUS. PATIENT CONNECTED TO VITAL MACHINE FOR MONITORING POST PROCEDURE.
--- NOTE | 2025-03-26 09:46 | PN ---
[facility] PROGRESS NOTE Date of Service: Mar 26, 2025 Time of Service: 09:44 SUBJECTIVE: [03/16 Ms. Valdez is a 54-year-old female that was seen and examined today on 03/16/2025. Patient is a good historian of personal health Patient states that she came to the emergency department with a chief complaint of abdominal pain. Onset was two weeks ago. Location is epigastric. Duration is on and off. Character is described as burning. Symptoms are aggravated with eating. There was no alleviating factors. Patient reports associated nausea and vomiting. Patient reports that she ran out of her Protonix two weeks ago. Today in the emergency department CBC unremarkable, potassium 2.7, urinalysis positive for leukocyte esterase and WBCs 11-25 per high-powered microscopy field. Emergency room physician recommended patient be admitted with a diagnosis of hypokalemia and urinary tract infection. 03/17 patient was seen by nurse practitioner and physician during rounding in the room 311. Patient continues to complain of abdominal pain with nausea and vomiting. Patient stated that just this year in January 02 patient underwent g astric bypass with a Dr. David. We will consult above-stated doctor for further evaluation. We will also order CT abdomen/pelvis. Potassium to be replaced per protocol. We will continue to monitor the patient meantime. A.m. labs ] 03/18 patient remains admitted to the medical floor, BP 112/69, heart rate of 55, afebrile, saturating normal on room air. CBC with a hemoglobin 12.2, hematocrit 35.4, platelet count of 119. Sodium 142, potassium 3.3, magnesium 1.7. UA leukocyte esterase 250, 11-25 WBC per high-power field. Urine culture preliminary report no growth 18-[address] of the abdomen and pelvis shows a 1 mm calculus in the upper pole of the right kidney, no additional urinary calculi, no hydronephrosis, no bowel obstruction or inflammation, normal appendix, small uncomplicated fat containing umbilical hernia, no acute interval changes. At the time of my Visit patient comfortably in bed, alert oriented x3, admits epigastric discomfort, burning type, mild nausea but not actively vomiting. She also feels hungry. Getting IV fluids. Case discussed with the RN, no acute events overnight. 03/19 patient remains admitted to the medical floor, blood pressure 126/75, afebrile, saturating normal on room air. CBC stable, potassium 3.4, magnesium 2.0. Results of urine culture positive for [id number] asia (likely contaminant). Patient remains afebrile, no leukocytosis, results of urine culture likely contaminant from normal skin tristan, we will monitor off antibiotics. Patient is scheduled for EGD today. Continue replacing potassium IV per protocol. Follow electrolytes in a.m.. Advanced diet as tolerated and anticipate discharge home in the next 24 hours. At The time of my visit patient comfortable, scheduled for EGD, awake, following commands, case discussed with the RN, no acute events overnight. 03/20 patient remains admitted to the medical floor, hemodynamically stable, afebrile, saturating normal on room air. Patient is status post EGD 03/19/2025, with the finding of gastric bypass with normal size pouch. 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 Status post dilatation. Patient in agreement for PICC line and TPN. Per gastroenterology recommended NPO, to consult Dr David for evaluation for surgical revision. At the time of my visit the patient comfortably in bed, alert oriented x3, case discussed with the RN, no acute events overnight, patient in agreement for PICC line and TPN. 03/21 Patient is a 54-year-old female, underwent gastric bypass with a Dr. David. January 02, 2025, came complaining of abdominal discomfort. Patient is status post EGD 03/19/2025, with the finding of gastric bypass with normal size pouch. 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 Status post dilatation. Patient is started on clear liquid diet by General surgery, continue to follow recommendations. 03/22/25: Patient evaluated in her room. Patient appeared stable. Patient has low potassium levels so she is getting IV potassium infusions. Patient denied EGD to be performed today. Patient is started on clear liquids but she is not able to handle all of it. Patient had a abdominal x-ray performed waiting on report. Had a long discussion multiple times with the patient regarding her EGD. Patient is still has not decided whether she wants to go ahead with the EGD at the hospital or wants to be discharged and go home and get the EGD done outpatient. We will reassess the situation again tomorrow with the patient to see if she has decided on any particular treatment options. 03/23/25 The patient was evaluated in the room and continues to experience nausea. She is currently on a clear liquid diet. EGD was performed on 03/21/2025 with post-dilation. The plan is to repeat the EGD; however, the patient declined the procedure yesterday and is considering proceeding on Tuesday. We will continue to monitor the patients pain and comfort and will follow gastroenterology recommendations. 03/24/25 Patient evaluated in the room with family at bedside. The patient continues to report a sensation of fullness, even while on a clear liquid diet. The patient and family are in agreement with proceeding with the EGD scheduled for tomorrow morning. The GI team will be contacted to confirm the EGD timing. The patient will remain NPO after midnight in preparation for the procedure. 03/25/25 patient is seen and examined patient is lying in bed encouraged patient out of bed to chair as tolerated. EGD is scheduled for tomorrow. She continues with TPN for nutritional support and continue with clears diet. 03/26/25 patient is scheduled for EGD dilation we will follow-up for GI rec ommendations on diet. continues with TPN for nutritional support. Patient was seen postprocedure fully awake alert oriented x3 advised patient she will be started on clears and advance as tolerated she verbalized understanding. REVIEW OF SYSTEMS CONSTITUTIONAL: Denies fevers, chills, or night sweats. No unintentional weight loss reported. NEUROLOGICAL: Denies headache, amaurosis fugax, motor weakness, sensory deficit, vertigo/spinning sensation, gait abnormalities, or tremors. ENT: No hearing loss, otalgia, otorrhea, rhinitis, rhinorrhea, hoarseness, or sore throat. CARDIOVASCULAR: Denies any exertional angina, dyspnea on exertion, orthopnea, paroxysmal nocturnal dyspnea, palpitations, life-threatening arrhythmias, claudication. PULMONARY: Denies any shortness of breath, cough, phlegm/sputum, hemoptysis, pleuritic chest pain. SLEEP: Denies morning headaches, daytime somnolence or napping. Denies difficulty falling asleep, staying asleep, waking from sleep. Denies knowledge of snoring. GASTROINTESTINAL: Denies any type of dysphagia to either liquids or solids. Denies nausea, vomiting, pyrosis, early satiety, diarrhea, constipation, or changes in stool consistency or caliber. Denies coffee-ground emesis, hematemesis, hematochezia, or melanotic stools. Complains of abdominal pain GENITOURINARY: Denies frequency, urgency, nocturia, hematuria or incontinence (Storage/Irritative symptoms.) Low urinary stream, straining to void, urinary intermittency or hesitancy, splitting of the voiding stream, terminal dribbling. ENDOCRINOLOGIC: Denies polyuria, polydipsia, polyphagia or heat/cold intolerances. HEMATOLOGIC: Denies thrombophilia/previous clots, or coagulopathy/bleeding disorders. ONCOLOGIC: Denies personal history of malignancy. DERMATOLOGIC: Denies rashes or pruritus. PSYCHIATRIC: Denies any suicidal or homicidal ideation. Denies hallucinations. PHYSICAL EXAM GENERAL APPEARANCE: The patient is awake, alert, and oriented, in no acute cardiopulmonary distress. NEUROLOGICAL: Cranial nerves II-XII grossly intact. Motor is 5/5 in bilateral upper and lower extremities proximal to distal. No sensory deficits. HEENT: Face is symmetric. Pupils are equal and reactive. Extraocular movements are intact. NECK: Supple. No JVD. No thyromegaly. No submental, submandibular, pre- /postauricular, occipital or supraclavicular lymphadenopathy. CHEST: Normal chest expansion. No Telemetry. LUNGS: Absence of any rales, rhonchi or any wheezing. CARDIOVASCULAR: Regular. S1 and S2 normal. No appreciable rubs, murmurs or gallops. ABDOMEN: Soft, nontender, and nondistended. There is no rebound, voluntary guarding, or rigidity. : Deferred. No Garrett. EXTREMITIES: Non-edematous and not cyanotic. No clubbing. Good capillary refill. SKIN: No skin breakdown. Vital Signs (last 8hr) Date Time Temp Pulse Resp B/P (MAP) Pulse Ox O2 Delivery O2 Flow Rate FiO2 03/26/25 09:21 62 18 117/69 95 Room Air 03/26/25 08:54 72 18 124/62 100 Room Air 03/26/25 08:51 97.9 68 17 134/77 96 Room Air 03/26/25 08:44 76 16 114/97 100 Room Air 03/26/25 08:39 81 16 122/73 100 Room Air 03/26/25 08:34 85 16 118/66 100 PROCEDURE MASK 03/26/25 08:29 90 16 118/62 100 PROCEDURE MASK 10.0 03/26/25 08:24 97.5 81 16 122/62 PROCEDURE MASK 10.0 03/26/25 08:04 Mask 03/26/25 08:04 Mask 03/26/25 04:00 97.9 66 18 97/59 97 Room Air LABS: Laboratory: Test 03/26/25 07:21 03/26/25 05:00 Range/Units Whole Blood Glucose 81 70-110 MG/DL White Blood Count 2.9 L 4.8-10.8 K/uL Red Blood Count 3.82 L 4.00-5.50 MIL/uL Hemoglobin 11.6 L 12.0-16.0 g/dL Hematocrit 34.1 L 36-48 % Mean Corpuscular Volume 89.3 79-99 fL Mean Corpuscular Hemoglobin 30.4 27.0-33.0 pg Mean Corpuscular Hemoglobin Concent 34.0 32.0-36.0 g/dL Red Cell Distribution Width 14.4 11.0-15.5 % Platelet Count 101 L 130-400 K/uL Mean Platelet Volume 9.7 7.5-10.5 fL Segmented Neutrophils % 50 40-70 % Lymphocytes % (Manual) 40 22-44 % Monocytes % (Manual) 8 2-9 % Eosinophils % (Manual) 2 1-6 % Nucleated Red Blood Cells 0.0 0.0-0.19 % Differential Comment MANUAL DIFFERENTIAL White Cell Morphology Comment Platelet Morphology Comment SLIGHTLY DECREASED Red Blood Cell Morphology HYPOCHROM CELLS 1+ Sodium Level 140 136-145 mmol/L Potassium Level 3.3 L 3.5-5.1 mmol/L Chloride Level 105 101-111 mmol/L Carbon Dioxide Level 27 21-32 mmol/L Blood Urea Nitrogen 6 L 7-18 mg/dL Creatinine 0.6 0.5-1.0 mg/dL Glomerular Filtration Rate Calc 108 >90 mL/min Random Glucose 69 L 70-105 mg/dL Total Calcium 8.3 L 8.5-10.1 mg/dL Magnesium Level 1.60 L 1.80-2.40 mg/dL Total Bilirubin 0.6 0.2-1.0 mg/dL Aspartate Amino Transf (AST/SGOT) 22 10-37 U/L Alanine Aminotransferase (ALT/SGPT) 15 12-78 U/L Alkaline Phosphatase 51 50-136 U/L Total Protein 5.3 L 6.0-8.3 g/dL Albumin 2.4 L 3.5-5.0 g/dL Current Medications Medications (Trade) Dose Ordered Sig/Silvia Route PRN Reason Start Time Stop Time Status Last Admin Dose Admin Acetaminophen (TYLenol 325MG TAB) 650 mg Q6H PRN PO TEMPERATURE GREATER THAN 101.5 03/16/25 19:00 04/15/25 18:59 Acetaminophen (TYLenol 500MG TAB) 500 mg AD PRN PO PAIN 03/17/25 10:00 03/17/25 09:50 DC Aspirin (Aspirin 81mg Chew Tab) 81 mg DAILY PO 03/18/25 09:00 03/19/25 14:19 DC Aztreonam (Azactam) 2 gm Q8H IVPB 03/16/25 19:00 03/23/25 07:34 DC 03/23/25 05:26 2 GM Aztreonam (Azactam) 2 gm Q8H IVPB 03/25/25 15:00 04/04/25 14:59 03/26/25 06:11 2 GM Aztreonam 2 gm/ Sodium Chloride 100 ml @ 100 mls/hr Q8H IVPB 03/23/25 11:00 03/24/25 22:36 DC 03/24/25 22:35 100 MLS/HR Aztreonam 2 gm/ Sodium Chloride 100 ml @ 100 mls/hr Q8H IVPB 03/24/25 23:00 03/24/25 22:37 DC Aztreonam 2 gm/ Sodium Chloride 100 ml @ 100 mls/hr Q8H IVPB 03/25/25 07:00 03/25/25 10:56 DC 03/25/25 07:11 100 MLS/HR Dextrose 1,000 ml @ 50 mls/hr Q20H IV 03/19/25 20:00 03/22/25 12:32 DC 03/21/25 00:42 50 MLS/HR Dextrose/Sodium Chloride 1,000 ml @ 75 mls/hr [id number] IV 03/26/25 05:30 04/25/25 05:29 03/26/25 05:31 75 MLS/HR Enoxaparin Sodium (Lovenox) 40 mg DAILY SQ 03/17/25 09:00 04/16/25 08:59 03/25/25 09:58 40 MG Ergocalciferol (Drisdol) 50,000 unit QWEEK PO 03/24/25 09:00 04/23/25 08:59 03/24/25 08:18 50,000 UNIT Famotidine (Pepcid 20mg Vial) 20 mg DAILY IV 03/17/25 09:00 03/17/25 09:51 DC 03/17/25 08:43 20 MG Glucagon (Glucagon 1mg Kit) 1 mg AD PRN IM PROTOCOL 03/23/25 20:30 04/22/25 20:29 Hydralazine HCl (APRESOLine 20MG INJ) 5 mg Q6H PRN IV For:SBP above 160;DBP above 90 03/19/25 19:00 04/18/25 18:59 Hydralazine HCl (APRESOLine 20MG INJ) 10 mg Q6H PRN IV For:SBP above 160;DBP above 90 03/16/25 19:00 03/19/25 14:19 DC Hydromorphone HCl (DiLAUDid 0.5MG INJ) 0.5 mg Q4H PRN IVP SEVERE PAIN (7-10) 03/16/25 19:00 03/21/25 18:59 DC Lactated Ringer's 1,000 ml @ 100 mls/hr Q10H IV 03/16/25 19:00 03/22/25 12:32 DC 03/22/25 03:27 100 MLS/HR Magnesium Sulfate 50 ml @ 0 mls/hr PROTOCOL IV 03/17/25 07:00 03/21/25 00:10 DC 03/18/25 07:53 20 MLS/HR Magnesium Sulfate 50 ml @ 0 mls/hr PROTOCOL PRN IV MAGNESIUM PROTOCOL 03/21/25 00:30 04/20/25 00:29 03/21/25 20:34 25 MLS/HR Miscellaneous Medication (Famotidine ) 40 mg HS PO 03/17/25 21:00 03/17/25 09:50 DC Multivitamins/ Minerals 10 ml/ Folic Acid 1 mg/ Thiamine HCl 100 mg/Sodium Chloride 1,010 ml @ 75 mls/hr DAILY IV 03/22/25 12:30 03/24/25 16:00 DC 03/24/25 08:18 75 MLS/HR Multivitamins/ Minerals 10 ml/ Folic Acid 1 mg/ Thiamine HCl 100 mg/Sodium Chloride 1,010 ml @ 75 mls/hr Q24H IV 03/25/25 12:00 03/27/25 01:27 03/25/25 13:42 75 MLS/HR Ondansetron HCl (zoFRAN 4MG TABLET) 4 mg Q4H PRN PO nausea/vomiting 03/17/25 10:00 03/19/25 06:56 DC 03/18/25 07:52 4 MG Ondansetron HCl (zoFRAN 4MG INJ) 4 mg Q6H PRN IV NAUSEA/VOMITING 03/16/25 19:00 03/17/25 09:51 DC Ondansetron HCl (zoFRAN 4MG INJ) 4 mg Q6H PRN IVP NAUSEA/VOMITING 03/18/25 10:30 04/17/25 10:29 03/26/25 09:18 4 MG Pantoprazole Sodium (PROTonix 40MG INJ) 40 mg BID IVP 03/17/25 21:00 03/18/25 07:32 DC 03/17/25 20:28 40 MG Pantoprazole Sodium (PROTonix 40MG INJ) 40 mg BID IVP 03/19/25 21:00 04/18/25 20:59 03/26/25 09:18 40 MG Pantoprazole Sodium (PROTonix 40MG INJ) 40 mg ONCE IVP 03/16/25 17:30 03/16/25 21:30 DC 03/16/25 17:56 40 MG Pantoprazole Sodium (PROTonix 40MG TAB) 40 mg DAILY PO 03/18/25 09:00 03/19/25 14:19 DC Pharmacy Profile Note (Pharmacy Communication) 1 each ONCE MISC 03/25/25 12:00 03/25/25 11:43 DC Potassium Chloride 100 ml @ 50 mls/hr AD PRN IV POTASSIUM PROTOCOL 03/16/25 19:00 04/15/25 18:59 03/26/25 06:18 50 MLS/HR Potassium Chloride 100 ml @ 50 mls/hr ONCE IV 03/17/25 21:00 03/17/25 23:59 DC 03/18/25 00:09 50 MLS/HR Sodium Chloride 1,000 ml @ 0 mls/hr ONCE IV 03/16/25 17:30 03/17/25 17:29 DC 03/16/25 17:56 999 MLS/HR Sucralfate (Carafate) 1 gm ACHS PO 03/17/25 17:11 04/16/25 17:10 03/17/25 18:38 1 GM DIAGNOSTICS / RADIOLOGY: [ ] ASSESSMENT: Severe GERD secondary to severe stenosis gastrojejunal anastomosis, POA Patient is status post EGD 03/19/2025, with the finding of gastric bypass with normal size pouch. 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 Status post dilatation. Hypokalemia, POA Urinary tract infection, secondary to diphtheroids, contaminant POA Severe Abdominal pain, POA Intractable Nausea, vomiting, POA History of stroke GERD Uncontrolled hypertension POA Irritable bowel syndrome POA History of gastric bypass January 02, 2025] PLAN: Patient is a 54-year-old female, underwent gastric bypass with a Dr. David. January 02, 2025, came complaining of abdominal discomfort. Proceed with EGD dilation GI started patient on clear liquid advanced We will discontinue TPN for nutritional support. At 5:00 p.m. if patient is tolerating diet. Continue to monitor for any changes in symptoms. Update family as needed. 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 Hypokalemia: * Replace potassium per hospital protocol. * Monitor patient's labs. * Repeat potassium tomorrow morning Urinary tract infection: * Patient has a documented allergy to penicillin, ciprofloxacin, nitrofurantoin, sulfamethoxazole, trimethoprim. * Continue aztreonam 2 g IV Q 8 hours. * Urine culture came back positive for Gram-positive rods resembling diphtheroids Abdominal pain, nausea, vomiting: LR at 100ml/hr Patient has a documented allergy to codeine. As needed analgesia with Dilaudid. Continue with current diet Consider CT of abdomen and pelvis if no improvement in symptoms. As-needed antiemetic, Zofran. Hypertension: Home medication reconciled by CLIENT SUCCESS DIRECTOR 03/17/2025 At time of admission home medications have not been reconciled. For now: Hydralazine 10 mg IV every 4 hours for systolic blood pressure greater than 160 mmHg GI prophylaxis, famotidine DVT prophylaxis, Lovenox We will repeat labs tomorrow Case discussed with Dr. Barrett, above plan was formulated ATTESTATION BY PHYSICIAN I have seen and examined the patient. I reviewed the documentation, medical decision making, and treatment plan as noted by the mid-level provider above. I agree with the findings and plan of care. Jessica Schuler MD, ELIZABETH NP Mar 26, 2025 09:46
[2025-03-26] MEDS ORDERED: DICYCLOMINE 20MG (10MG/ML) AMP IM ONE (15:00)
[2025-03-26] MEDS: DICYCLOMINE HCL 10 MG/5 ML ML PO ONE (16:48)
--- NOTE | 2025-03-26 17:49 | PN ---
GASTROENTEROLOGY PROGRESS NOTE Date of Visit: Mar 26, 2025 Time of Visit: 17:49 Events / Notes: [ EGD significant for evidence of gastric bypass with normal size gastric pouch. 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 No acute events overnight. VSS. Patient has tolerated small amount of liquid diet. No vomiting but nausea reported. EGD results explained to patient. Will consult bariatric team. Patient and spouse agreed. 03/22/25: Patient declined EGD this am. Dr. David consulted. recommended patient f/u as outpatient and EGD will be scheduled at that time. Information given to patient and instructed to continue on clear liquid diet until f/u appt. She verbalized understanding. 03/25/25: Patient continues to c/o nausea with clear fluids. She requested to have EGD with dilation in am. Her VSS. BBS are clear. Abdomen is soft and not distended. Active BS are present. Plan for EGD with dilation discussed with patient. She agreed to proceed. 03/26/25: Patient has tolerated clear liquid diet without any nausea or vomiting. Diet advanced to full liquids. POC discussed with patient. Will advance to puree foods if she tolerates full. She agreed. ] Review of Systems: 10 Point ROS per HPI Physical Exam: GEN: Awake, alert, oriented in person, time and place, and in no acute distress. HEENT: No rhinorrhea. Oral pharyngeal mucosa is pink, moist and within normal limits. CHEST: Respirations unlabored. CARDIAC: regular HR ABD: Soft, mildly tender to epigastric region, and not distended. No peritoneal signs on palpation. No organomegaly. Normal bowel sounds. EXT: No cyanosis or clubbing. No edema. SKIN: Intact. No rashes. JOINTS: No evidence of synovitis or acute arthritis. NEURO: Alert and oriented to name, place and person. Cranial nerve examination is unremarkable. No focal motor deficits. Normal speech. Strength is normal. Vital Signs (last 8hr) Date Time Temp Pulse Resp B/P (MAP) Pulse Ox O2 Delivery O2 Flow Rate FiO2 03/26/25 16:00 98.2 61 19 110/67 96 Room Air 03/26/25 14:51 87 17 118/67 97 Room Air 03/26/25 13:51 77 18 116/65 95 Room Air 03/26/25 12:51 85 18 116/67 96 Room Air 03/26/25 11:51 62 19 115/63 96 Room Air 03/26/25 10:51 66 18 116/71 94 Room Air 03/26/25 10:21 66 17 116/71 94 Room Air 03/26/25 09:51 61 19 110/67 96 Room Air Laboratory: [ ] Laboratory: Test 03/26/25 15:16 03/26/25 05:00 Range/Units Whole Blood Glucose 76 70-110 MG/DL White Blood Count 2.9 L 4.8-10.8 K/uL Red Blood Count 3.82 L 4.00-5.50 MIL/uL Hemoglobin 11.6 L 12.0-16.0 g/dL Hematocrit 34.1 L 36-48 % Mean Corpuscular Volume 89.3 79-99 fL Mean Corpuscular Hemoglobin 30.4 27.0-33.0 pg Mean Corpuscular Hemoglobin Concent 34.0 32.0-36.0 g/dL Red Cell Distribution Width 14.4 11.0-15.5 % Platelet Count 101 L 130-400 K/uL Mean Platelet Volume 9.7 7.5-10.5 fL Segmented Neutrophils % 50 40-70 % Lymphocytes % (Manual) 40 22-44 % Monocytes % (Manual) 8 2-9 % Eosinophils % (Manual) 2 1-6 % Nucleated Red Blood Cells 0.0 0.0-0.19 % Differential Comment MANUAL DIFFERENTIAL White Cell Morphology Comment Platelet Morphology Comment SLIGHTLY DECREASED Red Blood Cell Morphology HYPOCHROM CELLS 1+ Sodium Level 140 136-145 mmol/L Potassium Level 3.3 L 3.5-5.1 mmol/L Chloride Level 105 101-111 mmol/L Carbon Dioxide Level 27 21-32 mmol/L Blood Urea Nitrogen 6 L 7-18 mg/dL Creatinine 0.6 0.5-1.0 mg/dL Glomerular Filtration Rate Calc 108 >90 mL/min Random Glucose 69 L 70-105 mg/dL Total Calcium 8.3 L 8.5-10.1 mg/dL Magnesium Level 1.60 L 1.80-2.40 mg/dL Total Bilirubin 0.6 0.2-1.0 mg/dL Aspartate Amino Transf (AST/SGOT) 22 10-37 U/L Alanine Aminotransferase (ALT/SGPT) 15 12-78 U/L Alkaline Phosphatase 51 50-136 U/L Total Protein 5.3 L 6.0-8.3 g/dL Albumin 2.4 L 3.5-5.0 g/dL Current Medications Medications (Trade) Dose Ordered Sig/Silvia Route PRN Reason Start Time Stop Time Status Last Admin Dose Admin Acetaminophen (TYLenol 325MG TAB) 650 mg Q6H PRN PO TEMPERATURE GREATER THAN 101.5 03/16/25 19:00 04/15/25 18:59 Acetaminophen (TYLenol 500MG TAB) 500 mg AD PRN PO PAIN 03/17/25 10:00 03/17/25 09:50 DC Aspirin (Aspirin 81mg Chew Tab) 81 mg DAILY PO 03/18/25 09:00 03/19/25 14:19 DC Aztreonam (Azactam) 2 gm Q8H IVPB 03/16/25 19:00 03/23/25 07:34 DC 03/23/25 05:26 2 GM Aztreonam (Azactam) 2 gm Q8H IVPB 03/25/25 15:00 04/04/25 14:59 03/26/25 16:49 2 GM Aztreonam 2 gm/ Sodium Chloride 100 ml @ 100 mls/hr Q8H IVPB 03/23/25 11:00 03/24/25 22:36 DC 03/24/25 22:35 100 MLS/HR Aztreonam 2 gm/ Sodium Chloride 100 ml @ 100 mls/hr Q8H IVPB 03/24/25 23:00 03/24/25 22:37 DC Aztreonam 2 gm/ Sodium Chloride 100 ml @ 100 mls/hr Q8H IVPB 03/25/25 07:00 03/25/25 10:56 DC 03/25/25 07:11 100 MLS/HR Dextrose 1,000 ml @ 50 mls/hr Q20H IV 03/19/25 20:00 03/22/25 12:32 DC 03/21/25 00:42 50 MLS/HR Dextrose/Sodium Chloride 1,000 ml @ 75 mls/hr [id number] IV 03/26/25 05:30 04/25/25 05:29 03/26/25 05:31 75 MLS/HR Docusate Sodium (COLace 100MG CAP) 100 mg BID PRN PO CONSTIPATION 03/26/25 17:00 04/25/25 16:59 Enoxaparin Sodium (Lovenox) 40 mg DAILY SQ 03/17/25 09:00 04/16/25 08:59 03/25/25 09:58 40 MG Ergocalciferol (Drisdol) 50,000 unit QWEEK PO 03/24/25 09:00 04/23/25 08:59 03/24/25 08:18 50,000 UNIT Famotidine (Pepcid 20mg Vial) 20 mg DAILY IV 03/17/25 09:00 03/17/25 09:51 DC 03/17/25 08:43 20 MG Glucagon (Glucagon 1mg Kit) 1 mg AD PRN IM PROTOCOL 03/23/25 20:30 04/22/25 20:29 Hydralazine HCl (APRESOLine 20MG INJ) 5 mg Q6H PRN IV For:SBP above 160;DBP above 90 03/19/25 19:00 04/18/25 18:59 Hydralazine HCl (APRESOLine 20MG INJ) 10 mg Q6H PRN IV For:SBP above 160;DBP above 90 03/16/25 19:00 03/19/25 14:19 DC Hydromorphone HCl (DiLAUDid 0.5MG INJ) 0.5 mg Q4H PRN IVP SEVERE PAIN (7-10) 03/16/25 19:00 03/21/25 18:59 DC Lactated Ringer's 1,000 ml @ 100 mls/hr Q10H IV 03/16/25 19:00 03/22/25 12:32 DC 03/22/25 03:27 100 MLS/HR Magnesium Sulfate 50 ml @ 0 mls/hr PROTOCOL IV 03/17/25 07:00 03/21/25 00:10 DC 03/18/25 07:53 20 MLS/HR Magnesium Sulfate 50 ml @ 0 mls/hr PROTOCOL PRN IV MAGNESIUM PROTOCOL 03/21/25 00:30 04/20/25 00:29 03/26/25 12:25 25 MLS/HR Miscellaneous Medication (Famotidine ) 40 mg HS PO 03/17/25 21:00 03/17/25 09:50 DC Multivitamins/ Minerals 10 ml/ Folic Acid 1 mg/ Thiamine HCl 100 mg/Sodium Chloride 1,010 ml @ 75 mls/hr DAILY IV 03/22/25 12:30 03/24/25 16:00 DC 03/24/25 08:18 75 MLS/HR Multivitamins/ Minerals 10 ml/ Folic Acid 1 mg/ Thiamine HCl 100 mg/Sodium Chloride 1,010 ml @ 75 mls/hr Q24H IV 03/25/25 12:00 03/27/25 01:27 03/26/25 12:25 75 MLS/HR Ondansetron HCl (zoFRAN 4MG TABLET) 4 mg Q4H PRN PO nausea/vomiting 03/17/25 10:00 03/19/25 06:56 DC 03/18/25 07:52 4 MG Ondansetron HCl (zoFRAN 4MG INJ) 4 mg Q6H PRN IV NAUSEA/VOMITING 03/16/25 19:00 03/17/25 09:51 DC Ondansetron HCl (zoFRAN 4MG INJ) 4 mg Q6H PRN IVP NAUSEA/VOMITING 03/18/25 10:30 04/17/25 10:29 03/26/25 09:18 4 MG Pantoprazole Sodium (PROTonix 40MG INJ) 40 mg BID IVP 03/17/25 21:00 03/18/25 07:32 DC 03/17/25 20:28 40 MG Pantoprazole Sodium (PROTonix 40MG INJ) 40 mg BID IVP 03/19/25 21:00 04/18/25 20:59 03/26/25 09:18 40 MG Pantoprazole Sodium (PROTonix 40MG INJ) 40 mg ONCE IVP 03/16/25 17:30 03/16/25 21:30 DC 03/16/25 17:56 40 MG Pantoprazole Sodium (PROTonix 40MG TAB) 40 mg DAILY PO 03/18/25 09:00 03/19/25 14:19 DC Pharmacy Profile Note (Pharmacy Communication) 1 each ONCE MISC 03/25/25 12:00 03/25/25 11:43 DC Potassium Chloride 100 ml @ 50 mls/hr AD PRN IV POTASSIUM PROTOCOL 03/16/25 19:00 04/15/25 18:59 03/26/25 06:18 50 MLS/HR Potassium Chloride 100 ml @ 50 mls/hr ONCE IV 03/17/25 21:00 03/17/25 23:59 DC 03/18/25 00:09 50 MLS/HR Sodium Chloride 1,000 ml @ 0 mls/hr ONCE IV 03/16/25 17:30 03/17/25 17:29 DC 03/16/25 17:56 999 MLS/HR Sucralfate (Carafate) 1 gm ACHS PO 03/17/25 17:11 04/16/25 17:10 03/17/25 18:38 1 GM Tramadol HCl (UltRAM) 50 mg Q6H PRN PO MODERATE PAIN (4-6) 03/26/25 15:00 03/31/25 14:59 Diagnostics / Radiology: [COPY/PASTE HERE IF NO REPORTS PLEASE DELETE SECTION] Assessment: [ Epigastric pain Nausea and vomiting Gastrojejunal anastomosis with severe stenosis Hx of bariatric surgery ] Plan: Advance diet to full liquids IF tolerating, may advance diet to puree in am. Continue GI prophylaxis NPO after midnight Patient is to f/u at [facility] on 03/29/25 at 2:00pm Please call with questions, concerns, and change in clinical status Thank you for this consult. ] JOSHUA MILIAN PEDIATRIC CLINICAL NURSE SPECIALIST Mar 26, 2025 17:49
[2025-03-27] VITALS: BP 91/50; PULSE 71; RESP 21; TEMP 98
[2025-03-27 04:00] VITALS: BP 97/58; PULSE 68; RESP 18; TEMP 97.8
[2025-03-27 08:00] VITALS: BP 116/72; PULSE 71; RESP 19; TEMP 98; O2SAT 97
--- NOTE | 2025-03-27 10:00 | PN ---
[facility] PROGRESS NOTE Date of Service: Mar 27, 2025 Time of Service: 10:00 SUBJECTIVE: [03/16 Ms. Valdez is a 54-year-old female that was seen and examined today on 03/16/2025. Patient is a good historian of personal health Patient states that she came to the emergency department with a chief complaint of abdominal pain. Onset was two weeks ago. Location is epigastric. Duration is on and off. Character is described as burning. Symptoms are aggravated with eating. There was no alleviating factors. Patient reports associated nausea and vomiting. Patient reports that she ran out of her Protonix two weeks ago. Today in the emergency department CBC unremarkable, potassium 2.7, urinalysis positive for leukocyte esterase and WBCs 11-25 per high-powered microscopy field. Emergency room physician recommended patient be admitted with a diagnosis of hypokalemia and urinary tract infection. 03/17 patient was seen by nurse practitioner and physician during rounding in the room 311. Patient continues to complain of abdominal pain with nausea and vomiting. Patient stated that just this year in January 02 patient underwent g astric bypass with a Dr. David. We will consult above-stated doctor for further evaluation. We will also order CT abdomen/pelvis. Potassium to be replaced per protocol. We will continue to monitor the patient meantime. A.m. labs ] 03/18 patient remains admitted to the medical floor, BP 112/69, heart rate of 55, afebrile, saturating normal on room air. CBC with a hemoglobin 12.2, hematocrit 35.4, platelet count of 119. Sodium 142, potassium 3.3, magnesium 1.7. UA leukocyte esterase 250, 11-25 WBC per high-power field. Urine culture preliminary report no growth 18-[address] of the abdomen and pelvis shows a 1 mm calculus in the upper pole of the right kidney, no additional urinary calculi, no hydronephrosis, no bowel obstruction or inflammation, normal appendix, small uncomplicated fat containing umbilical hernia, no acute interval changes. At the time of my Visit patient comfortably in bed, alert oriented x3, admits epigastric discomfort, burning type, mild nausea but not actively vomiting. She also feels hungry. Getting IV fluids. Case discussed with the RN, no acute events overnight. 03/19 patient remains admitted to the medical floor, blood pressure 126/75, afebrile, saturating normal on room air. CBC stable, potassium 3.4, magnesium 2.0. Results of urine culture positive for [id number] asia (likely contaminant). Patient remains afebrile, no leukocytosis, results of urine culture likely contaminant from normal skin tristan, we will monitor off antibiotics. Patient is scheduled for EGD today. Continue replacing potassium IV per protocol. Follow electrolytes in a.m.. Advanced diet as tolerated and anticipate discharge home in the next 24 hours. At The time of my visit patient comfortable, scheduled for EGD, awake, following commands, case discussed with the RN, no acute events overnight. 03/20 patient remains admitted to the medical floor, hemodynamically stable, afebrile, saturating normal on room air. Patient is status post EGD 03/19/2025, with the finding of gastric bypass with normal size pouch. 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 Status post dilatation. Patient in agreement for PICC line and TPN. Per gastroenterology recommended NPO, to consult Dr David for evaluation for surgical revision. At the time of my visit the patient comfortably in bed, alert oriented x3, case discussed with the RN, no acute events overnight, patient in agreement for PICC line and TPN. 03/21 Patient is a 54-year-old female, underwent gastric bypass with a Dr. David. January 02, 2025, came complaining of abdominal discomfort. Patient is status post EGD 03/19/2025, with the finding of gastric bypass with normal size pouch. 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 Status post dilatation. Patient is started on clear liquid diet by General surgery, continue to follow recommendations. 03/22/25: Patient evaluated in her room. Patient appeared stable. Patient has low potassium levels so she is getting IV potassium infusions. Patient denied EGD to be performed today. Patient is started on clear liquids but she is not able to handle all of it. Patient had a abdominal x-ray performed waiting on report. Had a long discussion multiple times with the patient regarding her EGD. Patient is still has not decided whether she wants to go ahead with the EGD at the hospital or wants to be discharged and go home and get the EGD done outpatient. We will reassess the situation again tomorrow with the patient to see if she has decided on any particular treatment options. 03/23/25 The patient was evaluated in the room and continues to experience nausea. She is currently on a clear liquid diet. EGD was performed on 03/21/2025 with post-dilation. The plan is to repeat the EGD; however, the patient declined the procedure yesterday and is considering proceeding on Tuesday. We will continue to monitor the patients pain and comfort and will follow gastroenterology recommendations. 03/24/25 Patient evaluated in the room with family at bedside. The patient continues to report a sensation of fullness, even while on a clear liquid diet. The patient and family are in agreement with proceeding with the EGD scheduled for tomorrow morning. The GI team will be contacted to confirm the EGD timing. The patient will remain NPO after midnight in preparation for the procedure. 03/25/25 patient is seen and examined patient is lying in bed encouraged patient out of bed to chair as tolerated. EGD is scheduled for tomorrow. She continues with TPN for nutritional support and continue with clears diet. 03/26/25 patient is scheduled for EGD dilation we will follow-up for GI rec ommendations on diet. continues with TPN for nutritional support. Patient was seen postprocedure fully awake alert oriented x3 advised patient she will be started on clears and advance as tolerated she verbalized understanding. 03/27/25 patient was seen earlier patient was having pureed diet she tolerated. Patient has not had a bowel movements since the . We will monitor patient how she does with pureed diet for dinner patient we will need a laxative suppository. Patient will be kept for one more day bowel regimen on board. REVIEW OF SYSTEMS CONSTITUTIONAL: Denies fevers, chills, or night sweats. No unintentional weight loss reported. NEUROLOGICAL: Denies headache, amaurosis fugax, motor weakness, sensory deficit, vertigo/spinning sensation, gait abnormalities, or tremors. ENT: No hearing loss, otalgia, otorrhea, rhinitis, rhinorrhea, hoarseness, or sore throat. CARDIOVASCULAR: Denies any exertional angina, dyspnea on exertion, orthopnea, paroxysmal nocturnal dyspnea, palpitations, life-threatening arrhythmias, claudication. PULMONARY: Denies any shortness of breath, cough, phlegm/sputum, hemoptysis, pleuritic chest pain. SLEEP: Denies morning headaches, daytime somnolence or napping. Denies difficulty falling asleep, staying asleep, waking from sleep. Denies knowledge of snoring. GASTROINTESTINAL: Denies any type of dysphagia to either liquids or solids. Denies nausea, vomiting, pyrosis, early satiety, diarrhea, constipation, or changes in stool consistency or caliber. Denies coffee-ground emesis, hematemesis, hematochezia, or melanotic stools. Complains of abdominal pain GENITOURINARY: Denies frequency, urgency, nocturia, hematuria or incontinence (Storage/Irritative symptoms.) Low urinary stream, straining to void, urinary intermittency or hesitancy, splitting of the voiding stream, terminal dribbling. ENDOCRINOLOGIC: Denies polyuria, polydipsia, polyphagia or heat/cold intolerances. HEMATOLOGIC: Denies thrombophilia/previous clots, or coagulopathy/bleeding disorders. ONCOLOGIC: Denies personal history of malignancy. DERMATOLOGIC: Denies rashes or pruritus. PSYCHIATRIC: Denies any suicidal or homicidal ideation. Denies hallucinations. PHYSICAL EXAM GENERAL APPEARANCE: The patient is awake, alert, and oriented, in no acute cardiopulmonary distress. NEUROLOGICAL: Cranial nerves II-XII grossly intact. Motor is 5/5 in bilateral upper and lower extremities proximal to distal. No sensory deficits. HEENT: Face is symmetric. Pupils are equal and reactive. Extraocular movements are intact. NECK: Supple. No JVD. No thyromegaly. No submental, submandibular, pre- /postauricular, occipital or supraclavicular lymphadenopathy. CHEST: Normal chest expansion. No Telemetry. LUNGS: Absence of any rales, rhonchi or any wheezing. CARDIOVASCULAR: Regular. S1 and S2 normal. No appreciable rubs, murmurs or gallops. ABDOMEN: Soft, nontender, and nondistended. There is no rebound, voluntary guarding, or rigidity. : Deferred. No Garrett. EXTREMITIES: Non-edematous and not cyanotic. No clubbing. Good capillary refill. SKIN: No skin breakdown. Vital Signs (last 8hr) Date Time Temp Pulse Resp B/P (MAP) Pulse Ox O2 Delivery O2 Flow Rate FiO2 03/27/25 08:00 98.1 71 19 116/72 97 Room Air 21 03/27/25 08:00 97 Room Air* 0 21 03/27/25 04:00 97.9 68 18 97/58 97 Room Air LABS: Laboratory: Test 03/27/25 05:39 03/26/25 05:00 Range/Units Whole Blood Glucose 86 70-110 MG/DL White Blood Count 2.9 L 4.8-10.8 K/uL Red Blood Count 3.82 L 4.00-5.50 MIL/uL Hemoglobin 11.6 L 12.0-16.0 g/dL Hematocrit 34.1 L 36-48 % Mean Corpuscular Volume 89.3 79-99 fL Mean Corpuscular Hemoglobin 30.4 27.0-33.0 pg Mean Corpuscular Hemoglobin Concent 34.0 32.0-36.0 g/dL Red Cell Distribution Width 14.4 11.0-15.5 % Platelet Count 101 L 130-400 K/uL Mean Platelet Volume 9.7 7.5-10.5 fL Segmented Neutrophils % 50 40-70 % Lymphocytes % (Manual) 40 22-44 % Monocytes % (Manual) 8 2-9 % Eosinophils % (Manual) 2 1-6 % Nucleated Red Blood Cells 0.0 0.0-0.19 % Differential Comment MANUAL DIFFERENTIAL White Cell Morphology Comment Platelet Morphology Comment SLIGHTLY DECREASED Red Blood Cell Morphology HYPOCHROM CELLS 1+ Sodium Level 140 136-145 mmol/L Potassium Level 3.3 L 3.5-5.1 mmol/L Chloride Level 105 101-111 mmol/L Carbon Dioxide Level 27 21-32 mmol/L Blood Urea Nitrogen 6 L 7-18 mg/dL Creatinine 0.6 0.5-1.0 mg/dL Glomerular Filtration Rate Calc 108 >90 mL/min Random Glucose 69 L 70-105 mg/dL Total Calcium 8.3 L 8.5-10.1 mg/dL Magnesium Level 1.60 L 1.80-2.40 mg/dL Total Bilirubin 0.6 0.2-1.0 mg/dL Aspartate Amino Transf (AST/SGOT) 22 10-37 U/L Alanine Aminotransferase (ALT/SGPT) 15 12-78 U/L Alkaline Phosphatase 51 50-136 U/L Total Protein 5.3 L 6.0-8.3 g/dL Albumin 2.4 L 3.5-5.0 g/dL Current Medications Medications (Trade) Dose Ordered Sig/Silvia Route PRN Reason Start Time Stop Time Status Last Admin Dose Admin Acetaminophen (TYLenol 325MG TAB) 650 mg Q6H PRN PO TEMPERATURE GREATER THAN 101.5 03/16/25 19:00 04/15/25 18:59 Acetaminophen (TYLenol 500MG TAB) 500 mg AD PRN PO PAIN 03/17/25 10:00 03/17/25 09:50 DC Aspirin (Aspirin 81mg Chew Tab) 81 mg DAILY PO 03/18/25 09:00 03/19/25 14:19 DC Aztreonam (Azactam) 2 gm Q8H IVPB 03/16/25 19:00 03/23/25 07:34 DC 03/23/25 05:26 2 GM Aztreonam (Azactam) 2 gm Q8H IVPB 03/25/25 15:00 04/04/25 14:59 03/27/25 06:05 2 GM Aztreonam 2 gm/ Sodium Chloride 100 ml @ 100 mls/hr Q8H IVPB 03/23/25 11:00 03/24/25 22:36 DC 03/24/25 22:35 100 MLS/HR Aztreonam 2 gm/ Sodium Chloride 100 ml @ 100 mls/hr Q8H IVPB 03/24/25 23:00 03/24/25 22:37 DC Aztreonam 2 gm/ Sodium Chloride 100 ml @ 100 mls/hr Q8H IVPB 03/25/25 07:00 03/25/25 10:56 DC 03/25/25 07:11 100 MLS/HR Dextrose 1,000 ml @ 50 mls/hr Q20H IV 03/19/25 20:00 03/22/25 12:32 DC 03/21/25 00:42 50 MLS/HR Dextrose/Sodium Chloride 1,000 ml @ 75 mls/hr [id number] IV 03/26/25 05:30 04/25/25 05:29 03/26/25 05:31 75 MLS/HR Docusate Sodium (COLace 100MG CAP) 100 mg BID PRN PO CONSTIPATION 03/26/25 17:00 04/25/25 16:59 Enoxaparin Sodium (Lovenox) 40 mg DAILY SQ 03/17/25 09:00 04/16/25 08:59 03/25/25 09:58 40 MG Ergocalciferol (Drisdol) 50,000 unit QWEEK PO 03/24/25 09:00 04/23/25 08:59 03/24/25 08:18 50,000 UNIT Famotidine (Pepcid 20mg Vial) 20 mg DAILY IV 03/17/25 09:00 03/17/25 09:51 DC 03/17/25 08:43 20 MG Glucagon (Glucagon 1mg Kit) 1 mg AD PRN IM PROTOCOL 03/23/25 20:30 04/22/25 20:29 Hydralazine HCl (APRESOLine 20MG INJ) 5 mg Q6H PRN IV For:SBP above 160;DBP above 90 03/19/25 19:00 04/18/25 18:59 Hydralazine HCl (APRESOLine 20MG INJ) 10 mg Q6H PRN IV For:SBP above 160;DBP above 90 03/16/25 19:00 03/19/25 14:19 DC Hydromorphone HCl (DiLAUDid 0.5MG INJ) 0.5 mg Q4H PRN IVP SEVERE PAIN (7-10) 03/16/25 19:00 03/21/25 18:59 DC Lactated Ringer's 1,000 ml @ 100 mls/hr Q10H IV 03/16/25 19:00 03/22/25 12:32 DC 03/22/25 03:27 100 MLS/HR Magnesium Sulfate 50 ml @ 0 mls/hr PROTOCOL IV 03/17/25 07:00 03/21/25 00:10 DC 03/18/25 07:53 20 MLS/HR Magnesium Sulfate 50 ml @ 0 mls/hr PROTOCOL PRN IV MAGNESIUM PROTOCOL 03/21/25 00:30 04/20/25 00:29 03/26/25 12:25 25 MLS/HR Miscellaneous Medication (Famotidine ) 40 mg HS PO 03/17/25 21:00 03/17/25 09:50 DC Multivitamins/ Minerals 10 ml/ Folic Acid 1 mg/ Thiamine HCl 100 mg/Sodium Chloride 1,010 ml @ 75 mls/hr DAILY IV 03/22/25 12:30 03/24/25 16:00 DC 03/24/25 08:18 75 MLS/HR Multivitamins/ Minerals 10 ml/ Folic Acid 1 mg/ Thiamine HCl 100 mg/Sodium Chloride 1,010 ml @ 75 mls/hr Q24H IV 03/25/25 12:00 03/27/25 01:27 DC 03/26/25 12:25 75 MLS/HR Ondansetron HCl (zoFRAN 4MG TABLET) 4 mg Q4H PRN PO nausea/vomiting 03/17/25 10:00 03/19/25 06:56 DC 03/18/25 07:52 4 MG Ondansetron HCl (zoFRAN 4MG INJ) 4 mg Q6H PRN IV NAUSEA/VOMITING 03/16/25 19:00 03/17/25 09:51 DC Ondansetron HCl (zoFRAN 4MG INJ) 4 mg Q6H PRN IVP NAUSEA/VOMITING 03/18/25 10:30 04/17/25 10:29 03/26/25 20:39 4 MG Pantoprazole Sodium (PROTonix 40MG INJ) 40 mg BID IVP 03/17/25 21:00 03/18/25 07:32 DC 03/17/25 20:28 40 MG Pantoprazole Sodium (PROTonix 40MG INJ) 40 mg BID IVP 03/19/25 21:00 04/18/25 20:59 03/26/25 20:32 40 MG Pantoprazole Sodium (PROTonix 40MG INJ) 40 mg ONCE IVP 03/16/25 17:30 03/16/25 21:30 DC 03/16/25 17:56 40 MG Pantoprazole Sodium (PROTonix 40MG TAB) 40 mg DAILY PO 03/18/25 09:00 03/19/25 14:19 DC Pharmacy Profile Note (Pharmacy Communication) 1 each ONCE MISC 03/25/25 12:00 03/25/25 11:43 DC Potassium Chloride 100 ml @ 50 mls/hr AD PRN IV POTASSIUM PROTOCOL 03/16/25 19:00 04/15/25 18:59 03/26/25 06:18 50 MLS/HR Potassium Chloride 100 ml @ 50 mls/hr ONCE IV 03/17/25 21:00 03/17/25 23:59 DC 03/18/25 00:09 50 MLS/HR Sodium Chloride 1,000 ml @ 0 mls/hr ONCE IV 03/16/25 17:30 03/17/25 17:29 DC 03/16/25 17:56 999 MLS/HR Sucralfate (Carafate) 1 gm ACHS PO 03/17/25 17:11 04/16/25 17:10 03/17/25 18:38 1 GM Tramadol HCl (UltRAM) 50 mg Q6H PRN PO MODERATE PAIN (4-6) 03/26/25 15:00 03/31/25 14:59 DIAGNOSTICS / RADIOLOGY: [ ] ASSESSMENT: Severe GERD secondary to severe stenosis gastrojejunal anastomosis, POA Patient is status post EGD 03/19/2025, with the finding of gastric bypass with n ormal size pouch. 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 Status post dilatation. Hypokalemia, POA Urinary tract infection, secondary to diphtheroids, contaminant POA Severe Abdominal pain, POA Intractable Nausea, vomiting, POA History of stroke GERD Uncontrolled hypertension POA Irritable bowel syndrome POA History of gastric bypass January 02, 2025] PLAN: Patient is a 54-year-old female, underwent gastric bypass with a Dr. David. January 02, 2025, came complaining of abdominal discomfort. Status post EGD dilation GI diet pureed diet tolerating lunch we will monitor for dinner. Last BM 03/22/2025 bowel regimen initiated. Continue to monitor for any changes in symptoms. Update family as needed. 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 Hypokalemia: * Replace potassium per hospital protocol. * Monitor patient's labs. * Repeat potassium tomorrow morning Urinary tract infection: * Patient has a documented allergy to penicillin, ciprofloxacin, nitrofurantoin, sulfamethoxazole, trimethoprim. * Continue aztreonam 2 g IV Q 8 hours. * Urine culture came back positive for Gram-positive rods resembling diphtheroids Abdominal pain, nausea, vomiting: LR at 100ml/hr Patient has a documented allergy to codeine. As needed analgesia with Dilaudid. Continue with current diet Consider CT of abdomen and pelvis if no improvement in symptoms. As-needed antiemetic, Zofran. Hypertension: Home medication reconciled by [facility] 03/17/2025 At time of admission home medications have not been reconciled. For now: Hydralazine 10 mg IV every 4 hours for systolic blood pressure greater than 160 mmHg GI prophylaxis, famotidine DVT prophylaxis, Lovenox We will repeat labs tomorrow Case discussed with Dr. Barrett, above plan was formulated ATTESTATION BY PHYSICIAN I have seen and examined the patient. I reviewed the documentation, medical decision making, and treatment plan as noted by the mid-level provider above. I agree with the findings and plan of care. Jessica Schuler MD, ELIZABETH NP Mar 27, 2025 10:00
--- NOTE | 2025-03-27 10:18 | PN ---
GASTROENTEROLOGY PROGRESS NOTE Date of Visit: Mar 27, 2025 Time of Visit: 10:18 Events / Notes: [ EGD significant for evidence of gastric bypass with normal size gastric pouch. 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 No acute events overnight. VSS. Patient has tolerated small amount of liquid diet. No vomiting but nausea reported. EGD results explained to patient. Will consult bariatric team. Patient and spouse agreed. 03/22/25: Patient declined EGD this am. Dr. David consulted. recommended patient f/u as outpatient and EGD will be scheduled at that time. Information given to patient and instructed to continue on clear liquid diet until f/u appt. She verbalized understanding. 03/25/25: Patient continues to c/o nausea with clear fluids. She requested to have EGD with dilation in am. Her VSS. BBS are clear. Abdomen is soft and not distended. Active BS are present. Plan for EGD with dilation discussed with patient. She agreed to proceed. 03/26/25: Patient has tolerated clear liquid diet without any nausea or vomiting. Diet advanced to full liquids. POC discussed with patient. Will advance to puree foods if she tolerates full. She agreed. 03/27/25: No acute events overnight. Patient's VSS. Patient has tolerated full liquid diet and is now tolerating puree foods. She reports some nausea but no vomiting. Encouraged small meals and ambulation after each meal. Informed of need to f/u as outpatient to arrange for EGD with dilation. She agreed. ] Review of Systems: 10 Point ROS per HPI Physical Exam: GEN: Awake, alert, oriented in person, time and place, and in no acute distress. HEENT: No rhinorrhea. Oral pharyngeal mucosa is pink, moist and within normal limits. CHEST: Respirations unlabored. CARDIAC: regular HR ABD: Soft, mildly tender to epigastric region, and not distended. No peritoneal signs on palpation. No organomegaly. Normal bowel sounds. EXT: No cyanosis or clubbing. No edema. SKIN: Intact. No rashes. JOINTS: No evidence of synovitis or acute arthritis. NEURO: Alert and oriented to name, place and person. Cranial nerve examination is unremarkable. No focal motor deficits. Normal speech. Strength is normal. Vital Signs (last 8hr) Date Time Temp Pulse Resp B/P (MAP) Pulse Ox O2 Delivery O2 Flow Rate FiO2 03/27/25 08:00 98.1 71 19 116/72 97 Room Air 21 03/27/25 08:00 97 Room Air* 0 21 03/27/25 04:00 97.9 68 18 97/58 97 Room Air Laboratory: [ ] Laboratory: Test 03/27/25 05:39 03/26/25 05:00 Range/Units Whole Blood Glucose 86 70-110 MG/DL White Blood Count 2.9 L 4.8-10.8 K/uL Red Blood Count 3.82 L 4.00-5.50 MIL/uL Hemoglobin 11.6 L 12.0-16.0 g/dL Hematocrit 34.1 L 36-48 % Mean Corpuscular Volume 89.3 79-99 fL Mean Corpuscular Hemoglobin 30.4 27.0-33.0 pg Mean Corpuscular Hemoglobin Concent 34.0 32.0-36.0 g/dL Red Cell Distribution Width 14.4 11.0-15.5 % Platelet Count 101 L 130-400 K/uL Mean Platelet Volume 9.7 7.5-10.5 fL Segmented Neutrophils % 50 40-70 % Lymphocytes % (Manual) 40 22-44 % Monocytes % (Manual) 8 2-9 % Eosinophils % (Manual) 2 1-6 % Nucleated Red Blood Cells 0.0 0.0-0.19 % Differential Comment MANUAL DIFFERENTIAL White Cell Morphology Comment Platelet Morphology Comment SLIGHTLY DECREASED Red Blood Cell Morphology HYPOCHROM CELLS 1+ Sodium Level 140 136-145 mmol/L Potassium Level 3.3 L 3.5-5.1 mmol/L Chloride Level 105 101-111 mmol/L Carbon Dioxide Level 27 21-32 mmol/L Blood Urea Nitrogen 6 L 7-18 mg/dL Creatinine 0.6 0.5-1.0 mg/dL Glomerular Filtration Rate Calc 108 >90 mL/min Random Glucose 69 L 70-105 mg/dL Total Calcium 8.3 L 8.5-10.1 mg/dL Magnesium Level 1.60 L 1.80-2.40 mg/dL Total Bilirubin 0.6 0.2-1.0 mg/dL Aspartate Amino Transf (AST/SGOT) 22 10-37 U/L Alanine Aminotransferase (ALT/SGPT) 15 12-78 U/L Alkaline Phosphatase 51 50-136 U/L Total Protein 5.3 L 6.0-8.3 g/dL Albumin 2.4 L 3.5-5.0 g/dL Current Medications Medications (Trade) Dose Ordered Sig/Silvia Route PRN Reason Start Time Stop Time Status Last Admin Dose Admin Acetaminophen (TYLenol 325MG TAB) 650 mg Q6H PRN PO TEMPERATURE GREATER THAN 101.5 03/16/25 19:00 04/15/25 18:59 Acetaminophen (TYLenol 500MG TAB) 500 mg AD PRN PO PAIN 03/17/25 10:00 03/17/25 09:50 DC Aspirin (Aspirin 81mg Chew Tab) 81 mg DAILY PO 03/18/25 09:00 03/19/25 14:19 DC Aztreonam (Azactam) 2 gm Q8H IVPB 03/16/25 19:00 03/23/25 07:34 DC 03/23/25 05:26 2 GM Aztreonam (Azactam) 2 gm Q8H IVPB 03/25/25 15:00 04/04/25 14:59 03/27/25 06:05 2 GM Aztreonam 2 gm/ Sodium Chloride 100 ml @ 100 mls/hr Q8H IVPB 03/23/25 11:00 03/24/25 22:36 DC 03/24/25 22:35 100 MLS/HR Aztreonam 2 gm/ Sodium Chloride 100 ml @ 100 mls/hr Q8H IVPB 03/24/25 23:00 03/24/25 22:37 DC Aztreonam 2 gm/ Sodium Chloride 100 ml @ 100 mls/hr Q8H IVPB 03/25/25 07:00 03/25/25 10:56 DC 03/25/25 07:11 100 MLS/HR Dextrose 1,000 ml @ 50 mls/hr Q20H IV 03/19/25 20:00 03/22/25 12:32 DC 03/21/25 00:42 50 MLS/HR Dextrose/Sodium Chloride 1,000 ml @ 75 mls/hr [id number] IV 03/26/25 05:30 04/25/25 05:29 03/26/25 05:31 75 MLS/HR Docusate Sodium (COLace 100MG CAP) 100 mg BID PRN PO CONSTIPATION 03/26/25 17:00 04/25/25 16:59 Enoxaparin Sodium (Lovenox) 40 mg DAILY SQ 03/17/25 09:00 04/16/25 08:59 03/25/25 09:58 40 MG Ergocalciferol (Drisdol) 50,000 unit QWEEK PO 03/24/25 09:00 04/23/25 08:59 03/24/25 08:18 50,000 UNIT Famotidine (Pepcid 20mg Vial) 20 mg DAILY IV 03/17/25 09:00 03/17/25 09:51 DC 03/17/25 08:43 20 MG Glucagon (Glucagon 1mg Kit) 1 mg AD PRN IM PROTOCOL 03/23/25 20:30 04/22/25 20:29 Hydralazine HCl (APRESOLine 20MG INJ) 5 mg Q6H PRN IV For:SBP above 160;DBP above 90 03/19/25 19:00 04/18/25 18:59 Hydralazine HCl (APRESOLine 20MG INJ) 10 mg Q6H PRN IV For:SBP above 160;DBP above 90 03/16/25 19:00 03/19/25 14:19 DC Hydromorphone HCl (DiLAUDid 0.5MG INJ) 0.5 mg Q4H PRN IVP SEVERE PAIN (7-10) 03/16/25 19:00 03/21/25 18:59 DC Lactated Ringer's 1,000 ml @ 100 mls/hr Q10H IV 03/16/25 19:00 03/22/25 12:32 DC 03/22/25 03:27 100 MLS/HR Magnesium Sulfate 50 ml @ 0 mls/hr PROTOCOL IV 03/17/25 07:00 03/21/25 00:10 DC 03/18/25 07:53 20 MLS/HR Magnesium Sulfate 50 ml @ 0 mls/hr PROTOCOL PRN IV MAGNESIUM PROTOCOL 03/21/25 00:30 04/20/25 00:29 03/26/25 12:25 25 MLS/HR Miscellaneous Medication (Famotidine ) 40 mg HS PO 03/17/25 21:00 03/17/25 09:50 DC Multivitamins/ Minerals 10 ml/ Folic Acid 1 mg/ Thiamine HCl 100 mg/Sodium Chloride 1,010 ml @ 75 mls/hr DAILY IV 03/22/25 12:30 03/24/25 16:00 DC 03/24/25 08:18 75 MLS/HR Multivitamins/ Minerals 10 ml/ Folic Acid 1 mg/ Thiamine HCl 100 mg/Sodium Chloride 1,010 ml @ 75 mls/hr Q24H IV 03/25/25 12:00 03/27/25 01:27 DC 03/26/25 12:25 75 MLS/HR Ondansetron HCl (zoFRAN 4MG TABLET) 4 mg Q4H PRN PO nausea/vomiting 03/17/25 10:00 03/19/25 06:56 DC 03/18/25 07:52 4 MG Ondansetron HCl (zoFRAN 4MG INJ) 4 mg Q6H PRN IV NAUSEA/VOMITING 03/16/25 19:00 03/17/25 09:51 DC Ondansetron HCl (zoFRAN 4MG INJ) 4 mg Q6H PRN IVP NAUSEA/VOMITING 03/18/25 10:30 04/17/25 10:29 03/26/25 20:39 4 MG Pantoprazole Sodium (PROTonix 40MG INJ) 40 mg BID IVP 03/17/25 21:00 03/18/25 07:32 DC 03/17/25 20:28 40 MG Pantoprazole Sodium (PROTonix 40MG INJ) 40 mg BID IVP 03/19/25 21:00 04/18/25 20:59 03/26/25 20:32 40 MG Pantoprazole Sodium (PROTonix 40MG INJ) 40 mg ONCE IVP 03/16/25 17:30 03/16/25 21:30 DC 03/16/25 17:56 40 MG Pantoprazole Sodium (PROTonix 40MG TAB) 40 mg DAILY PO 03/18/25 09:00 03/19/25 14:19 DC Pharmacy Profile Note (Pharmacy Communication) 1 each ONCE MISC 03/25/25 12:00 03/25/25 11:43 DC Potassium Chloride 100 ml @ 50 mls/hr AD PRN IV POTASSIUM PROTOCOL 03/16/25 19:00 04/15/25 18:59 03/26/25 06:18 50 MLS/HR Potassium Chloride 100 ml @ 50 mls/hr ONCE IV 03/17/25 21:00 03/17/25 23:59 DC 03/18/25 00:09 50 MLS/HR Sodium Chloride 1,000 ml @ 0 mls/hr ONCE IV 03/16/25 17:30 03/17/25 17:29 DC 03/16/25 17:56 999 MLS/HR Sucralfate (Carafate) 1 gm ACHS PO 03/17/25 17:11 04/16/25 17:10 03/17/25 18:38 1 GM Tramadol HCl (UltRAM) 50 mg Q6H PRN PO MODERATE PAIN (4-6) 03/26/25 15:00 03/31/25 14:59 Diagnostics / Radiology: [COPY/PASTE HERE IF NO REPORTS PLEASE DELETE SECTION] Assessment: [ Epigastric pain Nausea and vomiting Gastrojejunal anastomosis with severe stenosis Hx of bariatric surgery ] Plan: Patient on puree diet now. If tolerating and no vomiting, she is cleared from bariatric and GI standpoint for discharge. Continue GI prophylaxis Patient is to f/u at [facility] on 04/05/25 at 9:30am Please call with questions, concerns, and change in clinical status Thank you for this consult. ] JOSHUA MILIAN NP Mar 27, 2025 10:18
[2025-03-27 10:33] LABS: IMMATURE GRANULOCYTE ABSOLUTE 0.02 K/uL (0-1); NUCLEATED RED BLOOD CELLS 0.0 % (0.0-0.19); PLATELET COUNT (AUTO) 102 K/uL (130-400); RED BLOOD CELL COUNT(AUTO) 3.99 MIL/uL (4.00-5.50); RED CELL DISTRIBUTION WIDTH 14.5 % (11.0-15.5); WHITE BLOOD COUNT (AUTO) 6.1 K/uL (4.8-10.8)
[2025-03-27 10:45] LABS: CREATININE 0.6 mg/dL (0.5-1.0); GLOMERULAR FILTR. RATE CALC 108.0 mL/min (>90); GLUCOSE,RANDOM 91.0 mg/dL (70-105); SODIUM SERUM 143.0 mmol/L (136-145); UREA NITROGEN, BLOOD 6.0 mg/dL (7-18)
[2025-03-27 10:47] LABS: ASPARTATE AMINOTRANSFERASE 18.0 U/L (10-37); TOTAL PROTEIN, SERUM 5.6 g/dL (6.0-8.3)
[2025-03-27 12:00] VITALS: BP 109/68; PULSE 68; RESP 18; TEMP 98.1
--- NOTE | 2025-03-27 13:07 | DS ---
Discharge Summary Assessment/Plan: DISCHARGED DX/S Severe GERD secondary to severe stenosis gastrojejunal anastomosis, POA Patient is status post EGD 03/19/2025, with the finding of gastric bypass with normal size pouch. 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 Status post dilatation. Hypokalemia, POA Urinary tract infection, secondary to diphtheroids, contaminant POA Severe Abdominal pain, POA Intractable Nausea, vomiting, POA History of stroke GERD Uncontrolled hypertension POA Irritable bowel syndrome POA History of gastric bypass January 02, 2025] PLAN: Patient is a 54-year-old female, underwent gastric bypass with a Dr. David. M ay 2024, came complaining of abdominal discomfort. Proceed with EGD dilation GI started patient on clear liquid advanced We will discontinue TPN for nutritional support. At 5:00 p.m. if patient is tolerating diet. Continue to monitor for any changes in symptoms. Update family as needed. 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 Hypokalemia: * Replace potassium per hospital protocol. * Monitor patient's labs. * Repeat potassium tomorrow morning Urinary tract infection: * Patient has a documented allergy to penicillin, ciprofloxacin, nitrofurantoin, sulfamethoxazole, trimethoprim. * Continue aztreonam 2 g IV Q 8 hours. * Urine culture came back positive for Gram-positive rods resembling diphtheroids Abdominal pain, nausea, vomiting: LR at 100ml/hr Patient has a documented allergy to codeine. As needed analgesia with Dilaudid. Continue with current diet Consider CT of abdomen and pelvis if no improvement in symptoms. As-needed antiemetic, Zofran. Hypertension: Home medication reconciled by CYTOGENETICIST 03/17/2025 At time of admission home medications have not been reconciled. For now: Hydralazine 10 mg IV every 4 hours for systolic blood pressure greater than 160 mmHg GI prophylaxis, famotidine DVT prophylaxis, Lovenox We will repeat labs tomorrow Case discussed with Dr. Barrett, above plan was formulated Home Medications: Active Scripts Ondansetron HCl (Ondansetron HCl) 4 Mg Tablet, 1 TAB PO Q6HPRN PRN for nausea/vomiting for 3 Days, #12 TAB 0 Refills Prov:CHANDRAKANT AYALA CYTOGENETICIST 02/08/25 Reported Medications [Multivitamin Patch] No Conflict Check, ID DAILY 03/16/25 Acetaminophen (Tylenol) 500 Mg Tab, 500 MG PO AD PRN for PAIN, TAB 12/31/24 Famotidine (Famotidine) 40 Mg Tablet, 40 MG PO HS, TAB 12/31/24 Aspirin (Aspirin) 81 Mg Tab.chew, 81 MG PO DAILY, TAB.CHEW 12/31/24 Ergocalciferol (Vitamin D2) (Vitamin D2) 1,250 Mcg (30437 Unit) Capsule, 1250 MCG PO QWEEK, CAP 12/31/24 Pantoprazole Sodium (Pantoprazole Sodium) 40 Mg Tablet.dr, 40 MG PO DAILY, TAB 12/31/24 Continued Medications: Acetaminophen (Tylenol) 500 Mg Tab 500 MG PO AD PRN for PAIN, TAB Aspirin (Aspirin) 81 Mg Tab.chew 81 MG PO DAILY, TAB.CHEW Ergocalciferol (Vitamin D2) (Vitamin D2) 1,250 Mcg (89144 Unit) Capsule 1250 MCG PO QWEEK, CAP Famotidine (Famotidine) 40 Mg Tablet 40 MG PO HS, TAB [Multivitamin Patch] () ID DAILY Ondansetron HCl (Ondansetron HCl) 4 Mg Tablet 1 TAB PO Q6HPRN PRN for nausea/vomiting for 3 Days, #12 TAB 0 Refills Pantoprazole Sodium (Pantoprazole Sodium) 40 Mg Tablet.dr 40 MG PO DAILY, TAB Time spent arranging discharge: 31-60 minutes ATTESTATION BY PHYSICIAN I have seen and examined the patient. I reviewed the documentation, medical decision making, and treatment plan as noted by the mid-level provider above. I agree with the findings and plan of care. Jessica Schuler MD, ELIZABETH NP Mar 27, 2025 13:07
[2025-03-27 16:00] VITALS: BP 103/63; PULSE 67; RESP 18; TEMP 98.4
[2025-03-27 20:00] VITALS: BP 103/62; PULSE 64; RESP 20; TEMP 98.6
[2025-03-28] VITALS: BP 97/55; PULSE 68; RESP 20; TEMP 98.4
[2025-03-28 04:00] VITALS: BP 106/63; PULSE 62; RESP 20; TEMP 98.6
[2025-03-28 05:37] LABS: IMMATURE GRANULOCYTE ABSOLUTE 0.02 K/uL (0-1); NUCLEATED RED BLOOD CELLS 0.0 % (0.0-0.19); PLATELET COUNT (AUTO) 105 K/uL (130-400); RED BLOOD CELL COUNT(AUTO) 3.71 MIL/uL (4.00-5.50); RED CELL DISTRIBUTION WIDTH 14.6 % (11.0-15.5); WHITE BLOOD COUNT (AUTO) 4.3 K/uL (4.8-10.8)
[2025-03-28 05:50] LABS: ASPARTATE AMINOTRANSFERASE 13.0 U/L (10-37); CREATININE 0.5 mg/dL (0.5-1.0); GLOMERULAR FILTR. RATE CALC 113.0 mL/min (>90); GLUCOSE,RANDOM 77.0 mg/dL (70-105); SODIUM SERUM 145.0 mmol/L (136-145); TOTAL PROTEIN, SERUM 5.3 g/dL (6.0-8.3); UREA NITROGEN, BLOOD 9.0 mg/dL (7-18)
--- NOTE | 2025-03-28 06:04 | NUR ---
K 3.3 PATIENT AWAKE AND ALERT. VOICES ALL NEEDS. NO COMPLAINTS OF PAIN VOICED AT THIS TIME. PATIENT HAS A K OF 3.3 AND REFUSING TO TAKE ANYTHING PO AT THIS TIME, SHE STATES "I DO NOT WANT THAT ORANGE STUFF IT MAKES ME PUKE AND THE PILL IS TOO BIG, GIVEN ME TIME TO THINK ABOUT IT. MAGNESIUM IS 1.80 AND BEING COVERED AT THIS TIME. NO SIGNS OF DISTRESS NOTED UPON EXITING THE ROOM. Addendum: 03/28/25 at 0606 by JORDYN RODRIGUEZ RN RN Amended: Links added.
[2025-03-28 08:00] VITALS: BP 107/63; PULSE 64; RESP 18; TEMP 97.7; O2SAT 97
--- NOTE | 2025-03-28 09:51 | PN ---
GASTROENTEROLOGY PROGRESS NOTE Date of Visit: Mar 28, 2025 Time of Visit: 09:49 Events / Notes: [ EGD significant for evidence of gastric bypass with normal size gastric pouch. 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 No acute events overnight. VSS. Patient has tolerated small amount of liquid diet. No vomiting but nausea reported. EGD results explained to patient. Will consult bariatric team. Patient and spouse agreed. 03/22/25: Patient declined EGD this am. Dr. David consulted. recommended patient f/u as outpatient and EGD will be scheduled at that time. Information given to patient and instructed to continue on clear liquid diet until f/u appt. She verbalized understanding. 03/25/25: Patient continues to c/o nausea with clear fluids. She requested to have EGD with dilation in am. Her VSS. BBS are clear. Abdomen is soft and not distended. Active BS are present. Plan for EGD with dilation discussed with patient. She agreed to proceed. 03/26/25: Patient has tolerated clear liquid diet without any nausea or vomiting. Diet advanced to full liquids. POC discussed with patient. Will advance to puree foods if she tolerates full. She agreed. 03/27/25: No acute events overnight. Patient's VSS. Patient has tolerated full liquid diet and is now tolerating puree foods. She reports some nausea but no vomiting. Encouraged small meals and ambulation after each meal. Informed of need to f/u as outpatient to arrange for EGD with dilation. She agreed. 03/28/25. Patient's VSS. She continues to tolerate pureed foods. Patient was able to have +BM x 2 last night after dulcolax suppository. She reports feeling better. Home care instructions given and emphasized importance she stay on puree foods. Instructed to keep f/u appt at [facility] with bariatric team. Instructed to avoid spicy and greasy foods, foods with tomatoes, caffeinated beverages, chocolate, and carbonated beverages. She and spouse agreed. ] Review of Systems: 10 Point ROS per HPI Physical Exam: GEN: Awake, alert, oriented in person, time and place, and in no acute distress. HEENT: No rhinorrhea. Oral pharyngeal mucosa is pink, moist and within normal limits. CHEST: Respirations unlabored. CARDIAC: regular HR ABD: Soft, mildly tender to epigastric region, and not distended. No peritoneal signs on palpation. No organomegaly. Normal bowel sounds. EXT: No cyanosis or clubbing. No edema. SKIN: Intact. No rashes. JOINTS: No evidence of synovitis or acute arthritis. NEURO: Alert and oriented to name, place and person. Cranial nerve examination is unremarkable. No focal motor deficits. Normal speech. Strength is normal. Vital Signs (last 8hr) Date Time Temp Pulse Resp B/P (MAP) Pulse Ox O2 Delivery O2 Flow Rate FiO2 03/28/25 08:00 97.7 64 18 107/63 97 Room Air 21 03/28/25 04:00 98.6 62 20 106/63 96 Room Air Laboratory: [ ] Laboratory: Test 03/28/25 05:27 03/28/25 05:15 03/27/25 15:45 Range/Units Whole Blood Glucose 77 70-110 MG/DL White Blood Count 4.3 #L 4.8-10.8 K/uL Red Blood Count 3.71 L 4.00-5.50 MIL/uL Hemoglobin 11.2 L 12.0-16.0 g/dL Hematocrit 32.8 L 36-48 % Mean Corpuscular Volume 88.4 79-99 fL Mean Corpuscular Hemoglobin 30.2 27.0-33.0 pg Mean Corpuscular Hemoglobin Concent 34.1 32.0-36.0 g/dL Red Cell Distribution Width 14.6 11.0-15.5 % Platelet Count 105 L 130-400 K/uL Mean Platelet Volume 9.9 7.5-10.5 fL Immature Granulocyte % (Auto) 0.5 0-1 % Neutrophils (%) (Auto) 67.1 40.0-77.0 % Lymphocytes (%) (Auto) 19.6 L 21.0-51.0 % Monocytes (%) (Auto) 7.7 3.0-13.0 % Eosinophils (%) (Auto) 4.4 0.0-8.0 % Basophils (%) (Auto) 0.7 0.0-5.0 % Neutrophils # (Auto) 2.9 1.8-7.7 K/uL Lymphocytes # (Auto) 0.8 L 1.0-4.8 K/uL Monocytes # (Auto) 0.3 0.1-1.0 K/uL Eosinophils # (Auto) 0.19 0.00-0.70 K/uL Basophils # (Auto) 0.03 0.00-0.20 K/uL Absolute Immature Granulocyte (auto 0.02 0-1 K/uL Nucleated Red Blood Cells 0.0 0.0-0.19 % Sodium Level 145 136-145 mmol/L Potassium Level 3.3 L 3.5-5.1 mmol/L Chloride Level 108 101-111 mmol/L Carbon Dioxide Level 29 21-32 mmol/L Blood Urea Nitrogen 9 7-18 mg/dL Creatinine 0.5 0.5-1.0 mg/dL Glomerular Filtration Rate Calc 113 >90 mL/min Random Glucose 77 70-105 mg/dL Total Calcium 8.1 L 8.5-10.1 mg/dL Magnesium Level 1.80 1.80-2.40 mg/dL Total Bilirubin 0.6 0.2-1.0 mg/dL Aspartate Amino Transf (AST/SGOT) 13 10-37 U/L Alanine Aminotransferase (ALT/SGPT) 13 # 12-78 U/L Alkaline Phosphatase 52 50-136 U/L Total Protein 5.3 L 6.0-8.3 g/dL Albumin 2.2 L 3.5-5.0 g/dL Bedside Glucose Comment Notified Nurse Current Medications Medications (Trade) Dose Ordered Sig/Silvia Route PRN Reason Start Time Stop Time Status Last Admin Dose Admin Acetaminophen (TYLenol 325MG TAB) 650 mg Q6H PRN PO TEMPERATURE GREATER THAN 101.5 03/16/25 19:00 04/15/25 18:59 Acetaminophen (TYLenol 500MG TAB) 500 mg AD PRN PO PAIN 03/17/25 10:00 03/17/25 09:50 DC Aspirin (Aspirin 81mg Chew Tab) 81 mg DAILY PO 03/18/25 09:00 03/19/25 14:19 DC Aztreonam (Azactam) 2 gm Q8H IVPB 03/16/25 19:00 03/23/25 07:34 DC 03/23/25 05:26 2 GM Aztreonam (Azactam) 2 gm Q8H IVPB 03/25/25 15:00 03/28/25 23:00 03/28/25 06:56 2 GM Aztreonam 2 gm/ Sodium Chloride 100 ml @ 100 mls/hr Q8H IVPB 03/23/25 11:00 03/24/25 22:36 DC 03/24/25 22:35 100 MLS/HR Aztreonam 2 gm/ Sodium Chloride 100 ml @ 100 mls/hr Q8H IVPB 03/24/25 23:00 03/24/25 22:37 DC Aztreonam 2 gm/ Sodium Chloride 100 ml @ 100 mls/hr Q8H IVPB 03/25/25 07:00 03/25/25 10:56 DC 03/25/25 07:11 100 MLS/HR Bisacodyl (DulcoLAX) 10 mg DAILY PRN RC CONSTIPATION 03/27/25 19:30 04/26/25 19:29 03/27/25 21:08 10 MG Dextrose 1,000 ml @ 50 mls/hr Q20H IV 03/19/25 20:00 03/22/25 12:32 DC 03/21/25 00:42 50 MLS/HR Dextrose/Sodium Chloride 1,000 ml @ 75 mls/hr [id number] IV 03/26/25 05:30 04/25/25 05:29 03/26/25 05:31 75 MLS/HR Docusate Sodium (COLace 100MG CAP) 100 mg BID PRN PO CONSTIPATION 03/26/25 17:00 04/25/25 16:59 03/27/25 11:05 100 MG Enoxaparin Sodium (Lovenox) 40 mg DAILY SQ 03/17/25 09:00 04/16/25 08:59 03/27/25 10:53 40 MG Ergocalciferol (Drisdol) 50,000 unit QWEEK PO 03/24/25 09:00 04/23/25 08:59 03/24/25 08:18 50,000 UNIT Famotidine (Pepcid 20mg Vial) 20 mg DAILY IV 03/17/25 09:00 03/17/25 09:51 DC 03/17/25 08:43 20 MG Glucagon (Glucagon 1mg Kit) 1 mg AD PRN IM PROTOCOL 03/23/25 20:30 04/22/25 20:29 Hydralazine HCl (APRESOLine 20MG INJ) 5 mg Q6H PRN IV For:SBP above 160;DBP above 90 03/19/25 19:00 04/18/25 18:59 Hydralazine HCl (APRESOLine 20MG INJ) 10 mg Q6H PRN IV For:SBP above 160;DBP above 90 03/16/25 19:00 03/19/25 14:19 DC Hydromorphone HCl (DiLAUDid 0.5MG INJ) 0.5 mg Q4H PRN IVP SEVERE PAIN (7-10) 03/16/25 19:00 03/21/25 18:59 DC Lactated Ringer's 1,000 ml @ 100 mls/hr Q10H IV 03/16/25 19:00 03/22/25 12:32 DC 03/22/25 03:27 100 MLS/HR Magnesium Sulfate 50 ml @ 0 mls/hr PROTOCOL IV 03/17/25 07:00 03/21/25 00:10 DC 03/18/25 07:53 20 MLS/HR Magnesium Sulfate 50 ml @ 0 mls/hr PROTOCOL PRN IV MAGNESIUM PROTOCOL 03/21/25 00:30 04/20/25 00:29 03/28/25 05:59 25 MLS/HR Miscellaneous Medication (Famotidine ) 40 mg HS PO 03/17/25 21:00 03/17/25 09:50 DC Multivitamins/ Minerals 10 ml/ Folic Acid 1 mg/ Thiamine HCl 100 mg/Sodium Chloride 1,010 ml @ 75 mls/hr DAILY IV 03/22/25 12:30 03/24/25 16:00 DC 03/24/25 08:18 75 MLS/HR Multivitamins/ Minerals 10 ml/ Folic Acid 1 mg/ Thiamine HCl 100 mg/Sodium Chloride 1,010 ml @ 75 mls/hr Q24H IV 03/25/25 12:00 03/27/25 01:27 DC 03/26/25 12:25 75 MLS/HR Ondansetron HCl (zoFRAN 4MG TABLET) 4 mg Q4H PRN PO nausea/vomiting 03/17/25 10:00 03/19/25 06:56 DC 03/18/25 07:52 4 MG Ondansetron HCl (zoFRAN 4MG INJ) 4 mg Q6H PRN IV NAUSEA/VOMITING 03/16/25 19:00 03/17/25 09:51 DC Ondansetron HCl (zoFRAN 4MG INJ) 4 mg Q6H PRN IVP NAUSEA/VOMITING 03/18/25 10:30 04/17/25 10:29 03/28/25 03:46 4 MG Pantoprazole Sodium (PROTonix 40MG INJ) 40 mg BID IVP 03/17/25 21:00 03/18/25 07:32 DC 03/17/25 20:28 40 MG Pantoprazole Sodium (PROTonix 40MG INJ) 40 mg BID IVP 03/19/25 21:00 04/18/25 20:59 03/27/25 21:08 40 MG Pantoprazole Sodium (PROTonix 40MG INJ) 40 mg ONCE IVP 03/16/25 17:30 03/16/25 21:30 DC 03/16/25 17:56 40 MG Pantoprazole Sodium (PROTonix 40MG TAB) 40 mg DAILY PO 03/18/25 09:00 03/19/25 14:19 DC Pharmacy Profile Note (Pharmacy Communication) 1 each ONCE MISC 03/25/25 12:00 03/25/25 11:43 DC Potassium Chloride 100 ml @ 50 mls/hr AD PRN IV POTASSIUM PROTOCOL 03/16/25 19:00 04/15/25 18:59 03/26/25 06:18 50 MLS/HR Potassium Chloride 100 ml @ 50 mls/hr ONCE IV 03/17/25 21:00 03/17/25 23:59 DC 03/18/25 00:09 50 MLS/HR Sodium Chloride 1,000 ml @ 0 mls/hr ONCE IV 03/16/25 17:30 03/17/25 17:29 DC 03/16/25 17:56 999 MLS/HR Sucralfate (Carafate) 1 gm ACHS PO 03/17/25 17:11 04/16/25 17:10 03/17/25 18:38 1 GM Tramadol HCl (UltRAM) 50 mg Q6H PRN PO MODERATE PAIN (4-6) 03/26/25 15:00 03/31/25 14:59 Diagnostics / Radiology: [COPY/PASTE HERE IF NO REPORTS PLEASE DELETE SECTION] Assessment: [ Epigastric pain Nausea and vomiting Gastrojejunal anastomosis with severe stenosis Hx of bariatric surgery ] Plan: Patient to continue on puree foods. Cleared for discharge from GI standpoint Continue GI prophylaxis Patient is to f/u at [facility] on 04/05/25 at 9:30am Please call with questions, concerns, and change in clinical status Thank you for this consult. ] JOSHUA MILIAN NP Mar 28, 2025 09:51
[2025-03-28] MEDS: PoTASSium chloRIDE 20MEQ ER 20 MEQ ERTAB PO ONE (10:03)
--- NOTE | 2025-03-28 10:28 | DS ---
Discharge Summary Hospital Course Summary: [03/16 Ms. Romero is a 54-year-old female that was seen and examined today on 03/16/2025. Patient is a good historian of personal health Patient states that she came to the emergency department with a chief complaint of abdominal pain. Onset was two weeks ago. Location is epigastric. Duration is on and off. Character is described as burning. Symptoms are aggravated with eating. There was no alleviating factors. Patient reports associated nausea and vomiting. Patient reports that she ran out of her Protonix two weeks ago. Today in the emergency department CBC unremarkable, potassium 2.7, urinalysis positive for leukocyte esterase and WBCs 11-25 per high-powered microscopy janene faye Emergency room physician recommended patient be admitted with a diagnosis of hypokalemia and urinary tract infection. 03/17 patient was seen by nurse practitioner and physician during rounding in the room 311. Patient continues to complain of abdominal pain with nausea and vomiting. Patient stated that just this year in January 02 patient underwent gastric bypass with a Dr. David. We will consult above-stated doctor for further evaluation. We will also order CT abdomen/pelvis. Potassium to be replaced per protocol. We will continue to monitor the patient meantime. A.m. labs ] 03/18 patient remains admitted to the medical floor, BP 112/69, heart rate of 55, afebrile, saturating normal on room air. CBC with a hemoglobin 12.2, hematocrit 35.4, platelet count of 119. Sodium 142, potassium 3.3, magnesium 1.7. UA leukocyte esterase 250, 11-25 WBC per high-power field. Urine culture preliminary report no growth 18-[address] of the abdomen and pelvis shows a 1 mm calculus in the upper pole of the right kidney, no additional urinary calculi, no hydronephrosis, no bowel obstruction or inflammation, normal appendix, small uncomplicated fat containing umbilical hernia, no acute interval changes. At the time of my Visit patient comfortably in bed, alert oriented x3, admits epigastric discomfort, burning type, mild nausea but not actively vomiting. She also feels hungry. Getting IV fluids. Case discussed with the RN, no acute events overnight. 03/19 patient remains admitted to the medical floor, blood pressure 126/75, afebrile, saturating normal on room air. CBC stable, potassium 3.4, magnesium 2.0. Results of urine culture positive for exxvktzniku-Ncnh-zyzypkln maddie (likely contaminant). Patient remains afebrile, no leukocytosis, results of urine culture likely contaminant from normal skin tristan, we will monitor off antibiotics. Patient is scheduled for EGD today. Continue replacing potassium IV per protocol. Follow electrolytes in a.m.. Advanced diet as tolerated and anticipate discharge home in the next 24 hours. At The time of my visit patient comfortable, scheduled for EGD, awake, following commands, case discussed with the RN, no acute events overnight. 03/20 patient remains admitted to the medical floor, hemodynamically stable, afebrile, saturating normal on room air. Patient is status post EGD 03/19/2025, with the finding of gastric bypass with normal size pouch. 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 Status post dilatation. Patient in agreement for PICC line and TPN. Per gastroenterology recommended NPO, to consult Dr David for evaluation for surgical revision. At the time of my visit the patient comfortably in bed, alert oriented x3, case discussed with the RN, no acute events overnight, patient in agreement for PICC line and TPN. 03/21 Patient is a 54-year-old female, underwent gastric bypass with a Dr. David. January 02, 2025, came complaining of abdominal discomfort. Patient is status post EGD 03/19/2025, with the finding of gastric bypass with normal size pouch. 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 Status post dilatation. Patient is started on clear liquid diet by General surgery, continue to follow recommendations. 03/22/25: Patient evaluated in her room. Patient appeared stable. Patient has low potassium levels so she is getting IV potassium infusions. Patient denied EGD to be performed today. Patient is started on clear liquids but she is not able to handle all of it. Patient had a abdominal x-ray performed waiting on report. Had a long discussion multiple times with the patient regarding her EGD. Patient is still has not decided whether she wants to go ahead with the EGD at the hospital or wants to be discharged and go home and get the EGD done outpatient. We will reassess the situation again tomorrow with the patient to see if she has decided on any particular treatment options. 03/23/25 The patient was evaluated in the room and continues to experience nausea. She is currently on a clear liquid diet. EGD was performed on 03/21/2025 with post-dilation. The plan is to repeat the EGD; however, the patient declined the procedure yesterday and is considering proceeding on Tuesday. We will continue to monitor the patients pain and comfort and will follow gastroenterology recommendations. 03/24/25 Patient evaluated in the room with family at bedside. The patient continues to report a sensation of fullness, even while on a clear liquid diet. The patient and family are in agreement with proceeding with the EGD scheduled for tomorrow morning. The GI team will be contacted to confirm the EGD timing. The patient will remain NPO after midnight in preparation for the procedure. 03/25/25 patient is seen and examined patient is lying in bed encouraged patient out of bed to chair as tolerated. EGD is scheduled for tomorrow. She continues with TPN for nutritional support and continue with clears diet. 03/26/25 patient is scheduled for EGD dilation we will follow-up for GI recommendations on diet. continues with TPN for nutritional support. Patient was seen postprocedure fully awake alert oriented x3 advised patient she will be started on clears and advance as tolerated she verbalized understanding. 03/27/25 patient was seen earlier patient was having pureed diet she tolerated. Patient has not had a bowel movements since the . We will monitor patient how she does with pureed diet for dinner patient we will need a laxative suppository. Patient will be kept for one more day bowel regimen on board. 03/28/2025 patient is hemodynamically stable for discharge home. Patient is tolerating diet patient had bowel movements overnight. Patient we will follow- up with [facility] for a repeat EGD for retreatment 04/05/2025. Patient was instructed to continue with GI soft diet upon discharge. During the course of stay patient was IV antibiotics prophylaxis Aztreonam IV received 9 doses. she has been afebrile over72 hours. No need for oral antibiotics upon discharge Procedure(s): RUN DATE: 03/19/25 [facility] PAGE 1 RUN TIME: [id number] [address], [place] [address] Department of Laboratories [facility] # [id number] Casino Dealer: Shannan Spencer DO Specimen Report PATIENT: OLAF ROMERO ACCT: [id number] LOC: [facility] U: [id number] AGE/SX: 54/F ROOM: [facility] RE03/16/[address]: DELMY HERRERA MD : 1970 BED: 1 DIS: STATUS: ADM IN TLOC: SPEC: [id number] JOBY: 03/16/25 STATUS: COMP REQ: [id number] RECD: 03/18/[address]: JENNIFER KEARNEY MD [place] [facility] 03/18/[address]: PETRONA MORALES M.D. SPDESC: CLEAN CAT ORDERED: AERO ID & SENS Procedure Result [place] Date-Time ------- ----- AEROBIC ID & SENSITIVITIES Final 03/19/25-1028 [facility] COLONY DESCRIPTION: DAY 1: COLONY COUNT: 10,000 - 20,000 CFU/ML GRAM POSITIVE RODS RESEMBLING DIPHTHEROIDS NO FURTHER WORK-UP DONE DIPHTHEROID- GRAM POSITIVE MADDIE Test(s) performed by: [facility] [address] [place] [address] - @ [facility] Test Performed at: [facility] [address], [place], [place] Medical Supervisor Bottle Machines: Marcelino Campbell D.O. Assessment/Plan: discharged dx's; Severe GERD secondary to severe stenosis gastrojejunal anastomosis, POA Patient is status post EGD 03/19/2025, with the finding of gastric bypass with normal size pouch. 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 Status post dilatation. Hypokalemia, POA Urinary tract infection, secondary to diphtheroids, contaminant POA Severe Abdominal pain, POA Intractable Nausea, vomiting, POA History of stroke GERD Uncontrolled hypertension POA Irritable bowel syndrome POA History of gastric bypass January 02, 2025] PLAN: ADMISSION DATE: 03/17/2025 DISCHARGE DATE: 03/28/2025 DISPOSITION: Home CONDITION: Stable BUSINESS WRITER(S): GI FOLLOW UP APPOINTMENT(S): [facility] as scheduled 04/05/2025 repeat EGD retreatment, PCP 2-3 days PROCEDURES: EGD x2 dilation IMAGING (S) report attached to summary : Abdomen x-ray abdomen pelvis CT MICROBIOLOGY: report attached to summary; urine ACTIVITY: ab heraclio HOME MEDICATIONS remain the same CHANGES ON HOME MEDICATIONS none NEW MEDICATIONS nauseated medication prescribed by GI nurse practitioner was called in TEACHING: Advised to keep follow-up appointments with GI avoid having big meals spread six meals throughout the day small meals Emergency instructions: The patient was instructed to present to the nearest Emergency Department or call 911 should their symptoms return or worsen. Discharge Instructions: REASON: abd pain severe ORDERING PHYSICIAN: DELIA MAYA APRN PROCEDURE: ABD PEL WO - CT ABDOMEN/PELVIS W/O CONTRAST EXAM: CT Abdomen and Pelvis without IV contrast CLINICAL HISTORY: Severe abdomen pain. TECHNIQUE: Thin collimated axial CT images of the abdomen and pelvis were obtained with sagittal and coronal reformatted images also submitted. CT scan is done according to ALARA (As Low As Reasonably Achievable). CONTRAST: None. COMPARISON: CT abdomen and pelvis dated 03/06/2025. FINDINGS: Unremarkable visualized lung parenchyma. No focal abnormality within the liver, pancreas, spleen, adrenals. 1 mm nonobstructive calculus in the upper pole of the right kidney. No additional urinary calculi. No hydronephrosis. Status post cholecystectomy. Status post gastric bypass. There is no obvious bowel wall thickening. Bowel loops are normal in caliber without evidence of obstruction or ileus. The appendix is normal. There is no abnormality within the urinary bladder. Status post hysterectomy. 1.8 cm right ovarian cyst. Unremarkable left ovary. No aortic aneurysm. No lymphadenopathy. No free fluid. There is no acute osseous abnormality. 2.2 x 1.2 cm uncomplicated fat-containing umbilical hernia. IMPRESSIONS: 1 mm calculus in the upper pole of the right kidney. No additional urinary calculi. no hydronephrosis. No bowel obstruction or inflammation. Normal appendix. Small uncomplicated fat-containing umbilical hernia. No acute interval changes. REASON: obstruction ORDERING PHYSICIAN: LEX OATES MD PROCEDURE: ABD 1VW - ABD 1VW EXAM: CR Abdomen, 2 views. CLINICAL HISTORY: Pain. COMPARISON: CT abdomen and pelvis dated 03/17/2025. FINDINGS: Nonobstructed nonspecific bowel gas pattern. A component of mild constipation is present in the colon. No free air is evident. No abnormal calcification. No aggressive appearing osseous lesion. There are surgical clips in the abdomen and pelvis. IMPRESSION: No acute process. A component of mild constipation is present in the colon. No gross interval changes. Home Medications: Active Scripts Ondansetron HCl (Ondansetron HCl) 4 Mg Tablet, 1 TAB PO Q6HPRN PRN for nausea /vomiting for 3 Days, #12 TAB 0 Refills Prov:CHANDRAKANT AYALA DAY SPA MANAGER 02/08/25 Reported Medications [Multivitamin Patch] No Conflict Check, ID DAILY 03/16/25 Acetaminophen (Tylenol) 500 Mg Tab, 500 MG PO AD PRN for PAIN, TAB 12/31/24 Famotidine (Famotidine) 40 Mg Tablet, 40 MG PO HS, TAB 12/31/24 Aspirin (Aspirin) 81 Mg Tab.chew, 81 MG PO DAILY, TAB.CHEW 12/31/24 Ergocalciferol (Vitamin D2) (Vitamin D2) 1,250 Mcg (23833 Unit) Capsule, 1250 MCG PO QWEEK, CAP 12/31/24 Pantoprazole Sodium (Pantoprazole Sodium) 40 Mg Tablet.dr, 40 MG PO DAILY, TAB 12/31/24 Continued Medications: Acetaminophen (Tylenol) 500 Mg Tab 500 MG PO AD PRN for PAIN, TAB Aspirin (Aspirin) 81 Mg Tab.chew 81 MG PO DAILY, TAB.CHEW Ergocalciferol (Vitamin D2) (Vitamin D2) 1,250 Mcg (73168 Unit) Capsule 1250 MCG PO QWEEK, CAP Famotidine (Famotidine) 40 Mg Tablet 40 MG PO HS, TAB [Multivitamin Patch] () ID DAILY Ondansetron HCl (Ondansetron HCl) 4 Mg Tablet 1 TAB PO Q6HPRN PRN for nausea/vomiting for 3 Days, #12 TAB 0 Refills Pantoprazole Sodium (Pantoprazole Sodium) 40 Mg Tablet.dr 40 MG PO DAILY, TAB Time spent arranging discharge: 31-60 minutes ATTESTATION BY PHYSICIAN I have seen and examined the patient. I reviewed the documentation, medical decision making, and treatment plan as noted by the mid-level provider above. I agree with the findings and plan of care. Jessica Schuler MD, ELIZABETH DAY SPA MANAGER Mar 28, 2025 10:28
[2025-03-28 12:00] VITALS: BP 104/64; PULSE 63; RESP 19; TEMP 98.8
--- NOTE | 2025-03-28 14:16 | NUR ---
PT DC'D HOME PER MD ORDER. PT INSTRUCTED TO F/U WITH PCP AND GI ON APRIL 05 SCHEDULED. PT STATED UNDERSTANDING. PT MIDLINE WAS REMOVED BY CHARGE NURSE. DRESSING DRY AND INTACT. PT AT BEDSIDE.
== END 2025-03-28 14:00 | disposition home or self-care (01) | DRG 720 ==
LOC: EDH 17:04 → EDHIP 17:05 → 3BH 21:46
PROVIDERS: ADMIT Internal Medicine; ATTEND Internal Medicine
PROC: 0D768ZZ Dilation of Stomach, Via Natural or Artificial Opening Endoscopic (ICD-10-PCS; principal; 2025-03-19)
PROC: 0D7A8ZZ Dilation of Jejunum, Via Natural or Artificial Opening Endoscopic (ICD-10-PCS; 2025-03-19)
PROC: 05HY33Z Insertion of Infusion Device into Upper Vein, Percutaneous Approach (ICD-10-PCS; 2025-03-21)
PROC: 05HY33Z Insertion of Infusion Device into Upper Vein, Percutaneous Approach (ICD-10-PCS; 2025-03-24)
PROC: 0DBA8ZX Excision of Jejunum, Via Natural or Artificial Opening Endoscopic, Diagnostic (ICD-10-PCS; 2025-03-26)
PROC: 0D768ZZ Dilation of Stomach, Via Natural or Artificial Opening Endoscopic (ICD-10-PCS; 2025-03-26)
PROC: 0D7A8ZZ Dilation of Jejunum, Via Natural or Artificial Opening Endoscopic (ICD-10-PCS; 2025-03-26)
DX: A41.9 Sepsis, unspecified organism (principal); E87.6 Hypokalemia; K91.89 Other postprocedural complications and disorders of digestive system; I10 Essential (primary) hypertension; N39.0 Urinary tract infection, site not specified; K21.9 Gastro-esophageal reflux disease without esophagitis; I25.10 Atherosclerotic heart disease of native coronary artery without angina pectoris; K42.9 Umbilical hernia without obstruction or gangrene; K52.9 Noninfective gastroenteritis and colitis, unspecified; K95.89 Other complications of other bariatric procedure; R13.10 Dysphagia, unspecified; Z86.73 Personal history of transient ischemic attack (TIA), and cerebral infarction without residual deficits; Z87.440 Personal history of urinary (tract) infections; Z88.5 Allergy status to narcotic agent; Z88.0 Allergy status to penicillin; Z88.8 Allergy status to other drugs, medicaments and biological substances; Z90.710 Acquired absence of both cervix and uterus; Z98.84 Bariatric surgery status; Z51.5 Encounter for palliative care
CPT/HCPCS: 36415; 36556; 43239; 43245; 43249; 74018; 74176; 80048; 80053; 81001; 82306; 82607; 82948; 83690; 83735; 84100; 84132; 84207; 84425; 84484; 85025; 85027; 85610; 87086; 88305; 93005; 96374; 99285; A4606; C1726; C1894; G0378; J0500; J1650; J2003; J2405; J2470; J2704; J3411; J3475; J3480; J3490; J7030; J7070; J7120; Q0162; A4215; A4222; A4223; A4620; C1750; C1751

== ENCOUNTER 2025-04-19 17:12 | Emergency (ER) | payer MEDICAID ==
[~2025-04-19] VITALS: Ht 172.7 cm; Wt 75.9 kg
[~2025-04-19 17:12] MED LIST changes: -BISA10SU11 PR; -CEFD300C3 PO; -MAGN-157 PO; +MULTIVITAMIN PATCH ID; -SODI133E14 RC; -TAMS-55 PO
[2025-04-19 18:10] LABS: IMMATURE GRANULOCYTE ABSOLUTE 0.00 K/uL (0-1); NUCLEATED RED BLOOD CELLS 0.0 % (0.0-0.19); PLATELET COUNT (AUTO) 157 K/uL (130-400); RED BLOOD CELL COUNT(AUTO) 4.59 MIL/uL (4.00-5.50); RED CELL DISTRIBUTION WIDTH 14.3 % (11.0-15.5); WHITE BLOOD COUNT (AUTO) 4.4 K/uL (4.8-10.8)
[2025-04-19 18:17] LABS: CREATININE 1.1 mg/dL (0.5-1.0); GLOMERULAR FILTR. RATE CALC 60.0 mL/min (>90); GLUCOSE,RANDOM 70.0 mg/dL (70-105); SODIUM SERUM 142.0 mmol/L (136-145); UREA NITROGEN, BLOOD 10.0 mg/dL (7-18)
[2025-04-19 18:26] LABS: ASPARTATE AMINOTRANSFERASE 25.0 U/L (10-37); CREATINE KINASE, TOTAL 89.0 U/L (21-232); TOTAL PROTEIN, SERUM 6.9 g/dL (6.0-8.3)
--- NOTE | 2025-04-19 18:37 | HMCIMG ---
EXAM: CT Abdomen and Pelvis Without IV Contrast CLINICAL HISTORY: Abdominal pain, rule out obstruction. TECHNIQUE: Axial computed tomography images of the abdomen and pelvis without intravenous contrast. CONTRAST: No IV contrast. COMPARISON: CT Abdomen/Pelvis Without Contrast ??? 03/17/25 09:56 EDT. FINDINGS: Unremarkable visualized lung parenchyma. No focal abnormality within the liver, pancreas, spleen, or adrenals. No urinary calculi. No hydronephrosis. Status post cholecystectomy. Status post gastric bypass. There is no obvious bowel wall thickening. Bowel loops are normal in caliber without evidence of obstruction or ileus. Incidental appendicolith. The appendix was otherwise normal. There is no abnormality within the urinary bladder. Status post hysterectomy. A 1.8 cm right ovarian cyst is noted. Left ovary is unremarkable. No aortic aneurysm. No lymphadenopathy. No free fluid. There is no acute osseous abnormality. A 2.2 x 1.2 cm uncomplicated fat-containing umbilical hernia is present.IMPRESSION: 1. No acute intraabdominal or pelvic pathology. /[place]te
[2025-04-19 19:34] VITALS: BP 108/67; PULSE 61; RESP 17; TEMP 98.6; O2SAT 98
[2025-04-19] MEDS: 0.9%NACL 1000ML 1,000 ML IV ONE (19:41)
--- NOTE | 2025-04-19 21:08 | ERN ---
General Chief Complaint: Dizzy/Light Headed Stated Complaint: DIZZY Time Seen by MD: 17:15 Time Seen by Midlevel: 17:15 Source: patient History of Present Illness Initial Comments The patient is a 54-year-old female with a past medical history of gastric sleeve presenting to the emergency department for evaluation of constipation that has been ongoing for two weeks Allergies: Coded Allergies: Penicillins (Unverified Allergy, Unknown, 05/02/21) [id number] Antimigraine Agents (Unverified Allergy, Unknown, 12/31/24) ciprofloxacin (Unverified Allergy, Unknown, 05/02/21) codeine (Unverified Allergy, Unknown, 05/02/21) metoclopramide (Unverified Allergy, Unknown, 12/31/24) nitrofurantoin (Unverified Allergy, Unknown, 12/31/24) sulfamethoxazole (Unverified Allergy, Unknown, 05/02/21) trimethoprim (Unverified Allergy, Unknown, 05/02/21) Home Meds Active Scripts Ondansetron HCl (Ondansetron HCl) 4 Mg Tablet, 1 TAB PO Q6HPRN PRN for nausea/vomiting for 3 Days, #12 TAB 0 Refills Prov:CHANDRAKANT AYALA CORPORATE TRAVEL MANAGER 02/08/25 Reported Medications [Multivitamin Patch] No Conflict Check, ID DAILY 03/16/25 Acetaminophen (Tylenol) 500 Mg Tab, 500 MG PO AD PRN for PAIN, TAB 12/31/24 Famotidine (Famotidine) 40 Mg Tablet, 40 MG PO HS, TAB 12/31/24 Aspirin (Aspirin) 81 Mg Tab.chew, 81 MG PO DAILY, TAB.CHEW 12/31/24 Ergocalciferol (Vitamin D2) (Vitamin D2) 1,250 Mcg (89469 Unit) Capsule, 1250 MCG PO QWEEK, CAP 12/31/24 Pantoprazole Sodium (Pantoprazole Sodium) 40 Mg Tablet.dr, 40 MG PO DAILY, TAB 12/31/24 Past Medical History Past Medical History: Asthma, CVA, GERD, Hypertension Medical History Other: gastroperisis Past Surgical History: Bariatric Surgery Surgical History Other: GASTRIC BYPASS Family History Family History: Negative Social History Social History: Negative ROS Dictation CONSTITUTIONAL: Negative except for HPI HEAD/FACE: Negative except for HPI EENT: Negative except for HPI RESPIRATORY: Negative except for HPI GASTROINTESTINAL/ABDOMINAL: Negative except for HPI GENITOURINARY: Negative except for HPI MUSCULOSKELETAL: Negative except for HPI INTEGUMENTARY: Negative except for HPI NEUROLOGICAL/PSYCH: Negative except for HPI HEMATOLOGIC/LYMPHATIC: Negative except for HPI All Systems Negative, Except as noted above. 13 point review of systems assessed and all negative except for above. Physical Exam Physical Exam Dictation Vital Signs reviewed General Appearance: Alert, oriented x 3, no acute distress, well developed, nourished. Head and Face: non-traumatic. Eyes: PERRL, pink conjunctivas, eyelid no trauma, anterior chamber with arcus senilis. Ears: Pinnas intact and no signs of trauma or erythema ear canals clear and no discharge TM no erythema Nose: No discharge, no bleeding. Oropharynx: Mouth normal, tongue pink, pharynx clear,no erythema, tonsils no exudates, no abscesses noted, mucous membrane moist Neck: Supple, non-tender, no thyromegaly, no masses, no JVD, no bruits Breast:Deferred Chest:No tenderness, no crepitus, no paradoxical movement, no retractions Lungs:Clear, well-ventilated, symmetric, no rales, no wheezing, no rhonchi, no stridor, good breath sounds bilaterally Heart: Regular rate, regular rhythm, no murmur, no gallops Vascular: no peripheral edema, Abdomen: Soft, positive bowel sounds, nondistended, no guarding, nontender, no rebound, no masses no hepatomegaly, no splenomegaly, no Griffin's sign, no hernias. Rectal: Deferred Genital: Deferred Neurological: Normal speech, motor function intact, sensory function intact Musculoskeletal: Neck nontender, full range of motion, back nontender, full range of motion, Extremities: nontender, full range of motion Skin: Color pink, dry, no turgor, no rash, no lacerations, no abrasions, no contusions. Lymphatic: Deferred Results Laboratory and Microbiology Lab and Micro Result Laboratory Tests Test 04/19/25 17:50 White Blood Count 4.4 K/uL (4.8-10.8) L Red Blood Count 4.59 MIL/uL (4.00-5.50) Hemoglobin 14.0 g/dL (12.0-16.0) Hematocrit 40.3 % (36-48) Mean Corpuscular Volume 87.8 fL (79-99) Mean Corpuscular Hemoglobin 30.5 pg (27.0-33.0) Mean Corpuscular Hemoglobin Concent 34.7 g/dL (32.0-36.0) Red Cell Distribution Width 14.3 % (11.0-15.5) Platelet Count 157 K/uL (130-400) Mean Platelet Volume 10.2 fL (7.5-10.5) Immature Granulocyte % (Auto) 0.0 % (0-1) Neutrophils (%) (Auto) 63.0 % (40.0-77.0) Lymphocytes (%) (Auto) 26.9 % (21.0-51.0) Monocytes (%) (Auto) 8.5 % (3.0-13.0) Eosinophils (%) (Auto) 0.9 % (0.0-8.0) Basophils (%) (Auto) 0.7 % (0.0-5.0) Neutrophils # (Auto) 2.7 K/uL (1.8-7.7) Lymphocytes # (Auto) 1.2 K/uL (1.0-4.8) Monocytes # (Auto) 0.4 K/uL (0.1-1.0) Eosinophils # (Auto) 0.04 K/uL (0.00-0.70) Basophils # (Auto) 0.03 K/uL (0.00-0.20) Absolute Immature Granulocyte (auto 0.00 K/uL (0-1) Nucleated Red Blood Cells 0.0 % (0.0-0.19) Sodium Level 142 mmol/L (136-145) Potassium Level 3.2 mmol/L (3.5-5.1) L Chloride Level 99 mmol/L (101-111) L Carbon Dioxide Level 27 mmol/L (21-32) Blood Urea Nitrogen 10 mg/dL (7-18) Creatinine 1.1 mg/dL (0.5-1.0) H Glomerular Filtration Rate Calc 60 mL/min (>90) Random Glucose 70 mg/dL (70-105) Total Calcium 9.3 mg/dL (8.5-10.1) Total Bilirubin 1.3 mg/dL (0.2-1.0) H Aspartate Amino Transf (AST/SGOT) 25 U/L (10-37) Alanine Aminotransferase (ALT/SGPT) 16 U/L (12-78) Alkaline Phosphatase 56 U/L (50-136) Total Creatine Kinase 89 U/L (21-232) # Troponin I High Sensitivity 10 ng/L (4-50) Total Protein 6.9 g/dL (6.0-8.3) Albumin 3.3 g/dL (3.5-5.0) L Lipase 23 U/L (16-77) Labs Reviewed?: Yes MDM MDM: Differential diagnosis: A small-bowel obstruction, fecal impaction, constipation There are no social concerns with this patient. Prescription drug management Prescriptions will include: MiraLax Medical management and examination interpretation discussions were had by me with other qualified healthcare professionals as indicated for the patient's care. ED Course Orders Procedure Category Date Status Time Cbc With Differential LAB 04/19/25 Complete 17:30 Comprehensive LAB 04/19/25 Complete Metabolic Panel 17:30 Lipase LAB 04/19/25 Complete 17:30 Troponin I High LAB 04/19/25 Complete Sensitivity 17:30 Creatine Kinase, Total LAB 04/19/25 Complete 17:30 Ct Abdomen/Pelvis W/O CT 04/19/25 Resulted Contrast 17:30 0.9%Nacl 1000ml (Ns PHA 04/19/25 Complete 1000ml) 19:30 Potassium Bicarb/Cit PHA 04/19/25 Complete Ac 25meq (K-Lyte Ta 19:30 *Nursing CPOE 04/19/25 Transmitted Communication: 20:21 Ondansetron 4mg Inj PHA 04/19/25 Complete (Zofran 4mg Inj) 20:30 Current Medications Medications (Trade) Dose Ordered Sig/Silvia Route PRN Reason Start Time Stop Time Status Last Admin Dose Admin Ondansetron HCl (zoFRAN 4MG INJ) 4 mg ONCE ONCE IVP 04/19/25 20:30 04/19/25 20:31 DC 04/19/25 20:32 Potassium Bicarbonate (K-Lyte Tablet Eff 25 Meq Tablet.eff) 25 meq ONCE ONCE PO 04/19/25 19:30 04/19/25 19:31 DC Sodium Chloride 1,000 ml @ 0 mls/hr ONCE ONCE IV 04/19/25 19:30 04/19/25 19:31 DC 04/19/25 19:41 Vital Signs Date Time Temp Pulse Resp B/P (MAP) Pulse Ox O2 Delivery O2 Flow Rate FiO2 04/19/25 19:34 98.6 61 17 108/67 98 Room Air* 0 21 04/19/25 17:17 98.1 86 18 133/81 94 Room Air* 0 21 04/19/25 17:14 98.1 86 18 133/81 94 Room Air 0 DX & DISP Disposition: Discharge Departure Impression: Primary Impression: Constipation Additional Impressions: Hypokalemia, Mild dehydration Condition: Stable Referrals: PETRONA MORALES M.D. (PCP) Time of Disposition: 21:08 I have reviewed the case, and I agree with, Diagnosis and Plan I performed the substantive portion of the visit. I have reviewed and personally made and approve the management plan that is documented in the note by myself or the BLANCO. I acknowledge for responsibility for the patient's management plan. BRAVO LUIS Apr 19, 2025 21:08
== END 2025-04-19 21:15 | disposition home or self-care (01) ==
LOC: EDH 17:12
DX: K59.00 Constipation, unspecified (principal); E87.6 Hypokalemia; E86.0 Dehydration; I10 Essential (primary) hypertension; J45.909 Unspecified asthma, uncomplicated; N83.201 Unspecified ovarian cyst, right side; Z79.82 Long term (current) use of aspirin; Z79.899 Other long term (current) drug therapy; Z86.73 Personal history of transient ischemic attack (TIA), and cerebral infarction without residual deficits; Z88.0 Allergy status to penicillin; Z88.1 Allergy status to other antibiotic agents; Z88.2 Allergy status to sulfonamides; Z88.5 Allergy status to narcotic agent; Z90.49 Acquired absence of other specified parts of digestive tract; Z90.710 Acquired absence of both cervix and uterus; Z98.84 Bariatric surgery status
CPT/HCPCS: 99285; 74176; 96374; 82550; 84484; 80053; 83690; 85025; 36415; J7030; J2405

== ENCOUNTER 2025-05-16 14:02 | Emergency (ER) | payer MEDICAID ==
[~2025-05-16] VITALS: Ht 172.7 cm; Wt 68.0 kg
[~2025-05-16 14:02] MED LIST changes: -FAMO40TA7 PO
--- NOTE | 2025-05-16 14:15 | ERN ---
ED Note History of Present Illness Stated Complaint: ABMORMAL LABS Chief Complaint: Abnormal Labs Time Seen by MD: 14:04 Dictation: PATIENT IS A 54-YEAR-OLD FEMALE COMING IN TODAY WITH COMPLAINTS OF GOING TO HER DOCTOR YESTERDAY AND AFTER LABS WERE DRAWN BEING TOLD THAT SHE HAD LOW GLUCOSE, LOW POTASSIUM AND A URINARY TRACT INFECTION AND GO TO THE EMERGENCY ROOM. SHE SAID SHE HAS HAD NAUSEA WITHOUT VOMITING NO FEVER NO CHILLS NO CHEST PAIN. STATES SHE HAS HAS A HISTORY OF A GASTRIC BYPASS SEVERAL YEARS AGO BY DR. TORRES. Allergies: Coded Allergies: Penicillins (Unverified Allergy, Unknown, 05/02/21) [id number] Antimigraine Agents (Unverified Allergy, Unknown, 12/31/24) ciprofloxacin (Unverified Allergy, Unknown, 05/02/21) codeine (Unverified Allergy, Unknown, 05/02/21) metoclopramide (Unverified Allergy, Unknown, 12/31/24) nitrofurantoin (Unverified Allergy, Unknown, 12/31/24) sulfamethoxazole (Unverified Allergy, Unknown, 05/02/21) trimethoprim (Unverified Allergy, Unknown, 05/02/21) Home Meds Active Scripts Ondansetron HCl (Ondansetron HCl) 4 Mg Tablet, 1 TAB PO Q6HPRN PRN for nausea/vomiting for 3 Days, #12 TAB 0 Refills Prov:[facility] 02/08/25 Reported Medications [Multivitamin Patch] No Conflict Check, ID DAILY 03/16/25 Acetaminophen (Tylenol) 500 Mg Tab, 500 MG PO AD PRN for PAIN, TAB 12/31/24 Aspirin (Aspirin) 81 Mg Tab.chew, 81 MG PO QWEEK, TAB.CHEW 12/31/24 Ergocalciferol (Vitamin D2) (Vitamin D2) 1,250 Mcg (35619 Unit) Capsule, 1250 MCG PO QWEEK, CAP 12/31/24 Pantoprazole Sodium (Pantoprazole Sodium) 40 Mg Tablet.dr, 40 MG PO DAILY, TAB 12/31/24 Past Medical History Past Medical History: Asthma, CVA, Diabetes-Type II, GERD, Hypertension Additional Past Medical Hx: gastroperisis Surgical History: Bariatric Surgery Surgical History Other: GASTRIC BYPASS Family History: Negative Social History: Negative History: Not Applicable RN Note Reviewed/Agreed w/PFSH: Yes Review of System Dictation CONSTITUTIONAL: NEGATIVE EXCEPT FOR HPI GENERALIZED BODY WEAKNESS HEAD/FACE: NEGATIVE EXCEPT FOR HPI EENT: NEGATIVE EXCEPT FOR HPI RESPIRATORY: NEGATIVE EXCEPT FOR HPI GASTROINTESTINAL/ABDOMINAL: NEGATIVE EXCEPT FOR HPI NAUSEA GENITOURINARY: NEGATIVE EXCEPT FOR HPI MUSCULOSKELETAL: NEGATIVE EXCEPT FOR HPI INTEGUMENTARY: NEGATIVE EXCEPT FOR HPI NEUROLOGICAL/PSYCH: NEGATIVE EXCEPT FOR HPI HEMATOLOGIC/LYMPHATIC: NEGATIVE EXCEPT FOR HPI ALL SYSTEMS NEGATIVE, EXCEPT NOTED ABOVE. 13 POINT REVIEW OF SYSTEMS ASSESSED AND ALL NEGATIVE EXCEPT FOR ABOVE. Initial Vital Sign VS Vital Signs Date Time Temp Pulse Resp B/P (MAP) Pulse Ox O2 Delivery O2 Flow Rate FiO2 05/16/25 14:04 98.4 74 16 135/78 97 Room Air 05/16/25 16:34 0 21 Physical Exam Dictation VITAL SIGNS REVIEWED GENERAL APPEARANCE: ALERT, ORIENTED X 3, NO ACUTE DISTRESS, WELL DEVELOPED, NOURISHED. HEAD AND FACE: NON-TRAUMATIC. EYES: PERRL, PINK CONJUNCTIVAS, EYELID NO TRAUMA, ANTERIOR CHAMBER WITH ARCUS SENILIS. EARS: PINNAS INTACT AND NO SIGNS OF TRAUMA OR ERYTHEMA EAR CANALS CLEAR AND NO DISCHARGE TM NO ERYTHEMA NOSE: NO DISCHARGE, NO BLEEDING. OROPHARYNX: MOUTH NORMAL, TONGUE PINK, PHARYNX CLEAR,NO ERYTHEMA, TONSILS NO EXUDATES, NO ABSCESSES NOTED, MUCOUS MEMBRANE MOIST NECK: SUPPLE, NON-TENDER, NO THYROMEGALY, NO MASSES, NO JVD, NO BRUITS BREAST:DEFERRED CHEST:NO TENDERNESS, NO CREPITUS, NO PARADOXICAL MOVEMENT, NO RETRACTIONS LUNGS:CLEAR, WELL-VENTILATED, SYMMETRIC, NO RALES, NO WHEEZING, NO RHONCHI, NO STRIDOR, GOOD BREATH SOUNDS BILATERALLY HEART: REGULAR RATE, REGULAR RHYTHM, NO MURMUR, NO GALLOPS VASCULAR: NO PERIPHERAL EDEMA, ABDOMEN: SOFT, POSITIVE BOWEL SOUNDS, NONDISTENDED, NO GUARDING, NONTENDER, NO REBOUND, NO MASSES NO HEPATOMEGALY, NO SPLENOMEGALY, NO MILLER'S SIGN, NO HERNIAS. NO FOCAL PAIN RECTAL: DEFERRED GENITAL: DEFERRED NEUROLOGICAL: NORMAL SPEECH, MOTOR FUNCTION INTACT, SENSORY FUNCTION INTACT MUSCULOSKELETAL: NECK NONTENDER, FULL RANGE OF MOTION, BACK NONTENDER, FULL RANGE OF MOTION, EXTREMITIES: NONTENDER, FULL RANGE OF MOTION SKIN: COLOR PINK, DRY, NO TURGOR, NO RASH, NO LACERATIONS, NO ABRASIONS, NO CONTUSIONS. LYMPHATIC: DEFERRED Results (Laboratory/Radiology) Laboratory/Radiology Laboratory Tests Test 05/16/25 15:05 05/16/25 16:38 05/16/25 17:53 05/16/25 18:00 White Blood Count 4.6 K/uL (4.8-10.8) L Red Blood Count 4.76 MIL/uL (4.00-5.50) Hemoglobin 14.2 g/dL (12.0-16.0) Hematocrit 40.9 % (36-48) Mean Corpuscular Volume 85.9 fL (79-99) Mean Corpuscular Hemoglobin 29.8 pg (27.0-33.0) Mean Corpuscular Hemoglobin Concent 34.7 g/dL (32.0-36.0) Red Cell Distribution Width 14.8 % (11.0-15.5) Platelet Count 145 K/uL (130-400) Mean Platelet Volume 9.3 fL (7.5-10.5) Immature Granulocyte % (Auto) 0.2 % (0-1) Neutrophils (%) (Auto) 68.2 % (40.0-77.0) Lymphocytes (%) (Auto) 22.4 % (21.0-51.0) Monocytes (%) (Auto) 8.3 % (3.0-13.0) Eosinophils (%) (Auto) 0.2 % (0.0-8.0) Basophils (%) (Auto) 0.7 % (0.0-5.0) Neutrophils # (Auto) 3.1 K/uL (1.8-7.7) Lymphocytes # (Auto) 1.0 K/uL (1.0-4.8) Monocytes # (Auto) 0.4 K/uL (0.1-1.0) Eosinophils # (Auto) 0.01 K/uL (0.00-0.70) Basophils # (Auto) 0.03 K/uL (0.00-0.20) Absolute Immature Granulocyte (auto 0.01 K/uL (0-1) Nucleated Red Blood Cells 0.0 % (0.0-0.19) Sodium Level 141 mmol/L (136-145) Potassium Level 2.6 mmol/L (3.5-5.1) *L Chloride Level 96 mmol/L (101-111) L Carbon Dioxide Level 24 mmol/L (21-32) Blood Urea Nitrogen 12 mg/dL (7-18) Creatinine 1.1 mg/dL (0.5-1.0) H Glomerular Filtration Rate Calc 60 mL/min (>90) Random Glucose 82 mg/dL (70-105) Total Calcium 9.8 mg/dL (8.5-10.1) Total Bilirubin 1.5 mg/dL (0.2-1.0) H Aspartate Amino Transf (AST/SGOT) 32 U/L (10-37) Alanine Aminotransferase (ALT/SGPT) 12 U/L (12-78) Alkaline Phosphatase 52 U/L (50-136) Total Protein 7.2 g/dL (6.0-8.3) Albumin 3.6 g/dL (3.5-5.0) Lipase 26 U/L (16-77) Urine Color YELLOW (YELLOW) Urine Appearance TURBID (CLEAR) Urine pH 6.5 (5.0-8.0) Urine Specific [place] 1.027 (1.001-1.031) Urine Protein 100 mg/dL (NEGATIVE) H Urine Glucose (UA) NEGATIVE mg/dL (NEGATIVE) Urine Ketones 150 mg/dL (NEGATIVE) H Urine Occult Blood MODERATE (NEGATIVE) H Urine Nitrate NEGATIVE (NEGATIVE) Urine Bilirubin 1 mg/dL (NEGATIVE) H Urine Urobilinogen 6 mg/dL (0.2-1.0) H Urine Leukocyte Esterase 75 [place]/uL (NEGATIVE) H Urine RBC 26-50 /HPF (0-1) H Urine WBC 6-10 /HPF (0-1) H Urine Squamous Epithelial Cells FEW /HPF (0-2) Urine Other Crystals (Auto) 96 /HPF (None Seen) Urine Amorphous Crystals (Auto) FEW /LPF (None Seen) Urine Bacteria FEW /HPF (None Seen) Urine Hyaline Casts 2-5 /LPF (0-1 /LPF) H Urine Other Casts 6 /LPF (None Seen) SARS-CoV-2 Antigen (Rapid) PRESUMPTIVE NEGATIVE Group A Streptococcus Rapid negative (NEGATIVE) Labs Reviewed?: Yes ED Course ED Course Orders Procedure Category Date Status Time Cbc With Differential LAB 05/16/25 Complete 14:13 Comprehensive LAB 05/16/25 Complete Metabolic Panel 14:13 Urinalysis Profile LAB 05/16/25 Complete 14:13 0.9%Nacl 1000ml (Ns PHA 05/16/25 Complete 1000ml) 14:30 Ondansetron 4mg Inj PHA 05/16/25 Complete (Zofran 4mg Inj) 14:30 Lipase LAB 05/16/25 Complete 14:13 Potassium Bicarb/Cit PHA 05/16/25 Complete Ac 25meq (K-Lyte Ta 16:00 Potassium Bicarb/Cit PHA 05/16/25 Complete Ac 25meq (K-Lyte Ta 15:42 Potassium Chloride PHA 05/16/25 Complete 20meq Er (K-Dur/Klor- 16:30 Culture Urine HYUN 05/16/25 In Process 16:49 Covid19 (Sars Antigen LAB 05/16/25 Complete Rapid) 17:50 Rapid (Group A Strep) LAB 05/16/25 Complete 18:07 Current Medications Medications (Trade) Dose Ordered Sig/Silvia Route PRN Reason Start Time Stop Time Status Last Admin Dose Admin Ondansetron HCl (zoFRAN 4MG INJ) 4 mg ONCE ONCE IVP 05/16/25 14:30 05/16/25 14:46 DC 05/16/25 16:00 Potassium Bicarbonate (K-Lyte Tablet Eff 25 Meq Tablet.eff) 25 meq STK-MED ONCE .ROUTE 05/16/25 15:42 05/16/25 15:42 DC Potassium Bicarbonate (K-Lyte Tablet Eff 25 Meq Tablet.eff) 50 meq ONCE ONCE PO 05/16/25 16:00 05/16/25 16:01 DC Potassium Chloride (K-Dur/Klor-Con 20meq) 40 meq ONCE ONCE PO 05/16/25 16:30 05/16/25 16:31 DC 05/16/25 16:12 Sodium Chloride 1,000 ml @ 0 mls/hr ONCE ONCE IV 05/16/25 14:30 05/16/25 14:46 DC 05/16/25 16:00 Vital Signs Date Time Temp Pulse Resp B/P (MAP) Pulse Ox O2 Delivery O2 Flow Rate FiO2 05/16/25 17:30 98.4 65 16 131/69 97 Room Air* 0 21 05/16/25 16:34 98.4 69 16 130/70 99 Room Air* 0 21 05/16/25 14:04 98.4 74 16 135/78 97 Room Air 1830/SARS AND COVID NEGATIVE. PATIENT WILL BE DISCHARGED HOME HYPOKALEMIA ELECTROLYTE IMBALANCE AND UTI. SHE WILL BE GIVEN CEPHALOSPORINS TOLD TO SEE HER DOCTOR Medical Decision Making MDM MDM: DIFFERENTIAL DIAGNOSIS: SARS/STREP/ELECTROLYTE IMBALANCE/DEHYDRATION/UTI RATIONALE: TESTS CONSIDERED AND ORDERED SECONDARY TO SHARED DECISION MAKING INCLUDE: SWABS/LABS PREVIOUS OUTSIDE RECORDS REVIEWED: OLD ER VISITS. RISK OF COMPLICATION AND/OR MORBIDITY OR MORTALITY OF PATIENT MANAGEMENT: NONE MEDICATIONS-PER MEDICATION RECONCILIATION NEED FOR HOSPITALIZATION: PATIENT DOES NOT MEET CRITERIA FOR HOSPITALIZATION. NONE NEED FOR EMERGENCY MAJOR/MINOR SURGERY: NO THERE ARE NO SOCIAL CONCERNS WITH THIS PATIENT. PRESCRIPTION DRUG MANAGEMENT CEPHALEXIN/K-DUR PRESCRIPTIONS WILL INCLUDE SYMPTOMATIC CARE PATIENT'S PRIOR EXTERNAL MEDICAL RECORDS FROM OTHER ER VISITS WERE REVIEWED BY ME INDICATED. PRIOR TESTING AND RESULTS FROM PREVIOUS VISITS WERE REVIEWED. PRIOR TESTS WERE TAKEN INTO ACCOUNT WITH MEDICAL DECISION MAKING AND RESOURCE UTILIZATION, INDEPENDENT HISTORIAN/HISTORIANS WERE USED TO OBTAIN COMPLETE MEDIC AL HISTORY. I INDEPENDENTLY INTERPRETED THE TEST THAT WERE PERFORMED, RESULTS WERE REVIEWED BY ME AND CONSIDERED FINDINGS ON RADIOLOGY IF ORDERED. MEDICAL MANAGEMENT AND EXAMINATION INTERPRETATION DISCUSSIONS WERE HAD BY ME WITH OTHER QUALIFIED HEALTHCARE PROFESSIONALS INDICATED FOR THE PATIENT'S CARE. DX & DISP Disposition: Discharge Departure Impression: Primary Impression: Acute cystitis Additional Impressions: Hypokalemia, Dehydration Condition: Stable Scripts Cephalexin (Cephalexin) 500 Mg Tablet 1 TAB PO TID for 10 Days, #30 TAB 0 Refills Prov: [facility] 05/16/25 Potassium Chloride (K-Dur/Klor-Con) 20 Meq Ertab 20 MEQ PO BIDMEALS for 5 Days, #10 TAB.EC Prov: SANCHEZ RICHEY NP 05/16/25 Additional Instructions: FOLLOW-UP WITH PRIMARY CARE PROVIDER IN 1 TO 2 DAYS. TAKE MEDICATIONS DIRE CTED HERE IN THE EMERGENCY ROOM. OKAY TO CONTINUE HOME MEDICATIONS UNLESS OTHERWISE DISCUSSED DURING YOUR VISIT IN THE EMERGENCY ROOM TODAY. RETURN TO YOUR NEAREST EMERGENCY ROOM IF SYMPTOMS WORSEN OR IF THERE IS NO IMPROVEMENT. CALL 911 IF YOU NEED IMMEDIATE ASSISTANCE. TAKE TYLENOL OR MOTRIN [id number] NEEDED AND IF NO CONTRAINDICATIONS ARE PRESENT. INCREASE ORAL HYDRATION. A WOUND CULTURE OR URINE CULTURE WAS ORDERED HERE IN THE EMERGENCY ROOM DEPARTMENT PLEASE FOLLOW-UP WITH PRIMARY CARE PROVIDER AND ADVISE THEM TO GET REPEAT PORTS FROM OUR FACILITY. IF YOU HAD ANY TOM WRAP/SPLINTS THAT WERE APPLIED HERE, PLEASE DO NOT REMOVE THEM UNTIL YOU SEE YOUR PRIMARY CARE OR SPECIALTY. TAKE ANTIBIOTICS DIRECTED UNTIL GONE. TAKE K-DUR DIRECTED WITH FOOD TWICE A DAY FOR FIVE DAYS. SEE YOUR PRIMARY CARE DOCTOR FOR FOLLOW UP. Referrals: PETRONA MORALES M.D. (PCP) Time of Disposition: 18:31 I have reviewed the case, and I agree with, Diagnosis and Plan SANCHEZ RICHEY NP May 16, 2025 14:15
[2025-05-16 15:18] LABS: IMMATURE GRANULOCYTE ABSOLUTE 0.01 K/uL (0-1); NUCLEATED RED BLOOD CELLS 0.0 % (0.0-0.19); PLATELET COUNT (AUTO) 145 K/uL (130-400); RED BLOOD CELL COUNT(AUTO) 4.76 MIL/uL (4.00-5.50); RED CELL DISTRIBUTION WIDTH 14.8 % (11.0-15.5); WHITE BLOOD COUNT (AUTO) 4.6 K/uL (4.8-10.8)
[2025-05-16 15:32] LABS: ASPARTATE AMINOTRANSFERASE 32.0 U/L (10-37); CREATININE 1.1 mg/dL (0.5-1.0); GLOMERULAR FILTR. RATE CALC 60.0 mL/min (>90); GLUCOSE,RANDOM 82.0 mg/dL (70-105); SODIUM SERUM 141.0 mmol/L (136-145); TOTAL PROTEIN, SERUM 7.2 g/dL (6.0-8.3); UREA NITROGEN, BLOOD 12.0 mg/dL (7-18)
--- NOTE | 2025-05-16 15:58 | NUR ---
PT MOVED INTO [facility] ASSUMED CARE AT THIS TIME
[2025-05-16] MEDS: 0.9%NACL 1000ML 1,000 ML IV ONE (16:00)
[2025-05-16] MEDS: PoTASSium chloRIDE 20MEQ ER 20 MEQ ERTAB PO ONE (16:12)
[2025-05-16 16:46] LABS: APPEARANCE,URINE TURBID (CLEAR); GLUCOSE, URINE (UA) NEGATIVE (NEGATIVE); LEUKOCYTE ESTERASE ,URINE 75 Leu/uL (NEGATIVE); NITRATE,URINE NEGATIVE (NEGATIVE); OCCULT BLOOD,URINE MODERATE (NEGATIVE)
[2025-05-16 16:48] LABS: ADD UA MICROSCOPIC YES
[2025-05-16 16:51] LABS: OTHER CASTS, URINE 6 /LPF (None Seen); SQUAMOUS EPITHELIAL CELL,UR FEW /HPF (0-2); UNCLASSIFIED CRYSTAL 96 /HPF (None Seen)
[2025-05-16] MEDS ORDERED: CEPH500T PO (18:32)
[2025-05-16] MEDS ORDERED: POTA-192 PO (18:32)
[2025-05-16 18:35] VITALS: BP 125/65; PULSE 60; RESP 16; TEMP 98.4; O2SAT 97
== END 2025-05-16 18:41 | disposition home or self-care (01) ==
LOC: EDH 14:02
DX: N30.00 Acute cystitis without hematuria (principal); E87.6 Hypokalemia; E86.0 Dehydration; E11.9 Type 2 diabetes mellitus without complications; I10 Essential (primary) hypertension; J45.909 Unspecified asthma, uncomplicated; Z20.822 Contact with and (suspected) exposure to COVID-19; Z79.899 Other long term (current) drug therapy; Z86.73 Personal history of transient ischemic attack (TIA), and cerebral infarction without residual deficits; Z88.0 Allergy status to penicillin; Z88.1 Allergy status to other antibiotic agents; Z88.2 Allergy status to sulfonamides; Z88.5 Allergy status to narcotic agent; Z98.84 Bariatric surgery status
CPT/HCPCS: 99283; 96374; 96361; 87426; 80053; 83690; 85025; 87086; 87880; 81001; 36415; J7030; J2405